=== PATIENT | male | born 1950 | race American Indian/Alaskan Native ===

== ENCOUNTER 2020-03-15 02:39 | Emergency (ER) | payer MEDICARE, BC, SELFPAY ==
--- NOTE | ~2020-03-15 | XR_ITS ---
EXAMINATION: XR chest 1V portable INDICATION: Chest pain TECHNIQUE: Portable AP chest at 0316 hours COMPARISON: None available FINDINGS: Cardiomegaly is noted. There is a mild diffuse interstitial pattern. A small left pleural e ffusion is present. There is no pneumothorax. Mild osteoarthritis is noted in the shoulders. IMPRESSION: 1. Cardiomegaly with likely mild pulmonary edema. 2. Small left pleural effusion. Reviewed, dictated and finalized at location A. [employer]
[2020-03-15 02:47] VITALS: BP 160/105; PULSE 88; RESP 19; TEMP 36.6; O2SAT 98
--- NOTE | 2020-03-15 02:49 | ECG_ITS ---
Measurements Intervals [place] Rate: 96 P: [place]: 0 QRS: 19 QRSD: 120 T: -31 QT: 339 QTc: 430 Interpretive Statements ATRIAL FIBRILLATION VENTRICULAR PREMATURE COMPLEXES INTRAVENTRICULAR CONDUCTION DELAY DELAYED PRECORDIAL R/S TRANSITION NONSPECIFIC ST & T-WAVE ABNORMALITY- INF/LAT LEADS BASELINE ARTIFACT- I, II, III, AVR, AVL, AVF, V1-V2 ABNORMAL ECG Electronically Signed On 03-15-2020 14:55:12 [employer] by Elier Jansen D.O.
[2020-03-15 03:04] LABS: Basophils Absolute Auto 0.1 K/mm3 (0.0-0.1); Basophils Percent Auto 0.6 % (0.2-1.2); Eosinophils Absolute Auto 0.1 K/mm3 (0-0.3); Eosinophils Percent Auto 1.4 % (0-4.4); Hematocrit 45.4 % (42.0-52.0); Hemoglobin 14.6 g/dL (14.0-18.0); Immature Granulocyte Absolute 0.06 K/mm3 (0.00-0.031); Immature Granulocyte Percent A 0.8 % (0-0.5); Lymphocytes Absolute Auto 1.56 K/mm3 (0.9-3.2); Lymphocytes Percent Auto 19.9 % (18.3-44.2); Mean Corpuscular HGB Conc 32.2 g/dl (32-36); Mean Corpuscular Hemoglobin 32.7 pg (26-34); Mean Corpuscular Volume 101.6 fl (80-100); Mean Platelet Volume 9.3 fl (7.4-10.4); Monocytes Absolute Auto 0.7 K/mm3 (0.1-0.6); Monocytes Percent Auto 9.5 % (2.6-8.5); Neutrophils Absolute Auto 5.3 K/mm3 (1.3-6.7); Neutrophils Percent Auto 67.8 % (45.5-73.1); Platelet Count Result 255 k/mm3 (150-375); Red Blood Count 4.47 M/mm3 (4.6-6.20); Red Cell Distribution Width 14.2 % (11.5-14.5); White Blood Count 7.8 K/mm3 (4.5-10.0)
[2020-03-15 03:23] LABS: Anion Gap 5 mmol/L (8-16); Blood Urea Nitrogen 19 mg/dL (9-20); Calcium 8.9 mg/dL (8.4-10.2); Carbon Dioxide 31 mmol/L (22-30); Chloride 107 mmol/L (98-107); Estimated CRCL calculation 74 ml/min; Estimated Glomerular Filt Rate > 60; Glucose 105 mg/dL (75-110); Potassium 3.6 mmol/L (3.4-5.0); Sodium 143 mmol/L (137-145)
[2020-03-15 03:35] LABS: Troponin I < 0.012 ng/mL (0.000-0.034)
--- NOTE | 2020-03-15 03:35 | ED.GENADULT ---
HPI - General Adult General Chief complaint: Chest Pain Stated complaint: Heart palpitations, Dizzy Time Seen by Provider: 03/15/20 02:57 History of Present Illness HPI narrative: Patient is a 69-year-old male who presents ER with heart palpitations. Symptoms began this evening. He has history of A. fib usually does not feel it bouncing around his chest. No chest pain or pressure. He did have some pinpoint pain in his upper abdomen briefly. Patient reports he is also had some intermittent dizziness associate with this this evening and also had some dizziness 2 weeks ago caused him to fall to the floor. No numbness or tingling. No runny nose/sore throat/productive cough. Symptoms made him nervous so he came in for evaluation. Dizziness seems to be worse when he looks upward and not with head rotation. Related Data Allergies Allergy/AdvReac Type Severity Reaction Status Date / Time Penicillins Allergy Intermediate Rash Verified 03/15/20 03:37 Review of Systems Review of Systems: All systems reviewed & are unremarkable except as noted in HPI and below Constitutional: Constitutional: Denies chills, Denies fever(s) and Denies weakness ENT: Denies dizziness, Denies nasal congestion and Denies sore throat Cardiovascular: Cardiovascular: Denies chest pain and Denies radiating jaw, neck or arm pain Comments: palpitations Respiratory: Respiratory: Denies cough and Denies dyspnea Gastrointestinal: Gastrointestinal: Reports abdominal pain, Denies nausea and Denies vomiting PMFSH Past Medical History Medical History (Updated 03/15/20 @ 05:05 by Rohan Vazquez MD) Atrial fibrillation PTSD (post-traumatic stress disorder) Exam Narrative: Exam Narrative: GENERAL: Well-appearing, well-nourished, and in no acute distress. HEAD: Normocephalic, atraumatic. CHEST: Clear to auscultation. No respiratory distress. HEART: Irregular regular rate and rhythm. Normal peripheral pulses. ABDOMEN: Soft, nontender, nondistended. EXTREMITIES: Normal range of motion. No edema. SKIN: Warm, dry, no rash. NEURO: Alert and oriented x3. PSYCH: Normal mood and affect. Course Course Emergency Course: Patient informed of results. Symptoms improved with meclizine. Discharge home. Vital Signs Vital signs: Vital Signs Temperature 97.8 F 03/15/20 02:47 Pulse Rate 88 03/15/20 02:47 Respiratory Rate 19 11/01/20 02:47 Blood Pressure 160/105 H 03/15/20 02:47 Pulse Oximetry 98 03/15/20 02:47 Temperature 97.8 F 03/15/20 02:47 Pulse Rate 87 03/15/20 04:13 Respiratory Rate 19 03/15/20 02:47 Blood Pressure 144/91 H 03/15/20 04:13 Pulse Oximetry 98 03/15/20 02:47 Medical Decision Making Vital Signs Vital Signs: Vital Signs Temperature 97.8 F 03/15/20 02:47 Pulse Rate 88 03/15/20 02:47 Respiratory Rate 03/15/20 02:47 Blood Pressure 160/105 H 03/15/20 02:47 Pulse Oximetry 98 03/15/20 02:47 Temperature 97.8 F 03/15/20 02:47 Pulse Rate 87 03/15/20 04:13 Respiratory Rate 19 03/15/20 02:47 Blood Pressure 144/91 H 03/15/20 04:13 Pulse Oximetry 98 03/15/20 02:47 Lab Data Result diagrams: 03/15/20 02:57 03/15/20 02:57 Labs: Lab Results 03/15/20 03/15/20 Range/Units 02:57 02:57 WBC 7.8 (4.5-10.0) K/mm3 RBC 4.47 L (4.6-6.20) M/mm3 Hgb 14.6 (14.0-18.0) g/dL Hct 45.4 (42.0-52.0) % MCV 101.6 H (80-100) fl MCH 32.7 (26-34) pg MCHC 32.2 (32-36) g/dl RDW 14.2 (11.5-14.5) % Plt Count 255 (150-375) k/mm3 MPV 9.3 (7.4-10.4) fl Immature Gran % (Auto) 0.8 H (0-0.5) % Neut % (Auto) 67.8 (45.5-73.1) % Lymph % (Auto) 19.9 (18.3-44.2) % [place] % (Auto) 9.5 H (2.6-8.5) % Eos % (Auto) 1.4 (0-4.4) % Baso % (Auto) 0.6 (0.2-1.2) % Lymph # (Auto) 1.56 (0.9-3.2) K/mm3 [place] # (Auto) 0.7 H (0.1-0.6) K/mm3 Eos # (Auto) 0.1 (0-0.3) K/mm3 Baso # (Auto) 0.1 (0.0-0.1) K/mm3 Abs Imm
[2020-03-15] MEDS: MECLIZINE HCL 25 MG TABLET PO (03:36)
[2020-03-15 04:13] VITALS: BP 137/93; BP 144/91; BP 145/85; PULSE 85; PULSE 87; PULSE 90
[2020-03-15 05:28] VITALS: BP 134/94; PULSE 76; RESP 18; O2SAT 98
== END 2020-03-15 05:29 | disposition home or self-care (01) ==
PROVIDERS: Emergency Provider Emergency Medicine; PCP Internal Medicine
DX: R00.2 Palpitations (principal); R42 Dizziness and giddiness; I48.91 Unspecified atrial fibrillation; I49.3 Ventricular premature depolarization; I45.9 Conduction disorder, unspecified; R94.31 Abnormal electrocardiogram [ECG] [EKG]
CPT/HCPCS: 36415; 71045; 80048; 84484; 85025; 93005; 99284; A9270

== ENCOUNTER 2020-04-06 10:57 | Outpatient (CLI) | payer MEDICARE, BC, SELFPAY ==
[2020-04-06 12:08] LABS: Alanine Aminotransferase 18 U/L (4-50); Alkaline Phosphatase 120 U/L (38-126); Anion Gap 6 mmol/L (8-16); Aspartate Amino Transferase 30 U/L (17-59); Bilirubin,Total 1.1 mg/dL (0.2-1.3); Blood Urea Nitrogen 15 mg/dL (9-20); Calcium 9.2 mg/dL (8.4-10.2); Carbon Dioxide 32 mmol/L (22-30); Chloride 102 mmol/L (98-107); Cholesterol 200 mg/dL (0-200); Estimated Glomerular Filt Rate > 60; Glucose 89 mg/dL (75-110); HDL Direct 50 mg/dL; Potassium 3.3 mmol/L (3.4-5.0); Sodium 140 mmol/L (137-145); Triglycerides 97 mg/dL (<150)
[2020-04-06 12:19] LABS: LDL Cholesterol Direct 135 mg/dL
[2020-04-06 12:38] LABS: Prostate Specific Antigen 1.8 ng/mL (< OR = 4.0)
== END 2020-04-06 10:58 | disposition home or self-care (01) ==
PROVIDERS: PCP Internal Medicine; Visit Provider Nurse Practitioner
DX: E78.00 Pure hypercholesterolemia, unspecified (principal); F33.1 Major depressive disorder, recurrent, moderate; Z12.5 Encounter for screening for malignant neoplasm of prostate
CPT/HCPCS: 36415; 80053; 80061; 84153; 84443; G0103

== ENCOUNTER 2020-09-14 11:04 | Outpatient (CLI) | payer MEDICARE, BC, SELFPAY ==
[2020-09-14 12:16] LABS: Alanine Aminotransferase 15 U/L (4-50); Alkaline Phosphatase 84 U/L (38-126); Anion Gap 4 mmol/L (8-16); Aspartate Amino Transferase 30 U/L (17-59); Blood Urea Nitrogen 11 mg/dL (9-20); Calcium 9.1 mg/dL (8.4-10.2); Carbon Dioxide 33 mmol/L (22-30); Chloride 105 mmol/L (98-107); Cholesterol 127 mg/dL (0-200); Estimated Glomerular Filt Rate 60; Glucose 98 mg/dL (75-110); HDL Direct 50 mg/dL; Potassium 3.4 mmol/L (3.4-5.0); Sodium 142 mmol/L (137-145); Triglycerides 76 mg/dL (<150)
[2020-09-14 12:21] LABS: LDL Cholesterol Direct 61 mg/dL
== END 2020-09-14 11:05 | disposition home or self-care (01) ==
PROVIDERS: PCP Internal Medicine; Visit Provider Nurse Practitioner
DX: F33.1 Major depressive disorder, recurrent, moderate (principal); E78.00 Pure hypercholesterolemia, unspecified
CPT/HCPCS: 36415; 80053; 80061; 84443

== ENCOUNTER 2020-12-05 10:24 | Inpatient (IN) | payer MEDICARE, BC, SELFPAY ==
[2020-12-05] VITALS (23 sets, daily range): BP systolic 121–193; BP diastolic 63–112; PULSE 83–112; RESP 18–33; TEMP 36.1–37.2; O2SAT 89–98; BMI 29.7
--- NOTE | ~2020-12-05 | XR_ITS ---
XR chest 2V DATE: 12/05/2020 10:58 INDICATION: Shortness of breath, cough TECHNIQUE: PA and lateral views COMPARISON: 11/13/2012 CT pulmonary scan FINDINGS: Cardiomegaly. Aortic calcification and mild unfolding. There are patchy infiltrates in the right mid and both lower lung zones. Currently B-lines are noted in both mid and lower lung zones, which may be due to pulmonary interstit ial edema, pneumonitis and/or fibrosis. Diffuse idiopathic skeletal hyperostosis of the thoracolumbar spine IMPRESSION: Cardiomegaly Patchy right mid and bilateral lower lung infiltrates. Differential diagnosis includes bilateral pneu monia, pulmonary edema Reviewed, dictated and finalized at location A. IMPRESSION: Cardiomegaly Patchy right mid and bilateral lower lung infiltrates. Differential diagnosis i ncludes bilateral pneumonia, pulmonary edema
--- NOTE | ~2020-12-05 | XR_ITS ---
XR chest 1V portable 12/07/2020 09:11 Indication: Pneumonia. CHF. Cough. Procedure: AP portable chest Comparison: 12/05/2020 Findings: Improving bibasilar airspace disease. Moderate cardiomegaly. Small left pleural effusion. Impression: 1: Improving bibasilar airspace disease, compatible with resolving pneumonia. 2: Small left pleural effusion. 3: Cardiomegaly. Reviewed, dictated and finalized at location A. Impression: 1: Improving bibasilar airspace disease, compatible with resolving pneumonia. 2: Small left pleural effusion. 3: Cardiomegaly.
--- NOTE | ~2020-12-05 | CT_ITS ---
EXAMINATION: CTA chest PE protocol DATE: 12/05/2020 11:47 INDICATION: Shortness of breath. History of congestive heart failure. TECHNIQUE: Computed tomography angiography (CTA) of the chest was performed with 100 mL Omnipaque-350 intravenous contrast timed to evaluate the pulmonary arteries. Coronal maximum intensity projection 3D-reconstructions were created by the technologist. Automated exposure control and iterative reconst ruction technique were employed. Exam dose: 749.84 mGy-cm total exam DLP. COMPARISON: 11/13/2012 CT pulmonary scan 12/01/2020 2 view chest FINDINGS: There is diagnostic contrast enhancement of the pulmonary arteries and no evidence of pulmo nary embolism. Cardiomegaly. Coronary artery calcifications. No pericardial effusion. There is minimal right pleural effusion. The aortic arch measures up to 3.4 cm diameter, consistent with mild thoracic aortic aneurysm. No hilar or mediastinal mass lesion or lymphadenopathy. Mild patchy right upper lobe infiltrate, patchy consolidating middle lobe and right lower lobe infilt rates and mild patchy left lower lobe infiltrate. Subacute anterior right seventh and eighth healing rib fractures Diffuse idiopathic skeletal hyperostosis of the thoracic spine. IMPRESSION: Cardiomegaly, minimal right pleural effusion and patchy right upper, middle and lower lo be and mild patchy left lower lobe infiltrates. Differential diagnosis for the bilateral infiltrates includes pneumonia, pulmonary edema. Reviewed, dictated and finalized at Location A. Reviewed, dictated and finalized at location A. IMPRESSION: Cardiomegaly, minimal right pleural effusion and patchy right uppe r, middle and lower lobe and mild patchy left lower lobe infiltrates. Differential diagnosis for the bilateral infiltrates includes pneumonia, pulmon renetta edema.
--- NOTE | 2020-12-05 10:32 | ECG_ITS ---
Measurements Intervals [place] Rate: 103 P: [place]: 0 QRS: 54 QRSD: 124 T: -40 QT: 337 QTc: 443 Interpretive Statements ATRIAL FIBRILLATION WITH RAPID VENTRICULAR RESPONSE INTRAVENTRICULAR CONDUCTION DELAY CANNOT RULE OUT SEPTAL INFARCT, AGE INDETERMINATE BORDERLINE T WAVE ABNORMALITY- INF/LAT LEADS BASELINE ARTIFACT- II, III, AVF, V1-V6 ABNORMAL ECG Electronically Signed On 12-05-2020 17:04:42 CDT by Elier Jansen D.O.
[2020-12-05 10:45] LABS: Basophils Absolute Auto 0.1 K/mm3 (0.0-0.1); Basophils Percent Auto 0.4 % (0.2-1.2); Eosinophils Percent Auto 0.3 % (0-4.4); Hematocrit 40.4 % (42.0-52.0); Immature Granulocyte Absolute 0.07 K/mm3 (0.00-0.031); Immature Granulocyte Percent A 0.6 % (0-0.5); Lymphocytes Absolute Auto 1.11 K/mm3 (0.9-3.2); Lymphocytes Percent Auto 9.4 % (18.3-44.2); Mean Corpuscular HGB Conc 32.2 g/dl (32-36); Mean Corpuscular Hemoglobin 31.8 pg (26-34); Mean Corpuscular Volume 98.8 fl (80-100); Mean Platelet Volume 10.9 fl (7.4-10.4); Monocytes Absolute Auto 1.1 K/mm3 (0.1-0.6); Monocytes Percent Auto 9.2 % (2.6-8.5); Neutrophils Absolute Auto 9.4 K/mm3 (1.3-6.7); Neutrophils Percent Auto 80.1 % (45.5-73.1); Platelet Count Result 228 k/mm3 (150-375); Red Blood Count 4.09 M/mm3 (4.6-6.20); Red Cell Distribution Width 14.5 % (11.5-14.5); White Blood Count 11.8 K/mm3 (4.5-10.0)
--- NOTE | 2020-12-05 10:51 | ED.SOB ---
HPI - SOB/Dyspnea History of Present Illness HPI Narrative: 70 yo male presents to the ED for SOB. He reports that he has been SOB since last night. This is associated with mild cough. He was recently admitted to [place] for CHF. He reports doing well until last night. No Cp, nausea, vomiting, diarrhea. Unsure about fever. He has had his COVID vaccine. Related Data Home Medications Medication Instructions Recorded Confirmed atorvastatin 80 mg tablet 80 mg PO DAILY 03/11/19 11/03/20 carvedilol 6.25 mg tablet 6.25 mg PO BID tablet 03/11/19 11/03/20 dabigatran etexilate 150 mg capsule 150 mg PO BID 03/11/19 11/03/20 lisinopril 40 mg tablet 40 mg PO BID tablet 03/11/19 11/03/20 terazosin 5 mg capsule 5 mg PO DAILY 03/11/19 11/03/20 hydrochlorothiazide 25 mg PO DAILY 12/05/20 12/05/20 Allergies Allergy/AdvReac Type Severity Reaction Status Date / Time Beta-Blockers Allergy Severe Difficulty Verified 12/01/20 13:42 (Beta-Adrenergic Bloc Breathing citalopram Allergy Severe SWEATING, Verified 12/01/20 13:42 AGITATED Penicillins Allergy Severe Swelling Verified 12/01/20 13:42 of Lip/Tongue/Throat Review of Systems Review of Systems: All systems reviewed & are unremarkable except as noted in HPI and below ENT: Denies sore throat Cardiovascular: Cardiovascular: Denies chest pain Respiratory: Respiratory: Reports cough and Reports dyspnea Gastrointestinal: Gastrointestinal: Denies abdominal pain and Denies vomiting Genitourinary: Genitourinary: Reports no additional male genitourinary complaints Neurologic: Reports system reviewed and no additional complaints, except as documented [facility] Past Medical History Medical History Abnormality of heart beat Arthritis Diabetes Gastroesophageal reflux disease High blood pressure High cholesterol IT band syndrome Other abnormalities of heart beat Right shoulder pain Screening for colon cancer Skin lesions Vision abnormalities Weight loss Xerosis of skin Family History Family History Mother Family history of malignant neoplasm Father Acute myocardial infarction Other Diabetes mellitus Family history of arthritis Family history of premature coronary heart disease Hypertension Social History Social History Smoking status: Former smoker Tobacco type: cigarettes Smoking end date: 10/13/10 Alcohol intake: never Substance use: never Gender identity (if verbalized by the patient): Male Exam Const: General: no acute distress and alert Orientation/consciousness: patient oriented x3 HENMT: Head: normal to inspection Chest: Chest palpation & inspection: normal inspection of the chest Resp: Effort & Inspection: tachypneic Auscultation: diminished lung sounds Cardio: Rate: regular rate Rhythm: abnormal rhythm irregularly irregular GI: GI Palp: Yes Soft to palpation and No Tenderness to palpation present (GI) Skin: General skin exam: normal color Neuro: General: patient oriented x3, moves all extremities and no focal motor deficits Speech: normal speech Extrem: General: normal to inspection and no edema Course Vital Signs Vital signs: Vital Signs Temperature 36.8 C 12/05/20 10:30 Pulse Rate 93 12/05/20 10:30 Respiratory Rate 24 H 12/05/20 10:30 Blood Pressure 176/107 H 12/05/20 10:30 Pulse Oximetry 96 12/05/20 10:30 Temperature 37.2 C 12/05/20 12:03 Pulse Rate 102 H 12/05/20 13:03 Respiratory Rate 24 H 12/05/20 13:03 Blood Pressure 170/112 H 12/05/20 13:03 Pulse Oximetry 98 12/05/20 13:03 MDM - SOB/Dyspnea MDM Narrative Medical decision making narrative: CT negative for PE. Concerning for pneumonia +/- CHF. Differential Diagnosis Differential diagnosis: Likely congestive heart failure, community acquired pneu
[2020-12-05 10:56] LABS: INR 1.4; Prothrombin Time 17.2 Seconds (11.1-14.7)
[2020-12-05 10:57] LABS: Partial Thromboplastin Time 55.6 SECONDS (22.3-36.8)
[2020-12-05 10:58] LABS: Anion Gap 9 mmol/L (8-16); Blood Urea Nitrogen 15 mg/dL (9-20); Calcium 9.1 mg/dL (8.4-10.2); Carbon Dioxide 28 mmol/L (22-30); Chloride 102 mmol/L (98-107); Estimated CRCL calculation 65 ml/min; Estimated Glomerular Filt Rate > 60; Glucose 101 mg/dL (65-110); Potassium 3.7 mmol/L (3.4-5.0); Sodium 139 mmol/L (137-145)
[2020-12-05 11:11] LABS: NT Pro B Type Natriuretic Pept 4740 pg/mL (5-100)
--- NOTE | 2020-12-05 12:11 | PC.NURSE ---
Patient placed on oxygen at 2 liters by nasal canula and helped to reposition.
[2020-12-05] MEDS: FUROSEMIDE INJ 40 MG/4 ML VIAL IV PUSH ×2 (13:05→22:54)
[2020-12-05] MEDS: NITROGLYCERIN OINTMENT 1 INCH DOSE 0.5 INCH TRANSDERM (13:05)
--- NOTE | 2020-12-05 16:05 | ADMGEN ---
This patient, Popeye Hernandez, was admitted to [facility] Surg Room 303-01 at 1620. Report from Arya. Patient/family oriented to hospital policies and general routines including ID bracelet, bed and alarms, visiting hours, pain management, procedures, bathroom and other care routines, personal items, smoking policy, room service/diet, and visiting hours. Information on how to activate the Rapid Response Team has been discussed. Patient/Family are encouraged to report perceived risks to care and to ask questions if they do not understand what they are told or what they should do.
[2020-12-05 16:43] LABS: Procalcitonin 0.1 ng/mL
[2020-12-05 17:02] LABS: Troponin I 0.027 ng/mL (0.000-0.034)
[2020-12-05 17:31] LABS: Alanine Aminotransferase 22 U/L (4-50); Albumin Level 4.3 g/dL (3.5-5.1); Alkaline Phosphatase 92 U/L (38-126); Aspartate Amino Transferase 37 U/L (17-59); Lactate Dehydrogenase 682 U/L (313-618); Magnesium 1.8 mg/dL (1.6-2.3)
[2020-12-05 18:28] LABS: Troponin I 0.024 ng/mL (0.000-0.034)
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
[2020-12-05] MEDS: ALBUTEROL SULFATE NEB 2.5 MG/0.5 ML INH 5 MG INHALATION (22:46)
[2020-12-05] MEDS: IPRATROPIUM BR 0.02% INH SOLN 0.5 MG/2.5 ML VIAL INHALATION (22:47)
[2020-12-06] VITALS (18 sets, daily range): BP systolic 119–153; BP diastolic 80–105; PULSE 70–118; RESP 12–18; TEMP 36–36.9; O2SAT 94–98
[2020-12-06] MEDS: IPRATROPIUM BR 0.02% INH SOLN 0.5 MG/2.5 ML VIAL INHALATION ×4 (04:03→21:35)
[2020-12-06] MEDS: ALBUTEROL SULFATE NEB 2.5 MG/0.5 ML INH 5 MG INHALATION ×3 (04:03→13:50)
[2020-12-06] MEDS: valACYclovir HCL 500 MG TABLET 1000 MG PO ×3 (06:12→21:11)
[2020-12-06 07:08] LABS: Anion Gap 8 mmol/L (8-16); Blood Urea Nitrogen 17 mg/dL (9-20); Calcium 9.2 mg/dL (8.4-10.2); Carbon Dioxide 32 mmol/L (22-30); Chloride 99 mmol/L (98-107); Estimated CRCL calculation 59 ml/min; Estimated Glomerular Filt Rate > 60; Glucose 129 mg/dL (65-110); Magnesium 1.8 mg/dL (1.6-2.3); Sodium 139 mmol/L (137-145)
[2020-12-06 08:37] LABS: Glucose Point of Care 123 mg/dl (65-105)
[2020-12-06] MEDS: TERAZOSIN HCL 5 MG CAPSULE PO (09:02)
[2020-12-06] MEDS: buPROPion HCL SR (12 HR) 150 MG TAB PO (09:02)
[2020-12-06] MEDS: DABIGATRAN ETEXILATE 150 MG CAPSULE PO ×2 (09:02→17:07)
[2020-12-06] MEDS: ATORVASTATIN 40 MG TABLET 80 MG PO (09:03)
[2020-12-06] MEDS: FUROSEMIDE INJ 40 MG/4 ML VIAL IV PUSH ×2 (09:03→21:11)
[2020-12-06] MEDS: carvediloL 6.25 MG TABLET PO ×2 (09:03→18:01)
[2020-12-06] MEDS: hydroCHLOROthiazide 25 MG TABLET PO (09:03)
[2020-12-06] MEDS: lisinopriL 20 MG TABLET 40 MG PO ×2 (09:03→17:07)
[2020-12-06] MEDS: POTASSIUM CHLORIDE 20 MEQ TABLET 40 MEQ PO (10:06)
[2020-12-06 17:05] LABS: Glucose Point of Care 99 mg/dl (65-105)
[2020-12-06] MEDS: POTASSIUM CHLORIDE 20 MEQ TABLET PO (17:08)
--- NOTE | 2020-12-06 17:18 | PM.IMPN ---
Progress Note: A&P Assessment and Plan (1) Person under investigation for COVID-19: Code(s): Z20.822 - Contact with and (suspected) exposure to COVID-19 Status: Acute Assessment and Plan: Await PCR - patient has bilateral pneumonia but has been fully vaccinated with Moderna - he is not requiring oxygen - will continue Atrovent, Xopenex, azithromycin, and ceftriaxone - will consider Decadron depending on the COVID results (2) Congestive heart failure: Code(s): I50.9 - Heart failure, unspecified Status: Acute Assessment and Plan: Patient was recently hospitalized for CHF and had an echocardiogram done but does not know any results. We are awaiting records - imaging does possibly suggest edema, continue Lasix 40 mg b.i.d. - consider cardiology consult if patient does not improve - continue carvedilol, Lasix, atorvastatin, lisinopril, and Pradaxa since he has AFib (3) Atrial fibrillation: Qualifiers: Atrial fibrillation type: longstanding persistent Qualified Code(s): I48.11 - Longstanding persistent atrial fibrillation Code(s): I48.91 - Unspecified atrial fibrillation Status: Acute Assessment and Plan: patient ranges from 90-150 - currently without chest pain or palpitations - will increase carvedilol dose - monitor heart rate - likely elevated due to acute illness -will check TSH in the AM -Consider cardiology consult in AM - patient has an allergy to beta-blockers but tolerates carvedilol. This makes me slightly hesitant to use Lopressor IV and I will need further clarification of this (4) Chronic anticoagulation: Code(s): Z79.01 - tank calibrator (current) use of anticoagulants Status: Acute Assessment and Plan: due to AFib - continue with Pradaxa (5) Hypertension: Code(s): I10 - Essential (primary) hypertension Status: Acute Assessment and Plan: last blood pressure 138/87 - continue carvedilol, Lasix and lisinopril (6) Mixed hyperlipidemia: Code(s): E78.2 - Mixed hyperlipidemia Status: Acute Assessment and Plan: continue atorvastatin (7) Diet-controlled diabetes mellitus: Code(s): E11.9 - Type 2 diabetes mellitus without complications Status: Acute Assessment and Plan: Last glucose 99 -Diet controlled -Monitor Time Spent With Patient Time with patient: 25 - 35 minutes Subjective Date/time seen: 12/06/20 17:18 Interval history: Pt is a 70-year-old male here for pneumonia versus CHF. Patient was seen today and states he feels about the same since admission. He is no longer on the oxygen and he feels like he coughs a little more without the oxygen but overall feels okay. He is been to and from the bathroom and does not have much shortness of breath. He continues to cough but has a dry cough. He denies nausea, vomiting, fevers, chills, chest pain, palpitations, abdominal pain, leg swelling for headaches. He sees Dr. Pabon and was just hospitalized at [place] for heart failure but does not know any specifics. Review of Systems Review of Systems: All systems reviewed & are unremarkable except as noted in HPI and below Exam Narrative: Exam Narrative: General: Well developed well nourished patient in NAD HEENT: normocephalic Neck: supple Neuro: Alert and oriented x4 CV: irregularly irregular with a rate of 98 on exam. Telemetry shows atrial fibrillation with variable rate up to 140 but now at 98 Resp: crackles at both the bases, no conversational dyspnea or oxygen requirements. Abd: Soft, non distended. No pain to palpation. Positive bowel sounds Extremities: No swelling, erythema, or pain to palpation. Objective Data Vital Signs Vital Signs: Vital Signs - 24 hr 12/05/20 20:00 12/05/20 22:00 12/05/20 22:47 Temperature 97.0 F L Pulse Rate 101 H 96 96 Respiratory Rate 20 Blood Pressure 151/101 H Pu
--- NOTE | 2020-12-06 17:29 | ECG_ITS ---
Measurements Intervals [place] Rate: 128 P: [place]: 0 QRS: 42 QRSD: 125 T: -36 QT: 329 QTc: 481 Interpretive Statements ATRIAL FIBRILLATION WITH RAPID VENTRICULAR RESPONSE FREQUENT VENTRICULAR PREMATURE COMPLEXES INTRAVENTRICULAR CONDUCTION DELAY BORDERLINE R WAVE PROGRESSION, ANTERIOR LEADS NONSPECIFIC ST & T-WAVE ABNORMALITY- INF/LAT LEADS BASELINE WANDER- V3 ABNORMAL ECG Electronically Signed On 12-07-2020 8:05:36 CDT by Elier Jansen D.O.
[2020-12-06] MEDS: carvediloL 3.125 MG TABLET PO (18:02)
[2020-12-06] MEDS: ALPRAZolam (*CRX) 0.5 MG TABLET PO (21:11)
[2020-12-07] VITALS (20 sets, daily range): BP systolic 103–144; BP diastolic 59–106; PULSE 71–143; RESP 12–18; TEMP 36.2–36.6; O2SAT 93–100; BMI 28.6
[2020-12-07] MEDS: IPRATROPIUM BR 0.02% INH SOLN 0.5 MG/2.5 ML VIAL INHALATION ×4 (02:18→19:58)
[2020-12-07 04:10] LABS: Glucose Point of Care 88 mg/dl (65-105)
[2020-12-07] MEDS: valACYclovir HCL 500 MG TABLET 1000 MG PO ×3 (06:10→21:51)
[2020-12-07 06:51] LABS: Hematocrit 40.7 % (42.0-52.0); Hemoglobin 13.2 g/dL (14.0-18.0); Mean Corpuscular HGB Conc 32.4 g/dl (32-36); Mean Corpuscular Hemoglobin 30.8 pg (26-34); Mean Corpuscular Volume 94.9 fl (80-100); Mean Platelet Volume 11.1 fl (7.4-10.4); Platelet Count Result 266 k/mm3 (150-375); Red Blood Count 4.29 M/mm3 (4.6-6.20); Red Cell Distribution Width 14.4 % (11.5-14.5); White Blood Count 9.5 K/mm3 (4.5-10.0)
[2020-12-07 08:06] LABS: Glucose Point of Care 88 mg/dl (65-105)
[2020-12-07] MEDS: TERAZOSIN HCL 5 MG CAPSULE PO (08:20)
[2020-12-07] MEDS: buPROPion HCL SR (12 HR) 150 MG TAB PO (08:20)
[2020-12-07] MEDS: ATORVASTATIN 40 MG TABLET 80 MG PO (08:20)
[2020-12-07] MEDS: lisinopriL 20 MG TABLET 40 MG PO ×2 (08:21→16:48)
[2020-12-07] MEDS: carvediloL 3.125 MG TABLET PO (08:21)
[2020-12-07] MEDS: DABIGATRAN ETEXILATE 150 MG CAPSULE PO ×2 (08:22→16:48)
[2020-12-07] MEDS: FUROSEMIDE INJ 40 MG/4 ML VIAL IV PUSH (08:22)
[2020-12-07] MEDS: carvediloL 6.25 MG TABLET PO (08:22)
[2020-12-07] MEDS: hydroCHLOROthiazide 25 MG TABLET PO (08:22)
[2020-12-07 08:32] LABS: Anion Gap 6 mmol/L (8-16); Blood Urea Nitrogen 27 mg/dL (9-20); Calcium 8.8 mg/dL (8.4-10.2); Carbon Dioxide 31 mmol/L (22-30); Chloride 103 mmol/L (98-107); Estimated CRCL calculation 54 ml/min; Estimated Glomerular Filt Rate > 60; Glucose 80 mg/dL (65-110); Magnesium 1.9 mg/dL (1.6-2.3); Sodium 140 mmol/L (137-145)
[2020-12-07] MEDS: POTASSIUM CHLORIDE 20 MEQ TABLET 40 MEQ PO (10:27)
[2020-12-07 11:59] LABS: Glucose Point of Care 118 mg/dl (65-105)
--- NOTE | 2020-12-07 12:08 | PM.CNCAR ---
Assessment and Plan Additional Plan this is a 70-year-old man with: Established diagnosis of a nonischemic cardiomyopathy and chronic atrial fibrillation. He has been developing some decompensated congestive heart failure recently. I would recommend trying to transition him from carvedilol to metoprolol as this will likely provide better heart rate control. I am going to shifting to oral furosemide at this time since he appears to be euvolemic on physical exam. He probably should be discharged on furosemide rather than hydrochlorothiazide regimen this time. We will follow him with you during this hospital stay I would expect in [place] can be discharged within the next 24-48 hours if he continues to improve and heart rate control is achieved. Systemic anticoagulation with dabigatran state of course also be continued. Ross Pabon MD [facility] History of Present Illness History of Present Illness Consult date/time: 12/07/20 12:08 Consult reason: atrial fibrillation and congestive heart failure Reason For Visit: Pneumonia/CHF Narrative: This is a 70-year-old man I am seeing at the request of the hospitalist because of shortness of breath, congestive heart failure/ AFib with RVR. Patient is known to me with a long-standing diagnosis of a nonischemic cardiomyopathy and chronic atrial fibrillation. The diagnosis of this was originally made in 2012 when he presented with congestive heart failure and he has been doing well with rate control and systemic anticoagulation since that time. An angiogram done at the time of his diagnosis showed no evidence of coronary artery disease. I last saw this man follow-up this year in May about 7 months ago at which time he was doing very well. He was reporting being under a lot of stress at home because he is taking care of his who became severely depressed and very this functionally depressed since the of a grandchild couple of years ago. The patient states that he has noticed a couple of episodes with significant dyspnea recently. About 2 weeks ago he was hospitalized at [facility] with shortness of breath felt to have evidence of some CHF. It looks like he was given some furosemide overnight felt better and was discharged on his standard medical regimen. An echocardiogram done at during that hospitalization showed some LV dysfunction with an ejection fraction of 30% and no significant valvular disease. His regimen has consisted of carvedilol 6.25 mg b.i.d., dabigatran, lisinopril 40 mg daily and hydrochlorothiazide. He has received some intravenous furosemide 40 mg q.12 hours since admission Monday of this past weekend he has been urinating frequently and has not been short of breath any longer as of about last evening. His chest x-ray which looked moderately congested on presentation did look improved this morning as well. Review of Systems Constitutional: Constitutional: Reports no additional constitutional complaints Eyes: Eyes: Reports no additional eye complaints ENT: Reports system reviewed and no additional complaints, except as documented Cardiovascular: Cardiovascular: Reports as per HPI Respiratory: Respiratory: Reports dyspnea Gastrointestinal: Gastrointestinal: Reports no additional gastrointestinal complaints Musculoskeletal: Musculoskeletal: Reports no additional musculoskeletal complaints Integumentary/Breasts: Skin/Breast: Reports system reviewed and no additional complaints, except as docu Neurologic: Reports system reviewed and no additional complaints, except as documented Psychiatric: Comments: Significant psychosocial stress at home as detailed above Endocrine: Endocrine: Reports no additional endocrine complaints Hematologic/Lymphatic: Hematologic/Lymphatic: Reports no additional hematologic/lymphatic complaints Allergic/Immunologic: Allergic/Immunologic: Reports no additional allergic/immunologic complaints PMFSH Past Medical History Medi
[2020-12-07] MEDS: METOPROLOL SUCCINATE EXT REL 50 MG TABCR PO (12:48)
--- NOTE | 2020-12-07 16:13 | PM.IMPN ---
Progress Note: A&P Assessment and Plan (1) Person under investigation for COVID-19: Code(s): Z20.822 - Contact with and (suspected) exposure to COVID-19 Status: Acute Assessment and Plan: Await PCR - patient has bilateral pneumonia but has been fully vaccinated with Moderna - he is not requiring oxygen - will continue Atrovent, Xopenex, azithromycin, and ceftriaxone - will consider Decadron depending on the COVID results (2) Congestive heart failure: Code(s): I50.9 - Heart failure, unspecified Status: Acute Assessment and Plan: Patient was recently hospitalized for CHF and had an echocardiogram done with an EF of 30% - imaging does possibly suggest edema,was on lasix 40mg BID IV. Cardiology has changed it to 20mg daily orally starting tomorrow - He is a patient of Dr. Garcia and he has been consulted - continue Lasix, atorvastatin, lisinopril, and Pradaxa since he has AFib. Coreg changed to metoprolol - consider stopping lisinopril and starting losartan if patient continues to have a cough and COVID-19 PCR is negative (3) Atrial fibrillation: Qualifiers: Atrial fibrillation type: longstanding persistent Qualified Code(s): I48.11 - Longstanding persistent atrial fibrillation Code(s): I48.91 - Unspecified atrial fibrillation Status: Acute Assessment and Plan: patient ranges from 90-150 - currently without chest pain or palpitations - carvedilol changed to metoprolol by Cardiology - monitor heart rate - likely elevated due to acute illness - TSH normal (4) Chronic anticoagulation: Code(s): 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 Status: Acute Assessment and Plan: due to AFib - continue with Pradaxa (5) Hypertension: Code(s): I10 - Essential (primary) hypertension Status: Acute Assessment and Plan: last blood pressure 103/59 - continue metoprolol, Lasix and lisinopril (6) Mixed hyperlipidemia: Code(s): E78.2 - Mixed hyperlipidemia Status: Acute Assessment and Plan: continue atorvastatin (7) Diet-controlled diabetes mellitus: Code(s): E11.9 - Type 2 diabetes mellitus without complications Status: Acute Assessment and Plan: Last glucose 118 -Diet controlled -Monitor Subjective Date/time seen: 12/07/20 16:13 Interval history: Pt is a 70-year-old male here for pneumonia versus CHF. Patient was seen today and is feeling better. His SOB has improved. He continues to have a dry cough. He denies nausea, vomiting, fevers, chills, chest pain, palpitations, abdominal pain, leg swelling for headaches. He sees Dr. Pabon and was just hospitalized at [facility] for heart failure but does not know any specifics. Exam Narrative: Exam Narrative: General: Well developed well nourished patient in NAD HEENT: normocephalic Neck: supple Neuro: Alert and oriented x4 CV: irregularly irregular with a rate of 128 on exam. Telemetry shows atrial fibrillation with variable rate up to 140 but now at 128 Resp: light crackles at both the bases, no conversational dyspnea or oxygen requirements. Abd: Soft, non distended. No pain to palpation. Positive bowel sounds Extremities: No swelling, erythema, or pain to palpation. Objective Data Vital Signs Vital Signs: Vital Signs - 24 hr 12/06/20 16:16 12/06/20 20:00 12/06/20 21:36 Temperature 98.0 F 96.8 F L Pulse Rate 107 H 91 70 Respiratory Rate 12 18 18 Blood Pressure 138/87 135/83 Pulse Oximetry 95 95 12/06/20 21:44 12/07/20 00:00 12/07/20 02:18 Temperature 97.3 F L Pulse Rate 71 93 88 Respiratory Rate 18 18 18 Blood Pressure 130/85 Pulse Oximetry 94 97 12/07/20 03:38 12/07/20 04:00 12/07/20 08:00 Temperature 97.1 F L Pulse Rate 84 119 H 143 H Respiratory Rate 18 18 Blood Pressure 139/94 H Pulse Oximetry 93 12/07/20 08:11 12/07/20 08
[2020-12-07 16:31] LABS: Glucose Point of Care 106 mg/dl (65-105)
[2020-12-07] MEDS: POTASSIUM CHLORIDE 20 MEQ TABLET PO (17:00)
[2020-12-07 22:02] LABS: Glucose Point of Care 83 mg/dl (65-105)
[2020-12-08] VITALS (13 sets, daily range): BP systolic 107–151; BP diastolic 72–107; PULSE 67–125; RESP 16–20; TEMP 36.5–36.9; O2SAT 95–98
[2020-12-08] MEDS: IPRATROPIUM BR 0.02% INH SOLN 0.5 MG/2.5 ML VIAL INHALATION ×3 (02:14→21:38)
[2020-12-08] MEDS: valACYclovir HCL 500 MG TABLET 1000 MG PO ×3 (05:51→21:00)
[2020-12-08 06:54] LABS: Anion Gap 7 mmol/L (8-16); Blood Urea Nitrogen 30 mg/dL (9-20); Calcium 9.1 mg/dL (8.4-10.2); Carbon Dioxide 30 mmol/L (22-30); Chloride 103 mmol/L (98-107); Estimated CRCL calculation 54 ml/min; Estimated Glomerular Filt Rate > 60; Glucose 88 mg/dL (65-110); Potassium 3.5 mmol/L (3.4-5.0); Sodium 140 mmol/L (137-145)
[2020-12-08 08:39] LABS: Glucose Point of Care 86 mg/dl (65-105)
[2020-12-08] MEDS: lisinopriL 20 MG TABLET 40 MG PO ×2 (09:00→16:44)
[2020-12-08] MEDS: TERAZOSIN HCL 5 MG CAPSULE PO (09:00)
[2020-12-08] MEDS: buPROPion HCL SR (12 HR) 150 MG TAB PO (09:00)
[2020-12-08] MEDS: ATORVASTATIN 40 MG TABLET 80 MG PO (09:00)
[2020-12-08] MEDS: DABIGATRAN ETEXILATE 150 MG CAPSULE PO ×2 (09:00→16:44)
[2020-12-08] MEDS: METOPROLOL SUCCINATE EXT REL 50 MG TABCR PO (09:00)
[2020-12-08] MEDS: FUROSEMIDE 20 MG TABLET PO (09:00)
--- NOTE | 2020-12-08 11:05 | P.CDI_ITS ---
CDI Query Clarification Request -CHF has been documented -Nonischemic cardiomyopathy and Patient was recently hospitalized for CHF and had an echocardiogram done with an EF of 30% documented -Lasix 40mg IV q 12 hrs ordered and changed to 20mg PO daily starting 12/08. Please further specify type and acuity of CHF: * Systolic *acute * Diastolic *chronic * Both systolic and diastolic *acute on chronic * Unable to determine *unable to determine
[2020-12-08 11:46] LABS: Glucose Point of Care 105 mg/dl (65-105)
--- NOTE | 2020-12-08 15:28 | PM.IMPN ---
Progress Note: A&P Assessment and Plan (1) Person under investigation for COVID-19: Code(s): Z20.822 - Contact with and (suspected) exposure to COVID-19 Status: Acute Assessment and Plan: Await PCR - patient has bilateral pneumonia but has been fully vaccinated with Moderna - he is not requiring oxygen - will continue Atrovent, Xopenex, azithromycin, and ceftriaxone - will consider Decadron depending on the COVID results (2) Congestive heart failure: Code(s): I50.9 - Heart failure, unspecified Status: Acute Assessment and Plan: Acute on Chronic systolic CHF -Patient was recently hospitalized for CHF and had an echocardiogram done with an EF of 30% - imaging does possibly suggest edema,was on lasix 40mg BID IV. Cardiology has changed it to 20mg daily orally - He is a patient of Dr. Garcia and he has been consulted - continue Lasix, atorvastatin, lisinopril, and Pradaxa since he has AFib. Metoprolol to be increased per cardiology - consider stopping lisinopril and starting losartan if patient continues to have a cough and COVID-19 PCR is negative (3) Atrial fibrillation: Qualifiers: Atrial fibrillation type: longstanding persistent Qualified Code(s): I48.11 - Longstanding persistent atrial fibrillation Code(s): I48.91 - Unspecified atrial fibrillation Status: Acute Assessment and Plan: patient ranges from 90-150 - currently without chest pain or palpitations - carvedilol changed to metoprolol (now increasing dose) by Cardiology - monitor heart rate - likely elevated due to acute illness - TSH normal (4) Chronic anticoagulation: Code(s): Z79.01 - longterm (current) use of anticoagulants Status: Acute Assessment and Plan: due to AFib - continue with Pradaxa (5) Hypertension: Code(s): I10 - Essential (primary) hypertension Status: Acute Assessment and Plan: last blood pressure 138/99 - continue metoprolol, Lasix and lisinopril (6) Mixed hyperlipidemia: Code(s): E78.2 - Mixed hyperlipidemia Status: Acute Assessment and Plan: continue atorvastatin (7) Diet-controlled diabetes mellitus: Code(s): E11.9 - Type 2 diabetes mellitus without complications Status: Acute Assessment and Plan: Last glucose 105 -Diet controlled -Monitor Subjective Date/time seen: 12/08/20 15:28 Interval history: Pt is a 70-year-old male here for pneumonia versus CHF. Patient was seen today and is feeling better and feels back to normal. His SOB has improved. He continues to have a dry cough but that is improving. He feels no palpitations. He thinks his HR was high earlier due to anxiety about going home. He denies nausea, vomiting, fevers, chills, chest pain, palpitations, abdominal pain, leg swelling for headaches. = Exam Narrative: Exam Narrative: General: Well developed well nourished patient in NAD HEENT: normocephalic Neck: supple Neuro: Alert and oriented x4 CV: irregularly irregular with a rate of 98 on exam Telemetry shows atrial fibrillation with variable rate up to 140 but now at 98 Resp: light crackles at both the bases, no conversational dyspnea or oxygen requirements. Abd: Soft, non distended. No pain to palpation. Positive bowel sounds Extremities: No swelling, erythema, or pain to palpation. Objective Data Vital Signs Vital Signs: Vital Signs - 24 hr 12/07/20 16:00 12/07/20 16:07 12/07/20 16:10 Temperature 97.9 F Pulse Rate 113 H 104 H 76 Respiratory Rate 18 12 Blood Pressure 103/59 L Pulse Oximetry 95 12/07/20 16:17 12/07/20 19:55 12/07/20 20:00 Temperature 97.8 F Pulse Rate 99 73 98 Respiratory Rate 18 16 16 Blood Pressure 144/106 H Pulse Oximetry 93 93 12/07/20 20:11 12/08/20 00:00 12/08/20 02:17 Temperature 98.5 F Pulse Rate 98 86 94 Respiratory Rate 16 18 16 Blood Pressure 123/89
[2020-12-08 15:38] LABS: SARS-CoV-2 RNA PCR Negative
--- NOTE | 2020-12-08 16:05 | PCRCNOTE ---
Window of time for administration has passed. See next scheduled administration.
--- NOTE | 2020-12-08 16:18 | PM.PNCARD ---
Progress Note: A&P Assessment and Plan (1) NICM (nonischemic cardiomyopathy): Code(s): I42.8 - Other cardiomyopathies Status: Acute Assessment and Plan: Acute on chronic heart failure exacerbation. Was placed on IV furosemide now switched to oral. Appears euvolemic on exam. Continue furosemide 20mg PO daily. (2) Atrial fibrillation: Qualifiers: Atrial fibrillation type: longstanding persistent Qualified Code(s): I48.11 - Longstanding persistent atrial fibrillation Code(s): I48.91 - Unspecified atrial fibrillation Status: Acute Assessment and Plan: History of Afib. He has been transitioned from carvedilol to metoprolol succinate for rate control. Had some tachycardia on telemetry throughout the day - increase metoprolol to 75mg PO daily. Anticoagulated with Dabigatran Subjective Date/time seen: 12/08/20 16:18 Interval history: Date of service 12/08/2020: Patient is feeling much better today. He denies any shortness of breath, denies palpitations. Review of Systems Constitutional: Constitutional: Reports no additional constitutional complaints Eyes: Eyes: Reports no additional eye complaints ENT: Reports system reviewed and no additional complaints, except as documented Cardiovascular: Cardiovascular: Reports as per HPI and Reports dyspnea Respiratory: Respiratory: Reports dyspnea Gastrointestinal: Gastrointestinal: Reports no additional gastrointestinal complaints Musculoskeletal: Musculoskeletal: Reports no additional musculoskeletal complaints Integumentary/Breasts: Skin/Breast: Reports system reviewed and no additional complaints, except as docu Neurologic: Reports system reviewed and no additional complaints, except as documented Endocrine: Endocrine: Reports no additional endocrine complaints Hematologic/Lymphatic: Hematologic/Lymphatic: Reports no additional hematologic/lymphatic complaints Allergic/Immunologic: Allergic/Immunologic: Reports no additional allergic/immunologic complaints Exam Const: General: comfortable and no acute distress HENMT: Mouth: Yes moist mucous membranes Eyes: Sclera: sclerae normal Pupils: Equal, round and reactive pupils present Neck: Neck: supple and no JVD Thyroid: thyroid normal Resp: Effort & Inspection: normal respiratory effort Auscultation: clear to auscultation bilaterally Cardio: Rhythm: abnormal rhythm irregularly irregular Other: PMI is laterally displaced GI: Auscultation: normal bowel sounds Skin: General skin exam: normal color Neuro: Cranial nerves: Yes Equal, round and reactive pupils present Cognition (Neuro): normal cognition Extrem: Other: no pitting edema currently Objective Data Vital Signs Vital Signs: Vital Signs - 24 hr 12/07/20 19:55 12/07/20 20:00 12/07/20 20:11 Temperature 36.6 C Pulse Rate 73 98 98 Respiratory Rate 16 16 16 Blood Pressure 144/106 H Pulse Oximetry 93 93 93 12/08/20 00:00 12/08/20 02:17 12/08/20 02:25 Temperature 36.9 C Pulse Rate 86 94 81 Respiratory Rate 18 16 16 Blood Pressure 123/89 Pulse Oximetry 95 12/08/20 03:29 12/08/20 04:00 12/08/20 07:45 Temperature 36.8 C Pulse Rate 94 106 H 101 H Respiratory Rate 18 20 Blood Pressure 151/107 H Pulse Oximetry 98 97 12/08/20 08:00 12/08/20 09:00 12/08/20 12:00 Temperature 36.6 C 36.8 C Pulse Rate 125 H 120 H 96 Respiratory Rate 18 18 Blood Pressure 141/93 H 138/99 H Pulse Oximetry 96 96 Intake/Output Intake/Output: Intake & Output 12/05/20 12/06/20 12/07/20 12/08/20 23:59 23:59 23:59 23:59 Intake Total 540 1920 2370 650 Output Total 1100 Balance -560 1920 2370 650 Meds/Results Medications: Active Medications Generic Name Dose Route Start Last Admin Trade Name Freq PRN Reason Stop Dose Admin Alprazolam 0.5 mg 12/06/20 00:10 12/06/20 21:11 Alprazolam (*Crx) 0.5 Mg Tablet PO 0.5 mg TID PRN Administration anxiety Atorv
[2020-12-08 17:08] LABS: Glucose Point of Care 97 mg/dl (65-105)
[2020-12-08] MEDS: ALPRAZolam (*CRX) 0.5 MG TABLET PO (21:00)
[2020-12-09] VITALS (8 sets, daily range): BP systolic 133–149; BP diastolic 77–108; PULSE 73–110; RESP 18–22; TEMP 36.3–36.4; O2SAT 95–98
[2020-12-09] MEDS: IPRATROPIUM BR 0.02% INH SOLN 0.5 MG/2.5 ML VIAL INHALATION ×2 (01:57→09:04)
[2020-12-09] MEDS: valACYclovir HCL 500 MG TABLET 1000 MG PO (05:57)
[2020-12-09 06:38] LABS: Anion Gap 8 mmol/L (8-16); Blood Urea Nitrogen 24 mg/dL (9-20); Calcium 8.9 mg/dL (8.4-10.2); Carbon Dioxide 29 mmol/L (22-30); Chloride 103 mmol/L (98-107); Estimated CRCL calculation 59 ml/min; Estimated Glomerular Filt Rate > 60; Glucose 81 mg/dL (65-110); Magnesium 2.1 mg/dL (1.6-2.3); Potassium 3.4 mmol/L (3.4-5.0); Sodium 140 mmol/L (137-145)
[2020-12-09 07:40] LABS: Glucose Point of Care 88 mg/dl (65-105)
[2020-12-09] MEDS: FUROSEMIDE 20 MG TABLET PO (08:37)
[2020-12-09] MEDS: ATORVASTATIN 40 MG TABLET 80 MG PO (08:37)
[2020-12-09] MEDS: buPROPion HCL SR (12 HR) 150 MG TAB PO (08:37)
[2020-12-09] MEDS: lisinopriL 20 MG TABLET 40 MG PO (08:37)
[2020-12-09] MEDS: POTASSIUM CHLORIDE 20 MEQ TABLET PO (08:37)
[2020-12-09] MEDS: DABIGATRAN ETEXILATE 150 MG CAPSULE PO (08:37)
[2020-12-09] MEDS: TERAZOSIN HCL 5 MG CAPSULE PO (08:38)
[2020-12-09] MEDS: METOPROLOL SUCCINATE EXT REL 25 MG TABCR 75 MG PO (08:38)
--- NOTE | 2020-12-09 10:58 | PM.DS ---
DS: Admitting Diagnosis Admitting Diagnosis CHF and PNA DS: Discharge Diagnosis Discharge Diagnosis (1) Congestive heart failure: Code(s): I50.9 - Heart failure, unspecified Status: Acute Assessment and Plan: Acute on Chronic systolic CHF -Patient was recently hospitalized for CHF and had an echocardiogram done with an EF of 30% - imaging does possibly suggest edema,was on lasix 40mg BID IV while hospitalized but was transitioned to 20mg daily - Cardiology was consulted during his stay and made medication changes as below and will follow him outpt (2) Atrial fibrillation: Qualifiers: Atrial fibrillation type: longstanding persistent Qualified Code(s): I48.11 - Longstanding persistent atrial fibrillation Code(s): I48.91 - Unspecified atrial fibrillation Status: Acute Assessment and Plan: patient ranges from 90-150 - currently without chest pain or palpitations - carvedilol changed to metoprolol by Cardiology - monitor heart rate - likely elevated due to acute illness - TSH normal (3) Chronic anticoagulation: 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 Status: Acute Assessment and Plan: due to AFib - continue with Pradaxa (4) Hypertension: Code(s): I10 - Essential (primary) hypertension Status: Acute Assessment and Plan: last blood pressure 149/108 - continue metoprolol, Lasix and lisinopril (5) Mixed hyperlipidemia: Code(s): E78.2 - Mixed hyperlipidemia Status: Acute Assessment and Plan: continue atorvastatin (6) Diet-controlled diabetes mellitus: Code(s): E11.9 - Type 2 diabetes mellitus without complications Status: Acute Assessment and Plan: Last glucose 88 -Diet controlled DS: Summary Hospital Course Hospital Course: DOS 12/09/20 Patient is a 70-year-old male with history of CHF who presented emergency room for shortness of breath and cough. vitals in the ER were temperature 36.8? C, respiratory rate 24, pulse 93, blood pressure 176/107, pulse ox 96. initial white blood cell count 11.8, hemoglobin 13.0, hematocrit 40.4, platelets 228. BMP within normal limits. BNP 4740. troponin negative. Chest x-ray showed cardiomegaly with patchy right mild and bilateral lower lung infiltrates with a differential of pneumonia versus pulmonary edema. CTA showed cardiomegaly and minimal right pleural effusion with patchy right upper middle and lower lobe and mild patchy lower lobe infiltrates With a differential of PNA and pulmonary edema. the patient was started on ceftriaxone and azithromycin as well as IV Lasix. He was recently hospitalized at outside area hospital and his EF was around 30 %. Cardiology was consulted and adjusted his medications as he was intermittently in AFib RVR which was chronic for him. The patient improved with IV antibiotics and diuretics. His COVID-19 test was negative. The day of discharge his cough was minimal and he was feeling much better and ready to go. He was educated about worrisome signs and symptoms to come back to emergency room for was discharged stable condition. He is to follow-up with his primary care physician Dr. Pabon outpatient and he is going to get a BMP to assess electrolytes due to lasix. Patient's cough better on discharge, no need to change lisinopril to losartan. Time Spent with Patient Time attestation: Total time spent providing and/or coordinating discharge services:36 min Exam Narrative: Exam Narrative: General: Well developed well nourished patient in NAD HEENT: normocephalic Neck: supple Neuro: Alert and oriented x4 CV: irregularly irregular with a rate of 96 on exam Telemetry shows atrial fibrillation Resp: light crackles at both the bases, no conversational dyspnea or oxygen requirements. Abd: Soft, non distended. No pain to palpation. Positive bowel sounds Extremities: No s
== END 2020-12-09 17:30 | disposition home or self-care (01) | DRG 291 ==
LOC: ANHED 13:07 → ANH3MEDSUR 14:30
PROVIDERS: Physician Assistant; Admitting Provider Family Medicine; Emergency Provider Emergency Medicine; PCP Internal Medicine; Visit Provider Physician Assistant
DX: I11.0 Hypertensive heart disease with heart failure (principal); J18.9 Pneumonia, unspecified organism; I48.11 Longstanding persistent atrial fibrillation; I50.23 Acute on chronic systolic (congestive) heart failure; I42.8 Other cardiomyopathies; Z20.822 Contact with and (suspected) exposure to COVID-19; Z88.0 Allergy status to penicillin; M19.90 Unspecified osteoarthritis, unspecified site; E11.9 Type 2 diabetes mellitus without complications; K21.9 Gastro-esophageal reflux disease without esophagitis; E78.00 Pure hypercholesterolemia, unspecified; Z87.891 Personal history of nicotine dependence; E78.5 Hyperlipidemia, unspecified; F41.9 Anxiety disorder, unspecified; Z79.01 Long term (current) use of anticoagulants; I25.10 Atherosclerotic heart disease of native coronary artery without angina pectoris; F32.9 Major depressive disorder, single episode, unspecified; E78.2 Mixed hyperlipidemia; G47.33 Obstructive sleep apnea (adult) (pediatric); Z87.11 Personal history of peptic ulcer disease; F43.12 Post-traumatic stress disorder, chronic
CPT/HCPCS: 36415; 71045; 71046; 71275; 80048; 80076; 82728; 82948; 83615; 83735; 83880; 84145; 84443; 84484; 85025; 85027; 85610; 85730; 86140; 87040; 93005; 94640; 99285; A9270; C9803; J0456; J0696; J1100; J1940; Q9967; U0003; U0005

== ENCOUNTER 2020-12-17 11:42 | Outpatient (CLI) | payer MEDICARE, BC, SELFPAY ==
[2020-12-17 12:18] LABS: Anion Gap 5 mmol/L (8-16); Blood Urea Nitrogen 24 mg/dL (9-20); Calcium 9.3 mg/dL (8.4-10.2); Carbon Dioxide 31 mmol/L (22-30); Chloride 107 mmol/L (98-107); Estimated Glomerular Filt Rate 46; Glucose 93 mg/dL (65-110); Potassium 4.2 mmol/L (3.4-5.0); Sodium 143 mmol/L (137-145)
== END 2020-12-17 11:43 | disposition home or self-care (01) ==
PROVIDERS: PCP Internal Medicine; Referring Provider Specialist; Visit Provider Physician Assistant
DX: I42.8 Other cardiomyopathies (principal)
CPT/HCPCS: 36415; 80048

== ENCOUNTER 2021-01-04 11:10 | Observation (INO) | payer MEDICARE, BC, SELFPAY ==
[2021-01-04] VITALS (7 sets, daily range): BP systolic 133–165; BP diastolic 80–104; PULSE 81–93; RESP 16–21; TEMP 37.4; O2SAT 95–97
--- NOTE | ~2021-01-04 | XR_ITS ---
EXAMINATION: XR chest 2V EXAM DATE: 01/04/2021 12:06 INDICATION: Shortness of breath, atrial fibrillation, coronary artery disease, reflux, hypertension. TECHNIQUE: Frontal and lateral projections of the chest obtained and reviewed. Comparison is made to prior examination from 12/07/2020. FINDINGS: Some ill-defined bibasilar airspace disease again noted, differential diagnosis including p neumonia and edema. Please clinically correlate. Heart is mildly enlarged. No sizable pleural effusio n. No pneumothorax. Patient has diffuse idiopathic skeletal hyperostosis (DISH). IMPRESSION: 1. Ill-defined bibasilar pneumonia or edema. 2. Mild cardiomegaly. Reviewed, dictated and finalized at location A.
--- NOTE | 2021-01-04 11:44 | ECG_ITS ---
Measurements Intervals [place] Rate: 80 P: CA: 0 QRS: 23 QRSD: 130 T: -35 QT: 364 QTc: 420 Interpretive Statements ATRIAL FIBRILLATION INTRAVENTRICULAR CONDUCTION DELAY CANNOT RULE OUT SEPTAL INFARCT, AGE INDETERMINATE NONSPECIFIC ST & T-WAVE ABNORMALITY- DIFFUSE LEADS BASELINE ARTIFACT- I, II, III, AVR, AVL, AVF, V6 ABNORMAL ECG Electronically Signed On 01-04-2021 11:56:07 CDT by Elier Jansen D.O.
[2021-01-04 12:08] LABS: Basophils Percent Auto 0.3 % (0.2-1.2); Eosinophils Percent Auto 0.3 % (0-4.4); Hematocrit 39.7 % (42.0-52.0); Hemoglobin 12.6 g/dL (14.0-18.0); Immature Granulocyte Absolute 0.04 K/mm3 (0.00-0.031); Immature Granulocyte Percent A 0.4 % (0-0.5); Lymphocytes Absolute Auto 1.02 K/mm3 (0.9-3.2); Lymphocytes Percent Auto 11.2 % (18.3-44.2); Mean Corpuscular HGB Conc 31.7 g/dl (32-36); Mean Corpuscular Hemoglobin 31.8 pg (26-34); Mean Corpuscular Volume 100.3 fl (80-100); Mean Platelet Volume 10.6 fl (7.4-10.4); Monocytes Absolute Auto 0.8 K/mm3 (0.1-0.6); Monocytes Percent Auto 8.5 % (2.6-8.5); Neutrophils Absolute Auto 7.2 K/mm3 (1.3-6.7); Neutrophils Percent Auto 79.3 % (45.5-73.1); Platelet Count Result 165 k/mm3 (150-375); Red Blood Count 3.96 M/mm3 (4.6-6.20); Red Cell Distribution Width 14.2 % (11.5-14.5); White Blood Count 9.1 K/mm3 (4.5-10.0)
[2021-01-04 12:22] LABS: INR 1.4; Prothrombin Time 16.6 Seconds (11.1-14.7)
[2021-01-04 12:24] LABS: Partial Thromboplastin Time 57.4 SECONDS (22.3-36.8)
[2021-01-04 12:25] LABS: Anion Gap 7 mmol/L (8-16); Blood Urea Nitrogen 11 mg/dL (9-20); Calcium 8.8 mg/dL (8.4-10.2); Carbon Dioxide 29 mmol/L (22-30); Chloride 100 mmol/L (98-107); Estimated CRCL calculation 65 ml/min; Estimated Glomerular Filt Rate > 60; Glucose 103 mg/dL (65-110); Potassium 3.4 mmol/L (3.4-5.0); Sodium 136 mmol/L (137-145)
[2021-01-04 12:37] LABS: NT Pro B Type Natriuretic Pept 5690 pg/mL (5-100); Troponin I 0.013 ng/mL (0.000-0.034)
--- NOTE | 2021-01-04 15:28 | ED.SOB ---
HPI - SOB/Dyspnea General Chief Complaint: Shortness of Breath/Dyspnea Stated Complaint: sob, dizzy, cough Time Seen by Provider: 01/04/21 15:27 History of Present Illness HPI Narrative: 70 yo male w/ h/o CHF, htn presents to the ED c/o SOB. More SOB since last night. Worse this morning. Associated with increased BLE edema and weight gain. Admitted for CHF exacerbation 1 month ago and had multiple meds changed. No CP, fever. Related Data Home Medications Medication Instructions Recorded Confirmed atorvastatin 80 mg tablet 80 mg PO DAILY 03/11/19 12/25/20 dabigatran etexilate 150 mg capsule 150 mg PO BID 03/11/19 12/25/20 lisinopril 40 mg tablet 40 mg PO BID tablet 03/11/19 12/25/20 terazosin 5 mg capsule 5 mg PO DAILY 03/11/19 12/25/20 fluticasone propionate 2 spray NASAL DAILY PRN 12/05/20 12/25/20 Allergies Allergy/AdvReac Type Severity Reaction Status Date / Time Beta-Blockers Allergy Severe Difficulty Verified 12/25/20 13:22 (Beta-Adrenergic Bloc Breathing citalopram Allergy Severe SWEATING, Verified 12/25/20 13:22 AGITATED Penicillins Allergy Severe Swelling Verified 12/25/20 13:22 of Lip/Tongue/Throat Review of Systems Review of Systems: All systems reviewed & are unremarkable except as noted in HPI and below Constitutional: Constitutional: Denies chills and Denies fever(s) Cardiovascular: Cardiovascular: Denies chest pain Respiratory: Respiratory: Reports cough and Reports dyspnea Gastrointestinal: Gastrointestinal: Reports no additional gastrointestinal complaints Neurologic: Reports system reviewed and no additional complaints, except as documented PMFSH Past Medical History Medical History Anxiety Arthritis Atrial fibrillation Chronic anticoagulation On dabigatran for stroke prophylaxis. Coronary artery disease Depression Gastroesophageal reflux disease Hypertension Mixed hyperlipidemia Obstructive sleep apnea Peptic ulcer disease (2019) Post-traumatic stress disorder, chronic Spinal stenosis Type 2 diabetes mellitus No longer on medication. Surgical History Surgical History History of cardiac catheterization History of spinal surgery History of tonsillectomy Family History Family History Mother Family history of malignant neoplasm Family history of arthritis Hypertension Father Acute myocardial infarction Diabetes mellitus Family history of arthritis Hypertension Other Family history of premature coronary heart disease Social History Social History Social History: The patient lives in [place] with his . 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 Former smoker, quit in October 2010. Denies alcohol and illicit substance abuse. He wishes to be a full code. Smoking packs per day: 1.5 Smoking cigarettes per day: 30.0 Years smoked: 30 Smoking pack-years: 45.00 Smoking status: Former smoker Tobacco type: cigarettes Second hand tobacco smoke exposure: Yes Smoking end date: 05/15/08 Alcohol intake: former Spiritual care concerns: No Exam Const: General: no acute distress and alert Orientation/consciousness: patient oriented x3 HENMT: Head: normal to inspection Neck: Neck: normal visual inspection Resp: Effort & Inspection: labored and tachypneic Auscultation: clear to auscultation bilaterally, rales, no rhonchi and no wheezes Cardio: Jugular venous distension: no JVD Rate: regular rate Rhythm: regular rhythm GI: Inspection: non-distended GI Palp: Yes Soft to palpation and No Tenderness to palpation present (GI) Skin: General skin exam: normal color Neuro: General: patient oriented x3 and moves all extremities Speech: normal speech Extrem: General: edema bilateral (severe) Psych: Appear
[2021-01-04] MEDS: FUROSEMIDE INJ 40 MG/4 ML VIAL IV PUSH (16:24)
[2021-01-04] MEDS: NITROGLYCERIN OINTMENT 1 INCH DOSE TRANSDERM (16:25)
--- NOTE | 2021-01-04 17:38 | PC.NURSE ---
Pt asked this RN to change back into his shirt. Informed pt that I am ok with it down here but once he is taken upstairs he will have to change into gown. Pt states he understood.
--- NOTE | 2021-01-04 18:30 | PM.IMHP ---
H&P: HPI History of Present Illness Date/Time: 01/04/21 18:30 Chief Complaint: Cough and shortness of breath. Narrative: This is a very pleasant 70-year-old male with hypertension, hyperlipidemia, atrial fibrillation, and nonischemic cardiomyopathy who presented to the emergency department earlier today via private vehicle from home for evaluation of cough and shortness of breath. The patient is known to myself and the hospitalist service as he was admitted to us for several days last month after he presented with similar complaints at which time he was admitted and treated for congestive heart failure exacerbation and pneumonia. He was seen in consultation by Dr. Pabon and had some medication changes and seemed to be doing pretty well on discharge. Over the past couple of days he has felt fatigued with a mild, nonproductive cough, occasional wheezing, and orthopnea. He has gained 4 lb recently as well. Last evening he could not lie flat in bed and spent most of the time sitting at the side of the bed, coughing somewhat. I was asked to admit the patient overnight for diuresis. His blood pressures have been running high than normal for him and he reports compliance with his medications and diet. He denies fever, chills, sweats, chest pain, pleuritic pain, palpitations, nausea, and vomiting. He also denies dysphagia and concerns for aspiration. He is vaccinated for COVID-19 and denies sick contacts. Review of Systems Review of Systems: Twelve systems were reviewed with pertinent positives and negatives as per HPI. Except as documented, all other systems were reviewed and are negative. [facility] Past Medical History Medical History (Updated 01/04/21 @ 22:33 by Alexia Yang PA-C) Anxiety Arthritis Atrial fibrillation Chronic anemia Chronic anticoagulation On dabigatran for stroke prophylaxis. Coronary artery disease Depression Gastroesophageal reflux disease Hypertension Mixed hyperlipidemia Nonischemic cardiomyopathy Ejection fraction was 30% on recent echocardiogram. Obstructive sleep apnea Peptic ulcer disease (2019) Post-traumatic stress disorder, chronic Spinal stenosis Type 2 diabetes mellitus No longer on medication. Surgical History Surgical History History of cardiac catheterization History of spinal surgery History of tonsillectomy Family History Family History Mother Family history of malignant neoplasm Family history of arthritis Hypertension Father Acute myocardial infarction Diabetes mellitus Family history of arthritis Hypertension Other Family history of premature coronary heart disease Social History Social History (Updated 01/04/21 @ 22:30 by Alexia Yang PA-C) Social History: The patient lives in [place] with his . 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 Former smoker, quit in October 2010. Denies alcohol and illicit substance abuse. He wishes to be a full code. Smoking packs per day: 1.5 Smoking cigarettes per day: 30.0 Years smoked: 30 Smoking pack-years: 45.00 Smoking status: Former smoker Tobacco type: cigarettes Second hand tobacco smoke exposure: Yes Smoking end date: 05/15/08 Alcohol intake: former Meds Home Medications and Allergies Home Medications Medication Instructions Recorded Confirmed Type atorvastatin 80 mg tablet 80 mg PO DAILY 03/11/19 12/25/20 History dabigatran etexilate 150 mg capsule 150 mg PO BID 03/11/19 12/25/20 History lisinopril 40 mg tablet 40 mg PO BID tablet 03/11/19 12/25/20 History terazosin 5 mg capsule 5 mg PO DAILY 03/11/19 12/25/20 History bupropion HCl 150 mg tablet,12 hr 150 mg PO QAM #30 tablet 07/24/20 12/25/20 Rx sustained-release valacyclovir 1 gram tablet 1,000 mg PO Q8H #21 tablet 11/03/20 12/25/20 Rx alprazolam 0.5 mg tablet 0.5 mg PO TID PRN #90 tablet 11/19/20 12/25/20 Rx fluticasone
--- NOTE | 2021-01-04 19:22 | PC.NURSE ---
Assumed care of pt at this time. Pt alert and upright, sitting on edge of stretcher. Updated pt on POC.
--- NOTE | 2021-01-04 23:48 | PC.NURSE ---
Per verbal order from OMAIRA Carpenter, hold 2100 IV furosemide. Give 0900 dose.
[2021-01-05] VITALS (8 sets, daily range): BP systolic 147–154; BP diastolic 92–95; PULSE 87–112; RESP 16–20; TEMP 36.3–36.4; O2SAT 94–99; BMI 29.1
--- NOTE | 2021-01-05 02:34 | ADMGEN ---
This patient, Popeye Hernandez, was admitted to IMU Room 211-01. Patient/family oriented to hospital policies and general routines including ID bracelet, bed and alarms, visiting hours, pain management, procedures, bathroom and other care routines, personal items, smoking policy, room service/diet, and visiting hours. Information on how to activate the Rapid Response Team has been discussed. Patient/Family are encouraged to report perceived risks to care and to ask questions if they do not understand what they are told or what they should do.
[2021-01-05 05:35] LABS: Anion Gap 4 mmol/L (8-16); Blood Urea Nitrogen 17 mg/dL (9-20); Calcium 8.6 mg/dL (8.4-10.2); Carbon Dioxide 29 mmol/L (22-30); Chloride 105 mmol/L (98-107); Estimated CRCL calculation 59 ml/min; Estimated Glomerular Filt Rate > 60; Glucose 86 mg/dL (65-110); Magnesium 1.7 mg/dL (1.6-2.3); Sodium 138 mmol/L (137-145)
[2021-01-05] MEDS: FUROSEMIDE INJ 40 MG/4 ML VIAL IV PUSH (09:02)
--- NOTE | 2021-01-05 09:47 | PM.DS ---
DS: Admitting Diagnosis Admitting Diagnosis CHF Exacerbation, Hypertension, Nonischemic cardiomyopathy, Chronic Anemia, Atrial Fibrillation, Chronic Anticoagulation. 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 not always low salt eating and has not been paying attention to his heart healthy diet. Instructed patient that he would need to weigh himself every morning and keep track of any weight gain, as that could be a sign of fluid overloading. He may also have been drinking more water than he should have been, but his potassium/electrolytes level was WNL at admission. Had IV diuresis at admission, breathing improved. BNP improved. BNP history showed 4740 and 5690. But improved today to 3430. Ordered SAY hose stockings. instructed patient to f/u with corporate real estate manager at his current appointment in 2 days on . Discharged home today, no cough today, no SOB, no dypnea noted with conversation. (2) Hypertension: Code(s): I10 - Essential (primary) hypertension Status: Acute Assessment and Plan: Blood pressures were elevated at admission, 140s to 160s systolic but didimprove with diuresis. Today BPs were 133/82 to 149/95 with HR 82 to 112. (3) Nonischemic cardiomyopathy: Code(s): I42.8 - Other cardiomyopathies Status: Acute Assessment and Plan: Most recent ejection fraction was approximately 30%. even more reason to closely monitor and avoid fluid overload early Marketing Planner made recommendations that I included in his discharge - regarding medication changes. (4) Chronic anemia: Code(s): D64.9 - Anemia, unspecified Status: Acute Assessment and Plan: Hemoglobin and hematocrit are stable on review of previous labs. Hgb 12.6 Hct 39.7 no s/s of bleeding or concerns. (5) Atrial fibrillation: Qualifiers: Atrial fibrillation type: longstanding persistent Qualified Code(s): I48.11 - Longstanding persistent atrial fibrillation Code(s): I48.91 - Unspecified atrial fibrillation Status: Acute Assessment and Plan: He is rate controlled on metoprolol. HR 80s No chest pain or pressure, no palpitations or SOB today. 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 no s/s of bleeding, no H/H drop DS: Summary Hospital Course Hospital Course: Patient diuresed with IV lasix. Breathing improved. Dry cough resolved. Able to lay down more in bed without dyspnea. Patient wanting to go home now that he feels better. Marketing Planner consulted , adjusted patient medications, and okwith discharge per instructions provided to patient. No cough or SOB or dyspnea during exam prior to discharge today. Patient CHF education completed and instructions given in discharge packet. He has an office visit/follow up appointment to see his Marketing Planner Dr. Pabon in 2 days on , that Popeye plans to keep and see him then. Time Spent with Patient Time attestation: Total time spent providing and/or coordinating discharge services:60 minutes Exam Narrative: General: Well-developed elderly male sitting at the side of the bed in no distress. Weight: 91 kg. BMI: 29.6. HEENT: Patient is legally blind in the left eye. Sclerae anicteric. Oral mucosa moist. Oropharynx clear. Neck: Supple. No JVD. Respiratory: Respirations are nonlabored. He is speaking in full sentences. No crackles. No wheezes. Diminished in lower bases posteriorly. Cardiovascular: Irregular rate and rhythm.No mur
[2021-01-05] MEDS: lisinopriL 20 MG TABLET 40 MG PO (10:48)
[2021-01-05] MEDS: TERAZOSIN HCL 5 MG CAPSULE PO (10:49)
[2021-01-05] MEDS: DABIGATRAN ETEXILATE 150 MG CAPSULE PO (10:49)
[2021-01-05] MEDS: buPROPion HCL SR (12 HR) 150 MG TAB PO (10:49)
[2021-01-05] MEDS: METOPROLOL SUCCINATE EXT REL 25 MG TABCR 75 MG PO (10:49)
[2021-01-05] MEDS: ATORVASTATIN 40 MG TABLET 80 MG PO (10:49)
[2021-01-05] MEDS: POTASSIUM CHLORIDE 20 MEQ TABLET 40 MEQ PO ×2 (10:52→14:36)
--- NOTE | 2021-01-05 11:42 | PM.CNCAR ---
Assessment and Plan Assessment and plan (1) CHF exacerbation: Code(s): I50.9 - Heart failure, unspecified Status: Acute Assessment and Plan: 70-year-old male with CHF with reduced ejection fraction (nonischemic cardiomyopathy with no obstructive CAD; EF 30% from catheterization performed on03/06/2013), persistent atrial fibrillation with history of DC cardioversion on anticoagulation with dabigatran, ? History of PTSD. Patient admitted to the hospital worsening shortness of breath associated with cough; found to be in acute on chronic CHF with reduced ejection fraction. Patient has history of known nonischemic cardiomyopathy. He has been in persistent atrial fibrillation with reasonably controlled heart rates. -change IV furosemide to p.o. furosemide 40 mg p.o. q.a.m. with potassium supplementation. Patient will need maintenance diuresis at discharge. Monitor BMP. -continue metoprolol succinate. Consider switching lisinopril to sacubitril/valsartan as an outpatient. May also consider initiating patient on SGLT2 inhibitor to optimize treatment for CHF. -add spironolactone 25 mg p.o. daily. Monitor BMP. -patient's candidacy for ICD placement to be determined by primary ultrasonic seaming machine operator as an outpatient. He has history of persistent severe LV systolic dysfunction. -patient advised to follow-up in the cardiology clinic in about 2 weeks or sooner if needed. -patient was counseled about low-salt diet; and was advised to avoid excessive fluid intake. He verbalized understanding. (2) Nonischemic cardiomyopathy: Code(s): I42.8 - Other cardiomyopathies Status: Acute Assessment and Plan: See above (3) Atrial fibrillation: Qualifiers: Atrial fibrillation type: longstanding persistent Qualified Code(s): I48.11 - Longstanding persistent atrial fibrillation Code(s): I48.91 - Unspecified atrial fibrillation Status: Acute Assessment and Plan: Rate control with metoprolol succinate; anticoagulation with dabigatran. History of Present Illness History of Present Illness Consult date/time: 01/05/21 11:42 DATE OF CONSULT: 01/05/2021 REASON FOR CONSULT: CHF exacerbation REQUESTING PHYSICIAN:Stef Aguilar MD CHIEF COMPLAINT: Worsening Shortness of breath and cough for 1 day HPI: 70-year-old male with CHF with reduced ejection fraction (nonischemic cardiomyopathy with no obstructive CAD; EF 30% from catheterization performed on03/06/2013), persistent atrial fibrillation with history of DC cardioversion on anticoagulation with dabigatran, ? History of PTSD. Patient follows up with Dr. Pabon for his cardiovascular care. He has known nonischemic cardiomyopathy, with recent LVEF reported to be 30% as per patient at outside hospital. Patient presented to [facility] on 01/04[facility]2021 with complaints of shortness of breath and cough for 1 day. At baseline patient she is that he is able to walk about heart mille. He denies anginal chest pain. No palpitation, dizziness or syncope. Patient has history of atrial fibrillation and DC cardioversion with recurrent atrial fibrillation. He has been on rate control and anticoagulation with dabigatran. Patient reports compliance to medical regimen including anticoagulation, and diuretics. However, he states that he drinks excessive of water every day. EKG on presentation which I personally evaluated showed atrial fibrillation with controlled ventricular response, ventricular rate 80 beats per minute, nonspecific ST-T abnormality. BNP was elevated at 5690. Chest x-ray showed Ill-defined bibasilar pneumonia or edema; mild cardiomegaly. Patient received versus with IV furosemide with improvement in the symptoms. Reason For Visit: CHF Exacerbation Review of Systems Review of Systems: General: Negative for fever, chills, fatigue Psychological: Positive for anxiety, psychosocial stress related to the Caring of his ; patient gives history o
[2021-01-05 11:45] LABS: NT Pro B Type Natriuretic Pept 3430 pg/mL (5-100)
[2021-01-05 13:50] LABS: Anion Gap 8 mmol/L (8-16); Blood Urea Nitrogen 20 mg/dL (9-20); Calcium 9.1 mg/dL (8.4-10.2); Carbon Dioxide 30 mmol/L (22-30); Chloride 99 mmol/L (98-107); Estimated CRCL calculation 65 ml/min; Estimated Glomerular Filt Rate > 60; Glucose 129 mg/dL (65-110); Sodium 137 mmol/L (137-145)
== END 2021-01-05 15:05 | disposition home or self-care (01) ==
LOC: ANHED 19:11 → ANH3MEDSUR 19:35 → ANHIMU 01-05 01:45
PROVIDERS: Family Medicine; Physician Assistant; Admitting Provider Internal Medicine; Emergency Provider Emergency Medicine; PCP Internal Medicine; Visit Provider Nurse Practitioner
DX: I11.0 Hypertensive heart disease with heart failure (principal); I50.9 Heart failure, unspecified; R06.02 Shortness of breath; E78.5 Hyperlipidemia, unspecified; I48.91 Unspecified atrial fibrillation; I42.8 Other cardiomyopathies; D64.9 Anemia, unspecified; Z87.891 Personal history of nicotine dependence; Z79.01 Long term (current) use of anticoagulants
CPT/HCPCS: 36415; 71046; 80048; 83735; 83880; 84484; 85025; 85610; 85730; 93005; 96374; 96376; 99285; A9270; G0378; J1940

== ENCOUNTER 2021-01-07 11:53 | Outpatient (CLI) | payer MEDICARE, BC, SELFPAY ==
[2021-01-07 13:56] LABS: Anion Gap 7 mmol/L (8-16); Blood Urea Nitrogen 18 mg/dL (9-20); Calcium 9.4 mg/dL (8.4-10.2); Carbon Dioxide 31 mmol/L (22-30); Chloride 100 mmol/L (98-107); Estimated Glomerular Filt Rate > 60; Glucose 95 mg/dL (65-110); Potassium 3.4 mmol/L (3.4-5.0); Sodium 138 mmol/L (137-145)
[2021-01-07 14:05] LABS: NT Pro B Type Natriuretic Pept 2920 pg/mL (5-100)
== END 2021-01-07 11:54 | disposition home or self-care (01) ==
PROVIDERS: PCP Internal Medicine; Visit Provider Nurse Practitioner
DX: D64.9 Anemia, unspecified (principal); I42.8 Other cardiomyopathies; I50.9 Heart failure, unspecified; Z79.01 Long term (current) use of anticoagulants
CPT/HCPCS: 36415; 80048; 83880

== ENCOUNTER 2021-01-11 10:29 | Outpatient (CLI) | payer MEDICARE, BC, SELFPAY ==
[2021-01-11 11:50] LABS: Anion Gap 6 mmol/L (8-16); Blood Urea Nitrogen 15 mg/dL (9-20); Calcium 8.6 mg/dL (8.4-10.2); Carbon Dioxide 29 mmol/L (22-30); Chloride 108 mmol/L (98-107); Estimated Glomerular Filt Rate > 60; Glucose 103 mg/dL (65-110); Potassium 3.6 mmol/L (3.4-5.0); Sodium 143 mmol/L (137-145)
== END 2021-01-11 10:30 | disposition home or self-care (01) ==
PROVIDERS: PCP Internal Medicine; Visit Provider Nurse Practitioner Adult Health
DX: I50.22 Chronic systolic (congestive) heart failure (principal)
CPT/HCPCS: 36415; 80048

== ENCOUNTER 2021-01-30 10:16 | Outpatient (CLI) | payer MEDICARE, BC, SELFPAY ==
[2021-01-30 12:14] LABS: Alanine Aminotransferase 17 U/L (4-50); Albumin Level 3.9 g/dL (3.5-5.1); Alkaline Phosphatase 100 U/L (38-126); Anion Gap 8 mmol/L (8-16); Aspartate Amino Transferase 32 U/L (17-59); Bilirubin,Total 1.1 mg/dL (0.2-1.3); Blood Urea Nitrogen 11 mg/dL (9-20); Calcium 8.8 mg/dL (8.4-10.2); Carbon Dioxide 28 mmol/L (22-30); Chloride 106 mmol/L (98-107); Cholesterol 137 mg/dL (0-200); Estimated Glomerular Filt Rate > 60; Glucose 96 mg/dL (65-110); HDL Direct 52 mg/dL; Potassium 3.4 mmol/L (3.4-5.0); Sodium 142 mmol/L (137-145); Triglycerides 67 mg/dL (<150)
[2021-01-30 12:18] LABS: Hemoglobin A1C 5.8 % (<5.7)
[2021-01-30 12:24] LABS: LDL Cholesterol Direct 59 mg/dL
[2021-01-30 12:40] LABS: Prostate Specific Antigen 0.7 ng/mL (< OR = 4.0)
== END 2021-01-30 10:17 | disposition home or self-care (01) ==
PROVIDERS: PCP Internal Medicine; Referring Provider Nurse Practitioner Adult Health; Visit Provider Internal Medicine
DX: Z12.5 Encounter for screening for malignant neoplasm of prostate (principal); E78.5 Hyperlipidemia, unspecified; I10 Essential (primary) hypertension; Z51.81 Encounter for therapeutic drug level monitoring; Z79.899 Other long term (current) drug therapy; E11.9 Type 2 diabetes mellitus without complications
CPT/HCPCS: 36415; 80053; 80061; 83036; 84153; G0103

== ENCOUNTER 2021-03-09 10:32 | Outpatient (CLI) | payer MEDICARE, BC, SELFPAY ==
[2021-03-09 11:14] LABS: Anion Gap 6 mmol/L (8-16); Blood Urea Nitrogen 13 mg/dL (9-20); Calcium 9.1 mg/dL (8.4-10.2); Carbon Dioxide 32 mmol/L (22-30); Chloride 106 mmol/L (98-107); Estimated Glomerular Filt Rate > 60; Glucose 104 mg/dL (65-110); Potassium 3.8 mmol/L (3.4-5.0); Sodium 144 mmol/L (137-145)
== END 2021-03-09 10:33 | disposition home or self-care (01) ==
PROVIDERS: PCP Internal Medicine; Visit Provider Nurse Practitioner Adult Health
DX: I42.8 Other cardiomyopathies (principal)
CPT/HCPCS: 36415; 80048

== ENCOUNTER 2021-03-11 06:17 | Inpatient (IN) | payer MEDICARE, BC, SELFPAY ==
[2021-03-11] VITALS (45 sets, daily range): BP systolic 139–170; BP diastolic 84–115; PULSE 80–102; RESP 15–34; TEMP 36.1–36.6; O2SAT 15–98; BMI 30.9
--- NOTE | ~2021-03-11 | XR_ITS ---
EXAMINATION: XR chest 2V DATE: 03/11/2021 08:13 INDICATION: Shortness of breath TECHNIQUE: AP and lateral views of the chest are obtained. COMPARISON: 01/04/2021 FINDINGS: Cardiomegaly is noted. There are airspace opacities of the mid and lower lung zones. Small pleural effusions are present. There is no pneumothorax. There are bridging osteophytes at multiple l evels in the spine, consistent with diffuse idiopathic skeletal hyperostosis (DISH). IMPRESSION: 1. Cardiomegaly. 2. Airspace opacities of the mid and lower lung zones, consistent with atelectasis versus pneumonia. 3. Small pleural effusions. Reviewed, dictated and finalized at location A. IMPRESSION: 1. Cardiomegaly. 2. Airspace opacities of the mid and lower lung zones, consistent with atelecta sis versus pneumonia. 3. Small pleural effusions.
--- NOTE | 2021-03-11 06:50 | ECG_ITS ---
Measurements Intervals [place] Rate: 87 P: IA: 0 QRS: 25 QRSD: 130 T: 0 QT: 367 QTc: 442 Interpretive Statements ATRIAL FIBRILLATION VENTRICULAR PREMATURE COMPLEX INTRAVENTRICULAR CONDUCTION DELAY CONSIDER ANTEROSEPTAL INFARCT, AGE INDETERMINATE BORDERLINE T WAVE ABNORMALITY- INF/LAT LEADS BASELINE ARTIFACT- I, II, III, AVR, AVL, AVF, V3-V6 ABNORMAL ECG Electronically Signed On 03-11-2021 9:12:13 CDT by Elier Jansen D.O.
--- NOTE | 2021-03-11 07:08 | ED.SOB ---
HPI - SOB/Dyspnea General Chief Complaint: Shortness of Breath/Dyspnea Stated Complaint: cp, sob Time Seen by Provider: 03/11/21 07:03 Source: patient Mode of arrival: ambulatory Limitations: no limitations History of Present Illness HPI Narrative: Patient is a 70-year-old male complaining of shortness of breath started last night and worse this morning. Patient has a history of CHF. Patient's oxygen saturation was 86% on room air, placed on 3 L upon arrival and now up to 94%. Patient denies any chest pain, abdominal pain, nausea, vomiting, diaphoresis, fever or chills. Related Data Home Medications Medication Instructions Recorded Confirmed atorvastatin 80 mg tablet 80 mg PO DAILY 03/11/19 02/11/21 dabigatran etexilate 150 mg capsule 150 mg PO BID 03/11/19 02/11/21 terazosin 5 mg capsule 5 mg PO DAILY 03/11/19 02/11/21 fluticasone propionate 2 spray NASAL DAILY PRN 12/05/20 02/11/21 amlodipine 03/11/21 Allergies Allergy/AdvReac Type Severity Reaction Status Date / Time Beta-Blockers Allergy Severe Difficulty Verified 03/11/21 06:33 (Beta-Adrenergic Bloc Breathing citalopram Allergy Severe SWEATING, Verified 03/11/21 06:33 AGITATED Penicillins Allergy Severe Swelling Verified 03/11/21 06:33 of Lip/Tongue/Throat Review of Systems Review of Systems: All systems reviewed & are unremarkable except as noted in HPI and below Constitutional: Constitutional: Denies body ache(s), Denies chills, Denies excessive sweating, Denies fatigue, Denies fever(s), Denies headache(s), Denies lethargy, Denies malaise, Denies weakness and Denies weight loss Eyes: Eyes: Denies blurry vision, Denies change in vision and Denies loss of vision ENT: Denies dizziness, Denies ear discharge, Denies headache(s), Denies lip swelling, Denies epistaxis, Denies nasal congestion, Denies neck pain, Denies throat swelling and Denies tongue swelling Cardiovascular: Cardiovascular: Denies chest pain, Denies chest pain at rest, Denies chest pain with activity, Denies diaphoresis, Denies rapid heart rate, Denies irregular heart rhythm, Denies lightheadedness and Denies palpitations Respiratory: Respiratory: Denies chest congestion, Denies cough, Denies hemoptysis, Denies dyspnea and Denies dyspnea on exertion Gastrointestinal: Gastrointestinal: Denies abdominal pain, Denies melena, Denies hematochezia, Denies diarrhea, Denies nausea, Denies vomiting and Denies hematemesis Musculoskeletal: Musculoskeletal: Denies abnormal gait, Denies deformity, Denies joint swelling, Denies limited range of motion, Denies neck pain and Denies numbness Neurologic: Denies Abnormal speech present, Denies abnormal gait, Denies confusion, Denies dizziness, Denies headache(s), Denies focal weakness, Denies loss of vision, Denies numbness, Denies Other visual disturbances, Denies Sensory deficit (Neuro) and Denies weakness Psychiatric: Psychiatric: Denies confusion, Denies depression, Denies auditory hallucinations, Denies homicidal ideation and Denies suicidal ideation Endocrine: Endocrine: Denies cold intolerance, Denies excessive sweating, Denies fatigue, Denies heat intolerance and Denies palpitations Hematologic/Lymphatic: Hematologic/Lymphatic: Denies easy bleeding and Denies easy bruising Allergic/Immunologic: Allergic/Immunologic: Denies lip swelling, Denies throat swelling and Denies tongue swelling PMFSH Past Medical History Medical History Anxiety Arthritis Atrial fibrillation Chronic anemia Chronic anticoagulation On dabigatran for stroke prophylaxis. Coronary artery disease Depression Gastroesophageal reflux disease Hypertension Mixed hyperlipidemia Nonischemic cardiomyopathy Ejection fraction was 30% on recent echocardiogram. Obstructive sleep apnea Peptic ulcer disease (2019) Post-traumatic stress disorder, chronic Spinal stenosis Type 2 diabetes mellitus No longer on medication. S
[2021-03-11 07:27] LABS: Alveolar/Arterial O2 Gradient 79.6 mmHg; Base Excess ABG 1.3 mEq/l (+/-2.0); Carboxyhemoglobin 0.7 % THb (0-2.0); Fractional Inspired Oxygen 28 %; HCO3 ABG 24.9 mEq/l (22.0-26.0); Methemoglobin ABG 0.3 %THb (0-1.5); Oxygen Content ABG 18.3 %vol (16.0-22.0); Oxyhemoglobin 93.4 % THb (90.0-100.0); PCO2 ABG 36.3 mmHg (35.0-45.0); PO2 ABG 77.2 mmHg (80.0-100.0); PO2 FiO2 Ratio Arterial Blood 2.76 %; Reduced Hemoglobin 5.6 %THb (0-5.0); Total Hemoglobin 13.9 g/dL (12.0-18.0); pH ABG 7.454 (7.350-7.450)
--- NOTE | 2021-03-11 07:27 | PC.NURSE ---
Dr. Boss at bedside for pt assessment.
[2021-03-11 07:28] LABS: Basophils Percent Auto 0.3 % (0.2-1.2); Eosinophils Absolute Auto 0.1 K/mm3 (0-0.3); Eosinophils Percent Auto 0.5 % (0-4.4); Hematocrit 41.7 % (42.0-52.0); Hemoglobin 13.2 g/dL (14.0-18.0); Immature Granulocyte Absolute 0.04 K/mm3 (0.00-0.031); Immature Granulocyte Percent A 0.3 % (0-0.5); Lymphocytes Absolute Auto 0.89 K/mm3 (0.9-3.2); Lymphocytes Percent Auto 7.8 % (18.3-44.2); Mean Corpuscular HGB Conc 31.7 g/dl (32-36); Mean Corpuscular Hemoglobin 31.9 pg (26-34); Mean Corpuscular Volume 100.7 fl (80-100); Mean Platelet Volume 10.7 fl (7.4-10.4); Monocytes Absolute Auto 0.9 K/mm3 (0.1-0.6); Monocytes Percent Auto 7.4 % (2.6-8.5); Neutrophils Absolute Auto 9.6 K/mm3 (1.3-6.7); Neutrophils Percent Auto 83.7 % (45.5-73.1); Platelet Count Result 211 k/mm3 (150-375); Red Blood Count 4.14 M/mm3 (4.6-6.20); Red Cell Distribution Width 15.8 % (11.5-14.5); White Blood Count 11.5 K/mm3 (4.5-10.0)
[2021-03-11 07:28] LABS: Device NASAL CANNULA; Modified Allen's Test Pass; Site Drawn RIGHT RADIAL
[2021-03-11] MEDS: DEXAMETHASONE SOD PHOS INJ 4 MG/ML VIAL 10 MG IV PUSH (07:30)
[2021-03-11] MEDS: IPRATROPIUM BR 0.02% INH SOLN 0.5 MG/2.5 ML VIAL INHALATION (07:31)
[2021-03-11] MEDS: ALBUTEROL SULFATE NEB 2.5 MG/0.5 ML INH 5 MG INHALATION (07:31)
[2021-03-11 07:38] LABS: Lactic Acid Reflex 2.7 mmol/L (0.7-2.1)
[2021-03-11 07:44] LABS: INR 1.3; Prothrombin Time 15.5 Seconds (11.1-14.7)
--- NOTE | 2021-03-11 07:57 | PC.NURSE ---
Pt to xray.
[2021-03-11 08:01] LABS: Anion Gap 8 mmol/L (8-16); Blood Urea Nitrogen 13 mg/dL (9-20); Calcium 9.3 mg/dL (8.4-10.2); Carbon Dioxide 26 mmol/L (22-30); Chloride 108 mmol/L (98-107); Estimated CRCL calculation 83 ml/min; Estimated Glomerular Filt Rate > 60; Glucose 127 mg/dL (65-110); Potassium 3.7 mmol/L (3.4-5.0); Sodium 142 mmol/L (137-145)
[2021-03-11 08:13] LABS: NT Pro B Type Natriuretic Pept 2510 pg/mL (5-100); Troponin I 0.012 ng/mL (0.000-0.034)
[2021-03-11 08:40] LABS: Partial Thromboplastin Time 40.6 SECONDS (22.3-36.8)
[2021-03-11 10:25] LABS: Reflex Lactic Acid Yes or No Add Lactic
[2021-03-11 10:25] LABS: Troponin I 0.017 ng/mL (0.000-0.034)
--- NOTE | 2021-03-11 11:37 | ADMGEN ---
This patient, Popeye Hernandez, was admitted to Virtual Bed 3rd Floor-1. Patient/family oriented to hospital policies and general routines including ID bracelet, bed and alarms, visiting hours, pain management, procedures, bathroom and other care routines, personal items, smoking policy, room service/diet, and visiting hours. Information on how to activate the Rapid Response Team has been discussed. Patient/Family are encouraged to report perceived risks to care and to ask questions if they do not understand what they are told or what they should do. Admission process done with pt while in ED ad bedside.
[2021-03-11 13:04] LABS: Lactic Acid 2.1 mmol/L (0.7-2.1)
[2021-03-11 13:16] LABS: Troponin I 0.018 ng/mL (0.000-0.034)
--- NOTE | 2021-03-11 14:15 | PM.IMHP ---
H&P: HPI History of Present Illness Date/Time: 03/11/21 14:15 Chief Complaint: Shortness of breath. Narrative: This is a very pleasant 70-year-old male with hypertension, hyperlipidemia, atrial fibrillation, and nonischemic cardiomyopathy who presented to the emergency department earlier today via private vehicle from home for evaluation of shortness of breath. The patient is known to myself and the hospitalist service as he was admitted to us several times over the summer, treated for both congestive heart failure and pneumonia. He is a patient of Dr. Pabon and he was started on Entresto sometime in December though apparently he had some issues with that and decreased his dose however he cannot provide me any significant details with regards to that. Other than that his medication regimen has stayed the same. Unfortunately over the last couple of days he has been feeling short of breath with a wet but nonproductive cough as well as rhinorrhea. He was unable to sleep much last evening due to orthopnea and in fact he sat in a kitchen chair a majority of the night due to shortness of breath. He also endorses a 12 lb weight gain in the past month or so. This morning he admits to being anxious and ?panicky? which seemed to make the shortness of breath worse. On arrival to the emergency department today his SpO2 was 86% on room air and he is currently on 3 L nasal cannula. His BNP is actually lower than what it typically runs. Chest x-ray showed airspace opacities of the mid lower lung zones consistent with atelectasis versus pneumonia. He is being admitted in this setting. He denies fever but reports chills yesterday. He did receive his COVID vaccination and he denies sick contacts. No sinus congestion, otalgia, or odynophagia. He has not had nausea or vomiting. No significant lower extremity edema. Review of Systems Review of Systems: Twelve systems were reviewed. No dysphagia or concerns for aspiration. He has not had chest pain or palpitations. No syncope or near syncope. No nausea or vomiting. He denies diarrhea. No dysuria. Except as documented, all other systems were reviewed and are negative. [facility] Past Medical History Medical History (Updated 03/11/21 @ 23:58 by Alexia Yang PA-C) Anxiety Arthritis Atrial fibrillation Chronic anemia Chronic anticoagulation On dabigatran for stroke prophylaxis. Coronary artery disease Depression Gastroesophageal reflux disease Hypertension Mixed hyperlipidemia Nonischemic cardiomyopathy Ejection fraction was 30% on recent echocardiogram. Obstructive sleep apnea Peptic ulcer disease (2019) Post-traumatic stress disorder, chronic Spinal stenosis Type 2 diabetes mellitus No longer on medication. Hemoglobin A1c was 5.8% in January 2021. Surgical History Surgical History History of cardiac catheterization History of spinal surgery History of tonsillectomy Family History Family History Mother Family history of malignant neoplasm Family history of arthritis Hypertension Father Acute myocardial infarction Diabetes mellitus Family history of arthritis Hypertension Other Family history of premature coronary heart disease Social History Social History (Updated 03/11/21 @ 23:55 by Alexia Yang PA-C) Social History: The patient lives in [place] with his . 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 Former smoker, quit in October 2010. Denies alcohol and illicit substance abuse. He wishes to be a full code. Smoking packs per day: 1.5 Smoking cigarettes per day: 30.0 Years smoked: 30 Smoking pack-years: 45.00 Meds Home Medications and Allergies Home Medications Medication Instructions Recorded Confirmed Type atorvastatin 80 mg tablet 80 mg PO DAILY 03/11/19 03/11/21 History dabigatran etexilate 150 mg capsule 150 mg PO BID 03/11/19 03/11/21
--- NOTE | 2021-03-11 14:52 | PC.NURSE ---
Hospitalist at bedside.
[2021-03-11] MEDS: FUROSEMIDE INJ 40 MG/4 ML VIAL IV PUSH (21:47)
[2021-03-12] VITALS (13 sets, daily range): BP systolic 106–164; BP diastolic 59–110; PULSE 58–108; RESP 12–18; TEMP 36.1–36.5; O2SAT 94–98
[2021-03-12 06:22] LABS: Hematocrit 38.3 % (42.0-52.0); Hemoglobin 12.3 g/dL (14.0-18.0); Mean Corpuscular HGB Conc 32.1 g/dl (32-36); Mean Corpuscular Volume 96.5 fl (80-100); Mean Platelet Volume 10.7 fl (7.4-10.4); Platelet Count Result 210 k/mm3 (150-375); Red Blood Count 3.97 M/mm3 (4.6-6.20); Red Cell Distribution Width 15.6 % (11.5-14.5); White Blood Count 9.5 K/mm3 (4.5-10.0)
[2021-03-12 06:46] LABS: Anion Gap 9 mmol/L (8-16); Blood Urea Nitrogen 17 mg/dL (9-20); Carbon Dioxide 30 mmol/L (22-30); Chloride 104 mmol/L (98-107); Estimated CRCL calculation 74 ml/min; Estimated Glomerular Filt Rate > 60; Glucose 112 mg/dL (65-110); Potassium 3.6 mmol/L (3.4-5.0); Sodium 143 mmol/L (137-145)
[2021-03-12 07:22] LABS: Procalcitonin 0.1 ng/mL
[2021-03-12] MEDS: ATORVASTATIN 40 MG TABLET 80 MG PO (08:06)
[2021-03-12] MEDS: METOPROLOL SUCCINATE EXT REL 25 MG TABCR 75 MG PO (08:06)
[2021-03-12] MEDS: TERAZOSIN HCL 5 MG CAPSULE PO (08:06)
[2021-03-12] MEDS: FUROSEMIDE INJ 40 MG/4 ML VIAL IV PUSH ×2 (08:07→20:07)
[2021-03-12] MEDS: DABIGATRAN ETEXILATE 150 MG CAPSULE PO ×2 (08:07→16:33)
[2021-03-12] MEDS: SPIRONOLACTONE 25 MG TABLET PO (08:08)
[2021-03-12] MEDS: POTASSIUM CHLORIDE 10 MEQ TABLET.ER 20 MEQ PO (08:08)
[2021-03-12] MEDS: amLODIPine BESYLATE 5 MG TABLET 10 MG BY MOUTH (08:08)
[2021-03-12] MEDS: buPROPion HCL SR (12 HR) 150 MG TAB PO (08:08)
[2021-03-12] MEDS: SACUBITRIL/VALSARTAN 24-26 MG TABLET 1 TAB PO ×2 (08:08→16:33)
--- NOTE | 2021-03-12 13:41 | PCCCNOTE ---
On 03/12/21, the student, [Aaliyah Mcfadden ], provided care and [facility] this patient. I have reviewed the student's documentation and agree with the findings.
--- NOTE | 2021-03-12 15:03 | PM.IMPN ---
Progress Note: A&P Assessment and Plan (1) Hypoxia: Code(s): R09.02 - Hypoxemia Status: Acute Assessment and Plan: Noted to be hypoxic on presentation down to 86%. Likely secondary to pneumonia and CHF He has required up to 3 L supplemental O2. Currently maintaining adequate O2 sats on 1 L. Continue supplemental oxygen as needed with goal saturation 92% or above. Wean to goal. CXR showed airspace species is admitted lower lung zone, consistent with atelectasis vs pneumonia. He is afebrile and without productive cough. Findings more likely related to atelectasis. Continue incentive spirometry Treatment for CHF as detailed below (2) Abnormal chest x-ray: Code(s): R93.89 - Abnormal findings on diagnostic imaging of other specified body structures Status: Acute Assessment and Plan: Airspace bases and mid lower lung zones consistent with atelectasis vs pneumonia Continue incentive spirometry for atelectasis He did receive azithromycin and Rocephin on presentation. Will discontinue as pneumonia is less likely based on history. Procalcitonin level is 0.1, not suggestive of bacterial infection. Sputum culture ordered, however he does not have productive cough. (3) Congestive heart failure: Code(s): I50.9 - Heart failure, unspecified Status: Acute Assessment and Plan: CXR showed cardiomegaly and small pleural effusions. He did endorsed increased lower extremity edema as well as recent weight gain. Continue with IV Lasix 40 mg b.i.d. Monitor volume status closely Heart healthy diet Continue home regimen of Entresto, spironolactone, metoprolol (4) Atrial fibrillation: Qualifiers: Atrial fibrillation type: unspecified chronic Qualified Code(s): I48.20 - Chronic atrial fibrillation, unspecified Code(s): I48.91 - Unspecified atrial fibrillation Status: Acute Assessment and Plan: Rate is controlled at this time Continue dabigatran for stroke prophylaxis (5) Hypertension: Code(s): I10 - Essential (primary) hypertension Status: Acute Assessment and Plan: Blood pressure reviewed and was elevated on presentation, likely due to volume overload. Improving with diuresis. Continue to monitor blood pressure trends closely Amlodipine 10 mg p.o. daily Subjective Date/time seen: 03/12/21 15:03 Interval history: Date of service: 03/12/2021 Popeye Hernandez is a 70-year-old male with a 5 atrial fibrillation on chronic anticoagulation, coronary artery disease, anemia, hypertension, hyperlipidemia, CHARLES, diet controlled type 2 diabetes mellitus, and PTSD who is seen in follow-up for mild CHF exacerbation. He is starting to feel better today. He feels the shortness of breath has improved. He is no longer coughing. No sputum production. Denies chest congestion. No sinus congestion. No rhinorrhea. This morning, he briefly felt slightly wheezy but reported this went away. He denies conversational dyspnea. He denies dyspnea on exertion. He reports very mild swelling in his ankles, noting he can see an indentation from his socks. He denies nausea, vomiting, fever, chills. No dizziness or lightheadedness. His appetite has been good. He reports he has been urinating frequently due to Lasix. Denies dysuria. He reports regular bowel movements and denies diarrhea. He is concerned about when he will be able to go home as he is the primary caregiver for his . He notes that she has difficulty being away from him due to issues with anxiety and PTSD. Review of Systems Review of Systems: All systems reviewed & are unremarkable except as noted in HPI and below Exam Narrative: Mr. Hernandez is a well-nourished, well-appearing 70-year-old male who is sitting up at the bedside. He appears comfortable and is in NARD. Neuro: awake, alert and oriented x4, speech clear, no focal neuro deficits noted HEENMT: n
[2021-03-13] VITALS: PULSE 83
[2021-03-13 05:34] VITALS: BP 125/86; PULSE 92; RESP 18; TEMP 36.6; O2SAT 95
[2021-03-13 06:04] LABS: Hematocrit 41.2 % (42.0-52.0); Hemoglobin 13.2 g/dL (14.0-18.0); Mean Corpuscular Volume 96.7 fl (80-100); Mean Platelet Volume 10.7 fl (7.4-10.4); Platelet Count Result 228 k/mm3 (150-375); Red Blood Count 4.26 M/mm3 (4.6-6.20); Red Cell Distribution Width 15.8 % (11.5-14.5); White Blood Count 7.9 K/mm3 (4.5-10.0)
[2021-03-13 06:16] LABS: Anion Gap 6 mmol/L (8-16); Blood Urea Nitrogen 19 mg/dL (9-20); Calcium 8.8 mg/dL (8.4-10.2); Carbon Dioxide 32 mmol/L (22-30); Chloride 106 mmol/L (98-107); Estimated CRCL calculation 76 ml/min; Estimated Glomerular Filt Rate > 60; Glucose 96 mg/dL (65-110); Potassium 3.6 mmol/L (3.4-5.0); Sodium 144 mmol/L (137-145)
[2021-03-13] MEDS: POTASSIUM CHLORIDE 10 MEQ TABLET.ER 20 MEQ PO (07:52)
[2021-03-13] MEDS: ATORVASTATIN 40 MG TABLET 80 MG PO (07:53)
[2021-03-13] MEDS: buPROPion HCL SR (12 HR) 150 MG TAB PO (07:53)
[2021-03-13] MEDS: amLODIPine BESYLATE 5 MG TABLET 10 MG BY MOUTH (07:53)
[2021-03-13 07:54] VITALS: PULSE 62
[2021-03-13] MEDS: DABIGATRAN ETEXILATE 150 MG CAPSULE PO (07:54)
[2021-03-13] MEDS: SACUBITRIL/VALSARTAN 24-26 MG TABLET 1 TAB PO (07:54)
[2021-03-13] MEDS: METOPROLOL SUCCINATE EXT REL 25 MG TABCR 75 MG PO (07:54)
[2021-03-13] MEDS: TERAZOSIN HCL 5 MG CAPSULE PO (07:54)
[2021-03-13] MEDS: FUROSEMIDE INJ 40 MG/4 ML VIAL IV PUSH (07:56)
[2021-03-13] MEDS: SPIRONOLACTONE 25 MG TABLET PO (07:57)
[2021-03-13 08:00] VITALS: PULSE 97; O2SAT 95
--- NOTE | 2021-03-13 11:54 | PM.DS ---
DS: Admitting Diagnosis Discharge Date 03/13/2021 Admitting Diagnosis CHF exacerbation DS: Discharge Diagnosis Discharge Diagnosis (1) Hypoxia: Code(s): R09.02 - Hypoxemia Status: Acute Assessment and Plan: Noted to be hypoxic on presentation down to 86%. Likely secondary to CHF exacerbation. Required up to 3 L supplemental O2 but was weaned to room and able to maintain adequate O2 sats off oxygen. (2) Abnormal chest x-ray: Code(s): R93.89 - Abnormal findings on diagnostic imaging of other specified body structures Status: Acute Assessment and Plan: CXR showed airspace opacities of the mid and lower lung zones consistent with atelectasis vs pneumonia. He did receive azithromycin and Rocephin on presentation, however this was discontinued as pneumonia was unlikely based on history and dyspnea was felt to be related to CHF. Procalcitonin level 0.1, not suggestive of bacterial infection. Sputum culture was ordered however he did not have productive cough. Antibiotics were discontinued. CXR findings felt to be related to atelectasis and incentive spirometry was encouraged. (3) Congestive heart failure: Code(s): I50.9 - Heart failure, unspecified Status: Acute Assessment and Plan: CXR showed cardiomegaly and small pleural effusions. He endorsed increased lower extremity edema as well as recent weight gain. He was diuresed with IV Lasix and had symptomatic improvement. Volume status was monitored closely. Continue his home regimen of Entresto, spironolactone, and metoprolol. On discharge, he was instructed to take his Lasix b.i.d. for the next 2 days, and then go back to once daily dosing. CHF Education provided including dietary restrictions and daily weight monitoring. (4) Atrial fibrillation: Qualifiers: Atrial fibrillation type: unspecified chronic Qualified Code(s): I48.20 - Chronic atrial fibrillation, unspecified Code(s): I48.91 - Unspecified atrial fibrillation Status: Acute Assessment and Plan: Telemetry reviewed and the patient was in atrial fibrillation with rate well controlled. Continue dabigatran for stroke prophylaxis (5) Hypertension: Code(s): I10 - Essential (primary) hypertension Status: Acute Assessment and Plan: Blood pressure reviewed and was elevated on presentation, likely due to volume overload. Blood pressures improved with diuresis and were well controlled prior to discharge. Continue home amlodipine 10 mg daily DS: Summary Hospital Course Hospital Course: Date of admission: 03/11/2021 Date of discharge: 03/13/2021 Popeye Hernandez is a 70-year-old male with a 5 atrial fibrillation on chronic anticoagulation, coronary artery disease, anemia, hypertension, hyperlipidemia, CHARLES, diet controlled type 2 diabetes mellitus, and PTSD who presented to the emergency department on 03/11/2021 with complaints of increased shortness of breath ongoing for 1 day. On presentation to the emergency department, he was noted to be hypoxic at 86% which resolved with 3 L supplemental O2, he was also mildly tachypneic with additional vital signs stable, he had very mild leukocytosis, additional CBC and BMP unremarkable, troponin negative, BNP 2500,, and CXR showed cardiomegaly, airspace opacities and small pleural effusions. He was admitted to the hospitalist service for further evaluation and management. Please see above for further details. He had symptomatic improvement with diuresis and was able to be weaned from O2. The patient was feeling much better and requested discharge home. Given his overall improvement, he was determined to no longer require inpatient care and was felt to be stable for discharge. We discussed worrisome signs and symptoms for which to return and he was educated on his medications. He was discharged in hemodynamically stable condition on 03/13/2021. Status at Discharge Functio
== END 2021-03-13 14:45 | disposition home or self-care (01) | DRG 291 ==
LOC: ANHED 09:33 → ANH3MEDSUR 13:12
PROVIDERS: General Practice; Physician Assistant; Admitting Provider Family Medicine; Emergency Provider Emergency Medicine; PCP Internal Medicine; Visit Provider Physician Assistant
DX: I11.0 Hypertensive heart disease with heart failure (principal); I50.23 Acute on chronic systolic (congestive) heart failure; I48.20 Chronic atrial fibrillation, unspecified; R09.02 Hypoxemia; I25.10 Atherosclerotic heart disease of native coronary artery without angina pectoris; D64.9 Anemia, unspecified; G47.33 Obstructive sleep apnea (adult) (pediatric); E11.9 Type 2 diabetes mellitus without complications; D72.829 Elevated white blood cell count, unspecified; M19.90 Unspecified osteoarthritis, unspecified site; F41.9 Anxiety disorder, unspecified; K21.9 Gastro-esophageal reflux disease without esophagitis; E78.2 Mixed hyperlipidemia; I42.8 Other cardiomyopathies; F43.12 Post-traumatic stress disorder, chronic; M48.00 Spinal stenosis, site unspecified; Z79.01 Long term (current) use of anticoagulants; Z87.11 Personal history of peptic ulcer disease; Z87.891 Personal history of nicotine dependence
CPT/HCPCS: 36415; 36600; 71046; 80048; 82375; 82805; 83050; 83605; 83880; 84145; 84484; 85025; 85027; 85610; 85730; 93005; 94640; 96365; 96375; 99285; A9270; J0456; J0696; J1100; J1940

== ENCOUNTER 2021-05-31 14:43 | Outpatient (CLI) | payer MEDICARE, BC, SELFPAY ==
[2021-05-31 15:40] LABS: Basophils Absolute Auto 0.1 K/mm3 (0.0-0.1); Basophils Percent Auto 0.7 % (0.2-1.2); Eosinophils Absolute Auto 0.1 K/mm3 (0-0.3); Eosinophils Percent Auto 1.9 % (0-4.4); Hematocrit 46.4 % (42.0-52.0); Hemoglobin 14.5 g/dL (14.0-18.0); Immature Granulocyte Absolute 0.03 K/mm3 (0.00-0.031); Immature Granulocyte Percent A 0.4 % (0-0.5); Lymphocytes Absolute Auto 1.61 K/mm3 (0.9-3.2); Lymphocytes Percent Auto 22.4 % (18.3-44.2); Mean Corpuscular HGB Conc 31.3 g/dl (32-36); Mean Corpuscular Hemoglobin 31.2 pg (26-34); Mean Corpuscular Volume 99.8 fl (80-100); Mean Platelet Volume 10.7 fl (7.4-10.4); Monocytes Absolute Auto 0.8 K/mm3 (0.1-0.6); Monocytes Percent Auto 10.4 % (2.6-8.5); Neutrophils Absolute Auto 4.6 K/mm3 (1.3-6.7); Neutrophils Percent Auto 64.2 % (45.5-73.1); Platelet Count Result 242 k/mm3 (150-375); Red Blood Count 4.65 M/mm3 (4.6-6.20); Red Cell Distribution Width 14.4 % (11.5-14.5); White Blood Count 7.2 K/mm3 (4.5-10.0)
[2021-05-31 15:46] LABS: Anion Gap 9 mmol/L (8-16); Blood Urea Nitrogen 15 mg/dL (9-20); Calcium 9.5 mg/dL (8.4-10.2); Carbon Dioxide 31 mmol/L (22-30); Chloride 102 mmol/L (98-107); Estimated Glomerular Filt Rate > 60; Glucose 108 mg/dL (65-110); Potassium 4.2 mmol/L (3.4-5.0); Sodium 142 mmol/L (137-145)
== END 2021-05-31 14:44 | disposition home or self-care (01) ==
PROVIDERS: PCP Internal Medicine
DX: I42.8 Other cardiomyopathies (principal)
CPT/HCPCS: 36415; 80048; 85025

== ENCOUNTER → 2021-06-05 00:09 | Outpatient (CLI) | payer MEDICARE, BC, SELFPAY ==
[2021-06-05 20:22] LABS: SARS-CoV-2 RNA PCR Negative
== END ==
PROVIDERS: PCP Internal Medicine; Visit Provider Specialist
DX: I42.8 Other cardiomyopathies (principal); Z20.822 Contact with and (suspected) exposure to COVID-19
CPT/HCPCS: C9803; U0003; U0005

== ENCOUNTER 2021-07-20 10:57 | Inpatient (IN) | payer MEDICARE, BC, SELFPAY ==
[2021-07-20] VITALS (11 sets, daily range): BP systolic 151–166; BP diastolic 83–106; PULSE 71–88; RESP 16–22; TEMP 36.2–37.4; O2SAT 93–97
--- NOTE | ~2021-07-20 | XR_ITS ---
EXAMINATION: XR chest 2V DATE: 07/20/2021 11:40 INDICATION: Shortness of breath. TECHNIQUE: Frontal and lateral views of the chest were obtained. COMPARISON: Chest 2 views 03/11/2021, chest CT 12/05/2020 FINDINGS: Sensitivity is decreased by obesity. There are airspace opacities in the lower lung zones. No pleural effusion or pneumothorax. Cardiomegaly is noted. There is a left chest pacer/defibrillator with leads in right ventricle and coronary sinus. IMPRESSION: 1. Airspace opacities in the lower lung zones, consistent with atelectasis versus pneumonia. 2. Cardiomegaly. Reviewed, dictated and finalized at location A. 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 Airspace opacities in the lower lung zones, consistent with atelectasis vers us pneumonia. 2. Cardiomegaly.
--- NOTE | 2021-07-20 11:06 | ECG_ITS ---
Measurements Intervals [place] Rate: 78 P: [place]: 0 QRS: 235 QRSD: 158 T: 50 QT: 424 QTc: 486 Interpretive Statements ELECTRONIC VENTRICULAR PACEMAKER COMPARED TO ECG 03/11/2021 06:32:20 NO SIGNIFICANT CHANGES Electronically Signed On 07-20-2021 11:31:25 TILE APPLICATOR by Yung Lucas M.D.
[2021-07-20 11:38] LABS: Basophils Percent Auto 0.5 % (0.2-1.2); Eosinophils Percent Auto 0.4 % (0-4.4); Hematocrit 43.2 % (42.0-52.0); Hemoglobin 13.9 g/dL (14.0-18.0); Immature Granulocyte Absolute 0.05 K/mm3 (0.00-0.031); Immature Granulocyte Percent A 0.6 % (0-0.5); Lymphocytes Absolute Auto 0.88 K/mm3 (0.9-3.2); Lymphocytes Percent Auto 10.9 % (18.3-44.2); Mean Corpuscular HGB Conc 32.2 g/dl (32-36); Mean Corpuscular Hemoglobin 31.8 pg (26-34); Mean Corpuscular Volume 98.9 fl (80-100); Mean Platelet Volume 10.5 fl (7.4-10.4); Monocytes Absolute Auto 0.6 K/mm3 (0.1-0.6); Monocytes Percent Auto 6.9 % (2.6-8.5); Neutrophils Absolute Auto 6.5 K/mm3 (1.3-6.7); Neutrophils Percent Auto 80.7 % (45.5-73.1); Platelet Count Result 209 k/mm3 (150-375); Red Blood Count 4.37 M/mm3 (4.6-6.20); Red Cell Distribution Width 14.6 % (11.5-14.5); White Blood Count 8.1 K/mm3 (4.5-10.0)
[2021-07-20 11:52] LABS: INR 1.3; Prothrombin Time 15.5 Seconds (11.1-14.7)
[2021-07-20 11:53] LABS: Partial Thromboplastin Time 50.1 SECONDS (22.3-36.8)
[2021-07-20 11:54] LABS: Alanine Aminotransferase 22 U/L (4-50); Albumin Level 4.1 g/dL (3.5-5.1); Alkaline Phosphatase 90 U/L (38-126); Anion Gap 6 mmol/L (8-16); Aspartate Amino Transferase 36 U/L (17-59); Bilirubin,Total 1.1 mg/dL (0.2-1.3); Blood Urea Nitrogen 15 mg/dL (9-20); Calcium 8.9 mg/dL (8.4-10.2); Carbon Dioxide 30 mmol/L (22-30); Chloride 104 mmol/L (98-107); Estimated CRCL calculation 68 ml/min; Estimated Glomerular Filt Rate > 60; Glucose 117 mg/dL (65-110); Potassium 4.2 mmol/L (3.4-5.0); Sodium 140 mmol/L (137-145)
[2021-07-20 12:05] LABS: NT Pro B Type Natriuretic Pept 2490 pg/mL (5-100); Troponin I < 0.012 ng/mL (0.000-0.034)
--- NOTE | 2021-07-20 12:38 | ED.SOB ---
HPI - SOB/Dyspnea General Chief Complaint: Shortness of Breath/Dyspnea Stated Complaint: SOB Time Seen by Provider: 07/20/21 12:29 Source: patient Mode of arrival: ambulatory Limitations: no limitations History of Present Illness HPI Narrative: Patient is a 71-year-old male complain of shortness of breath, worse with exertion worse the past 3 days, but had been ongoing after he had his pacemaker placed at [facility] 3 weeks ago. Patient denies any chest pain, abdominal pain, nausea, vomiting, diaphoresis, fever or chills. Related Data Home Medications Medication Instructions Recorded Confirmed atorvastatin 80 mg tablet 80 mg PO DAILY 03/11/19 03/18/21 dabigatran etexilate 150 mg capsule 150 mg PO BID 03/11/19 03/18/21 terazosin 5 mg capsule 5 mg PO DAILY 03/11/19 03/18/21 fluticasone propionate 2 spray NASAL DAILY PRN 12/05/20 03/18/21 Entresto 1 tablet PO BID 03/11/21 03/18/21 amlodipine 10 mg DAILY 03/11/21 03/18/21 Allergies Allergy/AdvReac Type Severity Reaction Status Date / Time Beta-Blockers Allergy Severe Difficulty Verified 07/20/21 11:17 (Beta-Adrenergic Bloc Breathing citalopram Allergy Severe SWEATING, Verified 07/20/21 11:17 AGITATED Penicillins Allergy Severe Swelling Verified 07/20/21 11:17 of Lip/Tongue/Throat Review of Systems Review of Systems: All systems reviewed & are unremarkable except as noted in HPI and below Constitutional: Constitutional: Denies body ache(s), Denies chills, Denies excessive sweating, Denies fatigue, Denies fever(s), Denies headache(s), Denies lethargy, Denies malaise, Denies weakness and Denies weight loss Eyes: Eyes: Denies blurry vision, Denies change in vision and Denies loss of vision ENT: Denies dizziness, Denies ear discharge, Denies headache(s), Denies lip swelling, Denies epistaxis, Denies nasal congestion, Denies neck pain, Denies throat swelling and Denies tongue swelling Cardiovascular: Cardiovascular: Denies chest pain, Denies chest pain at rest, Denies chest pain with activity, Denies diaphoresis, Denies rapid heart rate, Denies edema, Denies irregular heart rhythm, Denies lightheadedness and Denies palpitations Respiratory: Respiratory: Denies chest congestion, Denies cough and Denies hemoptysis Gastrointestinal: Gastrointestinal: Denies abdominal pain, Denies melena, Denies hematochezia, Denies diarrhea, Denies nausea, Denies vomiting and Denies hematemesis Musculoskeletal: Musculoskeletal: Denies abnormal gait, Denies deformity, Denies joint swelling, Denies limited range of motion, Denies neck pain and Denies numbness Neurologic: Denies Abnormal speech present, Denies abnormal gait, Denies confusion, Denies dizziness, Denies headache(s), Denies focal weakness, Denies loss of vision, Denies numbness, Denies Other visual disturbances, Denies Sensory deficit (Neuro) and Denies weakness Psychiatric: Psychiatric: Denies confusion, Denies depression, Denies auditory hallucinations, Denies homicidal ideation and Denies suicidal ideation Endocrine: Endocrine: Denies cold intolerance, Denies excessive sweating, Denies fatigue, Denies heat intolerance and Denies palpitations Hematologic/Lymphatic: Hematologic/Lymphatic: Denies easy bleeding and Denies easy bruising Allergic/Immunologic: Allergic/Immunologic: Denies lip swelling, Denies throat swelling and Denies tongue swelling PMFSH Past Medical History Medical History Anxiety Arthritis Atrial fibrillation Chronic anemia Chronic anticoagulation On dabigatran for stroke prophylaxis. Coronary artery disease Depression Gastroesophageal reflux disease Hypertension Mixed hyperlipidemia Nonischemic cardiomyopathy Ejection fraction was 30% on recent echocardiogram. Obstructive sleep apnea Peptic ulcer disease (2019) Post-traumatic stress disorder, chronic Spinal stenosis Type 2 diabetes mellitus No longer on medication. Hemoglobin A1c was 5.8% in
[2021-07-20] MEDS: FUROSEMIDE INJ 40 MG/4 ML VIAL IV PUSH ×2 (14:21→20:52)
--- NOTE | 2021-07-20 15:00 | PM.IMHP ---
H&P: HPI History of Present Illness Date/Time: 07/20/21 15:00 Chief Complaint: Shortness of breath. Narrative: This is a very pleasant 71-year-old male with hypertension, hyperlipidemia, chronic atrial fibrillation, and nonischemic cardiomyopathy who presented to the emergency department today for evaluation of shortness of breath. He was initially diagnosed with nonischemic cardiomyopathy in 2012 and had been doing well with medical treatment until the middle part of 2020 when he began developing symptomatic congestive heart failure requiring multiple hospitalizations. His ejection fraction continued to decline and was down to 23% at which time he was referred to electrophysiology at [facility] for Dr. Campbell saw him in place a defibrillator on 06/09/2021. He was seen by Dr. Pabon in follow-up on 07/06/2021 at which time he was doing well aside from mild, ongoing dyspnea on exertion. Over the last couple of weeks he has felt increasingly fatigued with worsening dyspnea on lesser and lesser exertion and he was referred to the ER. Additionally he reports a fleeting hard pain in the substernal region this morning. He has had good urine output with 1 dose of IV Lasix 40 mg however he continues to feel short of breath and he is being admitted for further treatment. He denies fever, chills, sweats, sick contacts, current chest pain, orthopnea, paroxysmal nocturnal dyspnea, nausea, and vomiting. Review of Systems Review of Systems: Twelve systems were reviewed and are negative except for as per HPI. [facility] Past Medical History Medical History (Updated 07/20/21 @ 20:46 by Alexia Yang PA-C) Anxiety Arthritis Atrial fibrillation Chronic anemia Chronic anticoagulation On dabigatran for stroke prophylaxis. Coronary artery disease Depression Gastroesophageal reflux disease Hypertension Mixed hyperlipidemia Nonischemic cardiomyopathy Ejection fraction was 23% on recent echocardiogram. Obstructive sleep apnea Peptic ulcer disease (2018) Post-traumatic stress disorder, chronic Spinal stenosis Type 2 diabetes mellitus No longer on medication. Hemoglobin A1c was 5.8% in January 2021. Surgical History Surgical History (Updated 07/20/21 @ 20:44 by Alexia Yang PA-C) History of cardiac catheterization History of implantable cardioverter-defibrillator (ICD) insertion (05/2021) Per Dr. Campbell at [facility]. History of spinal surgery History of tonsillectomy Family History Family History Mother Family history of malignant neoplasm Family history of arthritis Hypertension Father Acute myocardial infarction Diabetes mellitus Family history of arthritis Hypertension Other Family history of premature coronary heart disease Social History Social History Social History: The patient lives in [place] with his . 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 Former smoker, quit in October 2010. Denies alcohol and illicit substance abuse. He wishes to be a full code. Smoking packs per day: 1.5 Smoking cigarettes per day: 30.0 Years smoked: 30 Smoking pack-years: 45.00 Smoking status: Former smoker Tobacco type: cigarettes Smoking end date: 05/15/10 Alcohol intake: never Substance use: never Substance use type: does not use Spiritual care concerns: No Meds Home Medications and Allergies Home Medications Medication Instructions Recorded Confirmed Type atorvastatin 80 mg tablet 80 mg PO DAILY 03/11/19 07/20/21 History dabigatran etexilate 150 mg capsule 150 mg PO BID 03/11/19 07/20/21 History terazosin 5 mg capsule 5 mg PO DAILY 03/11/19 07/20/21 History fluticasone propionate 2 spray NASAL DAILY PRN 12/05/20 07/20/21 History furosemide 40 mg PO DAILY 30 Days #30 tablet 01/05/21 07/20/21 Rx spironolactone 25 mg PO QAM 30 Days #30 tablet 01/05/21 07/20/21 Rx Entres
[2021-07-21] VITALS (9 sets, daily range): BP systolic 110–155; BP diastolic 56–95; PULSE 72–92; RESP 18–20; TEMP 36.1–36.7; O2SAT 94–96
[2021-07-21 06:32] LABS: Anion Gap 8 mmol/L (8-16); Blood Urea Nitrogen 16 mg/dL (9-20); Calcium 8.5 mg/dL (8.4-10.2); Carbon Dioxide 32 mmol/L (22-30); Chloride 101 mmol/L (98-107); Estimated CRCL calculation 68 ml/min; Estimated Glomerular Filt Rate > 60; Glucose 102 mg/dL (65-110); Potassium 3.5 mmol/L (3.4-5.0); Sodium 141 mmol/L (137-145)
[2021-07-21 08:17] LABS: Alanine Aminotransferase 21 U/L (4-50); Albumin Level 3.9 g/dL (3.5-5.1); Alkaline Phosphatase 94 U/L (38-126); Aspartate Amino Transferase 35 U/L (17-59); Bilirubin,Total 1.3 mg/dL (0.2-1.3)
[2021-07-21 08:20] LABS: Basophils Percent Auto 0.6 % (0.2-1.2); Eosinophils Absolute Auto 0.1 K/mm3 (0-0.3); Hematocrit 44.7 % (42.0-52.0); Immature Granulocyte Absolute 0.03 K/mm3 (0.00-0.031); Immature Granulocyte Percent A 0.4 % (0-0.5); Lymphocytes Absolute Auto 1.47 K/mm3 (0.9-3.2); Lymphocytes Percent Auto 21.2 % (18.3-44.2); Mean Corpuscular HGB Conc 31.3 g/dl (32-36); Mean Corpuscular Hemoglobin 31.7 pg (26-34); Mean Corpuscular Volume 101.1 fl (80-100); Mean Platelet Volume 11.1 fl (7.4-10.4); Monocytes Absolute Auto 0.8 K/mm3 (0.1-0.6); Monocytes Percent Auto 10.8 % (2.6-8.5); Neutrophils Absolute Auto 4.6 K/mm3 (1.3-6.7); Platelet Count Result 212 k/mm3 (150-375); Red Blood Count 4.42 M/mm3 (4.6-6.20); Red Cell Distribution Width 14.9 % (11.5-14.5); White Blood Count 6.9 K/mm3 (4.5-10.0)
[2021-07-21] MEDS: DABIGATRAN ETEXILATE 150 MG CAPSULE PO ×2 (09:14→18:26)
[2021-07-21] MEDS: FLUTICASONE PROPIONATE 0.05% NA SPR 16 GM BTL (*BKC) 2 SPRAY NASAL (09:14)
[2021-07-21] MEDS: FUROSEMIDE INJ 40 MG/4 ML VIAL IV PUSH ×2 (09:14→21:21)
[2021-07-21] MEDS: POTASSIUM CHLORIDE 10 MEQ TABLET.ER 20 MEQ PO (09:15)
[2021-07-21] MEDS: SPIRONOLACTONE 25 MG TABLET PO (09:15)
[2021-07-21] MEDS: ATORVASTATIN 40 MG TABLET 80 MG PO (09:15)
[2021-07-21] MEDS: SACUBITRIL/VALSARTAN 24-26 MG TABLET 1 TAB PO (09:15)
[2021-07-21] MEDS: amLODIPine BESYLATE 5 MG TABLET 10 MG BY MOUTH (09:15)
[2021-07-21] MEDS: buPROPion HCL SR (12 HR) 150 MG TAB PO (09:15)
[2021-07-21] MEDS: METOPROLOL SUCCINATE EXT REL 25 MG TABCR 75 MG PO (09:15)
[2021-07-21] MEDS: TERAZOSIN HCL 5 MG CAPSULE PO (09:15)
--- NOTE | 2021-07-21 11:20 | PM.IMPN ---
Progress Note: A&P Assessment and Plan (1) Shortness of breath: Code(s): R06.02 - Shortness of breath Status: Acute Assessment and Plan: -Chest x-ray shows findings of atelectasis versus pneumonia, pneumonia unlikely by history. No cough, fever, malaise. No tachycardia, tachypnea, or leukocytosis -He seems to once again be symptomatic with regards to his congestive heart failure though he is not overtly volume overloaded. Continue furosemide. (2) CHF exacerbation: Code(s): I50.9 - Heart failure, unspecified Status: Acute Assessment and Plan: -Plan is as detailed above. -Cardiology consulted by the ED physician. (3) Nonischemic cardiomyopathy: Code(s): I42.8 - Other cardiomyopathies Status: Acute Assessment and Plan: -Recent ejection fraction was 23%, status post PM/ICD insertion. -Continue Entresto, beta-trace, and spironolactone. (4) Atrial fibrillation: Qualifiers: Atrial fibrillation type: longstanding persistent Qualified Code(s): I48.11 - Longstanding persistent atrial fibrillation Code(s): I48.91 - Unspecified atrial fibrillation Status: Acute Assessment and Plan: -Ventricularly paced. (5) Chronic anticoagulation: Code(s): Z79.01 - intermediate designer (current) use of anticoagulants Status: Acute Assessment and Plan: -Continue dabigatran for stroke prophylaxis. Subjective Date/time seen: 07/21/21 11:20 Interval history: 71-year-old male with hypertension, hyperlipidemia, chronic atrial fibrillation, and nonischemic cardiomyopathy admitted to the hospital for CHF exacerbation. Pt states he feels a little better today but continues to be short of breath. Worse with exertion. Had chest pain prior to arrival but has not had it since that time. No LE edema. No N/V/D/abd pain. Review of Systems Review of Systems: All systems reviewed & are unremarkable except as noted in HPI and below Exam Narrative: General: Well-developed elderly male sitting at the side of the bed. HAD, non toxic. HEENT: PERRL. Sclerae anicteric. Oral mucosa moist. Neck: Supple. Respiratory: Respirations are even and nonlabored. Lung sounds are diminished at the bases. No wheezing or crackles. Cardiovascular: Regular rate and rhythm with S1-S2. Chest: Defibrillator site without evidence of infection or dehiscence. Gastrointestinal: Abdomen is soft, nontender, and nondistended with positive bowel sounds. Skin: Warm and dry. No rash or lesions on limited exam. Extremities: No cyanosis, clubbing, or significant edema. Radial and pedal pulses intact. Neurological: Alert. Cranial nerves 2-12 are grossly intact. No gross focal deficits to casual conversation. Psychiatric: Pleasant and cooperative with normal mood and affect. Objective Data Vital Signs Vital Signs: Vital Signs - 24 hr 07/20/21 11:56 07/20/21 11:57 07/20/21 12:15 Temperature Pulse Rate 74 71 Respiratory Rate 16 21 H Blood Pressure 151/99 H 166/105 H Pulse Oximetry 96 96 93 07/20/21 12:46 07/20/21 13:37 07/20/21 16:02 Temperature 98.9 F 98.9 F Pulse Rate 71 71 71 Respiratory Rate 21 H 22 H 22 H Blood Pressure 157/93 H 157/83 H Pulse Oximetry 94 94 94 07/20/21 20:00 07/20/21 21:43 07/20/21 22:47 Temperature 97.2 F L Pulse Rate 76 71 Respiratory Rate 20 Blood Pressure 153/91 H Pulse Oximetry 95 94 07/21/21 00:00 07/21/21 04:00 07/21/21 05:41 Temperature 97.6 F Pulse Rate 83 72 81 Respiratory Rate 18 Blood Pressure 155/95 H Pulse Oximetry 95 Intake/Output Intake/Output: Intake & Output 07/18/21 07/19/21 07/20/21 07/21/21 23:59 23:59 23:59 23:59 Intake Total 240 Balance 240 Meds/Results Medications: Active Medications Generic Name Dose Route Start Last Admin Trade Name Freq PRN Reason Stop Dose Admin Alprazolam 0.5 mg 07/21/21 08:
--- NOTE | 2021-07-21 16:20 | PM.CNCAR ---
Assessment and Plan Assessment and plan (1) Acute on chronic HFrEF (heart failure with reduced ejection fraction): Code(s): I50.23 - Acute on chronic systolic (congestive) heart failure Status: Acute Assessment and Plan: Acute on chronic heart failure with reduced ejection fraction EF 23% status post biventricular ICD. Continue IV Lasix this evening transition to oral Lasix 60 mg daily beginning tomorrow. Patient nearing baseline. Increase Entresto to 49/51 mg twice daily beginning this evening. Monitor BP. Provided patient improved symptomatically and tolerating medical therapy may be able to discharge home tomorrow to follow up as an outpatient with Dr. Pabon. Discussed the above recommendation with the patient who verbalized understanding and agreed with plan of care. Accurate input and output, daily weight. (2) Nonischemic cardiomyopathy: Code(s): I42.8 - Other cardiomyopathies Status: Acute Assessment and Plan: Severe LV systolic dysfunction EF 23% as noted above. Continue supportive medical therapy. Up titrate guideline directed medical therapy as tolerated. As outpatient increase Lasix to 60 mg daily. Continue spironolactone, potassium, Toprol XL, Entresto. (3) Chronic anticoagulation: Code(s): Z79.01 - terminal superintendent (current) use of anticoagulants Status: Acute Assessment and Plan: Continue Pradaxa. Monitor for bleeding. (4) Atrial fibrillation: Qualifiers: Atrial fibrillation type: longstanding persistent Qualified Code(s): I48.11 - Longstanding persistent atrial fibrillation Code(s): I48.91 - Unspecified atrial fibrillation Status: Acute Assessment and Plan: Chronic. (5) Biventricular ICD (implantable cardioverter-defibrillator) in place: Code(s): Z95.810 - Presence of automatic (implantable) cardiac defibrillator Status: Acute Assessment and Plan: Paced rhythm. May discontinue telemetry. Patient states telemetry device is irritating his ICD implant site. He has not had sustained or nonsustained VT on telemetry thus far. Nonetheless, he has an ICD. History of Present Illness History of Present Illness Consult date/time: Date of service: 07/21/21 16:20 Cardiology consultation at the request of Alexia Yang for opinion regarding congestive heart failure and cardiomyopathy. Requesting physician: Alexia Yang PA-C Consult reason: congestive heart failure Reason For Visit: CHF exacerbation Narrative: Patient is a very pleasant 71-year-old male followed by Dr. Pabon as an outpatient with known history of nonischemic cardiomyopathy with LBBB, chronic atrial fibrillation, ejection fraction 23% status post biventricular ICD, chronic heart failure with reduced ejection fraction with recurrent hospitalizations for decompensated heart failure which. Patient states he has chronic exertional dyspnea but noted over the past 2 days symptoms became much worse with dyspnea walking across the room and sensation of inability to catch his breath. He admits to wheezing as well. Denies specific chest pain. He has been compliant with medications. He does admit he has been eating out more and has gained 20 lb over the past few months he blames on his diet. He also admits he has had more sodium in his diet than he should. He discuss the difficult time caring for his which has altered his pattern as well. She patient was given IV Lasix with some improvement in the shortness of breath overall. Patient states he is close to his baseline but still notes shortness of breath with activity. Denies dizziness or palpitations. He admits to greater fatigue over the past couple weeks as well but denies fevers, chills or bleeding. And recent visit 07/06/[address] Pabon increased Entresto was advised which he has yet to do as he was finishing his previous prescription. He states he typically has fluid accumulation in
[2021-07-21] MEDS: SACUBITRIL/VALSARTAN 49-51 MG TABLET 1 TABLET PO (21:21)
[2021-07-21] MEDS: ALPRAZolam (*CRX) 0.5 MG TABLET PO (21:29)
[2021-07-22] VITALS: PULSE 74
[2021-07-22 02:22] VITALS: O2SAT 95
[2021-07-22 06:00] VITALS: BP 129/89; PULSE 85; RESP 20; TEMP 36.7; O2SAT 94
[2021-07-22 06:02] LABS: Basophils Percent Auto 0.5 % (0.2-1.2); Eosinophils Absolute Auto 0.1 K/mm3 (0-0.3); Eosinophils Percent Auto 1.7 % (0-4.4); Hematocrit 44.2 % (42.0-52.0); Hemoglobin 13.9 g/dL (14.0-18.0); Immature Granulocyte Absolute 0.01 K/mm3 (0.00-0.031); Immature Granulocyte Percent A 0.2 % (0-0.5); Lymphocytes Absolute Auto 1.31 K/mm3 (0.9-3.2); Lymphocytes Percent Auto 22.2 % (18.3-44.2); Mean Corpuscular HGB Conc 31.4 g/dl (32-36); Mean Corpuscular Hemoglobin 31.7 pg (26-34); Mean Corpuscular Volume 100.9 fl (80-100); Mean Platelet Volume 10.7 fl (7.4-10.4); Monocytes Absolute Auto 0.7 K/mm3 (0.1-0.6); Monocytes Percent Auto 12.2 % (2.6-8.5); Neutrophils Absolute Auto 3.7 K/mm3 (1.3-6.7); Neutrophils Percent Auto 63.2 % (45.5-73.1); Platelet Count Result 196 k/mm3 (150-375); Red Blood Count 4.38 M/mm3 (4.6-6.20); Red Cell Distribution Width 14.7 % (11.5-14.5); White Blood Count 5.9 K/mm3 (4.5-10.0)
[2021-07-22 06:09] LABS: Anion Gap 6 mmol/L (8-16); Blood Urea Nitrogen 22 mg/dL (9-20); Calcium 8.5 mg/dL (8.4-10.2); Carbon Dioxide 33 mmol/L (22-30); Chloride 102 mmol/L (98-107); Estimated CRCL calculation 60 ml/min; Estimated Glomerular Filt Rate 59; Glucose 104 mg/dL (65-110); Potassium 3.5 mmol/L (3.4-5.0); Sodium 141 mmol/L (137-145)
[2021-07-22 08:00] VITALS: PULSE 80
--- NOTE | 2021-07-22 08:46 | PM.PNCARD ---
Progress Note: A&P Assessment and Plan (1) Acute on chronic HFrEF (heart failure with reduced ejection fraction): Code(s): I50.23 - Acute on chronic systolic (congestive) heart failure <KEISHA Campbell - Last Filed: 07/22/21 09:37> Status: Acute <KEISHA Campbell - Last Filed: 07/22/21 09:37> Assessment and Plan: Acute on chronic heart failure with reduced ejection fraction EF 23% status post biventricular ICD. Responded well to diuresis and looks to be at his baseline. Medical therapy has been adjusted. Continue Entresto to 49/51 b.i.d Continue Furosemide 60mg p.o. daily Continue metoprolol 75mg daily Continue spironolactone 25mg daily CHF counseling - reinforced sodium restriction, recommendations for daily fluid intake, daily weights, etc. <KEISHA Campbell - Last Filed: 07/22/21 09:37> (2) Nonischemic cardiomyopathy: Code(s): I42.8 - Other cardiomyopathies <KEISHA Campbell - Last Filed: 07/22/21 09:37> Status: Acute <KEISHA Campbell - Last Filed: 07/22/21 09:37> Assessment and Plan: Severe LV systolic dysfunction EF 23% as noted above. Continue supportive medical therapy. Up titrate guideline directed medical therapy as tolerated. Lasix 60 mg daily as outpatient. Continue spironolactone, potassium, Toprol XL, Entresto. 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 Monitor for bleeding. <KEISHA Campbell - Last Filed: 07/22/21 09:37> (4) Atrial fibrillation: Qualifiers: Atrial fibrillation type: longstanding persistent Qualified Code(s): I48.11 - Longstanding persistent atrial fibrillation <KEISHA Campbell - Last Filed: 07/22/21 09:37> Code(s): I48.91 - Unspecified atrial fibrillation <KEISHA Campbell - Last Filed: 07/22/21 09:37> Status: Acute <KEISHA Campbell - Last Filed: 07/22/21 09:37> Assessment and Plan: Chronic. <KEISHA Campbell - Last Filed: 07/22/21 09:37> (5) Biventricular ICD (implantable cardioverter-defibrillator) in place: Code(s): Z95.810 - Presence of automatic (implantable) cardiac defibrillator <KEISHA Campbell - Last Filed: 07/22/21 09:37> Status: Acute <KEISHA Campbell - Last Filed: 07/22/21 09:37> Assessment and Plan: Paced rhythm. <KIESHA Campbell - Last Filed: 07/22/21 09:37> Additional Plan Attending addendum: I agree with the above documentation and plan of care as outlined. <Faraz Negrete MD - Last Filed: 07/22/21 15:46> Subjective Date/time seen: 07/22/21 08:46 <KEISHA Campbell - Last Filed: 07/22/21 09:37> Interval history: Cardiology follow up for CHF Patient is feeling this. He states that he becomes mildly short of breath with exertion overall his breathing has significantly improved compared to when entered the hospital. No chest pain, palpitations. From a cardiac standpoint, he is appropriate for discharge home today. <KEISHA Campbell - Last Filed: 07/22/21 09:37> Review of Systems Review of Systems: All systems reviewed & are unremarkable except as noted in HPI and below <KEISHA Capmbell - Last Filed: 07/22/21 09:37> Constitutional: Constitutional: Reports as per HPI, Reports no additional constitutional complaints, Reports difficulty sleeping and Reports weight gain <KEISHA Campbell - Last Filed: 07/22/21 09:37> Eyes: Eyes: Reports as per HPI and Reports no additional eye complaints <KEISHA Campbell - Last Filed: 07/22/21 09:37> ENT: Reports system reviewed and no additional complaints, ex
[2021-07-22 09:05] VITALS: O2SAT 97
[2021-07-22] MEDS: DABIGATRAN ETEXILATE 150 MG CAPSULE PO (09:09)
[2021-07-22] MEDS: FUROSEMIDE 20 MG TABLET 60 MG PO (09:09)
[2021-07-22 09:10] VITALS: PULSE 67
[2021-07-22] MEDS: METOPROLOL SUCCINATE EXT REL 25 MG TABCR 75 MG PO (09:10)
[2021-07-22] MEDS: ATORVASTATIN 40 MG TABLET 80 MG PO (09:11)
[2021-07-22] MEDS: POTASSIUM CHLORIDE 10 MEQ TABLET.ER 20 MEQ PO (09:11)
[2021-07-22] MEDS: amLODIPine BESYLATE 5 MG TABLET 10 MG BY MOUTH (09:11)
[2021-07-22] MEDS: SPIRONOLACTONE 25 MG TABLET PO (09:12)
[2021-07-22] MEDS: buPROPion HCL SR (12 HR) 150 MG TAB PO (09:12)
[2021-07-22] MEDS: TERAZOSIN HCL 5 MG CAPSULE PO (09:12)
[2021-07-22] MEDS: SACUBITRIL/VALSARTAN 49-51 MG TABLET 1 TABLET PO (09:12)
--- NOTE | 2021-07-22 11:31 | PM.DS ---
DS: Admitting Diagnosis Discharge Date 07/22/2021 Admitting Diagnosis Shortness of breath DS: Discharge Diagnosis Discharge Diagnosis (1) Shortness of breath: Code(s): R06.02 - Shortness of breath Status: Acute Assessment and Plan: -Chest x-ray shows findings of atelectasis versus pneumonia, pneumonia unlikely by history. No cough, fever, malaise. No tachycardia, tachypnea, or leukocytosis -He seems to once again be symptomatic with regards to his congestive heart failure though he is not overtly volume overloaded. Continue furosemide. Treated for acute on chronic heart failure with reduced ejection fraction EF 23% Status post biventricular ICD in the past Started on IV diuresis and was transitioned to oral Lasix. Entresto was also increased to 49/51 twice daily. Follow-up with cardiology as an outpatient basis Discussed fluid restriction, sodium restriction, daily weight and regular follow-up with Cardiology (2) CHF exacerbation: Code(s): I50.9 - Heart failure, unspecified Status: Acute Assessment and Plan: -Plan is as detailed above. -Cardiology consulted and appreciate their recommendations (3) Nonischemic cardiomyopathy: Code(s): I42.8 - Other cardiomyopathies Status: Acute Assessment and Plan: -Recent ejection fraction was 23%, status post PM/ICD insertion. -Continue Entresto, beta-trace, and spironolactone. (4) Atrial fibrillation: Qualifiers: Atrial fibrillation type: longstanding persistent Qualified Code(s): I48.11 - Longstanding persistent atrial fibrillation Code(s): I48.91 - Unspecified atrial fibrillation Status: Acute Assessment and Plan: -Ventricularly paced. 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 DS: Summary Hospital Course Hospital Course: See above Time Spent with Patient Time attestation: Total time spent providing and/or coordinating discharge services: 35 minutes Exam Narrative: General: Well-developed elderly male, not in acute distress HEENT: PERRL. Sclerae anicteric. Oral mucosa moist. Neck: Supple.non tender Respiratory: Respirations are even and nonlabored. Lung sounds are diminished at the bases. No wheezing or crackles. Cardiovascular: Regular rate and rhythm with S1-S2. Chest: Defibrillator site without evidence of infection or dehiscence. Gastrointestinal: Abdomen is soft, nontender, and nondistended with positive bowel sounds. Skin: Warm and dry. No rash or lesions on limited exam. Extremities: No cyanosis, clubbing, or significant edema. Radial and pedal pulses intact. Neurological: Alert. Cranial nerves 2-12 are grossly intact. No gross focal deficits to casual conversation. Psychiatric: Pleasant and cooperative with normal mood and affect. DS: Data Data Completed and Pending Labs on day of discharge: Labs from last 24 hours 07/22/21 07/22/21 05:29 05:29 WBC 5.9 RBC 4.38 L Hgb 13.9 L Hct 44.2 MCV 100.9 H MCH 31.7 MCHC 31.4 L RDW 14.7 H Plt Count 196 MPV 10.7 H Immature Gran % (Auto) 0.2 Neut % (Auto) 63.2 Lymph % (Auto) 22.2 Hudspeth % (Auto) 12.2 H Eos % (Auto) 1.7 Baso % (Auto) 0.5 Lymph # (Auto) 1.31 Hudspeth # (Auto) 0.7 H Eos # (Auto) 0.1 Baso # (Auto) 0.0 Abs Immat Gran (auto) 0.01 Absolute Neuts (auto) 3.7 Absolute Nucleated RBC 0.0 Nucleated RBC % 0.0 Sodium 141 Potassium 3.5 Chloride 102 Carbon Dioxide 33 H Anion Gap 6 L BUN 22 H Creatinine 1.20 Estim Creat Clear Calc 60 Estimated GFR 59 Glucose 104 Calcium 8.5 Imaging Radiologist's impression: ITS Impressions Chest X-Ray 07/20/21 11:43 IMPRESSION: 1. Airspace opacities in the lower lung zones, consistent with atelectas
== END 2021-07-22 14:00 | disposition home or self-care (01) | DRG 291 ==
LOC: ANHED 15:29 → ANH3MEDSUR 15:42
PROVIDERS: Emergency Medicine; Physician Assistant; Admitting Provider Hospitalist; Emergency Provider Emergency Medicine; PCP Internal Medicine; Visit Provider Internal Medicine
DX: I11.0 Hypertensive heart disease with heart failure (principal); I50.23 Acute on chronic systolic (congestive) heart failure; I48.11 Longstanding persistent atrial fibrillation; I42.8 Other cardiomyopathies; F41.9 Anxiety disorder, unspecified; M19.90 Unspecified osteoarthritis, unspecified site; D64.9 Anemia, unspecified; I25.10 Atherosclerotic heart disease of native coronary artery without angina pectoris; K21.9 Gastro-esophageal reflux disease without esophagitis; E78.2 Mixed hyperlipidemia; G47.33 Obstructive sleep apnea (adult) (pediatric); F43.10 Post-traumatic stress disorder, unspecified; I44.7 Left bundle-branch block, unspecified; E11.9 Type 2 diabetes mellitus without complications; M48.00 Spinal stenosis, site unspecified; E66.9 Obesity, unspecified; Z68.36 Body mass index [BMI] 36.0-36.9, adult; Z95.810 Presence of automatic (implantable) cardiac defibrillator; Z87.11 Personal history of peptic ulcer disease; Z87.891 Personal history of nicotine dependence; Z79.01 Long term (current) use of anticoagulants
CPT/HCPCS: 36415; 71046; 80048; 80053; 80076; 83735; 83880; 84484; 85025; 85610; 85730; 93005; 96374; 96376; 99285; A9270; G0378; J1940

== ENCOUNTER 2021-10-14 10:04 | Outpatient (CLI) | payer MEDICARE, BC, SELFPAY ==
[2021-10-14 10:59] LABS: Alanine Aminotransferase 19 U/L (6-50); Alkaline Phosphatase 94 U/L (38-126); Anion Gap 5 mmol/L (8-16); Aspartate Amino Transferase 33 U/L (17-59); Blood Urea Nitrogen 14 mg/dL (9-20); Calcium 8.7 mg/dL (8.4-10.2); Carbon Dioxide 31 mmol/L (22-30); Chloride 105 mmol/L (98-107); Cholesterol 146 mg/dL (0-200); Estimated Glomerular Filt Rate > 60; Glucose 99 mg/dL (65-110); HDL Direct 51 mg/dL; Potassium 4.2 mmol/L (3.4-5.0); Sodium 141 mmol/L (137-145); Triglycerides 91 mg/dL (<150)
[2021-10-14 11:11] LABS: LDL Cholesterol Direct 70 mg/dL
[2021-10-14 11:19] LABS: Hemoglobin A1C 5.9 % (<5.7)
== END 2021-10-14 10:05 | disposition home or self-care (01) ==
PROVIDERS: PCP Internal Medicine; Visit Provider Internal Medicine
DX: I42.0 Dilated cardiomyopathy (principal); E11.9 Type 2 diabetes mellitus without complications; I50.23 Acute on chronic systolic (congestive) heart failure; E78.5 Hyperlipidemia, unspecified
CPT/HCPCS: 36415; 80053; 80061; 83036

== ENCOUNTER 2021-12-03 10:06 | Emergency (ER) | payer MEDICARE, BC, SELFPAY ==
[2021-12-03] VITALS (7 sets, daily range): BP systolic 114–142; BP diastolic 77–95; PULSE 72–83; RESP 16–29; TEMP 36.6; O2SAT 94–98
--- NOTE | ~2021-12-03 | XR_ITS ---
EXAMINATION: XR chest 1V portable DATE: 12/03/2021 11:00 INDICATION: Dyspnea on exertion TECHNIQUE: frontal view of the chest was obtained. COMPARISON: Chest radiograph dated 07/20/2021 FINDINGS: There is cardiomegaly. Pacemaker leads are stable. Bibasilar airspace disease may represent edema or pneumonia. Small left pleural effusion. No pneumothorax. IMPRESSION: 1. Bibasilar airspace disease may represent edema or pneumonia. 2: Small left pleural effusion. 3: Cardiomegaly. Reviewed, dictated and finalized at location A.
--- NOTE | 2021-12-03 10:27 | ECG_ITS ---
Measurements Intervals [place] Rate: 71 P: VT: 0 QRS: -36 QRSD: 154 T: 84 QT: 465 QTc: 508 Interpretive Statements ELECTRONIC VENTRICULAR PACEMAKER BASELINE ARTIFACT- II, III, AVR, AVF, V3-V4 NO FURTHER INTERPRETATION IS POSSIBLE ATYPICAL ECG Electronically Signed On 12-03-2021 16:44:32 CDT by Elier Jansen D.O.
--- NOTE | 2021-12-03 10:31 | ED.SOB ---
HPI - SOB/Dyspnea General Chief Complaint: Shortness of Breath/Dyspnea Stated Complaint: SOB , CHF history Time Seen by Provider: 12/03/21 10:11 Source: patient, EMS, RN notes reviewed and old records reviewed Mode of arrival: EMS Limitations: no limitations History of Present Illness HPI Narrative: This is a 71 year old female with history of cardiomyopathy with EF 23%, Biventricular ICD who presents for evaluation of shortness of breath. He states he has been dealing with shortness of breath for 3-4 months since he had ICD placed. His shortness of breath worsened last night and it scared him. His shortness of breath is worse with exertion . He reports runny nose and congestion for 5 days. He also reports mild dry cough. He states he had 1 episode of brieft sharp chest pain. He had mild swelling to his ankles this morning. He has been taking his diuretics, and he states he takes 80 mg daily. He denies fever, chills, nausea or vomiting [employer]pper [employer] is Dr. Pabon. Related Data Home Medications Medication Instructions Recorded Confirmed atorvastatin 80 mg tablet 80 mg PO DAILY 03/11/19 08/19/21 dabigatran etexilate 150 mg 150 mg PO BID 03/11/19 08/19/21 capsule (Pradaxa) terazosin 5 mg capsule 5 mg PO DAILY 03/11/19 08/19/21 amlodipine 10 mg tablet 10 mg DAILY 03/11/21 08/19/21 Allergies Allergy/AdvReac Type Severity Reaction Status Date / Time Beta-Blockers Allergy Severe Difficulty Verified 12/03/21 10:20 (Beta-Adrenergic Bloc Breathing citalopram Allergy Severe SWEATING, Verified 12/03/21 10:20 AGITATED Penicillins Allergy Severe Swelling Verified 12/03/21 10:20 of Lip/Tongue/Throat Review of Systems Review of Systems: All systems reviewed & are unremarkable except as noted in HPI and below Constitutional: Constitutional: Denies chills, Denies fatigue and Denies fever(s) ENT: Reports nasal congestion and Denies sore throat Cardiovascular: Cardiovascular: Reports chest pain and Denies radiating jaw, neck or arm pain Respiratory: Respiratory: Reports cough (dry), Reports dyspnea and Denies wheezing Gastrointestinal: Gastrointestinal: Denies abdominal pain, Denies nausea and Denies vomiting [facility] Past Medical History Medical History Anxiety Arthritis Atrial fibrillation Atrial fibrillation Chronic anemia Chronic anticoagulation On dabigatran for stroke prophylaxis. Coronary artery disease Depression Gastroesophageal reflux disease Hypertension Mixed hyperlipidemia Nonischemic cardiomyopathy Ejection fraction was 23% on recent echocardiogram. Obstructive sleep apnea Peptic ulcer disease (2018) Post-traumatic stress disorder, chronic PTSD (post-traumatic stress disorder) Spinal stenosis Type 2 diabetes mellitus No longer on medication. Hemoglobin A1c was 5.8% in January 2021. Surgical History Surgical History History of cardiac catheterization History of implantable cardioverter-defibrillator (ICD) insertion (05/2021) Per Dr. Campbell at [facility]. History of spinal surgery History of tonsillectomy Family History Family History Mother Family history of malignant neoplasm Family history of arthritis Hypertension Father Acute myocardial infarction Diabetes mellitus Family history of arthritis Hypertension Other Family history of premature coronary heart disease Social History Social History (System 11/18/21 @ 14:09 by Mine Dumas) Social History: The patient lives in [place] with his . 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 Former smoker, quit in October 2010. Denies alcohol and illicit substance abuse. He wishes to be a full code. Smoking packs per day: 1.5 Smoking cigarettes per day: 30.0 Years smoked: 30 Smoking pack-years: 45.00 Smoking status: Former sm
[2021-12-03 10:51] LABS: Basophils Percent Auto 0.5 % (0.2-1.2); Eosinophils Absolute Auto 0.1 K/mm3 (0-0.3); Eosinophils Percent Auto 0.9 % (0-4.4); Hematocrit 45.5 % (42.0-52.0); Hemoglobin 14.3 g/dL (14.0-18.0); Immature Granulocyte Absolute 0.04 K/mm3 (0.00-0.031); Immature Granulocyte Percent A 0.5 % (0-0.5); Lymphocytes Absolute Auto 1.07 K/mm3 (0.9-3.2); Lymphocytes Percent Auto 13.6 % (18.3-44.2); Mean Corpuscular HGB Conc 31.4 g/dl (32-36); Mean Corpuscular Hemoglobin 31.8 pg (26-34); Mean Corpuscular Volume 101.3 fl (80-100); Mean Platelet Volume 10.2 fl (7.4-10.4); Monocytes Absolute Auto 0.6 K/mm3 (0.1-0.6); Monocytes Percent Auto 7.4 % (2.6-8.5); Neutrophils Absolute Auto 6.1 K/mm3 (1.3-6.7); Neutrophils Percent Auto 77.1 % (45.5-73.1); Platelet Count Result 214 k/mm3 (150-375); Red Blood Count 4.49 M/mm3 (4.6-6.20); White Blood Count 7.9 K/mm3 (4.5-10.0)
[2021-12-03 11:09] LABS: Alanine Aminotransferase 24 U/L (6-50); Albumin Level 4.2 g/dL (3.5-5.1); Alkaline Phosphatase 104 U/L (38-126); Anion Gap 8 mmol/L (8-16); Aspartate Amino Transferase 34 U/L (17-59); Bilirubin,Total 1.1 mg/dL (0.2-1.3); Blood Urea Nitrogen 15 mg/dL (9-20); Calcium 8.5 mg/dL (8.4-10.2); Carbon Dioxide 29 mmol/L (22-30); Chloride 105 mmol/L (98-107); Estimated CRCL calculation 68 ml/min; Estimated Glomerular Filt Rate > 60; Glucose 114 mg/dL (65-110); INR 1.5; Potassium 3.7 mmol/L (3.4-5.0); Prothrombin Time 17.4 Seconds (11.1-14.7); Sodium 142 mmol/L (137-145)
[2021-12-03 11:10] LABS: Partial Thromboplastin Time 55.1 SECONDS (22.3-36.8)
[2021-12-03 11:11] LABS: Alveolar/Arterial O2 Gradient 38.2 mmHg; Base Excess ABG 3.1 mEq/l (+/-2.0); Carboxyhemoglobin 0.3 % THb (0-2.0); Fractional Inspired Oxygen 21 %; HCO3 ABG 27.8 mEq/l (22.0-26.0); Methemoglobin ABG 0.2 %THb (0-1.5); Oxygen Content ABG 19.5 %vol (16.0-22.0); Oxygen Saturation ABG 91.6 % (95.0-100.0); Oxyhemoglobin 89.8 % THb (90.0-100.0); PO2 FiO2 Ratio Arterial Blood 2.86 %; Reduced Hemoglobin 9.7 %THb (0-5.0); Total Hemoglobin 15.5 g/dL (12.0-18.0); pH ABG 7.429 (7.350-7.450)
[2021-12-03 11:12] LABS: Device ROOM AIR; Modified Allen's Test Pass; Site Drawn LEFT RADIAL
[2021-12-03 11:15] LABS: NT Pro B Type Natriuretic Pept 1730 pg/mL (5-100)
[2021-12-03 11:22] LABS: Troponin I < 0.012 ng/mL (0.000-0.034)
[2021-12-03] MEDS: FUROSEMIDE INJ 40 MG/4 ML VIAL IV PUSH (12:04)
[2021-12-03 12:41] LABS: SARS-CoV-2 RNA PCR Negative
== END 2021-12-03 13:35 | disposition home or self-care (01) ==
PROVIDERS: Emergency Provider General Practice; PCP Internal Medicine
DX: I11.0 Hypertensive heart disease with heart failure (principal); I50.9 Heart failure, unspecified; Z20.822 Contact with and (suspected) exposure to COVID-19; I42.8 Other cardiomyopathies; I48.91 Unspecified atrial fibrillation; D64.9 Anemia, unspecified; I25.10 Atherosclerotic heart disease of native coronary artery without angina pectoris; E11.9 Type 2 diabetes mellitus without complications; E78.2 Mixed hyperlipidemia; K21.9 Gastro-esophageal reflux disease without esophagitis; G47.33 Obstructive sleep apnea (adult) (pediatric); I51.7 Cardiomegaly; F41.9 Anxiety disorder, unspecified; F32.A Depression, unspecified; F43.12 Post-traumatic stress disorder, chronic; Z95.810 Presence of automatic (implantable) cardiac defibrillator; Z87.11 Personal history of peptic ulcer disease; Z87.891 Personal history of nicotine dependence
CPT/HCPCS: 36415; 36600; 71045; 80053; 82375; 82805; 83050; 83880; 84484; 85025; 85610; 85730; 93005; 96374; 99284; C9803; J1940; U0003; U0005

== ENCOUNTER 2022-03-28 14:52 | Outpatient (CLI) | payer MEDICARE, BC, SELFPAY ==
--- NOTE | ~2022-03-28 | US_ITS ---
EXAMINATION: US abdomen complete DATE: 03/28/2022 15:32 INDICATION: Abdominal distention TECHNIQUE: Multiple grayscale and Doppler ultrasound images of the abdomen were obtained. COMPARISON: CT, 05/23/2018 FINDINGS: Bowel gas obscures visualization of the pancreas. The liver demonstrates increased echogeni city, heterogenous echotexture, and decreased through transmission. There is a 1.6 cm cyst of the lenka er. No surface nodularity. Normal hepatopetal flow in the main portal vein. The gallbladder is normal with no abnormal wall thickening, pericholecystic fluid or stones. The normal common bile duct measu res 5 mm. There was no sonographic Sims sign. The visualized portions of the aorta and inferior bryan a cava are normal. The right kidney measures 12.2 x 4.9 x 6.5 cm. The left kidney measures 10.7 x 5.1 x 5.8 cm. The kidn eys demonstrate normal parenchymal echogenicity. There is no hydronephrosis. The spleen is normal in appearance and measures 10.3 cm. IMPRESSION: 1. Diffuse hepatic steatosis. Reviewed, dictated and finalized at location F. AD CLERK
== END 2022-03-28 14:53 | disposition home or self-care (01) ==
PROVIDERS: PCP Internal Medicine; Visit Provider Internal Medicine Gastroenterology
DX: R14.0 Abdominal distension (gaseous) (principal); K76.0 Fatty (change of) liver, not elsewhere classified
CPT/HCPCS: 76700

== ENCOUNTER 2022-06-23 10:27 | Observation (INO) | payer MEDICARE, BC, SELFPAY ==
[2022-06-23] VITALS (18 sets, daily range): BP systolic 119–154; BP diastolic 73–97; PULSE 69–77; RESP 18–26; TEMP 36.3–36.6; O2SAT 90–96; BMI 90.8
--- NOTE | ~2022-06-23 | XR_ITS ---
EXAMINATION: XR chest 1V portable INDICATION: Shortness of breath TECHNIQUE: Portable AP chest at 1055 hours COMPARISON: 12/03/2021 FINDINGS: Cardiomegaly is noted. A dual-lead cardiac pacemaker of the left chest wall ends with leads in expected locations. There are airspace opacities of the lung bases. No definite pleural effusion or pneumothorax. IMPRESSION: 1. Bibasilar airspace opacities, consistent with atelectasis versus pneumonia. 2. Cardiomegaly. Reviewed, dictated and finalized at location L. ARIUM WORKER
--- NOTE | ~2022-06-23 | CT_ITS ---
Non-contrast CT scan of the Abdomen and Pelvis Clinical indication: Distended abdomen Technique: 5 mm axial scans were obtained through the abdomen and pelvis without intravenous or oral contrast. Dose reduction technique was used on this scan by utilizing automated exposure control and iterative reconstruction technique. The dose-length product (DLP) was 1498.95 mGy-cm. COMPARISON: 05/23/2018 Findings: Images through the lung bases reveal minimal patchy ground glass opacities. There is a sli ghtly more solid appearing 5 mm nodule the right lung base (axial image 29). There is no evidence of renal or ureteral calculi. The kidneys and the ureters are nondilated. Small hepatic cyst noted adjacent to the gallbladder. The spleen, pancreas, gallbladder, and adrenals appear normal. There is no aortic aneurysm. There is no evidence of bowel obstruction. Images through the pelvis were performed. There is no evidence of ascites or lymphadenopathy. Urinary bladder unremarkable. Prostate gland and seminal vesicles are unremarkable. Impression: No significant abnormality seen in the abdomen or pelvis. Abdominal distention is likely related to o besity. Minimal patchy groundglass opacities in the lung bases with probable 5 mm right lower lobe pulmonary nodule. Consider 12 month follow-up CT for the pulmonary nodule. Correlate for minimal pulmonary sohail a or atypical infection. Reviewed, dictated and finalized at location . [employer] Impression: No significant abnormality seen in the abdomen or pelvis. Abdominal distention is likely related to obesity. Minimal patchy groundglass opacities in the lung bases with probable 5 mm right lower lobe pulmonary nodule. Consider 12 month follow-up CT for the pulmonary nodule. Correlate for minimal pulmonary edema or atypical infection.
--- NOTE | 2022-06-23 10:37 | ECG_ITS ---
Measurements Intervals [place] Rate: 74 P: NE: 0 QRS: 238 QRSD: 131 T: 57 QT: 399 QTc: 444 Interpretive Statements ELECTRONIC VENTRICULAR PACEMAKER LIKELY UNDERLYING ATRIAL FIBRILLATION ABNORMAL RHYTHM ECG COMPARED TO ECG 12/03/2021 11:02:21 NO SIGNIFICANT CHANGES Electronically Signed On 06-23-2022 15:44:45 LURE MAKER by Magda Benjamin M.D.
[2022-06-23 10:53] LABS: Basophils Absolute Auto 0.1 K/mm3 (0.0-0.1); Basophils Percent Auto 0.6 % (0.2-1.2); Eosinophils Absolute Auto 0.1 K/mm3 (0-0.3); Eosinophils Percent Auto 0.8 % (0-4.4); Hematocrit 44.6 % (42.0-52.0); Hemoglobin 14.4 g/dL (14.0-18.0); Immature Granulocyte Absolute 0.05 K/mm3 (0.00-0.031); Immature Granulocyte Percent A 0.6 % (0-0.5); Lymphocytes Absolute Auto 1.12 K/mm3 (0.9-3.2); Lymphocytes Percent Auto 13.6 % (18.3-44.2); Mean Corpuscular HGB Conc 32.3 g/dl (32-36); Mean Corpuscular Hemoglobin 33.4 pg (26-34); Mean Corpuscular Volume 103.5 fl (80-100); Mean Platelet Volume 10.4 fl (7.4-10.4); Monocytes Absolute Auto 0.6 K/mm3 (0.1-0.6); Monocytes Percent Auto 7.2 % (2.6-8.5); Neutrophils Absolute Auto 6.4 K/mm3 (1.3-6.7); Neutrophils Percent Auto 77.2 % (45.5-73.1); Platelet Count Result 222 k/mm3 (150-375); Red Blood Count 4.31 M/mm3 (4.6-6.20); Red Cell Distribution Width 14.8 % (11.5-14.5); White Blood Count 8.2 K/mm3 (4.5-10.0)
[2022-06-23 11:03] LABS: Alanine Aminotransferase 24 U/L (6-50); Albumin Level 4.3 g/dL (3.5-5.1); Alkaline Phosphatase 93 U/L (38-126); Anion Gap 5 mmol/L (8-16); Aspartate Amino Transferase 32 U/L (17-59); Bilirubin,Total 0.8 mg/dL (0.2-1.3); Blood Urea Nitrogen 19 mg/dL (9-20); Calcium 8.9 mg/dL (8.4-10.2); Carbon Dioxide 30 mmol/L (22-30); Chloride 103 mmol/L (98-107); Estimated CRCL calculation 114 ml/min; Estimated Glomerular Filt Rate > 60; Glucose 123 mg/dL (65-110); Potassium 4.3 mmol/L (3.4-5.0); Sodium 138 mmol/L (137-145)
[2022-06-23 11:04] LABS: INR 1.4; Prothrombin Time 16.7 Seconds (11.1-14.7)
[2022-06-23 11:05] LABS: Partial Thromboplastin Time 54.5 SECONDS (22.3-36.8)
[2022-06-23 11:15] LABS: NT Pro B Type Natriuretic Pept 1760 pg/mL (19.9-100); Troponin I < 0.012 ng/mL (0.000-0.034)
--- NOTE | 2022-06-23 11:43 | ED.GIBLEED ---
HPI - GI Bleed General Chief complaint: GI Bleed Stated complaint: INCREASE WEAKNESS, RECTAL BLEED X 2 DAYS, SOB Time Seen by Provider: 06/23/22 11:27 Source: patient Mode of arrival: EMS Limitations: no limitations History of Present Illness HPI Narrative: Patient is 72 years old white male came to the emergency room by ambulance from home complaining of shortness of breath for months. Was seen numerous of time by Dr. Platt for similar symptoms. Patient reports blood in his stool last night, fresh bright red, patient on Pradaxa. Patient also complaining that his abdomen so he used and firm and tense, denies any pain. History of peptic ulcer disease, was managed by Dr. Espinosa, patient lives with and is full code. Related Data Home Medications Medication Instructions Recorded Confirmed atorvastatin 80 mg tablet 80 mg PO DAILY 03/11/19 03/22/22 dabigatran etexilate 150 mg 150 mg PO BID 03/11/19 03/22/22 capsule (Pradaxa) terazosin 5 mg capsule 5 mg PO DAILY 03/11/19 03/22/22 amlodipine 10 mg tablet 10 mg DAILY 03/11/21 03/22/22 Allergies Allergy/AdvReac Type Severity Reaction Status Date / Time Beta-Blockers Allergy Severe Difficulty Verified 06/23/22 10:44 (Beta-Adrenergic Bloc Breathing citalopram Allergy Severe SWEATING, Verified 06/23/22 10:44 AGITATED Penicillins Allergy Severe Swelling Verified 06/23/22 10:44 of Lip/Tongue/Throat Review of Systems Review of Systems: All systems reviewed & are unremarkable except as noted in HPI and below PMFSH Past Medical History Medical History Anxiety Arthritis Atrial fibrillation Atrial fibrillation Chronic anemia Chronic anticoagulation On dabigatran for stroke prophylaxis. Coronary artery disease Depression Gastroesophageal reflux disease Hypertension Mixed hyperlipidemia Nonischemic cardiomyopathy Ejection fraction was 23% on recent echocardiogram. Obstructive sleep apnea Peptic ulcer disease (2018) Post-traumatic stress disorder, chronic PTSD (post-traumatic stress disorder) Spinal stenosis Type 2 diabetes mellitus No longer on medication. Hemoglobin A1c was 5.8% in January 2021. Surgical History Surgical History History of cardiac catheterization History of implantable cardioverter-defibrillator (ICD) insertion (05/2021) Per Dr. Campbell at [facility]. History of spinal surgery History of tonsillectomy Family History Family History Mother Family history of malignant neoplasm Family history of arthritis Hypertension Father Acute myocardial infarction Diabetes mellitus Family history of arthritis Hypertension Other Family history of premature coronary heart disease Social History Social History Social History: The patient lives in [place] with his . 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 Former smoker, quit in October 2010. Denies alcohol and illicit substance abuse. He wishes to be a full code. Smoking packs per day: 1.5 Smoking cigarettes per day: 30.0 Years smoked: 30 Smoking pack-years: 45.00 Smoking status: Former smoker Tobacco type: cigarettes Second hand tobacco smoke exposure: No Smoking end date: 05/15/10 Alcohol intake: never Substance use: never Substance use type: does not use Spiritual care concerns: No Exam Narrative: General appearance: Well-developed, well-nourished Skin: Normal color Head: Normocephalic, nontraumatic Eyes: Clear conjunctiva ENT: Oropharynx normal, ears normal, nose normal Neck: Supple, nontender Chest and respiratory: Airway patent, no respiratory distress, no accessory muscle use Heart: Regular rate/rhythm Abdomen: Large abdomen, possible hepatomegaly, tense, no localized tenderness. Rectal exam showed brown stool, guaiac ne
--- NOTE | 2022-06-23 12:23 | PC.NURSE ---
Spoke wit patient's for update. Anamaria,
[2022-06-23 12:42] LABS: Alveolar/Arterial O2 Gradient 27.5 mmHg; Base Excess ABG 2.1 mEq/l (+/-2.0); Fractional Inspired Oxygen 21 %; HCO3 ABG 28.2 mEq/l (22.0-26.0); Oxygen Content ABG 19.2 %vol (16.0-22.0); Oxygen Saturation ABG 91.5 % (95.0-100.0); Oxyhemoglobin 89.5 % THb (90.0-100.0); PCO2 ABG 49.3 mmHg (35.0-45.0); PO2 ABG 63.2 mmHg (80.0-100.0); PO2 FiO2 Ratio Arterial Blood 3.01 %; Total Hemoglobin 15.3 g/dL (12.0-18.0); pH ABG 7.375 (7.350-7.450)
[2022-06-23 12:43] LABS: Modified Allen's Test Pass; Site Drawn RIGHT RADIAL
--- NOTE | 2022-06-23 14:09 | PC.NURSE ---
patient informed this RN that he took 60mg of lasix this morning. This RN spoke with Dr Noguera and he states to give 40mg IV furosemide instead of the original 60mg.
[2022-06-23] MEDS: FUROSEMIDE INJ 40 MG/4 ML VIAL 60 MG IV PUSH (14:21)
--- NOTE | 2022-06-23 14:30 | PM.IMHP ---
H&P: HPI History of Present Illness Date/Time: 06/23/22 14:30 Chief Complaint: Blood in stool. Narrative: This is a 72-year-old male with hypertension, hyperlipidemia, chronic atrial fibrillation, and nonischemic cardiomyopathy (EF 34% in January 2022) who presented to the emergency department today for evaluation of shortness of breath. He was initially diagnosed with nonischemic cardiomyopathy in 2012 and had been doing well with medical treatment until the middle part of 2020 when he began developing symptomatic congestive heart failure requiring multiple hospitalizations. His EF continued to decline (as low as 23%), he was referred to arts therapist Dr. Campbell at [facility], and a defibrillator was inserted on 06/09/2021. He was hospitalized several times in the months following but has managed to stay out of the hospital since last July. He is compliant with his regimen of spironolactone, Entresto, metoprolol, and furosemide. Despite this and a heart healthy diet, he has gained nearly 60 lb in a year and a majority of his weight is in the abdomen. With the weight gain and increase in abdominal girth, he has been increasingly short of breath and admits that he gets winded sometimes when having conversations. He was seen by Dr. Toribio in March as there were concerns that he may have ascites however that was not the case. Last night he was wakened from sleep with significant shortness of breath and with further questioning he actually admits that he had sleep apnea many years ago however he stopped wearing his CPAP as his symptoms improved. He did not in fact come in today for shortness of breath but instead he came in as he has had 2 episodes of bright red blood per rectum, 1 this morning and once last night. He noticed the red blood last evening after having a bowel movement and this morning he did not have a bowel movement pass pure red blood. Rectal exam is done in the emergency department was reportedly negative for blood. Given his symptomatic shortness of breath and significant swelling, I was asked to admit the patient overnight for diuresis. He is also going to be seen by Dr. Troibio given reports of hematochezia. Currently he has no specific complaints and he denies fever, chills, sweats, cold and flu symptoms, chest pain, palpitations, nausea, vomiting, and lower extremity edema. Review of Systems Review of Systems: Twelve systems were reviewed and are negative except for as per HPI. [facility] Past Medical History Medical History (Updated 06/23/22 @ 19:52 by Alexia Yang PA-C) Anxiety Arthritis Atrial fibrillation Chronic anemia Chronic anticoagulation On dabigatran for stroke prophylaxis. Coronary artery disease Depression Gastroesophageal reflux disease Hypertension Mixed hyperlipidemia Nonischemic cardiomyopathy Obstructive sleep apnea Peptic ulcer disease (2018) Post-traumatic stress disorder, chronic Spinal stenosis Type 2 diabetes mellitus No longer on medication. Hemoglobin A1c was 5.8% in January 2021. Surgical History Surgical History History of cardiac catheterization History of implantable cardioverter-defibrillator (ICD) insertion (05/2021) Per Dr. Campbell at [facility]. History of spinal surgery History of tonsillectomy Family History Family History Mother Family history of malignant neoplasm Family history of arthritis Hypertension Father Acute myocardial infarction Diabetes mellitus Family history of arthritis Hypertension Other Family history of premature coronary heart disease Social History Social History Social History: The patient lives in [place] with his . 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 Former smoker, quit in October 2010. Denies alcohol and illicit substance abuse. He wishe
[2022-06-23 14:31] LABS: Influenza A QL RT-PCR Negative (Negative); Influenza B QL RT-PCR Negative (Negative); SARS-CoV-2 RNA PCR Negative
--- NOTE | 2022-06-23 16:05 | ADMGEN ---
This patient, Popeye Hernandez, was admitted to Medical Room 344-01. Patient/family oriented to hospital policies and general routines including ID bracelet, bed and alarms, visiting hours, pain management, procedures, bathroom and other care routines, personal items, smoking policy, room service/diet, and visiting hours. Information on how to activate the Rapid Response Team has been discussed. Patient/Family are encouraged to report perceived risks to care and to ask questions if they do not understand what they are told or what they should do.
[2022-06-23 18:51] LABS: Hematocrit 44.8 % (42.0-52.0); Hemoglobin 14.4 g/dL (14.0-18.0)
[2022-06-23] MEDS: buPROPion HCL SR (12 HR) 150 MG TAB PO (21:21)
[2022-06-23] MEDS: POTASSIUM CHLORIDE 10 MEQ TABLET.ER 20 MEQ PO (21:21)
[2022-06-23] MEDS: SACUBITRIL/VALSARTAN 49-51 MG TABLET 1 TABLET PO (21:21)
[2022-06-23] MEDS: FUROSEMIDE INJ 100 MG/10 ML VIAL 60 MG IV PUSH (21:22)
[2022-06-23] MEDS: ALPRAZolam (*CRX) 0.5 MG TABLET PO (21:33)
[2022-06-24] VITALS (7 sets, daily range): BP systolic 90–154; BP diastolic 60–86; PULSE 66–89; RESP 18–20; TEMP 35.9–36.4; O2SAT 94–96
[2022-06-24 02:39] LABS: Basophils Percent Auto 0.5 % (0.2-1.2); Eosinophils Absolute Auto 0.1 K/mm3 (0-0.3); Eosinophils Percent Auto 0.7 % (0-4.4); Hematocrit 44.4 % (42.0-52.0); Hemoglobin 14.3 g/dL (14.0-18.0); Immature Granulocyte Absolute 0.02 K/mm3 (0.00-0.031); Immature Granulocyte Percent A 0.2 % (0-0.5); Lymphocytes Absolute Auto 1.96 K/mm3 (0.9-3.2); Lymphocytes Percent Auto 23.4 % (18.3-44.2); Mean Corpuscular HGB Conc 32.2 g/dl (32-36); Mean Corpuscular Hemoglobin 33.6 pg (26-34); Mean Corpuscular Volume 104.2 fl (80-100); Mean Platelet Volume 10.4 fl (7.4-10.4); Monocytes Absolute Auto 0.9 K/mm3 (0.1-0.6); Monocytes Percent Auto 10.4 % (2.6-8.5); Neutrophils Absolute Auto 5.4 K/mm3 (1.3-6.7); Neutrophils Percent Auto 64.8 % (45.5-73.1); Platelet Count Result 217 k/mm3 (150-375); Red Blood Count 4.26 M/mm3 (4.6-6.20); Red Cell Distribution Width 14.8 % (11.5-14.5); White Blood Count 8.4 K/mm3 (4.5-10.0)
[2022-06-24 03:37] LABS: Anion Gap 7 mmol/L (8-16); Blood Urea Nitrogen 17 mg/dL (9-20); Calcium 8.2 mg/dL (8.4-10.2); Carbon Dioxide 30 mmol/L (22-30); Chloride 101 mmol/L (98-107); Estimated CRCL calculation 114 ml/min; Estimated Glomerular Filt Rate > 60; Glucose 96 mg/dL (65-110); Potassium 4.1 mmol/L (3.4-5.0); Sodium 138 mmol/L (137-145)
[2022-06-24 07:06] LABS: Magnesium 2.2 mg/dL (1.6-2.3)
[2022-06-24 07:18] LABS: Hematocrit 46.7 % (42.0-52.0); Hemoglobin 15.2 g/dL (14.0-18.0)
--- NOTE | 2022-06-24 07:18 | WPDGICN ---
Assessment and Plan Assessment and plan (1) Bright red blood per rectum: Code(s): K62.5 - Hemorrhage of anus and rectum Status: Acute Assessment and Plan: His blood counts have been stable. From my perspective he can be discharged and his symptoms investigated as an outpatient. Otherwise, if he remains an inpatient, we could do a colonoscopy on Monday (2) Weight gain: Code(s): R63.5 - Abnormal weight gain Status: Acute Assessment and Plan: an ultrasound a few months ago and CT scan yesterday are negative for ascites. He insists that he eats a healthy diet only once a day. He had been feeling quite uncomfortable in his abdomen last fall but states that with more diuretics he no longer has discomfort. He does feel although that it interferes with his breathing. (3) Acute on chronic HFrEF (heart failure with reduced ejection fraction): Code(s): I50.23 - Acute on chronic systolic (congestive) heart failure Status: Acute Assessment and Plan: Today he says his breathing is better. He is lying flat in bed. (4) Abdominal distension: Code(s): R14.0 - Abdominal distension (gaseous) Status: Acute Assessment and Plan: This is chronic and has been increasing over the past couple of years. Surprisingly, ascites is not seen on his imaging studies. (5) Peptic ulcer disease: Onset Date: 2018 Code(s): K27.9 - Peptic ulcer, site unspecified, unspecified as acute or chronic, without hemorrhage or perforation Status: Acute Assessment and Plan: He has had issues with a bleeding ulcer in the past and the ulcers on the surface of what appears to be a lipoma. His counts have been stable for the past year or so (6) Atrial fibrillation: Qualifiers: Atrial fibrillation type: longstanding persistent Qualified Code(s): I48.11 - Longstanding persistent atrial fibrillation Code(s): I48.91 - Unspecified atrial fibrillation Status: Acute Assessment and Plan: chronically on Pradaxa. He is under the care of Dr. Pabon GI Consult Note Consult date/time: 06/24/22 07:18 HPI: Popeye Hernandez is a 72 year old male Who is known to me because of previous gastric ulcers. He had also been complaining of gaining 50 lb in last year. He states that the abdominal tightness that he experienced last fall has subsided since going on a stronger diuretic program. He presents to the emergency room yesterday evening however because of increasing shortness of breath for the past month or 2 and then he noticed that he had bright red blood his stools the past several days. The blood was mixed with loose stools, basically a bloody diarrhea. He was not having any abdominal pain or cramping. There was no nausea or vomiting and he has not had a fever. In the emergency room his hemoglobin was found to be stable at 14.3. His last colonoscopy, 6 years ago was unremarkable except for diverticulosis and a small polyp that was removed. He has had a gastric ulcer in the past and when last examined had only in erosion on a submucosal lipoma type mass that has been present for several years. Review of Systems Review of Systems: All systems reviewed & are unremarkable except as noted in HPI and below PMFSH Past Medical History Medical History Anxiety Arthritis Atrial fibrillation Chronic anemia Chronic anticoagulation On dabigatran for stroke prophylaxis. Coronary artery disease Depression Gastroesophageal reflux disease Hypertension Mixed hyperlipidemia Nonischemic cardiomyopathy Obstructive sleep apnea Peptic ulcer disease (2018) Post-traumatic stress disorder, chronic Spinal stenosis Type 2 diabetes mellitus No longer on medication. Hemoglobin A1c was 5.8% in January 2021. Surgical History Surgical History His
[2022-06-24] MEDS: TERAZOSIN HCL 5 MG CAPSULE PO (08:13)
[2022-06-24] MEDS: SACUBITRIL/VALSARTAN 49-51 MG TABLET 1 TABLET PO (08:13)
[2022-06-24] MEDS: amLODIPine BESYLATE 5 MG TABLET 10 MG BY MOUTH (08:13)
[2022-06-24] MEDS: SPIRONOLACTONE 25 MG TABLET PO (08:13)
[2022-06-24] MEDS: ATORVASTATIN 40 MG TABLET 80 MG PO (08:14)
[2022-06-24] MEDS: buPROPion HCL SR (12 HR) 150 MG TAB PO (08:14)
[2022-06-24] MEDS: POTASSIUM CHLORIDE 10 MEQ TABLET.ER 20 MEQ PO (08:14)
[2022-06-24] MEDS: METOPROLOL SUCCINATE EXT REL 25 MG TABCR 75 MG BY MOUTH (08:14)
[2022-06-24] MEDS: FUROSEMIDE INJ 100 MG/10 ML VIAL 60 MG IV PUSH (08:15)
--- NOTE | 2022-06-24 09:54 | PM.IMPN ---
Progress Note: A&P Assessment and Plan (1) Bright red blood per rectum: Code(s): K62.5 - Hemorrhage of anus and rectum Status: Acute (2) Weight gain: Code(s): R63.5 - Abnormal weight gain Status: Acute (3) Obstructive sleep apnea: Code(s): G47.33 - Obstructive sleep apnea (adult) (pediatric) Status: Acute (4) Nonischemic cardiomyopathy: Code(s): I42.8 - Other cardiomyopathies Status: Acute (5) Hypertension: Code(s): I10 - Essential (primary) hypertension Status: Acute Plan The patient presented to the emergency department for evaluation of bright red blood per rectum x2. He Labs, imaging, EKG, and all reports were personally reviewed.Rectal exam done per ED physician was negative for occult blood. He is on dabigatran and may have intermittent hemorrhoidal bleeding. He is otherwise stable and has not had recurrence. The patient also complained of increased abdominal girth and shortness of breath over months time and he has gained at least 60 lb in the last 1 year, most seems to be in the abdomen. This is undoubtedly causing him to feel more short of breath. He reports that he eats only once a day and that he follows a heart healthy diet. He is compliant with his medication regimen. It is unclear why he continues to gain weight. Hopefully we can take off some of the weight and he has been started on IV Lasix b.i.d.. Volume status, renal function, and electrolytes will be monitored closely while diuresing. We discussed that he probably needs to start using his CPAP again and 1 has been ordered for him to use while in the hospital. Vital signs are stable and will be monitored. His other chronic conditions appear stable. His home medications will be reviewed and resumed as appropriate. Subjective Date/time seen: 06/24/22 09:54 Objective Data Vital Signs Vital Signs: Vital Signs - 24 hr 06/23/22 10:31 06/23/22 11:02 06/23/22 11:30 Temperature 97.8 F Pulse Rate 77 71 70 Respiratory Rate 25 H 19 24 H Blood Pressure 136/92 H 135/88 Pulse Oximetry 91 92 91 Oxygen Delivery Room Air 06/23/22 11:32 06/23/22 12:32 06/23/22 12:33 Temperature Pulse Rate 72 70 77 Respiratory Rate 26 H 18 19 Blood Pressure 138/92 H 128/95 H Pulse Oximetry 90 Oxygen Delivery 06/23/22 12:45 06/23/22 12:47 06/23/22 13:12 Temperature Pulse Rate 69 70 Respiratory Rate 19 22 H Blood Pressure 130/97 H Pulse Oximetry 90 Oxygen Delivery 06/23/22 13:15 06/23/22 13:17 06/23/22 13:38 Temperature Pulse Rate Respiratory Rate Blood Pressure 143/92 H Pulse Oximetry 93 92 96 Oxygen Delivery 06/23/22 13:45 06/23/22 13:47 06/23/22 16:17 Temperature 97.3 F L Pulse Rate 71 Respiratory Rate 18 Blood Pressure 140/79 119/73 Pulse Oximetry 93 94 93 Oxygen Delivery 06/23/22 16:00 06/23/22 18:38 06/23/22 19:54 Temperature 97.6 F Pulse Rate 75 74 Respiratory Rate 18 Blood Pressure 154/76 H Pulse Oximetry 94 Oxygen Delivery Room Air 06/23/22 20:00 06/24/22 04:40 06/23/22 20:00 Temperature 97.6 F Pulse Rate 89 75 Respiratory Rate 18 Blood Pressure 154/86 H Pulse Oximetry 94 Oxygen Delivery Room Air 06/24/22 00:00 06/24/22 04:00 06/24/22 08:14 Temperature Pulse Rate 73 71 76 Respiratory Rate Blood Pressure Pulse Oximetry Oxygen Delivery 06/24/22 08:00 Temperature Pulse Rate 73 Respiratory Rate Blood Pressure Pulse Oximetry Oxygen Delivery Intake/Output Intake/Output: Intake & Output 06/21/22 06/22/22 06/23/22 06/24/22 23:59 23:59 23:59 23:59 Intake Total 220 375 Balance 220 375 Meds/Results Medications: Active Medications Generic Name Dose Route Start Last Admin Trade Name Freq PRN Reason Stop Dose Admin Alprazolam 0.5 mg 06/23/22 19:57 06/23/22 21:33 Alprazolam (*Crx) 0.5 Mg Tablet PO 0.5 mg TID PRN Administration anxiety
[2022-06-24] MEDS: ALPRAZolam (*CRX) 0.5 MG TABLET PO (09:59)
--- NOTE | 2022-06-24 14:27 | PM.DS ---
DS: Admitting Diagnosis Discharge Date 06/24/2022 Admitting Diagnosis Shortness of breath DS: Discharge Diagnosis Discharge Diagnosis (1) Bright red blood per rectum: Code(s): K62.5 - Hemorrhage of anus and rectum Status: Acute (2) Weight gain: Code(s): R63.5 - Abnormal weight gain Status: Acute (3) Obstructive sleep apnea: Code(s): G47.33 - Obstructive sleep apnea (adult) (pediatric) Status: Acute (4) Nonischemic cardiomyopathy: Code(s): I42.8 - Other cardiomyopathies Status: Acute (5) Hypertension: Code(s): I10 - Essential (primary) hypertension Status: Acute Plan The patient presented to the emergency department for evaluation of bright red blood per rectum x2. He Labs, imaging, EKG, and all reports were personally reviewed.Rectal exam done per ED physician was negative for occult blood. He is on dabigatran and may have intermittent hemorrhoidal bleeding. He is otherwise stable and has not had recurrence. The patient also complained of increased abdominal girth and shortness of breath over months time and he has gained at least 60 lb in the last 1 year, most seems to be in the abdomen. This is undoubtedly causing him to feel more short of breath. He reports that he eats only once a day and that he follows a heart healthy diet. He is compliant with his medication regimen. It is unclear why he continues to gain weight. Hopefully we can take off some of the weight and he has been started on IV Lasix b.i.d.. Volume status, renal function, and electrolytes will be monitored closely while diuresing. We discussed that he probably needs to start using his CPAP again and 1 has been ordered for him to use while in the hospital. Vital signs are stable and will be monitored. His other chronic conditions appear stable. His home medications will be reviewed and resumed as appropriate. DS: Summary Hospital Course Hospital Course: 72-year-old male with past medical history significant for hypertension, hyperlipidemia, atrial fibrillation and nonischemic cardiomyopathy with an EF of 34% was presenting to the ER with shortness of breath. He also was complaining of increased weight gain and abdominal girth concerning for ascites. He noticed bright red blood per rectum intermittently as well. Was admitted and GI was consulted. GI was consulted and patient's symptoms completely resolved. Therefore they recommended discharge and outpatient follow-up with a colonoscopy on Monday. The patient was diuresed while he was here in this helped resolve his symptoms of shortness of breath and abdominal girth. Therefore he was discharged in stable condition on home medications with close outpatient follow-up by Gastroenterology for colonoscopy. Time Spent with Patient Time attestation: Total time spent providing and/or coordinating discharge services: Exam Narrative: General:?Nontoxic-appearing male sitting up in bed. Weight not documented at the time of this dictation. HEENT:?Wearing glasses. PERRL, EOMI.? Sclerae anicteric.? Oral mucosa moist. Neck:??Supple. No obvious JVD. Respiratory:?Mild conversational dyspnea, speaking in 5 to 6 word sentences. Lung sounds are diminished at the with fine crackles. Cardiovascular:??Regular rate and rhythm with S1-S2.? Chest:?Defibrillator site without evidence of infection or dehiscence. Gastrointestinal:??Abdomen is nontender, firm, and distended. Positive bowel sounds. No guarding or rebound tenderness. Skin:??Warm and dry.?Scattered plaques. Extremities:??No cyanosis, clubbing, or significant edema. Radial and pedal pulses intact. Negative Bre sign bilaterally. Neurological:??Alert.? Cranial nerves 2-12 are grossly intact. No gross focal deficits to casual conversation. Psychiatric:??Pleasant and cooperative with normal mood and affect.? DS: Data Data Completed and Pending Labs on day of discharge: Labs from last 24 hours 06/24/22 06/24/22 06/24/22
== END 2022-06-24 16:30 | disposition home or self-care (01) ==
LOC: ANHED 14:03 → ANH3MED 15:28
PROVIDERS: Physician Assistant; Admitting Provider Internal Medicine; Emergency Provider Emergency Medicine; PCP Nurse Practitioner; Visit Provider Student in an Organized Health Care Education/Training Program
DX: K62.5 Hemorrhage of anus and rectum (principal); R63.5 Abnormal weight gain; Z68.45 Body mass index [BMI] 70 or greater, adult; G47.33 Obstructive sleep apnea (adult) (pediatric); I42.8 Other cardiomyopathies; I11.0 Hypertensive heart disease with heart failure; I50.23 Acute on chronic systolic (congestive) heart failure; R14.0 Abdominal distension (gaseous); K27.9 Peptic ulcer, site unspecified, unspecified as acute or chronic, without hemorrhage or perforation; I48.91 Unspecified atrial fibrillation; Z20.822 Contact with and (suspected) exposure to COVID-19; F41.9 Anxiety disorder, unspecified; R53.1 Weakness; I25.10 Atherosclerotic heart disease of native coronary artery without angina pectoris; D64.9 Anemia, unspecified; F32.A Depression, unspecified; E78.5 Hyperlipidemia, unspecified; E11.9 Type 2 diabetes mellitus without complications; R91.8 Other nonspecific abnormal finding of lung field; R94.31 Abnormal electrocardiogram [ECG] [EKG]; K21.9 Gastro-esophageal reflux disease without esophagitis; F43.10 Post-traumatic stress disorder, unspecified; M19.90 Unspecified osteoarthritis, unspecified site; Z87.891 Personal history of nicotine dependence; Z79.01 Long term (current) use of anticoagulants; Z79.899 Other long term (current) drug therapy; Z82.61 Family history of arthritis; Z82.49 Family history of ischemic heart disease and other diseases of the circulatory system
CPT/HCPCS: 36415; 36600; 71045; 74176; 80048; 80053; 82805; 83735; 83880; 84484; 85014; 85018; 85025; 85610; 85730; 86850; 86900; 86901; 87636; 93005; 96374; 96376; 99291; A9270; G0378; J1940

== ENCOUNTER 2022-07-05 04:32 | Inpatient (IN) | payer MEDICARE, BC, OTHER, SELFPAY ==
[2022-07-05] VITALS (17 sets, daily range): BP systolic 108–145; BP diastolic 56–85; PULSE 70–88; RESP 13–28; TEMP 36.4–37.9; O2SAT 88–96; BMI 40.4
--- NOTE | ~2022-07-05 | XR_ITS ---
Clinical Indication: Shortness of breath PA and lateral views of the chest: Comparison: 06/23/2022 Findings: Bibasilar pulmonary edema is present, probably similar to prior exam. No definite pleural e ffusion. Possible underlying COPD. Cardiomediastinal silhouette is stable, with pacemaker device. Fili talya and soft tissues are unremarkable. Impression: Bibasilar pulmonary edema. Possible underlying COPD. Pacemaker device. Reviewed, dictated and finalized at location . DING ENERGY CONSULTANT Impression: Bibasilar pulmonary edema. Possible underlying COPD. Pacemaker device.
--- NOTE | ~2022-07-05 | XR_ITS ---
Portable chest x-ray Comparison: 07/05/2022 Clinical History: Shortness of breath Findings: There is hazy bibasilar airspace disease, suggestive of bibasilar pulmonary edema. COPD pa ttern present. Cardiomediastinal silhouette is stable, with pacemaker device. Bones and soft tissues are unremarkable. Impression: COPD. Probable bibasilar pulmonary edema. Reviewed, dictated and finalized at location M. SON ENGINEER Impression: COPD. Probable bibasilar pulmonary edema.
--- NOTE | 2022-07-05 04:37 | ECG_ITS ---
Measurements Intervals [place] Rate: 83 P: IA: 0 QRS: 249 QRSD: 129 T: 57 QT: 388 QTc: 458 Interpretive Statements ELECTRONIC VENTRICULAR PACEMAKER PREMATURE VENTRICULAR CONTRACTION ATYPICAL ECG COMPARED TO ECG 06/23/2022 10:41:44 NO SIGNIFICANT CHANGES Electronically Signed On 07-05-2022 14:11:32 [employer] by Jaciel Light M.D.
[2022-07-05 04:50] LABS: Basophils Percent Auto 0.3 % (0.2-1.2); Eosinophils Percent Auto 0.2 % (0-4.4); Hematocrit 44.4 % (42.0-52.0); Hemoglobin 14.4 g/dL (14.0-18.0); Immature Granulocyte Absolute 0.07 K/mm3 (0.00-0.031); Immature Granulocyte Percent A 0.6 % (0-0.5); Lymphocytes Absolute Auto 1.27 K/mm3 (0.9-3.2); Lymphocytes Percent Auto 10.1 % (18.3-44.2); Mean Corpuscular HGB Conc 32.4 g/dl (32-36); Mean Corpuscular Volume 104.7 fl (80-100); Mean Platelet Volume 10.7 fl (7.4-10.4); Monocytes Percent Auto 7.9 % (2.6-8.5); Neutrophils Absolute Auto 10.2 K/mm3 (1.3-6.7); Neutrophils Percent Auto 80.9 % (45.5-73.1); Platelet Count Result 234 k/mm3 (150-375); Red Blood Count 4.24 M/mm3 (4.6-6.20); Red Cell Distribution Width 14.6 % (11.5-14.5); White Blood Count 12.6 K/mm3 (4.5-10.0)
[2022-07-05 05:03] LABS: Alanine Aminotransferase 24 U/L (6-50); Albumin Level 4.1 g/dL (3.5-5.1); Alkaline Phosphatase 91 U/L (38-126); Anion Gap 8 mmol/L (8-16); Aspartate Amino Transferase 34 U/L (17-59); Blood Urea Nitrogen 17 mg/dL (9-20); Calcium 8.6 mg/dL (8.4-10.2); Carbon Dioxide 26 mmol/L (22-30); Chloride 106 mmol/L (98-107); Estimated CRCL calculation 75 ml/min; Estimated Glomerular Filt Rate > 60; Glucose 152 mg/dL (65-110); INR 1.3; Potassium 3.6 mmol/L (3.4-5.0); Prothrombin Time 15.9 Seconds (11.1-14.7); Sodium 140 mmol/L (137-145)
[2022-07-05 05:04] LABS: Partial Thromboplastin Time 46.8 SECONDS (22.3-36.8)
[2022-07-05 05:14] LABS: NT Pro B Type Natriuretic Pept 3290 pg/mL (19.9-100); Troponin I 0.012 ng/mL (0.000-0.034)
--- NOTE | 2022-07-05 05:35 | ED.GENADULT ---
HPI - General Adult General Chief complaint: Shortness of Breath/Dyspnea Stated complaint: SOB Time Seen by Provider: 07/05/22 04:47 History of Present Illness HPI narrative: Patient is a 72-year-old gentleman who presents the emergency department with chief complaint of shortness of breath. Patient reports he has history of congestive heart failure and recently was admitted for both CHF and a pneumonia patient states that he has been home and has noticed that his abdomen has become more tense and reports that he has now noticed that he has been getting more more short of breath. Patient states it is worse with laying flat and worse with exertion. The patient reports he does not use home oxygen and was found to be hypoxic upon arrival to the emergency department. Related Data Home Medications Medication Instructions Recorded Confirmed atorvastatin 80 mg tablet 80 mg PO DAILY 03/11/19 07/04/22 dabigatran etexilate 150 mg 150 mg PO BID 03/11/19 07/04/22 capsule (Pradaxa) terazosin 5 mg capsule 5 mg PO DAILY 03/11/19 07/04/22 amlodipine 10 mg tablet 10 mg PO DAILY 03/11/21 07/04/22 potassium chloride 10 mEq 20 meq PO BID 06/23/22 07/04/22 tablet,extended release metoprolol succinate 25 mg 75 mg PO DAILY 07/04/22 07/04/22 tablet,extended release 24 hr Allergies Allergy/AdvReac Type Severity Reaction Status Date / Time Beta-Blockers Allergy Severe Difficulty Verified 07/04/22 15:26 (Beta-Adrenergic Bloc Breathing citalopram Allergy Severe SWEATING, Verified 07/04/22 15:26 AGITATED Penicillins Allergy Severe Swelling Verified 07/04/22 15:26 of Lip/Tongue/Throat Review of Systems Review of Systems: A 10 system review of systems was completed on the patient and is negative except for what is stated in the HPI. Nursing and ancillary documentation was reviewed. [facility] Past Medical History Medical History Anxiety Arthritis Atrial fibrillation Chronic anemia Chronic anticoagulation On dabigatran for stroke prophylaxis. Coronary artery disease Depression Gastroesophageal reflux disease Hypertension Mixed hyperlipidemia Nonischemic cardiomyopathy Obstructive sleep apnea Peptic ulcer disease (2018) Post-traumatic stress disorder, chronic Spinal stenosis Type 2 diabetes mellitus No longer on medication. Hemoglobin A1c was 5.8% in January 2021. Surgical History Surgical History History of cardiac catheterization History of implantable cardioverter-defibrillator (ICD) insertion (05/2021) Per Dr. Campbell at [facility]. History of spinal surgery History of tonsillectomy Family History Family History Mother Family history of malignant neoplasm Family history of arthritis Hypertension Father Acute myocardial infarction Diabetes mellitus Family history of arthritis Hypertension Other Family history of premature coronary heart disease Social History Social History Social History: The patient lives in [place] with his . 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 Former smoker, quit in October 2010. Denies alcohol and illicit substance abuse. He wishes to be a full code. Smoking packs per day: 2 Smoking cigarettes per day: 40.0 Years smoked: 40 Smoking pack-years: 80.00 Smoking status: Former smoker Tobacco type: cigarettes Second hand tobacco smoke exposure: No Smoking end date: 05/15/10 Alcohol intake: former Substance use: current Substance use type: marijuana, crack/cocaine, opiates and painkillers Lack of Transportation: No Lack of Food: Never True Current Housing: I Have Housing Concerned About Future Housing: No Difficulty Paying Gas/Electric Bills: No Difficulty Paying for Meds: No Curr
[2022-07-05] MEDS: FUROSEMIDE INJ 40 MG/4 ML VIAL IV PUSH (05:46)
[2022-07-05 07:31] LABS: Influenza A QL RT-PCR Negative (Negative); Influenza B QL RT-PCR Negative (Negative); SARS-CoV-2 RNA PCR Negative
--- NOTE | 2022-07-05 10:09 | PM.CNCAR ---
Assessment and Plan Assessment and plan (1) Acute on chronic systolic (congestive) heart failure: Code(s): I50.23 - Acute on chronic systolic (congestive) heart failure Status: Acute Assessment and Plan: HFrEF Presenting progressive dyspnea. Evidence of decompensated heart failure with pulmonary edema chest x-ray, elevated NT proBNP (3290) and weight gain/abdominal distention. He has been given 1 dose of IV furosemide. will start IV furosemide 60 mg IV b.i.d. Strict intake and output 1.5 L fluid restriction low-sodium diet daily standing weights CHF counseling (2) Nonischemic cardiomyopathy: Code(s): I42.8 - Other cardiomyopathies Status: Acute Assessment and Plan: EF 34% by echocardiogram in January of 2022. Continue guideline directed medical therapy with Entresto, spironolactone, Toprol XL add Jardiance (3) Biventricular ICD (implantable cardioverter-defibrillator) in place: Code(s): Z95.810 - Presence of automatic (implantable) cardiac defibrillator Status: Acute Assessment and Plan: [employer]onic Bi V ICD. Last remote transmission on 04/04/2022 With no events on the remote interrogation. Can check interrogation here (4) Atrial fibrillation: Qualifiers: Atrial fibrillation type: unspecified chronic Qualified Code(s): I48.20 - Chronic atrial fibrillation, unspecified Code(s): I48.91 - Unspecified atrial fibrillation Status: Acute Assessment and Plan: continue beta-trace, anticoagulation with Pradaxa. History of Present Illness History of Present Illness Consult date/time: 07/05/22 10:09 Requesting physician: Yosvany Hernández MD Consult reason: congestive heart failure Reason For Visit: Acute CHF Exacerbation Narrative: Mr. Hernandez is a 71 year old male with a history of nonischemic cardiomyopathy (EF 23%, s/p ICD in May 2021) and chronic atrial fibrillation. This is a patient who presented to the hospital with a chief complaint of shortness of breath. Patient states that he was in the emergency department about a week ago and was diagnosed and treated for pneumonia. Since that time, he has had mild shortness of breath but suddenly last night around 8:00 p.m. when he went to lay down he developed significant shortness of breath and a cough. He has also been noticing increased abdominal girth. He denies any chest pain, palpitations, lower extremity swelling. He denies any changes in his medical regimen or diet. 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 Review of Systems Constitutional: Constitutional: Denies chills, Denies fever(s), Denies headache(s) and Denies malaise Eyes: Eyes: Denies change in vision ENT: Reports Normal hearing present, Denies dizziness, Denies headache(s) and Denies hearing loss Cardiovascular: Cardiovascular: Denies chest pain, Denies chest pain at rest, Denies chest pain with activity, Denies syncope, Denies leg edema, Denies palpitations, Reports dyspnea and Reports dyspnea on exertion Respiratory: Respiratory: Reports cough, Reports dyspnea, Reports dyspnea on exertion and Denies wheezing Gastrointestinal: Gastrointestinal: Denies abdominal pain, Denies constipation and Denies diarrhea Genitourinary: Genitourinary: Denies hematuria and Denies dysuria Musculoskeletal: Musculoskeletal: Denies myalgias, Denies arthralgias and Denies muscle cramps Integumentary/Breasts: Skin/Breast: Denies wounds Neurologic: Reports Normal hearing present, Denies confusion, Denies dizziness, Denies syncope and Denies headache(s) Psychiatric: Psychiatric: Reports anxiety, Denies confusion and Reports depression Endocrine: Endocrine: Denies cold intolerance, Denies flushing, Denies heat intolerance and Denies palpitations Hematologic/Lymphatic: Hematologic/Lymphatic: Denies easy bleeding a
--- NOTE | 2022-07-05 11:11 | ADMGEN ---
This patient, Popeye Hernandez, was admitted to [facility] Surg Room 302-01. Patient/family oriented to hospital policies and general routines including ID bracelet, bed and alarms, visiting hours, pain management, procedures, bathroom and other care routines, personal items, smoking policy, room service/diet, and visiting hours. Information on how to activate the Rapid Response Team has been discussed. Patient/Family are encouraged to report perceived risks to care and to ask questions if they do not understand what they are told or what they should do.
--- NOTE | 2022-07-05 12:31 | PM.IMHP ---
H&P: HPI History of Present Illness Date/Time: 07/05/22 12:31 Chief Complaint: shortness of breath Narrative: ED-HPI narrative: Patient is a 72-year-old gentleman who presents the emergency department with chief complaint of shortness of breath.? Patient reports he has history of congestive heart failure and recently was admitted for both CHF and a pneumonia patient states that he has been home and has noticed that his abdomen has become more tense and reports that he has now noticed that he has been getting more more short of breath.? Patient states it is worse with laying flat and worse with exertion.? The patient reports he does not use home oxygen and was found to be hypoxic upon arrival to the emergency department. patient is 72-year-old male with history of severe cardiomyopathy with ejection fraction of 23% status post biventricular ICD presented with complaint shortness of breath, swelling abdomen and lower extremity difficulty with ambulation, however patient denies any chest pain palpitation or dizziness, most likely patient is having acute on chronic systolic congestive Heart failure, continue home regimen with Entresto, spironolactone, metoprolol and Bumex 1 mg IV b.i.d. will consult Cardiology for further recommendation, will have PT OT evaluate the patient. patient admitted as inpatient most likely patient will stay in hospital for 2 midnights with acute on chronic systolic congestive Heart failure Review of Systems Review of Systems: A 10 system review of systems was completed on the patient and is negative except for what is stated in the HPI. Nursing and ancillary documentation was reviewed. [facility] Past Medical History Medical History Anxiety Arthritis Atrial fibrillation Chronic anemia Chronic anticoagulation On dabigatran for stroke prophylaxis. Coronary artery disease Depression Gastroesophageal reflux disease Hypertension Mixed hyperlipidemia Nonischemic cardiomyopathy Obstructive sleep apnea Peptic ulcer disease (2018) Post-traumatic stress disorder, chronic Spinal stenosis Type 2 diabetes mellitus No longer on medication. Hemoglobin A1c was 5.8% in January 2021. Surgical History Surgical History History of cardiac catheterization History of implantable cardioverter-defibrillator (ICD) insertion (05/2021) Per Dr. Campbell at [facility]. History of spinal surgery History of tonsillectomy Family History Family History Mother Family history of malignant neoplasm Family history of arthritis Hypertension Father Acute myocardial infarction Diabetes mellitus Family history of arthritis Hypertension Other Family history of premature coronary heart disease Social History Social History (Updated 07/05/22 @ 11:16 by Roger Frank RN) Social History: The patient lives in [place] with his . 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 Former smoker, quit in October 2010. Denies alcohol and illicit substance abuse. He wishes to be a full code. Smoking packs per day: 2 Smoking cigarettes per day: 40.0 Years smoked: 30 Smoking pack-years: 60.00 Smoking status: Former smoker Tobacco type: cigarettes Second hand tobacco smoke exposure: No Smoking end date: 05/15/10 Alcohol intake: former Substance use: former Substance use type: marijuana, crack/cocaine, opiates and painkillers Last use: 40 years ago Lack of Transportation: No Lack of Food: Never True Current Housing: I Have Housing Concerned About Future Housing: No Difficulty Paying Gas/Electric Bills: No Difficulty Paying for Meds: No Currently Unemployed: No Education: High School Diploma/GED Difficulty w/ Childcare or Family Care: No Living arrangements: with family Spiritual care concerns: Yes (
[2022-07-05] MEDS: BUMETANIDE INJ 1 MG/4 ML VIAL IV PUSH (12:52)
[2022-07-05] MEDS: buPROPion HCL SR (12 HR) 150 MG TAB PO ×2 (17:08→20:28)
[2022-07-05] MEDS: METOPROLOL SUCCINATE EXT REL 25 MG TABCR 75 MG PO (17:09)
[2022-07-05] MEDS: SPIRONOLACTONE 25 MG TABLET PO (17:09)
[2022-07-05] MEDS: DABIGATRAN ETEXILATE 150 MG CAPSULE PO ×2 (17:10→20:28)
[2022-07-05] MEDS: FUROSEMIDE INJ 100 MG/10 ML VIAL 60 MG IV PUSH (17:10)
[2022-07-05] MEDS: amLODIPine BESYLATE 5 MG TABLET 10 MG PO (17:10)
[2022-07-05] MEDS: SACUBITRIL/VALSARTAN 49-51 MG TABLET 1 TABLET PO ×2 (17:11→20:28)
[2022-07-05] MEDS: POTASSIUM CHLORIDE 10 MEQ TABLET.ER 20 MEQ PO (18:43)
[2022-07-05] MEDS: TERAZOSIN HCL 5 MG CAPSULE PO (20:28)
[2022-07-05] MEDS: ATORVASTATIN 40 MG TABLET 80 MG PO (20:28)
[2022-07-06] VITALS (10 sets, daily range): BP systolic 100–114; BP diastolic 56–73; PULSE 71–78; RESP 16–18; TEMP 36.2–36.6; O2SAT 91–97
[2022-07-06 06:35] LABS: Hematocrit 42.5 % (42.0-52.0); Hemoglobin 13.4 g/dL (14.0-18.0); Mean Corpuscular HGB Conc 31.5 g/dl (32-36); Mean Corpuscular Hemoglobin 33.8 pg (26-34); Mean Corpuscular Volume 107.1 fl (80-100); Mean Platelet Volume 10.2 fl (7.4-10.4); Platelet Count Result 199 k/mm3 (150-375); Red Blood Count 3.97 M/mm3 (4.6-6.20); Red Cell Distribution Width 14.6 % (11.5-14.5); White Blood Count 6.9 K/mm3 (4.5-10.0)
[2022-07-06 06:44] LABS: Magnesium 2.2 mg/dL (1.6-2.3)
[2022-07-06] MEDS: POTASSIUM CHLORIDE 10 MEQ TABLET.ER 20 MEQ PO ×2 (09:32→16:40)
[2022-07-06] MEDS: DABIGATRAN ETEXILATE 150 MG CAPSULE PO ×2 (09:32→20:30)
[2022-07-06] MEDS: buPROPion HCL SR (12 HR) 150 MG TAB PO ×2 (09:32→20:30)
[2022-07-06] MEDS: EMPAGLIFLOZIN 10 MG TABLET PO (09:32)
--- NOTE | 2022-07-06 09:40 | PM.PNCARD ---
Progress Note: A&P Assessment and Plan (1) Acute on chronic systolic (congestive) heart failure: Code(s): I50.23 - Acute on chronic systolic (congestive) heart failure Status: Acute Assessment and Plan: HFrEF Presenting progressive dyspnea. Evidence of decompensated heart failure with pulmonary edema chest x-ray, elevated NT proBNP (3290) and weight gain/abdominal distention. He has been given 1 dose of IV furosemide. Continue IV furosemide. Order BNP. Strict intake and output 1.5 L fluid restriction low-sodium diet daily standing weights CHF counseling He also needs treatment for his sleep apnea. I suspect that this is a contributing factor to his recurrent CHF. Will order an ApneaLink as it has been several years since his diagnosis. Will likely need referral to Sleep Medicine as an outpatient. (2) Nonischemic cardiomyopathy: Code(s): I42.8 - Other cardiomyopathies Status: Acute Assessment and Plan: EF 34% by echocardiogram in January of 2022. Continue guideline directed medical therapy with Entresto, spironolactone, Toprol XL, Jardiance (3) Biventricular ICD (implantable cardioverter-defibrillator) in place: Code(s): Z95.810 - Presence of automatic (implantable) cardiac defibrillator Status: Acute Assessment and Plan: Medtronic Bi V ICD. Last remote transmission on 04/04/2022 With no events on the remote interrogation. Can check interrogation here (4) Atrial fibrillation: Qualifiers: Atrial fibrillation type: unspecified chronic Qualified Code(s): I48.20 - Chronic atrial fibrillation, unspecified Code(s): I48.91 - Unspecified atrial fibrillation Status: Acute Assessment and Plan: continue beta-trace, anticoagulation with Pradaxa. Will DC telemetry Subjective Date/time seen: 07/06/22 09:40 Interval history: 72-year-old admitted with CHF, shortness of breath Date of service 07/06/2022: Still short of breath without oxygen walking to and from the bathroom. Swelling has improved. No chest pain. Review of Systems Constitutional: Constitutional: Denies chills, Denies fever(s), Denies headache(s) and Denies malaise Eyes: Eyes: Denies change in vision ENT: Reports Normal hearing present, Denies dizziness, Denies headache(s) and Denies hearing loss Cardiovascular: Cardiovascular: Denies chest pain, Denies chest pain at rest, Denies chest pain with activity, Denies syncope, Denies leg edema, Denies palpitations, Reports dyspnea and Reports dyspnea on exertion Respiratory: Respiratory: Reports cough, Reports dyspnea, Reports dyspnea on exertion and Denies wheezing Gastrointestinal: Gastrointestinal: Denies abdominal pain, Denies constipation and Denies diarrhea Genitourinary: Genitourinary: Denies hematuria and Denies dysuria Musculoskeletal: Musculoskeletal: Denies myalgias, Denies arthralgias and Denies muscle cramps Integumentary/Breasts: Skin/Breast: Denies wounds Neurologic: Reports Normal hearing present, Denies confusion, Denies dizziness, Denies syncope and Denies headache(s) Psychiatric: Psychiatric: Reports anxiety, Denies confusion and Reports depression Endocrine: Endocrine: Denies cold intolerance, Denies flushing, Denies heat intolerance and Denies palpitations Hematologic/Lymphatic: Hematologic/Lymphatic: Denies easy bleeding and Denies easy bruising Allergic/Immunologic: Allergic/Immunologic: Denies wheezing Exam Const: General: comfortable, no acute distress, alert and awake; No confusion Orientation/consciousness: patient oriented x3 and No confusion HENMT: Head: normal to inspection Eyes: General: appearance normal, both eyes and all related structures Pupils: Equal, round and reactive pupils present Neck: Neck: normal visual inspection, supple and no JVD Carotids: normal carotid upstroke Resp: Effort & Inspection: normal respiratory effort Auscultation: clear t
--- NOTE | 2022-07-06 10:02 | PC.NURSE ---
Dr Light notified of bp 100/56. Ok to give lasix iv, metoprolol po, entresto po and hold norvasc.
[2022-07-06 10:05] LABS: Anion Gap 4 mmol/L (8-16); Blood Urea Nitrogen 14 mg/dL (9-20); Calcium 8.4 mg/dL (8.4-10.2); Carbon Dioxide 34 mmol/L (22-30); Chloride 102 mmol/L (98-107); Estimated CRCL calculation 75 ml/min; Estimated Glomerular Filt Rate > 60; Glucose 103 mg/dL (65-110); Sodium 140 mmol/L (137-145)
[2022-07-06] MEDS: METOPROLOL SUCCINATE EXT REL 25 MG TABCR 75 MG PO (10:05)
[2022-07-06] MEDS: FUROSEMIDE INJ 100 MG/10 ML VIAL 60 MG IV PUSH ×2 (10:05→16:40)
[2022-07-06] MEDS: SACUBITRIL/VALSARTAN 49-51 MG TABLET 1 TABLET PO ×2 (10:06→20:30)
[2022-07-06] MEDS: SPIRONOLACTONE 25 MG TABLET PO (15:23)
--- NOTE | 2022-07-06 16:14 | PM.IMPN ---
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 Status: Acute Assessment and Plan: patient with history of atrial fibrillation rate is controlled anticoagulated with Pradaxa and monitor (2) Hypertension: Code(s): I10 - Essential (primary) hypertension Status: Acute Assessment and Plan: will resume home medication and monitor (3) Atrial fibrillation: Qualifiers: Atrial fibrillation type: unspecified chronic Qualified Code(s): I48.20 - Chronic atrial fibrillation, unspecified Code(s): I48.91 - Unspecified atrial fibrillation Status: Acute Assessment and Plan: rate is controlled anticoagulated Pradaxa (4) Acute on chronic systolic (congestive) heart failure: Code(s): I50.23 - Acute on chronic systolic (congestive) heart failure Status: Acute Assessment and Plan: Patient 72-year-old woman with loose shortness of breath. History of congestive heart failure with ejection fraction 23% status post biventricular ICD placement Hypoxic on NC cardiomyopathy with ejection fraction 23% status post biventricular ICDJanuary 2021 On Entresto spironolactone metoprolol. Diuresis with IV Lasix currently. EF improved to 34% in January 2022 Possible COPD does have smoking history 15 years 2 pack per day. Will add albuterol as needed acute on chronic congestive heart failure Hypertension Hyperlipidemia Atrial fibrillation DVT prophylaxis on Pradaxa Subjective Date/time seen: 07/06/22 16:14 Interval history: patient presented with shortness of breath. Has a history of congestive heart failure recently admitted with pneumonia. EKG with paced rhythm at the rate of 83. Hypoxic on room air with 85% placed on nasal cannula oxygen supplementation received IV Lasix BNP elevated 3020 90. Troponin is negative. Mild leukocytosis of 12.6. Chest x-ray with evidence of decompensated heart failure with pulmonary edema. No overnight events reported. feeling better. Next swelling has improved. Denies any wheezing. Review of Systems Review of Systems: All systems reviewed & are unremarkable except as noted in HPI and below Exam Narrative: morbidly obese Patient is comfortable, NAD HEENT: eyes are clear and none icteric LUNGS: diminished breath sounds bilaterally no wheezes heard HEART: RR S1S2 ABD: distended soft nontender Lower extremities: Trace edema lower extremities no cyanosis clubbing SKIN: nonjaundiced Neuro: grossly intact. Objective Data Vital Signs Vital Signs: Vital Signs - 24 hr 07/05/22 17:09 07/05/22 19:30 07/05/22 20:00 Temperature Pulse Rate 82 71 Respiratory Rate Blood Pressure Pulse Oximetry 95 Oxygen Delivery Nasal Cannula Oxygen Flow Rate 2 07/05/22 21:48 07/06/22 00:00 07/06/22 04:00 Temperature 97.6 F Pulse Rate 78 72 76 Respiratory Rate 18 Blood Pressure 108/59 L Pulse Oximetry 95 Oxygen Delivery Oxygen Flow Rate 07/06/22 05:07 07/06/22 09:39 07/06/22 10:05 Temperature 97.9 F Pulse Rate 74 74 Respiratory Rate 18 Blood Pressure 114/65 100/56 L Pulse Oximetry 94 Oxygen Delivery Oxygen Flow Rate 07/06/22 08:00 07/06/22 08:00 07/06/22 13:48 Temperature 97.4 F L Pulse Rate 73 78 Respiratory Rate 18 Blood Pressure 104/73 Pulse Oximetry 96 95 Oxygen Delivery Nasal Cannula Oxygen Flow Rate 2 Intake/Output Intake/Output: Intake & Output 07/03/22 07/04/22 07/05/22 07/06/22 23:59 23:59 23:59 23:59 Intake Total 1220 444 Output Total 500 Balance 720 444 Meds/Results Medications: Active Medications Generic Name Dose Route Start Last Admin Trade Name Freq PRN Reason Stop Dose Admin Acetaminophen 650 mg 07/05/22 12:45 Acetaminophen 325 Mg Tablet PO Q6H PRN Pain Alprazolam 0.5 mg 07/05/22 12:45 Alprazolam (*Crx) 0.5
[2022-07-06] MEDS: ALPRAZolam (*CRX) 0.5 MG TABLET PO (20:29)
[2022-07-06] MEDS: ATORVASTATIN 40 MG TABLET 80 MG PO (20:30)
[2022-07-06] MEDS: TERAZOSIN HCL 5 MG CAPSULE PO (20:30)
[2022-07-07] VITALS (9 sets, daily range): BP systolic 100–124; BP diastolic 60–81; PULSE 70–85; RESP 18; TEMP 35.8–36.6; O2SAT 86–96
[2022-07-07 06:26] LABS: Hematocrit 43.8 % (42.0-52.0); Hemoglobin 13.9 g/dL (14.0-18.0); Mean Corpuscular HGB Conc 31.7 g/dl (32-36); Mean Corpuscular Hemoglobin 33.8 pg (26-34); Mean Corpuscular Volume 106.6 fl (80-100); Mean Platelet Volume 10.6 fl (7.4-10.4); Platelet Count Result 215 k/mm3 (150-375); Red Blood Count 4.11 M/mm3 (4.6-6.20); Red Cell Distribution Width 14.5 % (11.5-14.5); White Blood Count 6.7 K/mm3 (4.5-10.0)
[2022-07-07 06:45] LABS: Magnesium 2.5 mg/dL (1.6-2.3)
[2022-07-07] MEDS: FUROSEMIDE INJ 100 MG/10 ML VIAL 60 MG IV PUSH ×2 (08:21→16:57)
[2022-07-07] MEDS: POTASSIUM CHLORIDE 10 MEQ TABLET.ER 20 MEQ PO ×2 (08:21→16:57)
[2022-07-07] MEDS: buPROPion HCL SR (12 HR) 150 MG TAB PO ×2 (08:21→20:36)
[2022-07-07] MEDS: METOPROLOL SUCCINATE EXT REL 25 MG TABCR 75 MG PO (08:21)
[2022-07-07] MEDS: DABIGATRAN ETEXILATE 150 MG CAPSULE PO ×2 (08:21→20:36)
[2022-07-07] MEDS: EMPAGLIFLOZIN 10 MG TABLET PO (08:21)
[2022-07-07] MEDS: amLODIPine BESYLATE 5 MG TABLET 10 MG PO (08:21)
[2022-07-07] MEDS: SPIRONOLACTONE 25 MG TABLET PO (08:22)
[2022-07-07] MEDS: SACUBITRIL/VALSARTAN 49-51 MG TABLET 1 TABLET PO ×2 (08:22→20:36)
--- NOTE | 2022-07-07 09:12 | PM.PNCARD ---
Progress Note: A&P Assessment and Plan (1) Acute on chronic systolic (congestive) heart failure: Code(s): I50.23 - Acute on chronic systolic (congestive) heart failure Status: Acute Assessment and Plan: HFrEF presenting with progressive dyspnea. Evidence of decompensated heart failure with pulmonary edema chest x-ray, elevated NT proBNP (3290) and weight gain/abdominal distention. Continue with IV furosemide. Difficult to assess diuresis, unsure if I&O being documented correctly. Check BNP Check CXR Close monitoring of renal function and electrolytes with daily BMP while diuresing. Strict intake and output 1.5 L fluid restriction low-sodium diet daily standing weights CHF counseling AHI 17 on apnealink. Recommend outpatient sleep study (2) Nonischemic cardiomyopathy: Code(s): I42.8 - Other cardiomyopathies Status: Acute Assessment and Plan: EF 34% by echocardiogram in January of 2022. Continue guideline directed medical therapy with Entresto, spironolactone, Toprol XL, Jardiance (3) Biventricular ICD (implantable cardioverter-defibrillator) in place: Code(s): Z95.810 - Presence of automatic (implantable) cardiac defibrillator Status: Acute Assessment and Plan: Medtronic Bi V ICD. Last remote transmission on 04/04/2022 With no events on the remote interrogation. Can check interrogation here (4) Atrial fibrillation: Qualifiers: Atrial fibrillation type: unspecified chronic Qualified Code(s): I48.20 - Chronic atrial fibrillation, unspecified Code(s): I48.91 - Unspecified atrial fibrillation Status: Acute Assessment and Plan: continue beta-trace, anticoagulation with Pradaxa. Subjective Date/time seen: 07/07/22 09:12 Cardiology follow up for CHF, Afib Feels ok. Still experiencing dyspnea with exertion. No orthopnea or dyspnea at rest. On 2L O2 and became hypoxic when O2 was turned off earlier this a.m. Feels like his abdomen is less distended Review of Systems Constitutional: Constitutional: Denies chills, Denies fever(s), Denies headache(s) and Denies malaise Eyes: Eyes: Denies change in vision ENT: Reports Normal hearing present, Denies dizziness, Denies headache(s) and Denies hearing loss Cardiovascular: Cardiovascular: Denies chest pain, Denies chest pain at rest, Denies chest pain with activity, Denies syncope, Denies leg edema, Denies palpitations, Reports dyspnea and Reports dyspnea on exertion Respiratory: Respiratory: Reports cough, Reports dyspnea, Reports dyspnea on exertion and Denies wheezing Gastrointestinal: Gastrointestinal: Denies abdominal pain, Denies constipation and Denies diarrhea Genitourinary: Genitourinary: Denies hematuria and Denies dysuria Musculoskeletal: Musculoskeletal: Denies myalgias, Denies arthralgias and Denies muscle cramps Integumentary/Breasts: Skin/Breast: Denies wounds Neurologic: Reports Normal hearing present, Denies confusion, Denies dizziness, Denies syncope and Denies headache(s) Psychiatric: Psychiatric: Reports anxiety, Denies confusion and Reports depression Endocrine: Endocrine: Denies cold intolerance, Denies flushing, Denies heat intolerance and Denies palpitations Hematologic/Lymphatic: Hematologic/Lymphatic: Denies easy bleeding and Denies easy bruising Allergic/Immunologic: Allergic/Immunologic: Denies wheezing Exam Const: General: comfortable, no acute distress, alert and awake; No confusion Orientation/consciousness: patient oriented x3 and No confusion HENMT: Head: normal to inspection Eyes: General: appearance normal, both eyes and all related structures Pupils: Equal, round and reactive pupils present Neck: Neck: normal visual inspection, supple and no JVD Carotids: normal carotid upstroke Resp: Effort & Inspection: normal respiratory effort Auscultation: clear to auscultation bilaterally Cardio: Rate: regular rate
[2022-07-07 09:59] LABS: Alanine Aminotransferase 21 U/L (6-50); Albumin Level 3.7 g/dL (3.5-5.1); Alkaline Phosphatase 76 U/L (38-126); Anion Gap 4 mmol/L (8-16); Aspartate Amino Transferase 29 U/L (17-59); Bilirubin,Total 1.3 mg/dL (0.2-1.3); Blood Urea Nitrogen 17 mg/dL (9-20); Calcium 8.3 mg/dL (8.4-10.2); Carbon Dioxide 35 mmol/L (22-30); Chloride 103 mmol/L (98-107); Estimated CRCL calculation 68 ml/min; Estimated Glomerular Filt Rate > 60; Glucose 96 mg/dL (65-110); Potassium 3.6 mmol/L (3.4-5.0); Sodium 142 mmol/L (137-145)
[2022-07-07 11:21] LABS: NT Pro B Type Natriuretic Pept 358 pg/mL (19.9-100)
--- NOTE | 2022-07-07 14:23 | PM.IMPN ---
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 Status: Acute Assessment and Plan: patient with history of atrial fibrillation rate is controlled anticoagulated with Pradaxa and monitor On beta-trace (2) Hypertension: Code(s): I10 - Essential (primary) hypertension Status: Acute Assessment and Plan: will resume home medication and monitor (3) Atrial fibrillation: Qualifiers: Atrial fibrillation type: unspecified chronic Qualified Code(s): I48.20 - Chronic atrial fibrillation, unspecified Code(s): I48.91 - Unspecified atrial fibrillation Status: Acute Assessment and Plan: rate is controlled anticoagulated Pradaxa (4) Acute on chronic systolic (congestive) heart failure: Code(s): I50.23 - Acute on chronic systolic (congestive) heart failure Status: Acute Assessment and Plan: Patient 72-year-old woman with loose shortness of breath. History of congestive heart failure with ejection fraction 23% status post biventricular ICD placement Hypoxic on NC still requiring oxygen. Not on oxygen at home. cardiomyopathy with ejection fraction 23% status post biventricular ICDJan2021 On Entresto spironolactone metoprolol. Diuresis with IV Lasix currently. EF improved to 34% in January 2022 Possible COPD does have smoking history 15 years 2 pack per day. Will add albuterol as needed acute on chronic congestive heart failure on diuresis with IV Lasix. Chest x-ray with bibasilar pulmonary edema still persistent. Continue fluid restriction strict I and O monitor BMP. BNP has lowered with diuresis Hypertension Hyperlipidemia Atrial fibrillation DVT prophylaxis on Pradaxa Subjective Date/time seen: 07/07/22 14:23 Interval history: patient presented with shortness of breath. Has a history of congestive heart failure recently admitted with pneumonia. EKG with paced rhythm at the rate of 83. Hypoxic on room air with 85% placed on nasal cannula oxygen supplementation received IV Lasix BNP elevated 3020 90. Troponin is negative. Mild leukocytosis of 12.6. Chest x-ray with evidence of decompensated heart failure with pulmonary edema. No overnight events reported. feeling better. Next swelling has improved. Denies any wheezing. 07/07/2022: No overnight. Feeling better. Still requiring oxygen. Chest x-ray reviewed. Labs Reviewed. Leg swelling is improved. On fluid restriction. ApneaLink with AHI of 17. Review of Systems Review of Systems: All systems reviewed & are unremarkable except as noted in HPI and below Exam Narrative: morbidly obese Patient is comfortable, NAD HEENT: eyes are clear and none icteric LUNGS: diminished breath sounds bilaterally no wheezes heard HEART: RR S1S2 ABD: distended soft nontender Lower extremities: Trace edema lower extremities no cyanosis clubbing SKIN: nonjaundiced Neuro: grossly intact. Objective Data Vital Signs Vital Signs: Vital Signs - 24 hr 07/06/22 20:55 07/06/22 22:44 07/06/22 20:00 Temperature 97.1 F L Pulse Rate 71 Respiratory Rate 16 Blood Pressure 101/64 Pulse Oximetry 97 91 95 Oxygen Delivery Nasal Cannula Nasal Cannula Oxygen Flow Rate 2 3 07/07/22 05:18 07/07/22 08:21 07/07/22 08:00 Temperature 98 F Pulse Rate 73 70 Respiratory Rate 18 Blood Pressure 124/81 Pulse Oximetry 94 95 Oxygen Delivery Nasal Cannula Oxygen Flow Rate 2 07/07/22 08:51 07/07/22 08:58 Temperature Pulse Rate Respiratory Rate Blood Pressure Pulse Oximetry 86 L 94 Oxygen Delivery Room Air Nasal Cannula Oxygen Flow Rate 2 Intake/Output Intake/Output: Intake & Output 07/04/22 07/05/22 07/06/22 07/07/22 23:59 23:59 23:59 23:59 Intake Total 1220 1056 730 Output Total 500 300 Balance 720 756 730 Meds/Results Medications: Active Medications Generic Na
[2022-07-07] MEDS: ATORVASTATIN 40 MG TABLET 80 MG PO (20:36)
[2022-07-07] MEDS: TERAZOSIN HCL 5 MG CAPSULE PO (20:36)
[2022-07-07] MEDS: ALPRAZolam (*CRX) 0.5 MG TABLET PO (20:43)
[2022-07-08] VITALS (9 sets, daily range): BP systolic 92–122; BP diastolic 58–74; PULSE 72–86; RESP 18–22; TEMP 36.2–36.6; O2SAT 87–97
[2022-07-08 06:11] LABS: Hematocrit 44.5 % (42.0-52.0); Hemoglobin 14.1 g/dL (14.0-18.0); Mean Corpuscular HGB Conc 31.7 g/dl (32-36); Mean Corpuscular Hemoglobin 33.5 pg (26-34); Mean Corpuscular Volume 105.7 fl (80-100); Mean Platelet Volume 10.9 fl (7.4-10.4); Platelet Count Result 254 k/mm3 (150-375); Red Blood Count 4.21 M/mm3 (4.6-6.20); Red Cell Distribution Width 14.4 % (11.5-14.5); White Blood Count 7.2 K/mm3 (4.5-10.0)
[2022-07-08 06:24] LABS: Alanine Aminotransferase 21 U/L (6-50); Albumin Level 3.8 g/dL (3.5-5.1); Alkaline Phosphatase 79 U/L (38-126); Anion Gap 4 mmol/L (8-16); Aspartate Amino Transferase 30 U/L (17-59); Bilirubin,Total 1.3 mg/dL (0.2-1.3); Blood Urea Nitrogen 21 mg/dL (9-20); Calcium 8.5 mg/dL (8.4-10.2); Carbon Dioxide 33 mmol/L (22-30); Chloride 106 mmol/L (98-107); Estimated CRCL calculation 74 ml/min; Estimated Glomerular Filt Rate > 60; Glucose 93 mg/dL (65-110); Magnesium 2.7 mg/dL (1.6-2.3); Potassium 3.5 mmol/L (3.4-5.0); Sodium 143 mmol/L (137-145)
--- NOTE | 2022-07-08 08:58 | PM.PNCARD ---
Progress Note: A&P Assessment and Plan (1) Acute on chronic systolic (congestive) heart failure: Code(s): I50.23 - Acute on chronic systolic (congestive) heart failure Status: Acute Assessment and Plan: HFrEF presenting with progressive dyspnea. Evidence of decompensated heart failure with pulmonary edema chest x-ray, elevated NT proBNP (3290) and weight gain/abdominal distention. Will shift to p.o. furosemide today, 80mg b.i.d. Difficult to assess diuresis, unsure if I&O being documented correctly. Close monitoring of renal function and electrolytes with daily BMP while diuresing. Strict intake and output 1.5 L fluid restriction low-sodium diet daily standing weights CHF counseling AHI 17 on apnealink. Recommend outpatient sleep study If stable on p.o. furosemide, likely d/c tomorrow on furosemide 80mg daily (2) Nonischemic cardiomyopathy: Code(s): I42.8 - Other cardiomyopathies Status: Acute Assessment and Plan: EF 34% by echocardiogram in January of 2022. Continue guideline directed medical therapy with Entresto, spironolactone, Toprol XL, Jardiance (3) Biventricular ICD (implantable cardioverter-defibrillator) in place: Code(s): Z95.810 - Presence of automatic (implantable) cardiac defibrillator Status: Acute Assessment and Plan: Medtronic Bi V ICD. Last remote transmission on 04/04/2022 With no events on the remote interrogation. (4) Atrial fibrillation: Qualifiers: Atrial fibrillation type: unspecified chronic Qualified Code(s): I48.20 - Chronic atrial fibrillation, unspecified Code(s): I48.91 - Unspecified atrial fibrillation Status: Acute Assessment and Plan: continue beta-trace, anticoagulation with Pradaxa. Subjective Date/time seen: 07/08/22 08:58 Cardiology follow up for CHF, atrial fibrillation Feeling better today. When I entered the room he was lying flat in bed breathing comfortably. Abdomen is less distended. Still on 2L O2. Review of Systems Constitutional: Constitutional: Denies chills, Denies fever(s), Denies headache(s) and Denies malaise Eyes: Eyes: Denies change in vision ENT: Reports Normal hearing present, Denies dizziness, Denies headache(s) and Denies hearing loss Cardiovascular: Cardiovascular: Denies chest pain, Denies chest pain at rest, Denies chest pain with activity, Denies syncope, Denies leg edema, Denies palpitations, Reports dyspnea and Reports dyspnea on exertion Respiratory: Respiratory: Reports cough, Reports dyspnea, Reports dyspnea on exertion and Denies wheezing Gastrointestinal: Gastrointestinal: Denies abdominal pain, Denies constipation and Denies diarrhea Genitourinary: Genitourinary: Denies hematuria and Denies dysuria Musculoskeletal: Musculoskeletal: Denies myalgias, Denies arthralgias and Denies muscle cramps Integumentary/Breasts: Skin/Breast: Denies wounds Neurologic: Reports Normal hearing present, Denies confusion, Denies dizziness, Denies syncope and Denies headache(s) Psychiatric: Psychiatric: Reports anxiety, Denies confusion and Reports depression Endocrine: Endocrine: Denies cold intolerance, Denies flushing, Denies heat intolerance and Denies palpitations Hematologic/Lymphatic: Hematologic/Lymphatic: Denies easy bleeding and Denies easy bruising Allergic/Immunologic: Allergic/Immunologic: Denies wheezing Exam Const: General: comfortable, no acute distress, alert and awake; No confusion Orientation/consciousness: patient oriented x3 and No confusion HENMT: Head: normal to inspection Eyes: General: appearance normal, both eyes and all related structures Pupils: Equal, round and reactive pupils present Neck: Neck: normal visual inspection, supple and no JVD Carotids: normal carotid upstroke Resp: Effort & Inspection: normal respiratory effort Auscultation: clear to auscultation bilaterally Cardio: Rate: regular rate Rh
--- NOTE | 2022-07-08 09:56 | PC.NURSE ---
Lizz Huitron SENIOR CLINICAL DATA ANALYST notified of bp 100/60
[2022-07-08] MEDS: POTASSIUM CHLORIDE 10 MEQ TABLET.ER 20 MEQ PO ×2 (09:57→17:09)
[2022-07-08] MEDS: METOPROLOL SUCCINATE EXT REL 25 MG TABCR 75 MG PO (09:58)
[2022-07-08] MEDS: DABIGATRAN ETEXILATE 150 MG CAPSULE PO ×2 (09:58→20:11)
[2022-07-08] MEDS: EMPAGLIFLOZIN 10 MG TABLET PO (09:58)
[2022-07-08] MEDS: buPROPion HCL SR (12 HR) 150 MG TAB PO ×2 (09:58→20:11)
[2022-07-08] MEDS: SPIRONOLACTONE 25 MG TABLET PO (09:59)
[2022-07-08] MEDS: SACUBITRIL/VALSARTAN 49-51 MG TABLET 1 TABLET PO ×2 (09:59→20:12)
[2022-07-08] MEDS: FUROSEMIDE 80 MG TABLET PO ×2 (10:39→17:09)
--- NOTE | 2022-07-08 12:17 | PM.IMPN ---
Progress Note: A&P Assessment and Plan (1) Anticoagulated: Code(s): Z79.01 - surgery aid (current) use of anticoagulants Status: Acute Assessment and Plan: patient with history of atrial fibrillation rate is controlled anticoagulated with Pradaxa and monitor On beta-trace (2) Hypertension: Code(s): I10 - Essential (primary) hypertension Status: Acute Assessment and Plan: will resume home medication and monitor (3) Atrial fibrillation: Qualifiers: Atrial fibrillation type: unspecified chronic Qualified Code(s): I48.20 - Chronic atrial fibrillation, unspecified Code(s): I48.91 - Unspecified atrial fibrillation Status: Acute Assessment and Plan: rate is controlled anticoagulated Pradaxa (4) Acute on chronic systolic (congestive) heart failure: Code(s): I50.23 - Acute on chronic systolic (congestive) heart failure Status: Acute Assessment and Plan: # Patient 72-year-old with shortness of breath. History of congestive heart failure with ejection fraction 23% status post biventricular ICD placement # Hypoxic on NC still requiring oxygen. Not on oxygen at home. # cardiomyopathy with ejection fraction 23% status post biventricular [id number] On Entresto spironolactone metoprolol. Diuresis with IV Lasix currently. EF improved to 34% in January 2022 # Possible COPD does have smoking history 15 years 2 pack per day. Will add albuterol as needed # acute on chronic congestive heart failure on diuresis with IV Lasix. Chest x-ray with bibasilar pulmonary edema still persistent. Continue fluid restriction strict I and O monitor BMP. BNP has lowered with diuresis # Hypertension # Hyperlipidemia # Atrial fibrillation # DVT prophylaxis on Pradaxa # possilbe Sleep apne: apnea link with AHI 17. holds a diagnosis and was on cpap long time ago. [facility] will arragne for oxygen at night. reassess apnea link with 3l. o2 < 88 for 140 + mins Subjective Date/time seen: 07/08/22 12:17 Interval history: patient presented with shortness of breath. Has a history of congestive heart failure recently admitted with pneumonia. EKG with paced rhythm at the rate of 83. Hypoxic on room air with 85% placed on nasal cannula oxygen supplementation received IV Lasix BNP elevated 3020 90. Troponin is negative. Mild leukocytosis of 12.6. Chest x-ray with evidence of decompensated heart failure with pulmonary edema. No overnight events reported. feeling better. Next swelling has improved. Denies any wheezing. 07/07/2022: No overnight. Feeling better. Still requiring oxygen. Chest x-ray reviewed. Labs Reviewed. Leg swelling is improved. On fluid restriction. ApneaLink with AHI of 17. 07/08/2022: doing well. feelin better. leg swelling has mporved. wants to go home. apnea link reviewed. still on oxygen. discussed with nursing staff Review of Systems Review of Systems: All systems reviewed & are unremarkable except as noted in HPI and below Exam Narrative: morbidly obese Patient is comfortable, NAD HEENT: eyes are clear and none icteric LUNGS: diminished breath sounds bilaterally no wheezes heard HEART: RR S1S2 ABD: distended soft nontender Lower extremities: Trace edema lower extremities no cyanosis clubbing SKIN: nonjaundiced Neuro: grossly intact. Objective Data Vital Signs Vital Signs: Vital Signs - 24 hr 07/07/22 14:00 07/07/22 16:54 07/07/22 21:55 Temperature 96.5 F L 97.2 F L Pulse Rate 85 84 Respiratory Rate 18 18 Blood Pressure 100/60 120/80 103/76 Pulse Oximetry 93 96 Oxygen Delivery Oxygen Flow Rate 07/07/22 20:36 07/08/22 06:00 Temperature 97.9 F Pulse Rate 86 Respiratory Rate 18 Blood Pressure 119/74 Pulse Oximetry 95 93 Oxygen Delivery Nasal Cannula Oxygen Flow Rate 2 Intake/Output Intake/Output: Intake & Output 07/05/22 07/06/22 07/07/2207/08
--- NOTE | 2022-07-08 14:57 | HOMEO2EVAL ---
Evaluation was performed at [facility] Home Oxygen Evaluation RC: Home Oxygen (O2) Evaluation Start: 07/08/22 12:17 Freq: ONCE Status: Active Protocol: RPE Activity Type Activity Date Activity User E-sign Co-sign Detail Recorded Client Recorded Date Recorded By Document 07/08/22 13:30 ROGER [email or web address] 07/08/22 14:56 ROGER Document 07/08/22 13:35 ROGER [email or web address] 07/08/22 14:56 ROGER Document 07/08/22 13:36 ROGER [email or web address] 07/08/22 14:56 ROGER Document 07/08/22 13:37 ROGER [email or web address] 07/08/22 14:56 ROGER Document 07/08/22 13:45 ROGER [email or web address] 07/08/22 14:56 ROGER 07/08/22 07/08/22 07/08/22 13:30 13:35 13:36 Home O2 Evaluation [Oxygen] -Test Phase Resting Exercise Exercise -Oxygen Delivery Room Air Room Air Nasal Cannula -Oxygen Flow Rate (L/min) 1 [Pulse Oximetry] -Pulse Oximetry (90-100 %) 94 87 L 87 L [Pulse Rate] -Pulse Rate (60-100 beats/min) 72 [Comments] -Home Oxygen Evaluation Comments [Charges] -Treatment Charges O2 Evaluation - Inpatient 07/08/22 07/08/22 13:37 13:45 Home O2 Evaluation [Oxygen] -Test Phase Exercise Resting -Oxygen Delivery Nasal Cannula Room Air -Oxygen Flow Rate (L/min) 2 [Pulse Oximetry] -Pulse Oximetry (90-100 %) 92 93 [Pulse Rate] -Pulse Rate (60-100 beats/min) [Comments] -Home Oxygen Evaluation Comments PATIENT REQUIRES HOME O2 WITH ACTIVITY AND NOCTURNALLY [Charges] -Treatment Charges
--- NOTE | 2022-07-08 15:16 | PCRCNOTE ---
HOME O2 WILL BE ARRANGED WITH [facility]. CONTACT PHUC AT [facility] IF NEEDED.[phone]
[2022-07-08] MEDS: ATORVASTATIN 40 MG TABLET 80 MG PO (20:11)
[2022-07-08] MEDS: TERAZOSIN HCL 5 MG CAPSULE PO (20:11)
[2022-07-08] MEDS: ALPRAZolam (*CRX) 0.5 MG TABLET PO (20:17)
[2022-07-09 06:00] VITALS: BP 107/64; PULSE 80; RESP 20; TEMP 35.9; O2SAT 94
[2022-07-09 06:30] LABS: Hematocrit 45.9 % (42.0-52.0); Hemoglobin 14.6 g/dL (14.0-18.0); Mean Corpuscular HGB Conc 31.8 g/dl (32-36); Mean Corpuscular Hemoglobin 33.9 pg (26-34); Mean Corpuscular Volume 106.5 fl (80-100); Mean Platelet Volume 10.6 fl (7.4-10.4); Platelet Count Result 254 k/mm3 (150-375); Red Blood Count 4.31 M/mm3 (4.6-6.20); Red Cell Distribution Width 14.6 % (11.5-14.5); White Blood Count 6.9 K/mm3 (4.5-10.0)
[2022-07-09 06:44] LABS: Magnesium 2.7 mg/dL (1.6-2.3)
[2022-07-09] MEDS: SACUBITRIL/VALSARTAN 49-51 MG TABLET 1 TABLET PO (08:26)
[2022-07-09] MEDS: DABIGATRAN ETEXILATE 150 MG CAPSULE PO (08:26)
[2022-07-09] MEDS: buPROPion HCL SR (12 HR) 150 MG TAB PO (08:26)
[2022-07-09] MEDS: amLODIPine BESYLATE 5 MG TABLET 10 MG PO (08:26)
[2022-07-09] MEDS: SPIRONOLACTONE 25 MG TABLET PO (08:26)
[2022-07-09 08:27] VITALS: PULSE 72
[2022-07-09] MEDS: METOPROLOL SUCCINATE EXT REL 25 MG TABCR 75 MG PO (08:27)
[2022-07-09] MEDS: FUROSEMIDE 80 MG TABLET PO (08:27)
[2022-07-09] MEDS: POTASSIUM CHLORIDE 10 MEQ TABLET.ER 20 MEQ PO (08:27)
[2022-07-09] MEDS: EMPAGLIFLOZIN 10 MG TABLET PO (08:27)
[2022-07-09 08:30] VITALS: O2SAT 91
[2022-07-09 09:07] LABS: Anion Gap 4 mmol/L (8-16); Blood Urea Nitrogen 23 mg/dL (9-20); Calcium 8.9 mg/dL (8.4-10.2); Carbon Dioxide 36 mmol/L (22-30); Chloride 105 mmol/L (98-107); Estimated CRCL calculation 55 ml/min; Estimated Glomerular Filt Rate 54; Glucose 103 mg/dL (65-110); Potassium 4.1 mmol/L (3.4-5.0); Sodium 145 mmol/L (137-145)
--- NOTE | 2022-07-09 11:35 | PM.PNCARD ---
Progress Note: A&P Assessment and Plan (1) CHF (congestive heart failure): Code(s): I50.9 - Heart failure, unspecified Status: Acute (2) Nonischemic cardiomyopathy: Code(s): I42.8 - Other cardiomyopathies Status: Acute Plan this is a 72-year-old man with a nonischemic cardiomyopathy admitted with an episode of CHF/volume overload. He has been returned to a euvolemic state and appears to be a good candidate for discharge at this time. I will see him in follow-up at appropriate interval following discharge my office will reach out to him on Monday for that appointment Ross Pabon MD [facility] Subjective Date/time seen: Date of service:07/09/22 11:35 Interval history: Follow-up visit in this 72-year-old man with: Well-established diagnosis of nonischemic cardiomyopathy. Admitted earlier in the week with CHF/volume overload. Patient is diuresed nicely he is hoping to be discharged today. He was found to require some home oxygen with physical activity that has been arranged and he is hoping to be discharged shortly. He is ambulating in the halls without any difficulty at this time there is no residual edema at this time Exam Const: General: comfortable and no acute distress Other: very pleasant gentleman appears his stated age no distress HENMT: Mouth: Yes moist mucous membranes Eyes: Sclera: sclerae normal Neck: Neck: supple Other: carotid pulses are unremarkable no bruits Resp: Effort & Inspection: normal respiratory effort Auscultation: clear to auscultation bilaterally Other: no audible pulmonary rales at this time Cardio: Rate: regular rate Rhythm: regular rhythm Other: PMI difficult to palpate first and second heart sounds normal no audible murmur GI: GI Palp: Yes Soft to palpation Auscultation: normal bowel sounds Skin: General skin exam: normal color Extrem: Other: adequate perfusion, warm no edema Objective Data Vital Signs Vital Signs: Vital Signs - 24 hr 07/08/22 14:02 07/08/22 13:30 07/08/22 13:35 Temperature 36.5 C Pulse Rate 78 72 Respiratory Rate 22 H Blood Pressure 122/69 Pulse Oximetry 97 94 87 L Oxygen Delivery Room Air Room Air Oxygen Flow Rate 07/08/22 13:36 07/08/22 13:37 07/08/22 13:45 Temperature Pulse Rate Respiratory Rate Blood Pressure Pulse Oximetry 87 L 92 93 Oxygen Delivery Nasal Cannula Nasal Cannula Room Air Oxygen Flow Rate 1 2 07/08/22 22:00 07/08/22 20:11 07/09/22 06:00 Temperature 36.2 C L 35.9 C L Pulse Rate 83 80 Respiratory Rate 20 20 Blood Pressure 92/58 L 107/64 Pulse Oximetry 95 95 94 Oxygen Delivery Nasal Cannula Oxygen Flow Rate 3 07/09/22 08:27 07/09/22 08:30 Temperature Pulse Rate 72 Respiratory Rate Blood Pressure Pulse Oximetry 91 Oxygen Delivery Nasal Cannula Oxygen Flow Rate 2 Intake/Output Intake/Output: Intake & Output 07/06/22 07/07/22 07/08/22 07/09/22 23:59 23:59 23:59 23:59 Intake Total 1056 850 360 120 Output Total 300 Balance 756 850 360 120 Meds/Results Medications: Active Medications Generic Name Dose Route Start Last Admin Trade Name Freq PRN Reason Stop Dose Admin Acetaminophen 650 mg 07/05/22 12:45 Acetaminophen 325 Mg Tablet PO Q6H PRN Pain Albuterol 2 puff 07/06/22 16:28 Albuterol Sulfate (*Sp) Aerosol 1 Puff INHALATION QIDRT PRN Shortness Of Breath Alprazolam 0.5 mg 07/05/22 12:45 07/08/22 20:17 Alprazolam (*Crx) 0.5 Mg Tablet PO 0.5 mg TID PRN Administration anxiety Amlodipine Besylate 10 mg 07/05/22 12:50 07/09/22 08:26 Amlodipine Besylate 5 Mg Tablet PO 10 mg DAILY SKYLA Administration Atorvastatin Calcium 80 mg 07/05/22 21:00 07/08/22 20:11 Atorvastatin 40 Mg Tablet PO 80 mg HS SKYLA Administration Bupropion HCl 150 mg 07/05/22 12:45 07/09/22 08:26 Bupropion Hcl Sr (12 Hr) 150 Mg Tab PO 150 mg Q12HR S
--- NOTE | 2022-07-09 12:11 | PM.DS ---
DS: Admitting Diagnosis Discharge Date 07/09/2022 Admitting Diagnosis shortness of breath DS: Discharge Diagnosis Discharge Diagnosis (1) Anticoagulated: Code(s): Z79.01 - assisted (current) use of anticoagulants Status: Acute (2) Hypertension: Code(s): I10 - Essential (primary) hypertension Status: Acute (3) Atrial fibrillation: Qualifiers: Atrial fibrillation type: unspecified chronic Qualified Code(s): I48.20 - Chronic atrial fibrillation, unspecified Code(s): I48.91 - Unspecified atrial fibrillation Status: Acute (4) Acute on chronic systolic (congestive) heart failure: Code(s): I50.23 - Acute on chronic systolic (congestive) heart failure Status: Acute DS: Summary Hospital Course Hospital Course: # ? Patient 72-year-old with? shortness of breath.? History of congestive heart failure with ejection fraction 23% status post biventricular ICD placement # acute hypoxic respiratory failure:Hypoxic on NC still requiring oxygen.? Not on oxygen at home. Oxygen evaluation oxygen at exertion. apnea link test at night also revealed significant hypoxemia at night. Suspected to be due to sleep apnea. Also qualify to continue oxygen at nighttime until further evaluation with a sleep study as an outpatient basis. #? cardiomyopathy with ejection fraction 23% status post biventricular [id number] On Entresto spironolactone metoprolol.? Diuresis with IV Lasix During the hospital stay and was transitioned to oral Lasix. He was euvolemic at the time of discharge will need to continue salt and fluid restriction at home.? EF improved to 34% in January 2022 # Possible COPD does have smoking history 15 years 2 pack per day.? Added albuterol as needed. # acute on chronic congestive heart failure? on diuresis with IV Lasix.? Chest x-ray with bibasilar pulmonary edema still persistent.? Continue fluid restriction strict I and O monitor BMP.? BNP has lowered with diuresis with improvement # Hypertension # Hyperlipidemia # Atrial fibrillation #? DVT prophylaxis on Pradaxa # possilbe Sleep apne: apnea link with AHI 17. holds a diagnosis and was on cpap long time ago. need to reassess wit hsleep studya s op basis. will arragne for oxygen at night. reassess apnea link with 2 year with improved oxygenation which will be continued at discharge Time Spent with Patient Time attestation: Total time spent providing and/or coordinating discharge services: 45 minutes Exam Narrative: morbidly obese Patient is comfortable, NAD HEENT: eyes are clear and none icteric LUNGS: diminished breath sounds bilaterally no wheezes heard HEART: RR S1S2 ABD: distended soft nontender Lower extremities: Trace edema lower extremities no cyanosis clubbing SKIN: nonjaundiced Neuro: grossly intact. DS: Data Data Completed and Pending Labs on day of discharge: Labs from last 24 hours 07/09/22 07/09/22 07/09/22 06:01 06:01 06:01 WBC 6.9 RBC 4.31 L Hgb 14.6 Hct 45.9 MCV 106.5 H MCH 33.9 MCHC 31.8 L RDW 14.6 H Plt Count 254 MPV 10.6 H Sodium 145 Potassium 4.1 Chloride 105 Carbon Dioxide 36 H Anion Gap 4 L BUN 23 H Creatinine 1.30 Estim Creat Clear Calc 55 Estimated GFR 54 L Glucose 103 Calcium 8.9 Magnesium 2.7 H Imaging Radiologist's impression: ITS Impressions Chest X-Ray 07/05/22 06:25 Impression: Bibasilar pulmonary edema. Possible underlying COPD. Pacemaker device. Chest X-Ray 07/07/22 13:55 Impression: COPD. Probable bibasilar pulmonary edema. Discharge Plan Discharge Attending physician on discharge: Ricardo Gilmore Consulting providers: Lizz Huitron Discharging Clinician: Ricardo Gilmore Anticipated Discharge Date/Time: 07/09/22 12:08 Patient Disposition: Home, Self-Care Activity: as tolerated Diet: heart healthy Discharge Inst
== END 2022-07-09 13:45 | disposition home or self-care (01) | DRG 291 ==
LOC: ANHED 05:39 → ANH3MEDSUR 14:08
PROVIDERS: Family Medicine; Internal Medicine Cardiovascular Disease; Nurse Practitioner; Admitting Provider Internal Medicine; Emergency Provider Emergency Medicine; PCP Nurse Practitioner; Visit Provider Internal Medicine
DX: I11.0 Hypertensive heart disease with heart failure (principal); I50.23 Acute on chronic systolic (congestive) heart failure; J96.01 Acute respiratory failure with hypoxia; I48.20 Chronic atrial fibrillation, unspecified; J44.9 Chronic obstructive pulmonary disease, unspecified; E66.01 Morbid (severe) obesity due to excess calories; E78.2 Mixed hyperlipidemia; K21.9 Gastro-esophageal reflux disease without esophagitis; D64.9 Anemia, unspecified; I25.10 Atherosclerotic heart disease of native coronary artery without angina pectoris; I42.8 Other cardiomyopathies; G47.33 Obstructive sleep apnea (adult) (pediatric); F43.12 Post-traumatic stress disorder, chronic; M48.00 Spinal stenosis, site unspecified; F32.A Depression, unspecified; Z68.37 Body mass index [BMI] 37.0-37.9, adult; Z79.01 Long term (current) use of anticoagulants; Z87.891 Personal history of nicotine dependence; Z87.11 Personal history of peptic ulcer disease; Z95.810 Presence of automatic (implantable) cardiac defibrillator
CPT/HCPCS: 36415; 71045; 71046; 80048; 80053; 83735; 83880; 84484; 85025; 85027; 85610; 85730; 87636; 93005; 94618; 94762; 96374; 99285; A9270; J1940

== ENCOUNTER 2022-09-07 00:20 | Day surgery (SDC) | payer MEDICARE, BC, OTHER, SELFPAY ==
[2022-07-04 15:24] VITALS: BMI 22.2
[2022-08-29 12:58] VITALS: BMI 22.2
--- NOTE | 2022-09-06 12:06 | WPDANESEPPF ---
Anes - Initial Pre Proc Eval Procedure: Operation Date: 09/07/22 13:00 Proposed Procedures p Colonoscopy - Sky Toribio MD Date/Time: 09/06/22 12:06 Surgeon: Sky Toribio MD Pre Op Diagnosis: Rectal Bleeding Patient Data Age: 72 Gender: M Height: 1.75 m Weight: 68.25 kg Allergies Allergy/AdvReac Type Severity Reaction Status Date / Time Beta-Blockers Allergy Severe Difficulty Verified 09/07/22 11:48 (Beta-Adrenergic Bloc Breathing citalopram Allergy Severe SWEATING, Verified 09/07/22 11:48 AGITATED Penicillins Allergy Severe Swelling Verified 09/07/22 11:48 of Lip/Tongue/Throat Home Medications Medication Instructions Recorded Confirmed Type atorvastatin 80 mg tablet 80 mg PO HS 03/11/19 09/07/22 History dabigatran etexilate 150 mg 150 mg PO Q12H 03/11/19 09/07/22 History capsule (Pradaxa) terazosin 5 mg capsule 5 mg PO HS 03/11/19 09/07/22 History spironolactone 25 mg tablet 25 mg PO QAM 30 days #30 tabs 01/05/21 09/07/22 Rx amlodipine 10 mg tablet 10 mg PO DAILY 03/11/21 09/07/22 History sacubitril 49 mg-valsartan 51 mg 1 tablet PO Q12HR #60 tabs 07/22/21 09/07/22 Rx tablet (Entresto) alprazolam 0.5 mg tablet 0.5 mg PO TID PRN anxiety #90 tabs 04/18/22 09/07/22 Rx potassium chloride 10 mEq 20 meq PO BID 06/23/22 09/07/22 History tablet,extended release furosemide 80 mg tablet (Lasix) 80 mg PO DAILY 1 month #30 tabs 06/24/22 09/07/22 Rx metoprolol succinate 25 mg 75 mg PO DAILY 07/04/22 09/07/22 History tablet,extended release 24 hr acetaminophen 650 mg tablet 650 mg PO Q6H PRN PAIN 07/05/22 09/07/22 History bupropion HCl 150 mg tablet,12 hr 150 mg PO Q12H 07/05/22 09/07/22 History sustained-release (Wellbutrin SR) fluticasone propionate 50 2 spray intranasal PRN PRN 07/25/22 09/07/22 Rx mcg/actuation nasal Congestion #16 grams spray,suspension empagliflozin 10 mg tablet 10 mg PO DAILY #30 tabs 07/28/22 09/07/22 Rx (Jardiance) Patient hx anesthesia problems: none Family hx anesthesia problems: none Results Review: All pre-operative results and documents have been reviewed as part of the pre-operative evaluation. [facility] Past Medical History Medical History (Updated 07/28/22 @ 14:41 by Shellie Graves APRN) Anxiety Arthritis Atrial fibrillation Biventricular ICD (implantable cardioverter-defibrillator) in place CHF (congestive heart failure) Chronic anemia Chronic anticoagulation On dabigatran for stroke prophylaxis. Congestive heart failure Coronary artery disease Depression Gastroesophageal reflux disease Hypertension Hypertension Mixed hyperlipidemia Nonischemic cardiomyopathy Obstructive sleep apnea Peptic ulcer disease (2018) Post-traumatic stress disorder, chronic Spinal stenosis Type 2 diabetes mellitus No longer on medication. Hemoglobin A1c was 5.8% in January 2021. Surgical History Surgical History History of cardiac catheterization History of implantable cardioverter-defibrillator (ICD) insertion (05/2021) Per Dr. Campbell at [facility]. History of spinal surgery History of tonsillectomy Family History Family History Mother Family history of malignant neoplasm Family history of arthritis Hypertension Father Acute myocardial infarction Diabetes mellitus Family history of arthritis Hypertension Other Family history of premature coronary heart disease Social History Social History Social History: The patient lives in [place] with his . 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 Former smoker, quit in October 2010. Denies alcohol and illicit substance abuse. He wishes to be a full code. Smoking packs per day: 2 Smoking cigarettes per day: 40.0 Years smoked: 30 Smoking pack-years: 60.00 Smoking status: Former smoker Tobacco
[2022-09-07 11:30] VITALS: BP 107/80; PULSE 72; RESP 16; TEMP 36.8; O2SAT 97; BMI 22.9
[2022-09-07] MEDS: LACTATED RINGERS 1,000 ML 150 ML IV CONT (11:45)
[2022-09-07 13:13] VITALS: BP 137/78; PULSE 73; RESP 23; O2SAT 99
[2022-09-07 13:23] VITALS: BP 130/77; PULSE 76; RESP 20; O2SAT 99
[2022-09-07 13:33] VITALS: BP 130/91; PULSE 73; RESP 19; O2SAT 95
--- NOTE | 2022-09-09 17:01 | PM.HPGS ---
History of Present Illness History of Present Illness Consent: Risks, benefits, and alternatives have been discussed and questions answered. Patient agrees to proceed with procedure. Chief complaint: Rectal Bleeding Narrative: Popeye Hernandez is a 72 year old male referred for colonooscopy due to rectal bleeding Review of Systems Review of Systems: All systems reviewed & are unremarkable except as noted in HPI and below PMFSH Past Medical History Medical History Anxiety Arthritis Atrial fibrillation Biventricular ICD (implantable cardioverter-defibrillator) in place CHF (congestive heart failure) Chronic anemia Chronic anticoagulation On dabigatran for stroke prophylaxis. Congestive heart failure Coronary artery disease Depression Gastroesophageal reflux disease Hypertension Hypertension Mixed hyperlipidemia Nonischemic cardiomyopathy Obstructive sleep apnea Peptic ulcer disease (2018) Post-traumatic stress disorder, chronic Spinal stenosis Type 2 diabetes mellitus No longer on medication. Hemoglobin A1c was 5.8% in January 2021. Surgical History Surgical History History of cardiac catheterization History of implantable cardioverter-defibrillator (ICD) insertion (05/2021) Per Dr. Campbell at [facility]. History of spinal surgery History of tonsillectomy Family History Family History Mother Family history of malignant neoplasm Family history of arthritis Hypertension Father Acute myocardial infarction Diabetes mellitus Family history of arthritis Hypertension Other Family history of premature coronary heart disease Social History Social History Social History: The patient lives in [place] with his . 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 Former smoker, quit in October 2010. Denies alcohol and illicit substance abuse. He wishes to be a full code. Smoking packs per day: 2 Smoking cigarettes per day: 40.0 Years smoked: 30 Smoking pack-years: 60.00 Smoking status: Former smoker Tobacco type: cigarettes Second hand tobacco smoke exposure: No Smoking end date: 05/15/10 Alcohol intake: former Substance use: former Substance use type: marijuana, crack/cocaine, opiates and painkillers Last use: 40 years ago Lack of Transportation: No Lack of Food: Never True Current Housing: I Have Housing Concerned About Future Housing: No Difficulty Paying Gas/Electric Bills: No Difficulty Paying for Meds: No Currently Unemployed: No Education: High School Diploma/GED Difficulty w/ Childcare or Family Care: No Living arrangements: with family Spiritual care concerns: Yes (pt requesting epic specialist) Meds Home Medications and Allergies Home Medications Medication Instructions Recorded Confirmed Type atorvastatin 80 mg tablet 80 mg PO HS 03/11/19 09/07/22 History dabigatran etexilate 150 mg 150 mg PO Q12H 03/11/19 09/07/22 History capsule (Pradaxa) terazosin 5 mg capsule 5 mg PO HS 03/11/19 09/07/22 History spironolactone 25 mg tablet 25 mg PO QAM 30 days #30 tabs 01/05/21 09/07/22 Rx amlodipine 10 mg tablet 10 mg PO DAILY 03/11/21 09/07/22 History sacubitril 49 mg-valsartan 51 mg 1 tablet PO Q12HR #60 tabs 07/22/21 09/07/22 Rx tablet (Entresto) alprazolam 0.5 mg tablet 0.5 mg PO TID PRN anxiety #90 tabs 04/18/22 09/07/22 Rx potassium chloride 10 mEq 20 meq PO BID 06/23/22 09/07/22 History tablet,extended release furosemide 80 mg tablet (Lasix) 80 mg PO DAILY 1 month #30 tabs 06/24/22 09/07/22 Rx metoprolol succinate 25 mg 75 mg PO DAILY 07/04/22 09/07/22 History tablet,extended release 24 hr acetaminophen 650 mg tablet 650 mg PO Q6H PRN PAIN 07/05/22 09/07/22 History bupropion HCl 150 mg tablet,12 hr 150 mg PO Q12H 07/05/2209/07
== END 2022-09-07 14:07 | disposition home or self-care (01) ==
PROVIDERS: PCP Internal Medicine; Visit Provider Internal Medicine Gastroenterology
PROC: 0DJD8ZZ Inspection of Lower Intestinal Tract, Via Natural or Artificial Opening Endoscopic (ICD-10-PCS; CPT 45378; principal; 2022-09-07 13:00)
DX: K64.8 Other hemorrhoids (principal); D12.8 Benign neoplasm of rectum; K57.30 Diverticulosis of large intestine without perforation or abscess without bleeding; I11.0 Hypertensive heart disease with heart failure; I50.9 Heart failure, unspecified; I42.8 Other cardiomyopathies; I48.91 Unspecified atrial fibrillation; I25.10 Atherosclerotic heart disease of native coronary artery without angina pectoris; E78.2 Mixed hyperlipidemia; G47.33 Obstructive sleep apnea (adult) (pediatric); E11.9 Type 2 diabetes mellitus without complications; K21.9 Gastro-esophageal reflux disease without esophagitis; F32.A Depression, unspecified; F41.9 Anxiety disorder, unspecified; D64.9 Anemia, unspecified; Z79.01 Long term (current) use of anticoagulants; F43.10 Post-traumatic stress disorder, unspecified; Z95.810 Presence of automatic (implantable) cardiac defibrillator; Z87.891 Personal history of nicotine dependence; Z79.84 Long term (current) use of oral hypoglycemic drugs
CPT/HCPCS: 45380; 88305; J2704; J7120

== ENCOUNTER 2022-11-11 06:56 | Inpatient (IN) | payer MEDICARE, BC, OTHER, SELFPAY ==
[2022-11-11] VITALS (36 sets, daily range): BP systolic 115–163; BP diastolic 63–98; PULSE 70–94; RESP 16–34; TEMP 35.7–36.5; O2SAT 88–98; BMI 36.8
--- NOTE | ~2022-11-11 | XR_ITS ---
EXAMINATION: XR chest 1V portable INDICATION: Shortness of breath TECHNIQUE: Portable AP chest at 0523 hours COMPARISON: 11/13/2022 FINDINGS: Diffuse opacities persist throughout the right lung with slight improvement. There are stab le airspace opacities of the left lung base. Small pleural effusions are present. There is no pneumot horax. Cardiomegaly is noted. A dual-lead cardiac pacemaker of the left chest wall ends with leads in expected locations. IMPRESSION: 1. Improved diffuse lung disease of the right lung and stable left basilar opacities, consistent with pneumonia. 2. Small pleural effusions. Reviewed, dictated and finalized at location A. IMPRESSION: 1. Improved diffuse lung disease of the right lung and stable left basilar opac ities, consistent with pneumonia. 2. Small pleural effusions.
--- NOTE | ~2022-11-11 | XR_ITS ---
EXAMINATION: XR chest PICC line DATE: 11/16/2022 09:28 INDICATION: PICC line placement TECHNIQUE: frontal view of the chest was obtained. COMPARISON: Chest radiograph dated 11/16/2022 FINDINGS: Right upper extremity peripherally inserted central venous catheter (PICC) tip at the mid superior vena cava. Again seen are airspace opacities throughout the right lung and in the left lower lung zon e. Possible small bilateral pleural effusions. No pneumothorax. Heart size is normal. Dual-lead pacem eusebio/AICD seen with leads projecting over the expected locations of the right ventricle and overlying the left ventricle likely having traversed the coronary sinus. IMPRESSION: 1. Right PICC line tip at the midsuperior vena cava. 2. Bilateral lung disease throughout the right lung at the left lower lung zone consistent with pneum onia versus less likely asymmetric pulmonary edema and potentially with small bilateral pleural effus ions Reviewed, dictated and finalized at location B. IMPRESSION: 1. Right PICC line tip at the midsuperior vena cava. 2. Bilateral lung disease throughout the right lung at the left lower lung zone consistent with pneumonia versus less likely asymmetric pulmonary edema and po tentially with small bilateral pleural effusions
--- NOTE | ~2022-11-11 | XR_ITS ---
EXAMINATION: XR chest 1V portable DATE: 11/20/2022 05:34 INDICATION: Respiratory failure. TECHNIQUE: A single frontal view of the chest was obtained. COMPARISON: Chest single view 11/19/2022 FINDINGS: Right lung is smaller than the left. There are airspace opacities in all right lung zones a nd in left mid and lower lung zones. There are small pleural effusions. There is a prominent left par acardial fat pad. No pneumothorax. Cardiomegaly is noted. There is a left chest pacer leads in right ventricle and coronary sinus. A right upper extremity peripherally inserted central venous catheter ( PICC) is seen with tip in the superior vena cava. IMPRESSION: 1. Stable diffuse lung disease, likely a combination of pneumonia, pulmonary edema, and diffuse alveo lar damage. 2. Stable small pleural effusions. 3. Cardiomegaly. Reviewed, dictated and finalized at location A. IMPRESSION: 1. Stable diffuse lung disease, likely a combination of pneumonia, pulmonary ed alicia, and diffuse alveolar damage. 2. Stable small pleural effusions. 3. Cardiomegaly.
--- NOTE | ~2022-11-11 | XR_ITS ---
Portable chest x-ray Comparison: 11/16/2022 Clinical History: Respiratory failure Findings: Right-sided PICC line is unchanged. Extensive alveolar and interstitial disease throughout the right lung, and at the left lung base, is unchanged. Probable small left pleural effusion. Card iomediastinal silhouette is stable, with pacemaker device. Bones and soft tissues are unremarkable. Impression: Extensive right lung alveolar and interstitial disease with involvement of the left lung base is stab le from prior exam. Small left pleural effusion. Pacemaker device and right-sided PICC line, unchanged. Reviewed, dictated and finalized at location M. Impression: Extensive right lung alveolar and interstitial disease with involvement of the left lung base is stable from prior exam. Small left pleural effusion. Pacemaker device and right-sided PICC line, unchanged.
--- NOTE | ~2022-11-11 | CT_ITS ---
EXAMINATION: CT diagnostic chest wo con DATE: 11/11/2022 18:11 INDICATION: Diffuse right-sided lung disease TECHNIQUE: Computed tomography (CT) of the chest was performed without intravenous contrast. The dose -length product (DLP) was 902.90 mGy-cm. 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 COMPARISON: 12/05/2020, 06/23/2022 FINDINGS: Diffuse interstitial and airspace opacities have developed throughout the right lung since the most recent comparison examination. There is a small right pleural effusion. There is volume loss in the right lung. There are a few patchy nodular and groundglass opacities in the left lung. There is no pneumothorax. Cardiomegaly is noted. There is right paratracheal lymphadenopathy. Moderate left and mild right gynecomastia is noted. There are bridging osteophytes at multiple levels in the spine , consistent with diffuse idiopathic skeletal hyperostosis (DISH). IMPRESSION: 1. Diffuse interstitial and airspace opacities throughout the right lung and patchy nodular groundgla ss opacities of the left lung, likely pneumonia. Radiographic or CT follow-up to resolution is recomm ended. If persistent, bronchoscopy would be recommended. 2. Right paratracheal lymphadenopathy, likely reactive. Reviewed, dictated and finalized at location A. IMPRESSION: 1. Diffuse interstitial and airspace opacities throughout the right lung and pa tchy nodular groundglass opacities of the left lung, likely pneumonia. Radiogra phic or CT follow-up to resolution is recommended. If persistent, bronchoscopy would be recommended. 2. Right paratracheal lymphadenopathy, likely reactive.
--- NOTE | ~2022-11-11 | XR_ITS ---
EXAMINATION: XR chest 1V portable INDICATION: Shortness of breath, congestive heart failure TECHNIQUE: Portable AP chest at 0818 hours COMPARISON: 07/07/2022 FINDINGS: Cardiomegaly is noted. There are diffuse opacities throughout the right lung. There is mild volume loss of the right lung. Small pleural effusions are present. There is no pneumothorax. A dual -lead cardiac pacemaker of the left chest wall ends with leads in expected locations. IMPRESSION: 1. Diffuse lung disease on the right which could be pneumonia/or asymmetric pulmonary edema. Further evaluation with CT of the chest is recommended. Reviewed, dictated and finalized at location B. IMPRESSION: 1. Diffuse lung disease on the right which could be pneumonia/or asymmetric pul monary edema. Further evaluation with CT of the chest is recommended.
--- NOTE | ~2022-11-11 | XR_ITS ---
EXAMINATION: XR chest 1V portable INDICATION: Respiratory failure TECHNIQUE: Portable AP chest at 0533 hours COMPARISON: 11/11/2022 FINDINGS: Diffuse opacities persist throughout the right lung without significant change. There are a lso stable opacities of the left lung base. No pleural effusion or pneumothorax. Cardiomegaly is note d. A dual-lead cardiac pacemaker of the left chest wall ends with leads in expected locations. IMPRESSION: 1. Stable diffuse lung disease throughout the right lung and left basilar opacities, likely pneumonia . Reviewed, dictated and finalized at location A. IMPRESSION: 1. Stable diffuse lung disease throughout the right lung and left basilar opaci ties, likely pneumonia.
--- NOTE | ~2022-11-11 | XR_ITS ---
Portable chest x-ray Comparison: 11/17/2022 Clinical History: Respiratory failure Findings: Extensive right lung airspace disease is unchanged. Left lower lobe airspace disease uncha nged. Stable small left pleural effusion. Cardiomediastinal silhouette is stable, with pacemaker dev ice. Bones and soft tissues are unremarkable. Impression: Stable extensive right lung consolidation with left lower lobe consolidation. Findings there is exten sive bilateral pneumonia. Stable small left pleural effusion. Reviewed, dictated and finalized at location M. Impression: Stable extensive right lung consolidation with left lower lobe consolidation. F indings there is extensive bilateral pneumonia. Stable small left pleural effusion.
--- NOTE | ~2022-11-11 | XR_ITS ---
EXAMINATION: XR chest 1V portable DATE: 11/19/2022 06:12 INDICATION: Respiratory failure. TECHNIQUE: A single frontal view of the chest was obtained. COMPARISON: Chest single view 11/18/22, 07/07/22, chest CT 11/11/2022, 12/05/20 FINDINGS: Again seen is mild volume loss of right hemithorax. There are airspace opacities in all hansel g zones bilaterally, right worse than left. No pleural effusion or pneumothorax. Cardiomegaly is note d. There is a prominent left paracardial fat pad. There is a left chest pacer with leads in right bryan tricle and coronary sinus. A right upper extremity peripherally inserted central venous catheter (PIC C) is seen with tip in the superior vena cava. IMPRESSION: 1. Stable diffuse lung disease, likely a combination of pneumonia, pulmonary edema, and chronic lung disease. 2. Cardiomegaly. Reviewed, dictated and finalized at location A. IMPRESSION: 1. Stable diffuse lung disease, likely a combination of pneumonia, pulmonary ed alicia, and chronic lung disease. 2. Cardiomegaly.
--- NOTE | ~2022-11-11 | XR_ITS ---
Portable chest x-ray Comparison: 11/15/2022 Clinical History: Shortness of breath Findings: Extensive right lung airspace disease and interstitial thickening is similar to prior exam . There is probable minimal involvement of the left lung base. Probable minimal left pleural effusion . Cardiomediastinal silhouette is stable, with pacemaker device. Bones and soft tissues are unremark able. Impression: Stable diffuse right lung alveolar and interstitial disease, with minimal involvement at the left hansel g base. Findings suggest bilateral pneumonia, right lung significantly more extensive than left. Minimal left pleural effusion. Reviewed, dictated and finalized at location . Impression: Stable diffuse right lung alveolar and interstitial disease, with minimal invol vement at the left lung base. Findings suggest bilateral pneumonia, right lung significantly more extensive than left. Minimal left pleural effusion.
--- NOTE | ~2022-11-11 | CT_ITS ---
EXAMINATION:CT chest high resolution wo co DATE: 11/19/2022 11:54 INDICATION: Right lung infiltrates. TECHNIQUE: Computed tomography (CT) of the chest was performed without intravenous contrast. Automate d exposure control and iterative reconstruction technique were employed. The dose-length product (DLP ) was 1091.06 mGy-cm. COMPARISON: Chest CT 11/11/2022, 12/01/2020, CT abdomen and pelvis 06/23/2022 FINDINGS: There is mild volume loss of right hemithorax. There are airspace and groundglass opacities and reticular opacities throughout right lung. There is a patchy distribution of airspace and ground glass opacities and septal thickening in left lung. There is architectural distortion bilaterally. Th ere are small pleural effusions, right worse than left. Cardiomegaly is noted. There are coronary art lizzy calcifications. No pericardial effusion. There is a left chest pacer with leads in right atrium, right ventricle, and coronary sinus. A right upper extremity peripherally inserted central venous cat heter (PICC) is seen with tip in the superior vena cava. There is mediastinal lymphadenopathy. The la rgest node measures 3.8 x 3.0 cm. There is chronic thickening of left adrenal gland, likely benign. T here are bridging endplate osteophytes at multiple levels in the spine, consistent with diffuse idiop athic skeletal hyperostosis (DISH). There is moderate cervical spondylosis. IMPRESSION: 1. Worsened diffuse lung disease, right worse than left, likely a combination of pneumonia, pulmonary edema, and diffuse alveolar damage. 2. Worsened small pleural effusions, right worse than left. 3. Mediastinal lymphadenopathy, worsened from 12/01/2020. The differential diagnosis includes metastat ic disease, lymphoma, and reactive lymphadenopathy. Reviewed, dictated and finalized at location A. IMPRESSION: 1. Worsened diffuse lung disease, right worse than left, likely a combination o f pneumonia, pulmonary edema, and diffuse alveolar damage. 2. Worsened small pleural effusions, right worse than left. 3. Mediastinal lymphadenopathy, worsened from 12/01/2020. The differential diagn osis includes metastatic disease, lymphoma, and reactive lymphadenopathy.
--- NOTE | 2022-11-11 06:58 | ECG_ITS ---
Measurements Intervals [place] Rate: 81 P: VA: 0 QRS: 242 QRSD: 162 T: 70 QT: 457 QTc: 533 Interpretive Statements ELECTRONIC VENTRICULAR PACEMAKER ABNORMAL RHYTHM ECG COMPARED TO ECG 07/05/2022 04:43:14 NO SIGNIFICANT CHANGES Electronically Signed On 11-11-2022 17:06:57 CDT by Ross Pabon M.D.
--- NOTE | 2022-11-11 07:01 | ED.GENADULT ---
HPI - General Adult General Chief complaint: Shortness of Breath/Dyspnea <Tushar Silvestre MD - Last Filed: 11/16/22 07:32> Stated complaint: SOB <Tushar Silvestre MD - Last Filed: 11/16/22 07:32> Time Seen by Provider: 11/11/22 07:00 <Tushar Silvestre MD - Last Filed: 11/16/22 07:32> History of Present Illness HPI narrative: 72-year-old male presented the ED for evaluation of increased shortness of breath. Patient does have a history of CHF and respiratory distress. Patient states over the last 4 days has had increasing shortness of breath and called EMS for evaluation. In route patient was hypoxic and needed to be placed on CPAP. Upon arrival to the ED patient was on CPAP but had a pulse ox of 89% and patient was placed on BiPAP. Patient denies any chest pain. <Tushar Silvestre MD - Last Filed: 11/16/22 07:32> Related Data Home medications: Home Medications Medication Instructions Recorded Confirmed atorvastatin 80 mg tablet 80 mg PO HS 03/11/19 11/11/22 dabigatran etexilate 150 mg 150 mg PO Q12H 03/11/19 11/11/22 capsule (Pradaxa) terazosin 5 mg capsule 5 mg PO HS 03/11/19 11/11/22 amlodipine 10 mg tablet 10 mg PO DAILY 03/11/21 11/11/22 potassium chloride 10 mEq 20 meq PO DAILY 06/23/22 11/11/22 tablet,extended release bupropion HCl 150 mg tablet,12 hr 150 mg PO Q12H 07/05/22 11/11/22 sustained-release (Wellbutrin SR) empagliflozin 10 mg tablet 10 mg PO DAILY 11/11/22 11/11/22 (Jardiance) fluticasone propionate 50 2 spray intranasal DAILY PRN 11/11/22 11/11/22 mcg/actuation nasal Congestion spray,suspension furosemide 20 mg tablet 60 mg PO DAILY 11/11/22 11/11/22 metoprolol succinate 100 mg 100 mg PO DAILY 11/11/22 11/11/22 tablet,extended release 24 hr <Tushar Silvestre MD - Last Filed: 11/16/22 07:32> Allergies/adverse reactions: Allergies Allergy/AdvReac Type Severity Reaction Status Date / Time Beta-Blockers Allergy Severe Difficulty Verified 11/11/22 07:01 (Beta-Adrenergic Bloc Breathing citalopram Allergy Severe SWEATING, Verified 11/11/22 07:01 AGITATED Penicillins Allergy Severe Swelling Verified 11/14/22 08:22 of Lip/Tongue/Throat <Tushar Silvestre MD - Last Filed: 11/16/22 07:32> Review of Systems Review of Systems: All systems reviewed & are unremarkable except as noted in HPI and below <Tushar Silvestre MD - Last Filed: 11/16/22 07:32> [facility] Past Medical History Medical History: Medical History (Updated 11/14/22 @ 13:01 by Cathleen Parekh MD) Anxiety Arthritis Atrial fibrillation Biventricular ICD (implantable cardioverter-defibrillator) in place BPH (benign prostatic hyperplasia) CHF (congestive heart failure) Chronic anemia Chronic anticoagulation On dabigatran for stroke prophylaxis. Congestive heart failure Coronary artery disease Depression Gastroesophageal reflux disease Hypertension Hypertension Mixed hyperlipidemia Nonischemic cardiomyopathy Obstructive sleep apnea Peptic ulcer disease (2018) Post-traumatic stress disorder, chronic Spinal stenosis Type 2 diabetes mellitus No longer on medication. Hemoglobin A1c was 5.8% in January 2021. <Tushar Silvestre MD - Last Filed: 11/16/22 07:32> Surgical History Surgical History: Surgical History History of cardiac catheterization History of implantable cardioverter-defibrillator (ICD) insertion (05/2021) Per Dr. Campbell at [facility]. History of spinal surgery History of tonsillectomy <Tushar Silvestre MD - Last Filed: 11/16/22 07:32> Family History Family History: Family History Mother Family history of malignant neoplasm Family history of arthritis Hypertension Father Acute myocardial infarction Diabetes mellitus Family history of arthritis Hypertension Other Family history of premature c
[2022-11-11 07:07] LABS: Basophils Absolute Auto 0.1 K/mm3 (0.0-0.1); Basophils Percent Auto 0.4 % (0.2-1.2); Eosinophils Absolute Auto 0.3 K/mm3 (0-0.3); Eosinophils Percent Auto 1.7 % (0-4.4); Hematocrit 44.4 % (42.0-52.0); Immature Granulocyte Percent A 1.3 % (0-0.5); Lymphocytes Absolute Auto 1.31 K/mm3 (0.9-3.2); Lymphocytes Percent Auto 8.7 % (18.3-44.2); Mean Corpuscular HGB Conc 31.5 g/dl (32-36); Mean Corpuscular Volume 95.3 fl (80-100); Mean Platelet Volume 10.2 fl (7.4-10.4); Monocytes Percent Auto 6.7 % (2.6-8.5); Neutrophils Absolute Auto 12.3 K/mm3 (1.3-6.7); Neutrophils Percent Auto 81.2 % (45.5-73.1); Platelet Count Result 407 k/mm3 (150-375); Red Blood Count 4.66 M/mm3 (4.6-6.20); Red Cell Distribution Width 16.2 % (11.5-14.5); White Blood Count 15.1 K/mm3 (4.5-10.0)
[2022-11-11 07:18] LABS: Alanine Aminotransferase 51 U/L (6-50); Albumin Level 3.3 g/dL (3.5-5.1); Alkaline Phosphatase 122 U/L (38-126); Anion Gap 6 mmol/L (8-16); Aspartate Amino Transferase 64 U/L (17-59); Bilirubin,Total 1.1 mg/dL (0.2-1.3); Blood Urea Nitrogen 23 mg/dL (9-20); Calcium 8.4 mg/dL (8.4-10.2); Carbon Dioxide 30 mmol/L (22-30); Chloride 103 mmol/L (98-107); Estimated CRCL calculation 79 ml/min; Estimated Glomerular Filt Rate > 60; Glucose 138 mg/dL (65-110); Sodium 139 mmol/L (137-145)
[2022-11-11 07:26] LABS: NT Pro B Type Natriuretic Pept 2930 pg/mL (19.9-100)
[2022-11-11 07:49] LABS: INR 1.4; Prothrombin Time 17.6 Seconds (11.1-14.7)
[2022-11-11 07:50] LABS: Partial Thromboplastin Time 38.6 SECONDS (22.3-36.8)
[2022-11-11 08:05] LABS: Alveolar/Arterial O2 Gradient 179.7 mmHg; Base Excess ABG 2.5 mEq/l (+/-2.0); Carboxyhemoglobin 1.3 % THb (0-2.0); Fractional Inspired Oxygen 40 %; HCO3 ABG 26.3 mEq/l (22.0-26.0); Methemoglobin ABG 0.4 %THb (0-1.5); Oxygen Content ABG 17.9 %vol (16.0-22.0); Oxygen Saturation ABG 92.8 % (95.0-100.0); Oxyhemoglobin 88.9 % THb (90.0-100.0); PCO2 ABG 38.2 mmHg (35.0-45.0); PO2 ABG 61.6 mmHg (80.0-100.0); PO2 FiO2 Ratio Arterial Blood 1.54 %; Reduced Hemoglobin 9.4 %THb (0-5.0); Total Hemoglobin 14.3 g/dL (12.0-18.0); pH ABG 7.456 (7.350-7.450)
[2022-11-11 08:06] LABS: Device NON-INVASIVE VENT; Modified Allen's Test Pass; Non-Invasive Expiratory Pressure 7 CMH2O; Non-Invasive Inspiratory Pressure 14 CMH2O; Non-Invasive Vent Rate 4 /MIN; Site Drawn LEFT RADIAL
[2022-11-11 08:14] LABS: Troponin I 0.048 ng/mL (0.000-0.034)
[2022-11-11] MEDS: FUROSEMIDE INJ 40 MG/4 ML VIAL 60 MG IV PUSH (08:42)
--- NOTE | 2022-11-11 09:01 | PC.NURSE ---
Pt was given ordered Lasix, bedside commode brought to room per patient request. Pt denies any other needs at this time. Updated on plan for admission. Call light in reach.
--- NOTE | 2022-11-11 09:24 | PC.NURSE ---
Pt assisted up to bedside commode by RN. SpO2 decreased to 83% with standing straight up at bedside. Pt refused to use urinal, states he has never been able to successfully use it. Educated on need for the bipap and additional oxygen. Waiting admission. No other needs at this time, assisted back into bed.
--- NOTE | 2022-11-11 09:31 | PC.NURSE ---
Attempted to call report, nurse in another patient's room passing meds. States she will call back as soon as she can.
--- NOTE | 2022-11-11 10:16 | PC.NURSE ---
Pt urinated 400ml, floor RN made aware, RN not able to add intake/output assessment option to chart currently.
[2022-11-11 10:59] LABS: Troponin I 0.036 ng/mL (0.000-0.034)
--- NOTE | 2022-11-11 13:11 | PM.IMHP ---
H&P: HPI History of Present Illness Date/Time: 11/11/22 13:11 Chief Complaint: Shortness of breath Narrative: Shortness of breath Review of Systems Review of Systems: This is a 72-year-old male patient who has a history of CHF. The patient came to the emergency room to be evaluated for increased shortness of breath. The patient stated that he has been taking all of his medications as prescribed. He has not missed any of his medications. He did not notice any edema to his lower extremities. The patient stated that he has been more short of breath over the last 4 days. When EMS was activated the patient was sewed short of breath that he needed a CPAP machine. The patient was placed on a BiPAP in the emergency room 25/11 with a rate of 4 in 50% oxygen. Patient denied any chest pain. Chest x-ray was read as diffuse lung disease on the right which could be pneumonia or asymmetric pulmonary edema. Further evaluation was CT of the chest is recommended. The patient was given Lasix in the emergency room as stated that he felt somewhat better since he had the Lasix. His white count was noted to be 15.1. His liver enzymes are slightly elevated AC 64 and ALT is 51. His troponin 0.048, 0.036, and 0.030. Most likely related to CHF. The patient is being admitted to inpatient status on the date of service of 11/11/2022. [facility] Past Medical History Medical History (Updated 11/11/22 @ 17:27 by Jud John NP) Anxiety Arthritis Atrial fibrillation Biventricular ICD (implantable cardioverter-defibrillator) in place BPH (benign prostatic hyperplasia) CHF (congestive heart failure) Chronic anemia Chronic anticoagulation On dabigatran for stroke prophylaxis. Congestive heart failure Coronary artery disease Depression Gastroesophageal reflux disease Hypertension Hypertension Mixed hyperlipidemia Nonischemic cardiomyopathy Obstructive sleep apnea Peptic ulcer disease (2018) Post-traumatic stress disorder, chronic Spinal stenosis Type 2 diabetes mellitus No longer on medication. Hemoglobin A1c was 5.8% in January 2021. Surgical History Surgical History History of cardiac catheterization History of implantable cardioverter-defibrillator (ICD) insertion (05/2021) Per Dr. Campbell at [facility]. History of spinal surgery History of tonsillectomy Family History Family History Mother Family history of malignant neoplasm Family history of arthritis Hypertension Father Acute myocardial infarction Diabetes mellitus Family history of arthritis Hypertension Other Family history of premature coronary heart disease Social History Social History (Updated 11/11/22 @ 17:12 by Jud John NP) Social History: The patient lives in [place] with his . 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 Former smoker, quit in October 2010. Denies alcohol and illicit substance abuse. He stated that he retired from the . Code status full code. Smoking packs per day: 2 Smoking cigarettes per day: 40.0 Years smoked: 52 Smoking pack-years: 104.00 Smoking status: Former smoker Tobacco type: cigarettes Second hand tobacco smoke exposure: Yes Smoking end date: 05/15/10 Alcohol intake: former Substance use: former Substance use type: marijuana, crack/cocaine, opiates and painkillers Last use: 40 years ago Lack of Transportation: No Lack of Food: Never True Current Housing: I Have Housing Concerned About Future Housing: No Difficulty Paying Gas/Electric Bills: No Difficulty Paying for Meds: No Currently Unemployed: No Education: Associate Degree Difficulty w/ Childcare or Family Care: No Living arrangements: with family Spiritual care concerns: No Meds Home Medications and Allergies Home Medications Medication Instructions Recorded Confirmed
[2022-11-11] MEDS: FUROSEMIDE INJ 40 MG/4 ML VIAL IV PUSH (17:24)
[2022-11-11 17:35] LABS: Alveolar/Arterial O2 Gradient 589.2 mmHg; Base Excess ABG 3.5 mEq/l (+/-2.0); Fractional Inspired Oxygen 100 %; HCO3 ABG 27.5 mEq/l (22.0-26.0); Oxygen Saturation ABG 96.8 % (95.0-100.0); Oxyhemoglobin 94.8 % THb (90.0-100.0); PCO2 ABG 39.4 mmHg (35.0-45.0); PO2 ABG 84.4 mmHg (80.0-100.0); PO2 FiO2 Ratio Arterial Blood 0.84 %; pH ABG 7.461 (7.350-7.450)
[2022-11-11 17:36] LABS: Device NON-REBREATHER MASK; Modified Allen's Test Pass; Site Drawn RIGHT RADIAL
--- NOTE | 2022-11-11 17:36 | PCRCNOTE ---
RT daiana ABG. Patient was on 15L NRBM while eating. ABG draw while patient was on 15L NRBM.
[2022-11-11] MEDS: levoFLOXacin 750 MG/D5W 150 ML 750 MG/150 ML BAG 100 MG IVPB (18:50)
[2022-11-11 19:18] LABS: Lactic Acid Reflex 1.9 mmol/L (0.7-2.0)
[2022-11-11 20:21] LABS: Glucose Point of Care 225 mg/dl (65-105)
[2022-11-11] MEDS: ATORVASTATIN 40 MG TABLET 80 MG PO (20:22)
[2022-11-11] MEDS: buPROPion HCL SR (12 HR) 150 MG TAB PO (20:22)
[2022-11-11] MEDS: SACUBITRIL/VALSARTAN 49-51 MG TABLET 1 TABLET PO (20:22)
[2022-11-11] MEDS: DABIGATRAN ETEXILATE 150 MG CAPSULE PO (20:22)
[2022-11-11] MEDS: TERAZOSIN HCL 5 MG CAPSULE PO (20:22)
[2022-11-11] MEDS: IPRATROPIUM BR 0.02% INH SOLN 0.5 MG/2.5 ML VIAL INHALATION (20:50)
[2022-11-11] MEDS: ALBUTEROL SULFATE NEB 2.5 MG/3 ML INH INHALATION (20:50)
[2022-11-11] MEDS: methylPREDNISolone SOD SUCC 125 MG VIAL 80 MG IV PUSH (21:14)
[2022-11-11] MEDS: ALPRAZolam (*CRX) 0.5 MG TABLET PO (21:15)
[2022-11-11] MEDS: INSULIN ASPART (*BKC) 100 UNITS/ML SUB-Q (21:15)
[2022-11-12] VITALS (28 sets, daily range): BP systolic 108–139; BP diastolic 65–86; PULSE 70–125; RESP 17–27; TEMP 36.1–37.2; O2SAT 90–97
--- NOTE | 2022-11-12 | ECHO_ITS ---
Patient Info Name: Popeye Hernandez Age: 72 years : 1950 Gender: Male Ht: 69 in Wt: 249 lbs BSA: 2.39 m2 HR: 78 bpm BP: 108 / 65 mmHg Heart Rhythm: Atrial Fibrillation, Paced Technical Quality: Fair Exam Date: 11/12/2022 9:07 AM Exam Location: [facility] Pul[facility] Exam Room: 211 Patient Status: Inpatient Admit Date: 11/11/2022 Staff Ordering Physician: Jud John NP Rotary Drum Dyer: Court Casey RDCS Attending Provider: Ross Lilly MD Referring Physician: Dora CHAMBERLAIN; Exam Type: CA echo doppler color flow Study Info Indications - INCREASED SOB Complete two-dimensional, color flow and Doppler transthoracic echocardiogram is performed. Summary 1. Complete two-dimensional, color flow and Doppler transthoracic echocardiogram is performed. 2. Left ventricular chamber dimension is mildly enlarged. 3. Left ventricular systolic function is normal, estimated at 55-60%. 4. There is mildly increased left ventricular wall thickness. 5. Left ventricular septal wall motion is abnormal with septal motion related to pacing. 6. The left ventricular diastolic function is abnormal. 7. Left atrial chamber dimension is severely enlarged. 8. There is mild tricuspid valve regurgitation. 9. No pulmonary hypertension, estimated pulmonary arterial systolic pressure is 31 mmHg. 10. There is trace mitral valve regurgitation. Left Ventricle Left ventricular chamber dimension is mildly enlarged. Left ventricular systolic function is normal, estimated at 55-60%. There is mildly increased left ventricular wall thickness. Left ventricular septal wall motion is abnormal with septal motion related to pacing. The left ventricular diastolic function is abnormal. Right Ventricle Right ventricular chamber dimension is normal. Right ventricular systolic function is normal. Linear artifact in right ventricle suggestive of catheter(s), pacemaker lead(s), or ICD lead(s). Left Atria Left atrial chamber dimension is severely enlarged. Right Atria Right atrial chamber dimension is mildly enlarged. Linear artifact in the right atrium suggestive of catheter(s), pacemaker lead(s), or ICD lead(s). Aortic Valve The aortic valve is not well visualized. There is no aortic valve stenosis. There is no aortic valve regurgitation. There is mild aortic valve calcification. Pulmonic Valve The pulmonic valve is not well visualized. Mitral Valve The mitral valve has normal leaflets. There is trace mitral valve regurgitation. The mitral valve annulus is moderately calcified. Tricuspid Valve The tricuspid valve leaflets are normal. There is mild tricuspid valve regurgitation. No pulmonary hypertension, estimated pulmonary arterial systolic pressure is 31 mmHg. Pericardium/Pleural The pericardium appears normal. There is trivial pericardial effusion. Inferior Vena Cava Normal inferior vena cava with >50% collapse upon inspiration consistent with normal right atrial pressure, 5 mmHg. Aorta The aortic root size at the sinus of Valsalva is normal. There is mild aortic atherosclerosis. Left Ventricular Outflow Tract Name Value Normal LVOT 2D LVOT Diameter 2.2 cm LVOT Doppler LVOT Peak Gradient
[2022-11-12] MEDS: IPRATROPIUM BR 0.02% INH SOLN 0.5 MG/2.5 ML VIAL INHALATION ×4 (01:43→20:12)
[2022-11-12] MEDS: ALBUTEROL SULFATE NEB 2.5 MG/3 ML INH INHALATION ×4 (01:43→20:14)
[2022-11-12 04:35] LABS: Basophils Percent Auto 0.2 % (0.2-1.2); Eosinophils Percent Auto 0.1 % (0-4.4); Hematocrit 39.9 % (42.0-52.0); Hemoglobin 12.4 g/dL (14.0-18.0); Immature Granulocyte Absolute 0.15 K/mm3 (0.00-0.031); Immature Granulocyte Percent A 1.3 % (0-0.5); Lymphocytes Absolute Auto 0.37 K/mm3 (0.9-3.2); Lymphocytes Percent Auto 3.2 % (18.3-44.2); Mean Corpuscular HGB Conc 31.1 g/dl (32-36); Mean Corpuscular Hemoglobin 29.7 pg (26-34); Mean Corpuscular Volume 95.5 fl (80-100); Mean Platelet Volume 10.2 fl (7.4-10.4); Monocytes Absolute Auto 0.3 K/mm3 (0.1-0.6); Monocytes Percent Auto 2.2 % (2.6-8.5); Neutrophils Absolute Auto 10.8 K/mm3 (1.3-6.7); Platelet Count Result 322 k/mm3 (150-375); Red Blood Count 4.18 M/mm3 (4.6-6.20); Red Cell Distribution Width 15.9 % (11.5-14.5); White Blood Count 11.6 K/mm3 (4.5-10.0)
[2022-11-12 04:47] LABS: Alanine Aminotransferase 42 U/L (6-50); Albumin Level 2.9 g/dL (3.5-5.1); Alkaline Phosphatase 103 U/L (38-126); Anion Gap 4 mmol/L (8-16); Aspartate Amino Transferase 38 U/L (17-59); Bilirubin,Total 1.2 mg/dL (0.2-1.3); Blood Urea Nitrogen 18 mg/dL (9-20); Calcium 7.8 mg/dL (8.4-10.2); Carbon Dioxide 32 mmol/L (22-30); Chloride 102 mmol/L (98-107); Estimated CRCL calculation 78 ml/min; Estimated Glomerular Filt Rate > 60; Glucose 157 mg/dL (65-110); Lactic Acid Reflex 1.5 mmol/L (0.7-2.0); Magnesium 2.4 mg/dL (1.6-2.3); Potassium 3.1 mmol/L (3.4-5.0); Sodium 138 mmol/L (137-145)
[2022-11-12] MEDS: methylPREDNISolone SOD SUCC 125 MG VIAL 80 MG IV PUSH ×2 (05:09→13:46)
[2022-11-12 05:17] LABS: Thyroid Stimulating Hormone Reflex 0.263 uIU/mL (0.465-4.68)
[2022-11-12 05:44] LABS: Hemoglobin A1C 5.9 % (<5.7)
--- NOTE | 2022-11-12 06:00 | ECG_ITS ---
Measurements Intervals [place] Rate: 69 P: OK: 0 QRS: 209 QRSD: 158 T: 29 QT: 473 QTc: 510 Interpretive Statements ELECTRONIC VENTRICULAR PACEMAKER PROBABLY UNDERLYING ATRIAL FIBRILLATION NO FURTHER INTERPRETATION IS POSSIBLE ABNORMAL ECG BASELINE ARTIFACT- II, III, AVL, AVF COMPARED TO ECG 11/11/2022 07:00:40 NO SIGNIFICANT CHANGES Electronically Signed On 11-12-2022 10:37:10 CDT by Elier Jansen D.O.
[2022-11-12 06:17] LABS: Free T4 Free Thyroxine Reflex 1.32 ng/dL (0.78-2.19)
[2022-11-12 07:56] LABS: Total Triiodothyronine (T3) 0.72 NG/ML (0.97-1.69)
[2022-11-12 08:08] LABS: Glucose Point of Care 138 mg/dl (65-105)
[2022-11-12] MEDS: SACUBITRIL/VALSARTAN 49-51 MG TABLET 1 TABLET PO ×2 (09:39→20:32)
[2022-11-12] MEDS: SPIRONOLACTONE 25 MG TABLET PO (09:40)
[2022-11-12] MEDS: DABIGATRAN ETEXILATE 150 MG CAPSULE PO ×2 (09:40→20:32)
[2022-11-12] MEDS: EMPAGLIFLOZIN 10 MG TABLET PO (09:40)
[2022-11-12] MEDS: buPROPion HCL SR (12 HR) 150 MG TAB PO ×2 (09:40→20:32)
[2022-11-12] MEDS: METOPROLOL SUCCINATE EXT REL 100 MG TABCR PO (09:40)
[2022-11-12] MEDS: amLODIPine BESYLATE 5 MG TABLET 10 MG PO (09:40)
[2022-11-12] MEDS: FUROSEMIDE INJ 40 MG/4 ML VIAL IV PUSH ×2 (09:40→20:33)
[2022-11-12] MEDS: POTASSIUM CHLORIDE 10 MEQ ER TABLET 20 MEQ PO (09:40)
[2022-11-12] MEDS: ASPIRIN 81 MG CHEWABLE TABLET PO (09:42)
--- NOTE | 2022-11-12 10:30 | PM.IMPN ---
Progress Note: A&P Assessment and Plan (1) CHF (congestive heart failure): Qualifiers: Heart failure chronicity: chronic Heart failure type: unspecified Qualified Code(s): I50.9 - Heart failure, unspecified Code(s): I50.9 - Heart failure, unspecified Status: Acute Assessment and Plan: The last echo that I found in the system is 04/06/2021 which shows an ejection fraction of 23% and mild enlargement right ventricle. He has severe enlargement of left atrium moderate enlargement of right atrium normal atrial septal normal appearance of mitral valve. Aortic cusps appear mildly sclerotic. Normal appearance of the tricuspid valve. Pulmonic valve not well visualized. Pericardium. Continue with Entresto Continue with IV Lasix Repeat echo The patient has an AICD. Continue with metoprolol Continue with spironolactone Continue Jardiance (2) Acute respiratory failure: Code(s): J96.00 - Acute respiratory failure, unspecified whether with hypoxia or hypercapnia Status: Acute Assessment and Plan: The patient is currently on a BiPAP. He is a full code. Continue with Lasix for congestive heart failure as well as his congestive heart failure medications. Treat patient for pneumonia as well. Continue with nebulizer treatments. Repeat ABGs. Pulmonology has been consulted. I did order a high-resolution CT for further investigation of diffuse lung disease. May consider steroids. However we would have to check his blood sugars since he is diet-controlled diabetic. (3) Elevated troponin: Code(s): R77.8 - Other specified abnormalities of plasma proteins Status: Acute Assessment and Plan: Patient's 1st 2 troponins were bumped slightly but this could be due to his congestive heart failure and respiratory failure. His 3rd troponin was found to be negative. (4) Obstructive sleep apnea: Code(s): G47.33 - Obstructive sleep apnea (adult) (pediatric) Status: Acute Assessment and Plan: The patient is currently on a BiPAP machine. The patient may use a CPAP once he is off the BiPAP. (5) Mixed hyperlipidemia: Code(s): E78.2 - Mixed hyperlipidemia Status: Acute Assessment and Plan: Continue with Lipitor (6) History of posttraumatic stress disorder (PTSD): Code(s): Z86.59 - Personal history of other mental and behavioral disorders Status: Acute Assessment and Plan: Continue with bupropion (7) Benign essential hypertension: Code(s): I10 - Essential (primary) hypertension Status: Acute Assessment and Plan: Continue with Norvasc, metoprolol, Lasix, and Entresto (for CHF) (8) Atrial fibrillation: Qualifiers: Atrial fibrillation type: longstanding persistent Qualified Code(s): I48.11 - Longstanding persistent atrial fibrillation Code(s): I48.91 - Unspecified atrial fibrillation Status: Acute Assessment and Plan: Continue with metoprolol and Pradaxa He also has an AICD. (9) Diet-controlled diabetes mellitus: Code(s): E11.9 - Type 2 diabetes mellitus without complications Status: Acute Assessment and Plan: Since the patient is now on Solu-Medrol. I will do Accu-Cheks AC and HS with sliding scale insulin. The patient is on Jardiance for his CHF which may help with the blood sugars as well. Subjective Date/time seen: 11/12/22 10:30 Review of Systems Review of Systems: This is a 72-year-old male patient who has a history of CHF. The patient came to the emergency room to be evaluated for increased shortness of breath. The patient stated that he has been taking all of his medications as prescribed. He has not missed any of his medications. He did not notice any edema to his lower extremities. The patient stated that he has been more short of breath over the last 4 days. When EMS was activated the patient was sewed short of breath that he needed a CPAP
[2022-11-12 12:12] LABS: Glucose Point of Care 158 mg/dl (65-105)
[2022-11-12] MEDS: VANCOMYCIN 1,250 MG/NS 250 ML 1,250 MG/250 ML BAG 166.67 MG IVPB ×2 (16:52→18:41)
[2022-11-12 17:05] LABS: Glucose Point of Care 142 mg/dl (65-105)
[2022-11-12 17:42] LABS: Influenza A QL RT-PCR Negative (Negative); Influenza B QL RT-PCR Negative (Negative); SARS-CoV-2 RNA PCR Negative (Negative)
[2022-11-12 18:09] LABS: Procalcitonin 0.2 ng/mL
[2022-11-12] MEDS: CEFEPIME 2 GM/NS 50 ML 2 GM/50 ML BAG IVPB (18:44)
[2022-11-12] MEDS: levoFLOXacin 750 MG/D5W 150 ML 750 MG/150 ML BAG 100 MG IVPB (18:45)
--- NOTE | 2022-11-12 19:00 | PC.NURSE ---
Patient arrived to ICU room 2 at 1743. Patient transported by bed. Patient oriented to hospital room, policies and procedures, call light placed within reach, and bed alarms set. Head to toe assessment preformed and bedside report obtained from SEAN Mayorga. Vital signs obtained and patient placed on Bipap by RT. This RN to resume patient care.
[2022-11-12 19:45] LABS: Glucose Point of Care 132 mg/dl (65-105)
[2022-11-12 19:45] LABS: Glucose Point of Care 127 mg/dl (65-105)
[2022-11-12] MEDS: ALPRAZolam (*CRX) 0.5 MG TABLET PO (20:32)
[2022-11-12] MEDS: TERAZOSIN HCL 5 MG CAPSULE PO (20:33)
[2022-11-12] MEDS: ATORVASTATIN 40 MG TABLET 80 MG PO (20:33)
[2022-11-12 21:41] LABS: Potassium 3.2 mmol/L (3.4-5.0)
[2022-11-12] MEDS: POTASSIUM CHLORIDE 20 MEQ ER TABLET 40 MEQ PO (21:53)
[2022-11-13] VITALS (34 sets, daily range): BP systolic 94–107; BP diastolic 57–73; PULSE 70–86; RESP 15–22; TEMP 35.9–37.7; O2SAT 89–96
[2022-11-13] MEDS: ALBUTEROL SULFATE NEB 2.5 MG/3 ML INH INHALATION ×3 (01:57→20:18)
[2022-11-13] MEDS: IPRATROPIUM BR 0.02% INH SOLN 0.5 MG/2.5 ML VIAL INHALATION ×3 (01:59→20:17)
[2022-11-13] MEDS: CEFEPIME 2 GM/NS 50 ML 2 GM/50 ML BAG IVPB ×3 (02:00→17:18)
[2022-11-13 04:37] LABS: Basophils Percent Auto 0.1 % (0.2-1.2); Hematocrit 41.9 % (42.0-52.0); Hemoglobin 12.8 g/dL (14.0-18.0); Immature Granulocyte Absolute 0.17 K/mm3 (0.00-0.031); Immature Granulocyte Percent A 1.1 % (0-0.5); Lymphocytes Absolute Auto 0.91 K/mm3 (0.9-3.2); Lymphocytes Percent Auto 6.1 % (18.3-44.2); Mean Corpuscular HGB Conc 30.5 g/dl (32-36); Mean Corpuscular Hemoglobin 29.3 pg (26-34); Mean Corpuscular Volume 95.9 fl (80-100); Mean Platelet Volume 10.7 fl (7.4-10.4); Monocytes Absolute Auto 0.8 K/mm3 (0.1-0.6); Monocytes Percent Auto 5.2 % (2.6-8.5); Neutrophils Percent Auto 87.5 % (45.5-73.1); Platelet Count Result 356 k/mm3 (150-375); Red Blood Count 4.37 M/mm3 (4.6-6.20); White Blood Count 14.9 K/mm3 (4.5-10.0)
[2022-11-13 04:50] LABS: Alanine Aminotransferase 37 U/L (6-50); Alkaline Phosphatase 98 U/L (38-126); Anion Gap 3 mmol/L (8-16); Aspartate Amino Transferase 31 U/L (17-59); Bilirubin,Total 0.9 mg/dL (0.2-1.3); Blood Urea Nitrogen 20 mg/dL (9-20); Calcium 8.2 mg/dL (8.4-10.2); Carbon Dioxide 34 mmol/L (22-30); Chloride 102 mmol/L (98-107); Estimated CRCL calculation 78 ml/min; Estimated Glomerular Filt Rate > 60; Glucose 120 mg/dL (65-110); Magnesium 2.6 mg/dL (1.6-2.3); Potassium 3.6 mmol/L (3.4-5.0); Sodium 139 mmol/L (137-145)
[2022-11-13 08:27] LABS: Glucose Point of Care 121 mg/dl (65-105)
[2022-11-13] MEDS: ASPIRIN 81 MG CHEWABLE TABLET PO (09:00)
[2022-11-13] MEDS: SPIRONOLACTONE 25 MG TABLET PO (10:00)
[2022-11-13] MEDS: METOPROLOL SUCCINATE EXT REL 100 MG TABCR PO (10:00)
[2022-11-13] MEDS: SACUBITRIL/VALSARTAN 49-51 MG TABLET 1 TABLET PO (10:00)
[2022-11-13] MEDS: EMPAGLIFLOZIN 10 MG TABLET PO (10:00)
[2022-11-13] MEDS: FUROSEMIDE INJ 40 MG/4 ML VIAL IV PUSH (10:00)
[2022-11-13] MEDS: DABIGATRAN ETEXILATE 150 MG CAPSULE PO ×2 (10:00→20:48)
[2022-11-13] MEDS: buPROPion HCL SR (12 HR) 150 MG TAB PO ×2 (10:00→20:48)
--- NOTE | 2022-11-13 10:41 | PM.IMPN ---
Progress Note: A&P Assessment and Plan (1) CHF (congestive heart failure): Qualifiers: Heart failure chronicity: chronic Heart failure type: unspecified Qualified Code(s): I50.9 - Heart failure, unspecified Code(s): I50.9 - Heart failure, unspecified Status: Acute (2) Acute respiratory failure: Code(s): J96.00 - Acute respiratory failure, unspecified whether with hypoxia or hypercapnia Status: Acute (3) Elevated troponin: Code(s): R77.8 - Other specified abnormalities of plasma proteins Status: Acute (4) Obstructive sleep apnea: Code(s): G47.33 - Obstructive sleep apnea (adult) (pediatric) Status: Acute (5) Mixed hyperlipidemia: Code(s): E78.2 - Mixed hyperlipidemia Status: Acute (6) History of posttraumatic stress disorder (PTSD): Code(s): Z86.59 - Personal history of other mental and behavioral disorders Status: Acute (7) Benign essential hypertension: Code(s): I10 - Essential (primary) hypertension Status: Acute (8) Atrial fibrillation: Qualifiers: Atrial fibrillation type: longstanding persistent Qualified Code(s): I48.11 - Longstanding persistent atrial fibrillation Code(s): I48.91 - Unspecified atrial fibrillation Status: Acute (9) Diet-controlled diabetes mellitus: Code(s): E11.9 - Type 2 diabetes mellitus without complications Status: Acute Plan 11/13/2022: This is a 72-year-old male patient who has a history of CHF.? The patient came to the emergency room to be evaluated for increased shortness of breath.? The patient stated that he has been taking all of his medications as prescribed.? He has not missed any of his medications.? He did not notice any edema to his lower extremities.? The patient stated that he has been more short of breath over the last 4 days.? When EMS was activated the patient was sewed short of breath that he needed a CPAP machine.? The patient was placed on a BiPAP in the emergency room 25/11 with a rate of 4 in 50% oxygen.? Patient denied any chest pain.? Chest x-ray was read as diffuse lung disease on the right which could be pneumonia or asymmetric pulmonary edema.? Further evaluation was CT of the chest is recommended.? The patient was given Lasix in the emergency room as stated that he felt somewhat better since he had the Lasix.? His white count was noted to be 15.1.? His liver enzymes are slightly elevated AC 64 and ALT is 51.? His troponin 0.048, 0.036, and 0.030.? Most likely related to CHF.? CT chest reviewed he has diffuse interstitial and airspace opacities throughout the right lung and patchy nodular ground-glass opacities the left lung he is likely indicated pneumonia.? Will start on broad-spectrum antibiotics with vancomycin cefepime.? He is already on levofloxacin which we will continue same.? He is not actively wheezing and hence will stop Solu Medrol.? His older CTs were reviewed and no significant emphysema noted.? Will also need to rule out aspiration.? Will get speech evaluation.? Currently is quite hypoxic without BiPAP support.? Will continue BiPAP p.r.n. +/-Airvo if needed for hypoxemia.?he has remained bipap dependent and on fio2 85%, Discussed with Pulmonary patient has been pancultured on admission and will follow culture.? covid, flu negative. check for mycoplasma/Legionella/pneumococcal.? Continue diuresis as tolerated with Lasix 40 mg IV b.i.d..? BNP is elevated at 2930.? Echo has been obtained and pending previous echo from 2020 with ejection fraction 39% severe enlarged on the left ventricular cavity with severe global left ventricular systolic dysfunction. recheck echo pending. cxr reviewed with stable findings. continue broad spectrum antibiotics, iv lasix as ordered. may switch to airvo/vapotherm as tolerated. Subjective Date/time seen: 11/13/22 10:41 Interval history: no overnight events, remains on bipap. discussed with nursing staff. no nause
[2022-11-13 12:55] LABS: Basophils Percent Auto 0.2 % (0.2-1.2); Eosinophils Percent Auto 0.1 % (0-4.4); Hematocrit 41.9 % (42.0-52.0); Hemoglobin 13.1 g/dL (14.0-18.0); Immature Granulocyte Absolute 0.14 K/mm3 (0.00-0.031); Immature Granulocyte Percent A 0.9 % (0-0.5); Lymphocytes Absolute Auto 0.92 K/mm3 (0.9-3.2); Mean Corpuscular HGB Conc 31.3 g/dl (32-36); Mean Corpuscular Volume 95.9 fl (80-100); Monocytes Absolute Auto 0.8 K/mm3 (0.1-0.6); Monocytes Percent Auto 5.4 % (2.6-8.5); Neutrophils Absolute Auto 13.4 K/mm3 (1.3-6.7); Neutrophils Percent Auto 87.4 % (45.5-73.1); Platelet Count Result 366 k/mm3 (150-375); Red Blood Count 4.37 M/mm3 (4.6-6.20); Red Cell Distribution Width 16.1 % (11.5-14.5); White Blood Count 15.3 K/mm3 (4.5-10.0)
[2022-11-13 13:05] LABS: Alanine Aminotransferase 37 U/L (6-50); Alkaline Phosphatase 97 U/L (38-126); Anion Gap 5 mmol/L (8-16); Aspartate Amino Transferase 32 U/L (17-59); Bilirubin,Total 0.9 mg/dL (0.2-1.3); Blood Urea Nitrogen 21 mg/dL (9-20); Calcium 8.1 mg/dL (8.4-10.2); Carbon Dioxide 32 mmol/L (22-30); Chloride 101 mmol/L (98-107); Estimated CRCL calculation 86 ml/min; Estimated Glomerular Filt Rate > 60; Glucose 105 mg/dL (65-110); Magnesium 2.6 mg/dL (1.6-2.3); Phosphorus 2.2 mg/dL (2.5-4.5); Potassium 3.2 mmol/L (3.4-5.0); Sodium 138 mmol/L (137-145)
--- NOTE | 2022-11-13 13:10 | PCSTNOTE ---
Bedside swallowing evaluation. Patient upright in bed with head of bed elevated. On bipap. Family present at bedside. Oral peripheral examination completed, results within normal limits. Trials of water given via straw X3. Patient demonstrated wet/gurgly vocal quality immediately following presentation of water X1. No coughing. Trials of pureed food (applesauce) by spoon were within normal limits. Patient reports that he cannot eat anything but soft food at this time and also had difficulty swallowing pills. Appetite is poor by self report. Patient also states that he cannot feed himself in bed from bedside table positioned in front of him because he isn't used to it, and can only feed himself sitting on edge of bed. Based on the results of this evaluation and communication with nurse and MD the following are recommended: pureed diet with thin liquids, and modified barium swallow study when medically able. Swallowing precaution recommendations were placed in patient's medical record. No further speech therapy is recommended at this time. Thank you for the referral of this patient.
[2022-11-13] MEDS: metroNIDAZOLE 500 MG/ISO 100ML 500 MG/100 ML BAG 100 MG IVPB ×2 (14:06→20:47)
[2022-11-13] MEDS: POTASSIUM PHOS,M-BASIC-D-BASIC 15 MMOL in SODIUM CHLORIDE 0.9% IV 250 ML 63.75 MMOL IVPB (14:06)
[2022-11-13 15:51] LABS: Glucose Point of Care 143 mg/dl (65-105)
[2022-11-13] MEDS: levoFLOXacin 750 MG/D5W 150 ML 750 MG/150 ML BAG 100 MG IVPB (17:05)
[2022-11-13] MEDS: POTASSIUM CHLORIDE 20 MEQ PACKET (FOR LIQUID) PO (17:18)
[2022-11-13 18:09] LABS: Glucose Point of Care 100 mg/dl (65-105)
[2022-11-13] MEDS: ALPRAZolam (*CRX) 0.5 MG TABLET PO (20:49)
[2022-11-13] MEDS: ATORVASTATIN 40 MG TABLET 80 MG PO (20:49)
[2022-11-13 21:22] LABS: Glucose Point of Care 100 mg/dl (65-105)
[2022-11-13] MEDS: DORNASE ALFA INH SOLN 1 MG/ML 2.5 ML AMP 2.5 MG INHALATION (21:29)
[2022-11-14] VITALS (27 sets, daily range): BP systolic 90–117; BP diastolic 50–91; PULSE 70–84; RESP 16–23; TEMP 36.4–37.2; O2SAT 90–100
[2022-11-14] MEDS: CEFEPIME 2 GM/NS 50 ML 2 GM/50 ML BAG IVPB ×3 (02:01→18:02)
[2022-11-14] MEDS: metroNIDAZOLE 500 MG/ISO 100ML 500 MG/100 ML BAG 100 MG IVPB ×4 (02:02→20:26)
[2022-11-14 02:10] LABS: Basophils Percent Auto 0.2 % (0.2-1.2); Eosinophils Absolute Auto 0.1 K/mm3 (0-0.3); Eosinophils Percent Auto 0.9 % (0-4.4); Hematocrit 41.7 % (42.0-52.0); Hemoglobin 13.1 g/dL (14.0-18.0); Immature Granulocyte Percent A 0.8 % (0-0.5); Lymphocytes Absolute Auto 0.73 K/mm3 (0.9-3.2); Lymphocytes Percent Auto 5.7 % (18.3-44.2); Mean Corpuscular HGB Conc 31.4 g/dl (32-36); Mean Corpuscular Hemoglobin 30.1 pg (26-34); Mean Corpuscular Volume 95.9 fl (80-100); Mean Platelet Volume 10.1 fl (7.4-10.4); Monocytes Absolute Auto 0.9 K/mm3 (0.1-0.6); Monocytes Percent Auto 7.1 % (2.6-8.5); Neutrophils Absolute Auto 10.9 K/mm3 (1.3-6.7); Neutrophils Percent Auto 85.3 % (45.5-73.1); Platelet Count Result 333 k/mm3 (150-375); Red Blood Count 4.35 M/mm3 (4.6-6.20); Red Cell Distribution Width 16.2 % (11.5-14.5); White Blood Count 12.7 K/mm3 (4.5-10.0)
[2022-11-14] MEDS: ALBUTEROL SULFATE NEB 2.5 MG/3 ML INH INHALATION ×4 (02:14→19:58)
[2022-11-14] MEDS: IPRATROPIUM BR 0.02% INH SOLN 0.5 MG/2.5 ML VIAL INHALATION ×4 (02:14→19:58)
[2022-11-14 02:20] LABS: Alanine Aminotransferase 32 U/L (6-50); Albumin Level 2.8 g/dL (3.5-5.1); Alkaline Phosphatase 83 U/L (38-126); Anion Gap 5 mmol/L (8-16); Aspartate Amino Transferase 34 U/L (17-59); Blood Urea Nitrogen 27 mg/dL (9-20); Calcium 7.8 mg/dL (8.4-10.2); Carbon Dioxide 29 mmol/L (22-30); Chloride 102 mmol/L (98-107); Estimated CRCL calculation 77 ml/min; Estimated Glomerular Filt Rate > 60; Glucose 93 mg/dL (65-110); Magnesium 2.6 mg/dL (1.6-2.3); Potassium 3.6 mmol/L (3.4-5.0); Sodium 136 mmol/L (137-145)
[2022-11-14 02:41] LABS: Vancomycin Trough 12.6 ug/mL (10.0-20.0)
[2022-11-14] MEDS: DORNASE ALFA INH SOLN 1 MG/ML 2.5 ML AMP 2.5 MG INHALATION ×2 (08:02→19:59)
[2022-11-14] MEDS: buPROPion HCL SR (12 HR) 150 MG TAB PO ×2 (08:54→20:27)
[2022-11-14] MEDS: ASPIRIN 81 MG CHEWABLE TABLET PO (08:54)
[2022-11-14] MEDS: DABIGATRAN ETEXILATE 150 MG CAPSULE PO ×2 (08:55→20:27)
[2022-11-14] MEDS: EMPAGLIFLOZIN 10 MG TABLET PO (08:55)
[2022-11-14] MEDS: METOPROLOL SUCCINATE EXT REL 100 MG TABCR PO (08:56)
[2022-11-14] MEDS: POTASSIUM CHLORIDE 20 MEQ PACKET (FOR LIQUID) PO ×2 (08:56→17:43)
[2022-11-14 08:59] LABS: Glucose Point of Care 92 mg/dl (65-105)
[2022-11-14] MEDS: FUROSEMIDE INJ 40 MG/4 ML VIAL 20 MG IV PUSH ×2 (09:22→20:27)
--- NOTE | 2022-11-14 11:40 | PM.IMPN ---
Progress Note: A&P Assessment and Plan (1) CHF (congestive heart failure): Qualifiers: Heart failure chronicity: chronic Heart failure type: unspecified Qualified Code(s): I50.9 - Heart failure, unspecified Code(s): I50.9 - Heart failure, unspecified Status: Acute (2) Acute respiratory failure: Code(s): J96.00 - Acute respiratory failure, unspecified whether with hypoxia or hypercapnia Status: Acute (3) Elevated troponin: Code(s): R77.8 - Other specified abnormalities of plasma proteins Status: Acute (4) Obstructive sleep apnea: Code(s): G47.33 - Obstructive sleep apnea (adult) (pediatric) Status: Acute (5) Mixed hyperlipidemia: Code(s): E78.2 - Mixed hyperlipidemia Status: Acute (6) History of posttraumatic stress disorder (PTSD): Code(s): Z86.59 - Personal history of other mental and behavioral disorders Status: Acute (7) Benign essential hypertension: Code(s): I10 - Essential (primary) hypertension Status: Acute (8) Atrial fibrillation: Qualifiers: Atrial fibrillation type: longstanding persistent Qualified Code(s): I48.11 - Longstanding persistent atrial fibrillation Code(s): I48.91 - Unspecified atrial fibrillation Status: Acute (9) Diet-controlled diabetes mellitus: Code(s): E11.9 - Type 2 diabetes mellitus without complications Status: Acute Plan 11/14/2022: This is a 72-year-old male patient who has a history of CHF.? The patient came to the emergency room to be evaluated for increased shortness of breath.? The patient stated that he has been taking all of his medications as prescribed.? He has not missed any of his medications.? He did not notice any edema to his lower extremities.? The patient stated that he has been more short of breath over the last 4 days.? When EMS was activated the patient was sewed short of breath that he needed a CPAP machine.? The patient was placed on a BiPAP in the emergency room 25/11 with a rate of 4 in 50% oxygen.? Patient denied any chest pain.? Chest x-ray was read as diffuse lung disease on the right which could be pneumonia or asymmetric pulmonary edema.? Further evaluation was CT of the chest is recommended.? The patient was given Lasix in the emergency room as stated that he felt somewhat better since he had the Lasix.? His white count was noted to be 15.1.? His liver enzymes are slightly elevated AC 64 and ALT is 51.? His troponin 0.048, 0.036, and 0.030.? Most likely related to CHF.? CT chest reviewed he has diffuse interstitial and airspace opacities throughout the right lung and patchy nodular ground-glass opacities the left lung he is likely indicated pneumonia.? Started on broad-spectrum antibiotics with vancomycin cefepime.? He is already on levofloxacin which we will continue same. Added Flagyl for anaerobic coverage is. Since he is not actively wheezing and hence will stop Solu Medrol.? His older CTs were reviewed and no significant emphysema noted.? Will also need to rule out aspiration.? Will get speech evaluation.? Currently is quite hypoxic without BiPAP support.? Will continue BiPAP p.r.n. +/-Airvo if needed for hypoxemia.?he has remained bipap dependent and on fio2 85%,? Discussed with Pulmonary patient has been pancultured on admission and will follow culture.? covid, flu negative. check for mycoplasma/Legionella/pneumococcal.? Continue diuresis as tolerated with Lasix 40 mg IV b.i.d..? BNP is elevated at 2930.? Echo has been obtained and pending previous echo from 2020 with ejection fraction 39% severe enlarged on the left ventricular cavity with severe global left ventricular systolic dysfunction. recheck echo with ejection fraction 55-60% with no significant valvular abnormality. Cxr reviewed with stable findings. continue broad spectrum antibiotics, iv lasix as ordered. Switched to airvo/vapotherm as tolerated. Continue current antibiotics. Will di
--- NOTE | 2022-11-14 11:40 | PCPTNOTE ---
On 11/14/22, the student, [Taina Clemente], provided care and completed [facility] documentation on this patient. I have reviewed the student's documentation and agree with the findings.
--- NOTE | 2022-11-14 12:26 | PM.CNPUL ---
Assessment and Plan Assessment and plan (1) Acute on chronic respiratory failure with hypoxemia: Code(s): J96.21 - Acute and chronic respiratory failure with hypoxia Status: Acute Assessment and Plan: He required oxygen at discharge on July 09. He has used it 2.5 L a minute since. He has not had any outpatient testing. He has no diagnosis of COPD, takes no inhalers. He smoked for 38 years, often 2 packs a day. When he is well, at baseline, PFTs are indicated. He would benefit from management of COPD as well as sleep apnea in order to prevent decompensated episodes of systolic congestive heart failure. He has asymmetric infiltrates with increased WBC and left shift, so treating as pneumonia is appropriate. He is on Cefepimee started 11/12, Levaquin 11/13, Flagyl 11/14 amd Vanco 11/13. Flagyl was for suspected aspiration. He likely has COPD although he is not diagnosed or treated. He is on albuterol and ipratropium nebulized now. Will need out pt PFT and O2 evaluation. Will recommend weaning O2 as tolerated, adding COPD controller medications, continue empiric treatment for pneumonia to cover typical pathogens seen on COPD patients. He has no sputum, nothing to test. He has been in the hospital twice in Jun and again November 11. Current O2 support is : AirVo 45 L/min, FiO2 85%. (2) Obstructive sleep apnea: Code(s): G47.33 - Obstructive sleep apnea (adult) (pediatric) Status: Acute Assessment and Plan: Untreated. Needs to be addressed. Does not have elevated pCO2, so cannot get NPPV - will need out patient sleep study for treatment. Treating sleep may prevent decompensated episodes of CHF. Can use PAP while he is here. A single pressure may be more effective than bilevel. Bilevel may cause more dyspnea and more hyperventilation. Plan wean antibiotics as cultures return and are negative; treating for pneumonia is appropriate add COPD controller therapy nocturnal CPAP instead of BiPAP as he has no CO2 retention Out-patient follow up and testing; has to have sleep tested and treated. History of Present Illness History of Present Illness Consult date: 11/14/22 Requesting physician: Ross Lilly MD Chief complaint: CHF Narrative: time of visit: 11:55 a.m., granddaughter Sara and seven at bedside NEW: Popeye Hernandez is a 72-year-old man with DM 2, systolic CHF, long history of tobacco, none since 2010, when he had a heart attack; chronic atrial fibrillation; he had admission to this hospital in June, went home on oxygen at 2.5 L a minute. He continued to use oxygen at 2.5 L a minute at rest with exertion and with sleep. He had a follow up visit with primary care, but mainly was taking care of his . She was admitted to a [facility] in the last month. Over the 4 days prior to admission, he had increasing shortness of breath. He did not have leg swelling, he never has leg swelling. He generally develops ascites when he has decompensated CHF. He denies any increased weight gain. His appetite has been stable. He did not have a fever but he had a few chills overnight once or twice. He did not have a productive cough, nothing that suggested pneumonia. He has had pneumonia a few times over the last few years. His testing for COVID, influenza a and B are negative. Mycoplasma antibody is pending. Urine for Legionella and pneumococcus is pending. ABG on admission :pH 1.46, pCO2 39, PO2 84.4 on 15 L non-rebreather. He has never had CO2 retention. White blood cell count on admission 15.1 with 81% neutrophils, white cell count has remained elevated since admission, today is 12.7. He had 3 admissions last year 2021 with similar presentatoins, and was on O2 last year after admission with CHF. He tells me he had a diagnosis of obstructive sleep apnea 5-10 years; after a myocardial
[2022-11-14] MEDS: ALPRAZolam (*CRX) 0.5 MG TABLET PO ×2 (13:03→20:36)
[2022-11-14 13:32] LABS: Glucose Point of Care 102 mg/dl (65-105)
[2022-11-14] MEDS: levoFLOXacin 750 MG/D5W 150 ML 750 MG/150 ML BAG 100 MG IVPB (18:05)
[2022-11-14 18:11] LABS: Glucose Point of Care 94 mg/dl (65-105)
--- NOTE | 2022-11-14 18:12 | PC.NURSE ---
Updated Uma,daughter, on patient status.
[2022-11-14] MEDS: ATORVASTATIN 40 MG TABLET 80 MG PO (20:26)
[2022-11-14] MEDS: TERAZOSIN HCL 5 MG CAPSULE PO (20:28)
[2022-11-14 20:34] LABS: Glucose Point of Care 118 mg/dl (65-105)
[2022-11-15] VITALS (28 sets, daily range): BP systolic 93–112; BP diastolic 66–76; PULSE 70–81; RESP 17–24; TEMP 36.6–37; O2SAT 90–96
[2022-11-15] MEDS: CEFEPIME 2 GM/NS 50 ML 2 GM/50 ML BAG IVPB ×3 (01:35→17:05)
[2022-11-15] MEDS: metroNIDAZOLE 500 MG/ISO 100ML 500 MG/100 ML BAG 100 MG IVPB ×4 (01:58→20:14)
[2022-11-15] MEDS: IPRATROPIUM BR 0.02% INH SOLN 0.5 MG/2.5 ML VIAL INHALATION ×4 (02:34→20:05)
[2022-11-15] MEDS: ALBUTEROL SULFATE NEB 2.5 MG/3 ML INH INHALATION ×4 (02:34→20:05)
[2022-11-15 04:43] LABS: Basophils Percent Auto 0.2 % (0.2-1.2); Eosinophils Absolute Auto 0.3 K/mm3 (0-0.3); Eosinophils Percent Auto 2.5 % (0-4.4); Hematocrit 41.1 % (42.0-52.0); Hemoglobin 12.7 g/dL (14.0-18.0); Immature Granulocyte Absolute 0.12 K/mm3 (0.00-0.031); Lymphocytes Absolute Auto 0.76 K/mm3 (0.9-3.2); Lymphocytes Percent Auto 6.2 % (18.3-44.2); Mean Corpuscular HGB Conc 30.9 g/dl (32-36); Mean Corpuscular Hemoglobin 29.5 pg (26-34); Mean Corpuscular Volume 95.6 fl (80-100); Mean Platelet Volume 10.2 fl (7.4-10.4); Monocytes Absolute Auto 0.8 K/mm3 (0.1-0.6); Monocytes Percent Auto 6.6 % (2.6-8.5); Neutrophils Absolute Auto 10.2 K/mm3 (1.3-6.7); Neutrophils Percent Auto 83.5 % (45.5-73.1); Platelet Count Result 287 k/mm3 (150-375); Red Cell Distribution Width 15.9 % (11.5-14.5); White Blood Count 12.2 K/mm3 (4.5-10.0)
[2022-11-15 05:22] LABS: Alanine Aminotransferase 29 U/L (6-50); Albumin Level 2.7 g/dL (3.5-5.1); Alkaline Phosphatase 69 U/L (38-126); Anion Gap 2 mmol/L (8-16); Aspartate Amino Transferase 40 U/L (17-59); Bilirubin,Total 1.2 mg/dL (0.2-1.3); Blood Urea Nitrogen 22 mg/dL (9-20); Calcium 7.6 mg/dL (8.4-10.2); Carbon Dioxide 26 mmol/L (22-30); Chloride 105 mmol/L (98-107); Estimated CRCL calculation 76 ml/min; Estimated Glomerular Filt Rate > 60; Glucose 120 mg/dL (65-110); Magnesium 2.5 mg/dL (1.6-2.3); Potassium 3.8 mmol/L (3.4-5.0); Sodium 133 mmol/L (137-145)
[2022-11-15] MEDS: DORNASE ALFA INH SOLN 1 MG/ML 2.5 ML AMP 2.5 MG INHALATION ×2 (07:59→20:05)
[2022-11-15 08:02] LABS: Glucose Point of Care 91 mg/dl (65-105)
[2022-11-15] MEDS: FUROSEMIDE INJ 40 MG/4 ML VIAL 20 MG IV PUSH ×2 (08:06→20:15)
[2022-11-15] MEDS: EMPAGLIFLOZIN 10 MG TABLET PO (08:12)
[2022-11-15] MEDS: buPROPion HCL SR (12 HR) 150 MG TAB PO ×2 (08:12→20:15)
[2022-11-15] MEDS: METOPROLOL SUCCINATE EXT REL 100 MG TABCR PO (08:12)
[2022-11-15] MEDS: ASPIRIN 81 MG CHEWABLE TABLET PO (08:12)
[2022-11-15] MEDS: DABIGATRAN ETEXILATE 150 MG CAPSULE PO ×2 (08:12→20:14)
[2022-11-15] MEDS: POTASSIUM CHLORIDE 20 MEQ PACKET (FOR LIQUID) PO ×2 (08:13→17:05)
[2022-11-15] MEDS: FLUTICASONE/UMECLIDIN/VILANTER 100-62.5-25 MCG ELLIPTA 1 PUFF INHALATION (11:01)
[2022-11-15 11:49] LABS: Glucose Point of Care 117 mg/dl (65-105)
[2022-11-15] MEDS: ALPRAZolam (*CRX) 0.5 MG TABLET PO ×2 (13:13→20:58)
--- NOTE | 2022-11-15 14:00 | P.PNIM_ITS ---
Progress Note: A&P Assessment and Plan (1) CHF (congestive heart failure): Qualifiers: Heart failure chronicity: chronic Heart failure type: unspecified Qualified Code(s): I50.9 - Heart failure, unspecified Code(s): I50.9 - Heart failure, unspecified Status: Acute (2) Acute respiratory failure: Code(s): J96.00 - Acute respiratory failure, unspecified whether with hypoxia or hypercapnia Status: Acute (3) Elevated troponin: Code(s): R77.8 - Other specified abnormalities of plasma proteins Status: Acute (4) Obstructive sleep apnea: Code(s): G47.33 - Obstructive sleep apnea (adult) (pediatric) Status: Acute (5) Mixed hyperlipidemia: Code(s): E78.2 - Mixed hyperlipidemia Status: Acute (6) History of posttraumatic stress disorder (PTSD): Code(s): Z86.59 - Personal history of other mental and behavioral disorders Status: Acute (7) Benign essential hypertension: Code(s): I10 - Essential (primary) hypertension Status: Acute (8) Atrial fibrillation: Qualifiers: Atrial fibrillation type: longstanding persistent Qualified Code(s): I48.11 - Longstanding persistent atrial fibrillation Code(s): I48.91 - Unspecified atrial fibrillation Status: Acute (9) Diet-controlled diabetes mellitus: Code(s): E11.9 - Type 2 diabetes mellitus without complications Status: Acute Plan 11/15/2022: This is a 72-year-old male patient who has a history of CHF.? The patient came to the emergency room to be evaluated for increased shortness of breath.? The patient stated that he has been taking all of his medications as prescribed.? He has not missed any of his medications.? He did not notice any edema to his lower extremities.? The patient stated that he has been more short of breath over the last 4 days.? When EMS was activated the patient was sewed short of breath that he needed a CPAP machine.? The patient was placed on a BiPAP in the emergency room 25/11 with a rate of 4 in 50% oxygen.? Patient denied any chest pain.? Chest x-ray was read as diffuse lung disease on the right which could be pneumonia or asymmetric pulmonary edema.? Further evaluation was CT of the chest is recommended.? The patient was given Lasix in the emergency room as stated that he felt somewhat better since he had the Lasix.? His white count was noted to be 15.1.? His liver enzymes are slightly elevated AC 64 and ALT is 51.? His troponin 0.048, 0.036, and 0.030.? Most likely related to CHF.? CT chest reviewed he has diffuse interstitial and airspace opacities throughout the right lung and patchy nodular ground-glass opacities the left lung he is likely indicated pneumonia.? Started on broad-spectrum antibiotics with vancomycin cefepime.? He is already on levofloxacin which we will continue same. Added Flagyl for anaerobic coverage is. Since he is not actively wheezing and hence will stop Solu Medrol.? His older CTs were reviewed and no significant emphysema noted.? Will also need to rule out aspiration.? Consulted speech evaluation.? Currently is quite hypoxic without BiPAP support.? Will continue BiPAP p.r.n. +/-Airvo if needed for hypoxemia.?he has remained bipap dependent and on fio2 85%,? Discussed with Pulmonary patient has been pancultured on admission and will follow culture.? covid, flu negative. check for mycoplasma/Legionella/pneumococcal.? Continue diuresis as tolerated with Lasix 40 mg IV b.i.d..? BNP is elevated at 2930.? Echo has been obtained and pending previous echo from 2020 with ejection fraction 39% severe enlarged on the left ventricular cavity with severe global left ventricular systolic
--- NOTE | 2022-11-15 17:40 | PM.PNPUL ---
Progress Note: A&P Assessment and Plan (1) Acute on chronic respiratory failure with hypoxemia: Code(s): J96.21 - Acute and chronic respiratory failure with hypoxia Status: Acute Assessment and Plan: He required oxygen at discharge on July 09.? He has used it 2.5 L a minute since.? He has not had any outpatient testing. He has no diagnosis of COPD, takes no inhalers.? He smoked for 38 years, often 2 packs a day.? When he is well, at baseline, PFTs are indicated.? He would benefit from management of COPD as well as sleep apnea in order to prevent decompensated episodes of systolic congestive heart failure. He has asymmetric infiltrates with increased WBC and left shift, so treating as pneumonia is appropriate. He is on Cefepimee started 11/12, Levaquin 11/13, Flagyl 11/14 amd Vanco 11/13. Flagyl was for suspected aspiration. He likely has COPD although he is not diagnosed or treated. He is on albuterol and ipratropium nebulized now. Will need out pt PFT and O2 evaluation. Will recommend weaning O2 as tolerated, adding COPD controller medications, continue empiric treatment for pneumonia to cover typical pathogens seen on COPD patients. He has no sputum, nothing to test. He has been in the hospital twice in Jun and again November 11. Current O2 support is : AirVo 55 L/min higher from 45 L/min yest; FiO2 90%, higher, with little room to continue to titrate higher. (2) Obstructive sleep apnea: Code(s): G47.33 - Obstructive sleep apnea (adult) (pediatric) Status: Acute Assessment and Plan: Untreated. Needs to be addressed. Does not have elevated pCO2, so cannot get NPPV - will need out patient sleep study for treatment. Treating sleep may prevent decompensated episodes of CHF.? Can use PAP while he is here. A single pressure may be more effective than bilevel. Bilevel may cause more dyspnea and more hyperventilation Plan Not really able to wean O2. He wants intubation if required. Add heated humidity to NPPV Continue current therapy. Subjective Date/time seen: 11/15/22 17:40 Interval history: hospital follow up : Popeye Hernandez is a 72-year-old man with DM 2, systolic CHF, long history of tobacco, none since 2010, when he had a heart attack; chronic atrial fibrillation; 11/15/22 he feels better, daughter Garima at bedside. O2 flow is higher 90%. He did not like the PAP last night, was too cold. He tolerated it for 3 hours, then took it off. He wants something that feels warmer. He is less short of breath today. His cough is better, still dry. He has no fever, chest pain, GI complaints, and is eating normally. WBC is 12.2, stable. 11/14/22 he had admission to this hospital in June, went home on oxygen at 2.5 L a minute.? He continued to use oxygen at 2.5 L a minute at rest with exertion and with sleep. He had a follow up visit with primary care, but mainly was taking care of his .? [facility]. Over the 4 days prior to admission, he had increasing shortness of breath.? He did not have leg swelling, he never has leg swelling.? He generally develops ascites when he has decompensated CHF.? He denies any increased weight gain.? His appetite has been stable.? He did not have a fever but he had a few chills overnight once or twice.? He did not have a productive cough, nothing that suggested pneumonia. He has had pneumonia a few times over the last few years.? His testing for COVID, influenza a and B are negative.? Mycoplasma antibody is pending. Urine for Legionella and pneumococcus is pending. ABG on admission :pH 1.46, pCO2 39, PO2 84.4 on 15 L non-rebreather.? He has never had CO2 retention.? White blood cell count on admission 15.1 with 81% neutrophils, white cell count has remained elevated since admission, 11/14/22 is 12.7. He had 3 admissions last year 2021 with similar pres
[2022-11-15] MEDS: levoFLOXacin 750 MG/D5W 150 ML 750 MG/150 ML BAG 100 MG IVPB (18:04)
[2022-11-15 18:12] LABS: Glucose Point of Care 101 mg/dl (65-105)
[2022-11-15] MEDS: ATORVASTATIN 40 MG TABLET 80 MG PO (20:14)
[2022-11-15] MEDS: TERAZOSIN HCL 5 MG CAPSULE PO (20:16)
[2022-11-15 20:46] LABS: Glucose Point of Care 110 mg/dl (65-105)
[2022-11-16] VITALS (28 sets, daily range): BP systolic 84–121; BP diastolic 53–96; PULSE 69–86; RESP 15–24; TEMP 36.4–36.9; O2SAT 90–95; BMI 35.6
[2022-11-16] MEDS: ALBUTEROL SULFATE NEB 2.5 MG/3 ML INH INHALATION ×4 (01:45→20:39)
[2022-11-16] MEDS: IPRATROPIUM BR 0.02% INH SOLN 0.5 MG/2.5 ML VIAL INHALATION ×4 (01:45→20:39)
[2022-11-16] MEDS: CEFEPIME 2 GM/NS 50 ML 2 GM/50 ML BAG IVPB ×3 (02:00→18:15)
[2022-11-16] MEDS: metroNIDAZOLE 500 MG/ISO 100ML 500 MG/100 ML BAG 100 MG IVPB ×4 (02:30→20:00)
[2022-11-16 03:30] LABS: Basophils Percent Auto 0.2 % (0.2-1.2); Eosinophils Absolute Auto 0.3 K/mm3 (0-0.3); Eosinophils Percent Auto 2.4 % (0-4.4); Hemoglobin 13.1 g/dL (14.0-18.0); Immature Granulocyte Absolute 0.17 K/mm3 (0.00-0.031); Immature Granulocyte Percent A 1.3 % (0-0.5); Lymphocytes Percent Auto 8.4 % (18.3-44.2); Mean Corpuscular HGB Conc 31.2 g/dl (32-36); Mean Corpuscular Hemoglobin 29.6 pg (26-34); Mean Platelet Volume 10.4 fl (7.4-10.4); Monocytes Percent Auto 7.4 % (2.6-8.5); Neutrophils Absolute Auto 10.5 K/mm3 (1.3-6.7); Neutrophils Percent Auto 80.3 % (45.5-73.1); Platelet Count Result 301 k/mm3 (150-375); Red Blood Count 4.42 M/mm3 (4.6-6.20)
[2022-11-16 03:40] LABS: Alanine Aminotransferase 27 U/L (6-50); Albumin Level 2.7 g/dL (3.5-5.1); Alkaline Phosphatase 89 U/L (38-126); Anion Gap 5 mmol/L (8-16); Aspartate Amino Transferase 33 U/L (17-59); Bilirubin,Total 1.1 mg/dL (0.2-1.3); Blood Urea Nitrogen 22 mg/dL (9-20); Calcium 7.9 mg/dL (8.4-10.2); Carbon Dioxide 28 mmol/L (22-30); Chloride 103 mmol/L (98-107); Estimated CRCL calculation 76 ml/min; Estimated Glomerular Filt Rate > 60; Glucose 90 mg/dL (65-110); Magnesium 2.4 mg/dL (1.6-2.3); Sodium 136 mmol/L (137-145)
--- NOTE | 2022-11-16 06:41 | P.CDI_ITS ---
CDI Query Clarification Request Documented history of CHF. CHF noted in the assessment and plan. Lasix and Entresto listed as home medications. Patient receiving Lasix and Entresto. Elevated BNP on 11/11/22 lab work. Patient with complaints of BLE edema and increasing shortness of breath. Please specify type and acuity of heart failure if known. * Acute * Chronic * Acute on Chronic * Unknown * Systolic * Diastolic * Combined Systolic and Diastolic * Unknown <Gaye Middleton RN - Last Filed: 11/16/22 06:45> Clarified Diagnosis Clarified Diagnosis: Acute on chronic diastolic heart failure <Pattie Esquivel MD - Last Filed: 11/16/22 15:55>
--- NOTE | 2022-11-16 08:13 | WPDCNINT ---
Assessment and Plan Assessment and plan (1) Acute respiratory failure: Code(s): J96.00 - Acute respiratory failure, unspecified whether with hypoxia or hypercapnia Status: Acute Assessment and Plan: Likely secondary to pneumonia with possible component of congestive heart failure, suspected undiagnosed COPD On presentation patient's BNP was 2930, echo showed diastolic function dysfunction but no significant edema on exam legs and infiltrates are asymmetrical Patient presented with elevated WBC but procalcitonin level was low at 0.2 and he has been afebrile for the most part Pulmonology is following COVID and influenza PCR was negative Mycoplasma IgM is pending Check Legionella and pneumococcal antigen Blood cultures have been negative till now Continue cefepime and Levaquin. Vancomycin has been discontinued Bronchodilators Patient is fairly hypoxic but not any significant respiratory distress at this time. Continue Airvo to maintain adequate saturation and NIPPV p.r.n.. Transfer to ICU and monitor closely as patient may need intubation (2) Pneumonia: Code(s): J18.9 - Pneumonia, unspecified organism Status: Acute Assessment and Plan: See above (3) CHF (congestive heart failure): Qualifiers: Heart failure chronicity: chronic Heart failure type: unspecified Qualified Code(s): I50.9 - Heart failure, unspecified Code(s): I50.9 - Heart failure, unspecified Status: Acute Assessment and Plan: Congestive heart failure Echocardiogram in 2020 showed ejection fraction of 23% with severe enlargement of her left ventricular cavity and global left ventricular systolic dysfunction. Echocardiogram done on this hospitalization showed EF of 55-60% and diastolic dysfunction He has been getting Lasix is fairly balanced on his intake and output Patient has been receiving Lasix and is fairly balanced on his intake and output. He has no edema on exam. His blood pressures been soft and I will hold further diuretics at this time (4) Type 2 diabetes mellitus without complication: Code(s): E11.9 - Type 2 diabetes mellitus without complications Status: Acute Assessment and Plan: Continue sliding scale insulin (5) Obstructive sleep apnea: Code(s): G47.33 - Obstructive sleep apnea (adult) (pediatric) Status: Acute Assessment and Plan: BiPAP is ordered at night (6) Mixed hyperlipidemia: Code(s): E78.2 - Mixed hyperlipidemia Status: Acute Assessment and Plan: Continue statin (7) Atrial fibrillation: Qualifiers: Atrial fibrillation type: longstanding persistent Qualified Code(s): I48.11 - Longstanding persistent atrial fibrillation Code(s): I48.91 - Unspecified atrial fibrillation Status: Acute Assessment and Plan: Currently in paced rhythm. Hold beta-trace due to soft blood pressure He is anticoagulated with dabigatran Plan DVT prophylaxis -Xarelto Nutrition -diabetic diet Obtain PICC line to poor IV access Code Status - Full Code. I had long discussion with patient. Although patient at this time is full code, he states he is not sure if he wants intubation mechanical ventilation. He will discuss with his children and let me know if he wants to change his code status Total Critical Care Time - 35 minutes Due to a high probability of clinically significant, life threatening deterioration, the patient required my highest level of preparedness to intervene emergently and I personally spent this critical care time directly and personally managing the patient. This critical care time included obtaining a history; examining the patient; pulse oximetry; ordering and review of studies; arranging urgent treatment with development of a management plan; evaluation of patient's response to treatment; frequent reassessment; and discussions with other providers. It was exclusive of separately billable proced
[2022-11-16 08:32] LABS: Glucose Point of Care 91 mg/dl (65-105)
[2022-11-16] MEDS: FLUTICASONE/UMECLIDIN/VILANTER 100-62.5-25 MCG ELLIPTA 1 PUFF INHALATION (08:34)
--- NOTE | 2022-11-16 08:35 | PCOTNOTE ---
Per RN, Patient has had a decline in breathing and not appropriate for services at this time.
--- NOTE | 2022-11-16 08:36 | PM.IMPN ---
Progress Note: A&P Assessment and Plan (1) Acute respiratory failure: Code(s): J96.00 - Acute respiratory failure, unspecified whether with hypoxia or hypercapnia Status: Acute Assessment and Plan: 11/15/2022: This is a 72-year-old male patient who has a history of CHF.? The patient came to the emergency room to be evaluated for increased shortness of breath.? The patient stated that he has been taking all of his medications as prescribed.? He has not missed any of his medications.? He did not notice any edema to his lower extremities.? The patient stated that he has been more short of breath over the last 4 days.? When EMS was activated the patient was sewed short of breath that he needed a CPAP machine.? The patient was placed on a BiPAP in the emergency room 25/11 with a rate of 4 in 50% oxygen.? Multifocal pneumonia ? Chest x-ray was read as diffuse lung disease on the right which could be pneumonia or asymmetric pulmonary edema.? CT chest reveled diffuse interstitial and airspace opacities throughout the right lung and patchy nodular ground-glass opacities the left lung he is likely indicated pneumonia.? Started on broad-spectrum antibiotics with vancomycin cefepime.? Added Flagyl for anaerobic coverage is.? Acute on chronic diastolic heart failure Continue diuresis as tolerated with Lasix 40 mg IV b.i.d..? BNP is elevated at 2930.? Echo has been obtained and pending previous echo from 2020 with ejection fraction 39% severe enlarged on the left ventricular cavity with severe global left ventricular systolic dysfunction. recheck echo with ejection fraction 55-60% with no significant valvular abnormality.? Entresto spironolactone on hold.? Lasix lowered to 20 mg b.i.d..? Acute respiratory failure Likely secondary to pneumonia with possible component of congestive heart failure, suspected undiagnosed COPD On presentation patient's BNP was 2930, echo showed diastolic function dysfunction but no significant edema on exam legs and infiltrates are asymmetrical Patient presented with elevated WBC but procalcitonin level was low at 0.2 and he has been afebrile for the most part Pulmonology is following COVID and influenza PCR was negative Mycoplasma IgM is pending Check Legionella and pneumococcal antigen Blood cultures have been negative till now Continue cefepime and Levaquin. Vancomycin has been discontinued Bronchodilators Patient has respiratory distress at this time. Continue Airvo to maintain adequate saturation and NIPPV p.r.n.. Transfer to ICU and monitor closely as patient may need intubation Hypertension Continue amlodipine 10 mg daily. Type 2 diabetes Start Insulin ss ac qhs (2) Pneumonia: Code(s): J18.9 - Pneumonia, unspecified organism Status: Acute Assessment and Plan: See above (3) CHF (congestive heart failure): Qualifiers: Heart failure chronicity: chronic Heart failure type: unspecified Qualified Code(s): I50.9 - Heart failure, unspecified Code(s): I50.9 - Heart failure, unspecified Status: Acute Assessment and Plan: Congestive heart failure Echocardiogram in 2020 showed ejection fraction of 23% with severe enlargement of her left ventricular cavity and global left ventricular systolic dysfunction. Echocardiogram done on this hospitalization showed EF of 55-60% and diastolic dysfunction He has been getting Lasix is fairly balanced on his intake and output Patient has been receiving Lasix and is fairly balanced on his intake and output. He has no edema on exam. His blood pressures been soft and I will hold further diuretics at this time (4) Type 2 diabetes mellitus without complication: Code(s): E11.9 - Type 2 diabetes mellitus without complications Status: Acute Assessment and Plan: Continue sliding scale insulin (5) Obstructive sleep apnea: Code(s): G47.33 - Obstructive sleep apnea (adult) (pediatric) Status:
[2022-11-16] MEDS: LIDOCAINE HCL 1% PF INJ 5 ML VIAL INFILTRATE (08:45)
[2022-11-16 08:50] LABS: NT Pro B Type Natriuretic Pept 1210 pg/mL (19.9-100)
[2022-11-16] MEDS: DABIGATRAN ETEXILATE 150 MG CAPSULE PO ×2 (09:45→20:49)
[2022-11-16] MEDS: ASPIRIN 81 MG CHEWABLE TABLET PO (09:45)
[2022-11-16] MEDS: buPROPion HCL SR (12 HR) 150 MG TAB PO ×2 (09:45→20:48)
[2022-11-16] MEDS: EMPAGLIFLOZIN 10 MG TABLET PO (09:45)
[2022-11-16] MEDS: ALPRAZolam (*CRX) 0.5 MG TABLET PO ×2 (09:51→20:48)
[2022-11-16 11:51] LABS: Glucose Point of Care 137 mg/dl (65-105)
[2022-11-16] MEDS: CENTRAL LINE FLUSH 10 ML IV PUSH ×2 (13:50→20:49)
--- NOTE | 2022-11-16 14:54 | PCPTNOTE ---
On 11/16/22, the student, HARLAN Del Valle, provided care and completed [facility] documentation on this patient. I have reviewed the student's documentation and agree with the findings.
[2022-11-16 16:41] LABS: Glucose Point of Care 113 mg/dl (65-105)
[2022-11-16] MEDS: levoFLOXacin 750 MG/D5W 150 ML 750 MG/150 ML BAG 100 MG IVPB (18:15)
--- NOTE | 2022-11-16 18:51 | PM.PNPUL ---
Progress Note: A&P Assessment and Plan (1) Acute on chronic respiratory failure with hypoxemia: Code(s): J96.21 - Acute and chronic respiratory failure with hypoxia Status: Acute Assessment and Plan: He required oxygen at discharge on July 09.? He has used it 2.5 L a minute since.? He has not had any outpatient testing. He has no diagnosis of COPD, takes no inhalers.? He smoked for 38 years, often 2 packs a day.? When he is well, at baseline, PFTs are indicated.? He would benefit from management of COPD as well as sleep apnea in order to prevent decompensated episodes of systolic congestive heart failure. He has asymmetric infiltrates with increased WBC and left shift, so treating as pneumonia is appropriate. He is on Cefepimee started 11/12, Levaquin 11/13, Flagyl 11/14 amd Vanco 11/13. Flagyl was for suspected aspiration. He likely has COPD although he is not diagnosed or treated. He is on albuterol and ipratropium nebulized now. Will need out pt PFT and O2 evaluation. Not able to wean. Added COPD controller medications, continue empiric treatment for pneumonia to cover typical pathogens seen on COPD patients. He has no sputum, nothing to test. He has been in the hospital twice in Jun and again November 11. Current O2 support is : AirVo 55 L/min FiO2 90%, higher, with little room to continue to titrate higher. (2) Pneumonia: Qualifiers: Pneumonia type: due to unspecified organism Laterality: right Code(s): J18.9 - Pneumonia, unspecified organism Status: Acute Assessment and Plan: He has diffuse infiltrate on right side with new involvement on the left base, negative Ur antigens, blood cultures, no sputum. His infiltrate is mostly right sided, and although he has CHF, the unilateral severity supports pneumonia on top of CHF, not CHF alone. Continue empiric Rx. (3) Obstructive sleep apnea: Code(s): G47.33 - Obstructive sleep apnea (adult) (pediatric) Status: Acute Assessment and Plan: Untreated. Needs to be addressed. Does not have elevated pCO2, so cannot get NPPV - will need out patient sleep study for treatment. Treating sleep may prevent decompensated episodes of CHF.? Can use PAP while he is here. A single pressure may be more effective than bilevel. Bilevel may cause more dyspnea and more hyperventilation Plan *positional therapy; he did not want to turn on left side when I saw gaudencio, said that he does sleep on left at home, but is anxious and wanted Xanax before re-positioning. *Not really able to wean O2. He wants intubation if required. * Lowered PAP to 10 cm and added heated humidity to NPPV * Continue current therapy. * discussed with Dr Peñaloza; I appreciate his assistance. Subjective Date/time seen: 11/16/22 18:51 Interval history: hospital follow up : Popeye Hernandez is a 72-year-old man with DM 2, systolic CHF, long history of tobacco, none since 2010, when he had a heart attack; chronic atrial fibrillation; 11/16/22 Not a great day. Still on high levels of Airvo 55L/min and 90%. CXR shows worsening infiltrates mainly on the right side. It does not appear to be mucus plugging. HE is anxious, does not want to turn to let side to improve VQ matching until he can have a Xanax. No sputum. 11/15/22 he feels better, daughter Garima at bedside. O2 flow is higher 90%. He did not like the PAP last night, was too cold. He tolerated it for 3 hours, then took it off. He wants something that feels warmer. He is less short of breath today. His cough is better, still dry. He has no fever, chest pain, GI complaints, and is eating normally. WBC is 12.2, stable. 11/14/22 he had admission to this hospital in June, went home on oxygen at 2.5 L a minute.? He continued to use oxygen at 2.5 L a minut
[2022-11-16 20:47] LABS: Glucose Point of Care 83 mg/dl (65-105)
[2022-11-16] MEDS: ATORVASTATIN 40 MG TABLET 80 MG PO (20:48)
[2022-11-16] MEDS: TERAZOSIN HCL 5 MG CAPSULE PO (20:49)
[2022-11-17] VITALS (26 sets, daily range): BP systolic 92–124; BP diastolic 56–88; PULSE 70–111; RESP 16–22; TEMP 36.5–36.9; O2SAT 90–98
[2022-11-17] MEDS: IPRATROPIUM BR 0.02% INH SOLN 0.5 MG/2.5 ML VIAL INHALATION ×4 (01:36→20:37)
[2022-11-17] MEDS: ALBUTEROL SULFATE NEB 2.5 MG/3 ML INH INHALATION ×4 (01:36→20:37)
[2022-11-17] MEDS: CEFEPIME 2 GM/NS 50 ML 2 GM/50 ML BAG IVPB ×3 (02:00→17:50)
[2022-11-17] MEDS: metroNIDAZOLE 500 MG/ISO 100ML 500 MG/100 ML BAG 100 MG IVPB ×4 (02:31→19:32)
[2022-11-17 05:34] LABS: Hematocrit 38.8 % (42.0-52.0); Mean Corpuscular HGB Conc 30.9 g/dl (32-36); Mean Corpuscular Hemoglobin 29.6 pg (26-34); Mean Corpuscular Volume 95.8 fl (80-100); Mean Platelet Volume 10.6 fl (7.4-10.4); Platelet Count Result 267 k/mm3 (150-375); Red Blood Count 4.05 M/mm3 (4.6-6.20); Red Cell Distribution Width 16.2 % (11.5-14.5); White Blood Count 12.1 K/mm3 (4.5-10.0)
[2022-11-17 05:45] LABS: Alanine Aminotransferase 25 U/L (6-50); Albumin Level 2.6 g/dL (3.5-5.1); Alkaline Phosphatase 88 U/L (38-126); Anion Gap 3 mmol/L (8-16); Aspartate Amino Transferase 32 U/L (17-59); Blood Urea Nitrogen 19 mg/dL (9-20); Calcium 7.9 mg/dL (8.4-10.2); Carbon Dioxide 30 mmol/L (22-30); Chloride 103 mmol/L (98-107); Estimated CRCL calculation 86 ml/min; Estimated Glomerular Filt Rate > 60; Glucose 78 mg/dL (65-110); Magnesium 2.4 mg/dL (1.6-2.3); Potassium 3.5 mmol/L (3.4-5.0); Sodium 136 mmol/L (137-145)
[2022-11-17] MEDS: CENTRAL LINE FLUSH 10 ML IV PUSH ×3 (06:19→21:10)
[2022-11-17] MEDS: FLUTICASONE/UMECLIDIN/VILANTER 100-62.5-25 MCG ELLIPTA 1 PUFF INHALATION (07:57)
[2022-11-17] MEDS: ASPIRIN 81 MG CHEWABLE TABLET PO (08:02)
[2022-11-17] MEDS: buPROPion HCL SR (12 HR) 150 MG TAB PO ×2 (08:03→21:08)
[2022-11-17] MEDS: EMPAGLIFLOZIN 10 MG TABLET PO (08:03)
[2022-11-17] MEDS: POTASSIUM CHLORIDE 20 MEQ PACKET (FOR LIQUID) 40 MEQ PO (08:03)
[2022-11-17] MEDS: FUROSEMIDE INJ 40 MG/4 ML VIAL 20 MG IV PUSH (08:03)
[2022-11-17] MEDS: DABIGATRAN ETEXILATE 150 MG CAPSULE PO ×2 (08:03→21:08)
[2022-11-17] MEDS: ALPRAZolam (*CRX) 0.5 MG TABLET PO ×3 (08:04→21:29)
--- NOTE | 2022-11-17 08:41 | WPDINTPN ---
Progress Note: A&P Assessment and Plan (1) Acute respiratory failure: Code(s): J96.00 - Acute respiratory failure, unspecified whether with hypoxia or hypercapnia Status: Acute Assessment and Plan: Likely secondary to pneumonia with possible component of congestive heart failure, suspected undiagnosed COPD On presentation patient's BNP was 2930 -> 1210 Echo showed diastolic function dysfunction but no significant edema on exam legs and infiltrates are asymmetrical Patient presented with elevated WBC but procalcitonin level was low at 0.2 and he has been afebrile for the most part Pulmonology is following COVID and influenza PCR was negative Mycoplasma IgM is pending Pending legionella and pneumococcal antigen Blood cultures have been negative till now Continue cefepime and Levaquin. Vancomycin has been discontinued after MRSA screen was negative His chest x-ray shows symmetrical infiltrates with likely a component of atelectasis. He is too hypoxic for bronchoscopy at this time. Continue aggressive IS and I will order CPT q.6 hours Requested patient to lay on his left side Continue bronchodilators Patient is fairly hypoxic but not any significant respiratory distress at this time. Continue Airvo to maintain adequate saturation and NIPPV p.r.n. and at night Resume Lasix Will discuss with Pulmonary mortgage consultant (2) Pneumonia: Code(s): J18.9 - Pneumonia, unspecified organism Status: Acute Assessment and Plan: See above (3) CHF (congestive heart failure): Qualifiers: Heart failure chronicity: chronic Heart failure type: unspecified Qualified Code(s): I50.9 - Heart failure, unspecified Code(s): I50.9 - Heart failure, unspecified Status: Acute Assessment and Plan: Congestive heart failure Echocardiogram in 2020 showed ejection fraction of 23% with severe enlargement of her left ventricular cavity and global left ventricular systolic dysfunction. Echocardiogram done on this hospitalization showed EF of 55-60% and diastolic dysfunction He has been getting Lasix is fairly balanced on his intake and output Patient has been receiving Lasix and is fairly balanced on his intake and output. He has no significant edema on exam. Will resume Lasix as his blood pressures improved (4) Type 2 diabetes mellitus without complication: Code(s): E11.9 - Type 2 diabetes mellitus without complications Status: Acute Assessment and Plan: Continue sliding scale insulin (5) Obstructive sleep apnea: Code(s): G47.33 - Obstructive sleep apnea (adult) (pediatric) Status: Acute Assessment and Plan: BiPAP is ordered at night (6) Mixed hyperlipidemia: Code(s): E78.2 - Mixed hyperlipidemia Status: Acute Assessment and Plan: Continue statin (7) Atrial fibrillation: Qualifiers: Atrial fibrillation type: longstanding persistent Qualified Code(s): I48.11 - Longstanding persistent atrial fibrillation Code(s): I48.91 - Unspecified atrial fibrillation Status: Acute Assessment and Plan: Currently in paced rhythm. Hold beta-trace due to soft blood pressure He is anticoagulated with dabigatran (8) Electrolyte abnormality: Code(s): E87.8 - Other disorders of electrolyte and fluid balance, not elsewhere classified Status: Acute Assessment and Plan: Replace low potassium Plan DVT prophylaxis -Xarelto Nutrition -diabetic diet Code Status - Full Code. I had long discussion with patient. Although patient at this time is full code, he states he is not sure if he wants intubation mechanical ventilation. He will discuss with his children and let me know if he wants to change his code status Total Critical Care Time - 30 minutes Due to a high probability of clinically significant, life threatening deterioration, the patient required my highest level of preparedness to intervene emergently and
--- NOTE | 2022-11-17 11:31 | PCFNICU ---
ICU Rounding Note: Pt current nutrition is Pureed, level 4, Ensure compact BID. Nutrition recommendation: Increase Ensure to TID with all meals Last recorded weight is 109.8 kg. Bowel Motility: No BM recorded at this time Labs Reviewed: Hgb:12, HCT:38.8, Alb:2.6, NA:136, M.4 Meds Noted: jardiance, lasix, novolog Skin: no skin issues noted Additional Notes: Pt continues on a pureed diet, minimal intake per nursing but did drink the Ensure compact. Will increase to TID. Encourage intake of meals and supplements. Following daily in ICU rounds. Will monitor in ICU rounds. Reassessing every 3 days..
[2022-11-17 11:54] LABS: Glucose Point of Care 107 mg/dl (65-105)
--- NOTE | 2022-11-17 13:20 | PM.PNPUL ---
Progress Note: A&P Assessment and Plan (1) Acute on chronic respiratory failure with hypoxemia: Code(s): J96.21 - Acute and chronic respiratory failure with hypoxia Status: Acute Assessment and Plan: He required oxygen at discharge on July 09.? He has used it 2.5 L a minute since.? He has not had any outpatient testing. He has no diagnosis of COPD, takes no inhalers.? He smoked for 38 years, often 2 packs a day.? When he is well, at baseline, PFTs are indicated.? He would benefit from management of COPD as well as sleep apnea in order to prevent decompensated episodes of systolic congestive heart failure. He has asymmetric infiltrates with increased WBC and left shift, so treating as pneumonia is appropriate. He is on Cefepimee started 11/12, Levaquin 11/13, Flagyl 11/14 amd Vanco 11/13. Flagyl was for suspected aspiration. He likely has COPD although he is not diagnosed or treated. He is on albuterol and ipratropium nebulized now. Will need out pt PFT and O2 evaluation. Not able to wean. Added COPD controller medications, continue empiric treatment for pneumonia to cover typical pathogens seen on COPD patients. He has no sputum, nothing to test. He has been in the hospital twice in Jun and again November 11. Current O2 support is : AirVo 55 L/min FiO2 90%, higher, with little room to continue to titrate higher. (2) Pneumonia: Qualifiers: Laterality: right Pneumonia type: due to unspecified organism Code(s): J18.9 - Pneumonia, unspecified organism Status: Acute Assessment and Plan: He has diffuse infiltrate on right side with new involvement on the left base, negative Ur antigens, blood cultures, no sputum. His infiltrate is mostly right sided, and although he has CHF, the unilateral severity supports pneumonia on top of CHF, not CHF alone. Continue empiric Rx. (3) Obstructive sleep apnea: Code(s): G47.33 - Obstructive sleep apnea (adult) (pediatric) Status: Acute Assessment and Plan: Untreated. Needs to be addressed. Does not have elevated pCO2, so cannot get NPPV - will need out patient sleep study for treatment. Treating sleep may prevent decompensated episodes of CHF.? Can use PAP while he is here. A single pressure may be more effective than bilevel. Bilevel may cause more dyspnea and more hyperventilation Plan * he slept on left side last night; he is now able to get up in the chair, less dyspnea at this time. * CXR 11/17 is stable, ? Extensive right lung alveolar and interstitial disease with involvement of the left lung base is stable from prior exam. Small left pleural effusion. Pacemaker device and right-sided PICC line, unchanged. * Still on high levels O2, not able to wean O2. He wants intubation if required. * Continue current therapy. * discussed with Dr Peñaloza; I appreciate his assistance. Subjective Date/time seen: 11/17/22 13:20 Interval history: hospital follow up : Popeye Hernandez is a 72-year-old man with DM 2, systolic CHF, long history of tobacco, none since 2010, when he had a heart attack; chronic atrial fibrillation; 11/17/22 Sitting up in a chair, slept better last night. Daughter Fernanda is at the bedside with her . His saturation is 96% on the same AIrVo, stable, not worse. 11/16/22 Not a great day. Still on high levels of Airvo 55L/min and 90%. CXR shows worsening infiltrates mainly on the right side. It does not appear to be mucus plugging. HE is anxious, does not want to turn to let side to improve VQ matching until he can have a Xanax. No sputum. 7/4/23 he feels better, daughter Garima at bedside. O2 flow is higher 90%. He did not like the PAP last night, was too cold. He tolerated it for 3 hours, then took it off. He wants something that feels warmer. He i
[2022-11-17 15:39] LABS: Mycoplasma IgM Antibody Titer 81 U/mL (<770)
--- NOTE | 2022-11-17 17:47 | PM.IMPN ---
Progress Note: A&P Assessment and Plan (1) Acute on chronic respiratory failure with hypoxemia: Code(s): J96.21 - Acute and chronic respiratory failure with hypoxia Status: Acute (2) CHF (congestive heart failure): Qualifiers: Heart failure chronicity: chronic Heart failure type: unspecified Qualified Code(s): I50.9 - Heart failure, unspecified Code(s): I50.9 - Heart failure, unspecified Status: Acute (3) Type 2 diabetes mellitus without complication: Code(s): E11.9 - Type 2 diabetes mellitus without complications Status: Acute (4) Obstructive sleep apnea: Code(s): G47.33 - Obstructive sleep apnea (adult) (pediatric) Status: Acute (5) Mixed hyperlipidemia: Code(s): E78.2 - Mixed hyperlipidemia Status: Acute (6) Atrial fibrillation: Qualifiers: Atrial fibrillation type: longstanding persistent Qualified Code(s): I48.11 - Longstanding persistent atrial fibrillation Code(s): I48.91 - Unspecified atrial fibrillation Status: Acute (7) Pneumonia: Qualifiers: Laterality: right Pneumonia type: due to unspecified organism Code(s): J18.9 - Pneumonia, unspecified organism Status: Acute (8) Type 2 diabetes mellitus: Code(s): E11.9 - Type 2 diabetes mellitus without complications Status: Acute (9) Hypoxia: Code(s): R09.02 - Hypoxemia Status: Acute Plan Multifocal pneumonia ? Chest x-ray was read as diffuse lung disease on the right which could be pneumonia or asymmetric pulmonary edema.? CT chest reveled? diffuse interstitial and airspace opacities throughout the right lung and patchy nodular ground-glass opacities the left lung he is likely indicated pneumonia.? ?Started on broad-spectrum antibiotics with vancomycin cefepime.? Added Flagyl for anaerobic coverage is.? Acute on chronic diastolic heart failure Continue diuresis as tolerated with Lasix 40 mg IV b.i.d..? BNP is elevated at 2930.? Echo has been obtained and pending previous echo from 2020 with ejection fraction 39% severe enlarged on the left ventricular cavity with severe global left ventricular systolic dysfunction. recheck echo with ejection fraction 55-60% with no significant valvular abnormality.? ?Entresto spironolactone on hold.? Lasix lowered to 20 mg b.i.d..? Acute respiratory failure Likely secondary to pneumonia with possible component of congestive heart failure, suspected undiagnosed COPD On presentation patient's BNP was 2930, echo showed diastolic function dysfunction but no significant edema on exam legs and infiltrates are asymmetrical Patient presented with elevated WBC but procalcitonin level was low at 0.2 and he has been afebrile for the most part Pulmonology is following COVID and influenza PCR was negative Mycoplasma IgM is pending Check Legionella and pneumococcal antigen Blood cultures have been negative till now Continue cefepime and Levaquin.? Vancomycin has been discontinued Bronchodilators Patient has? respiratory distress at this time.? Continue Airvo to maintain adequate saturation and NIPPV p.r.n.. Transfer to ICU and monitor closely as patient may need intubation Hypertension Continue amlodipine 10 mg daily. Congestive heart failure Echocardiogram in 2020 showed ejection fraction of 23% with severe enlargement of her left ventricular cavity and global left ventricular systolic dysfunction.? Echocardiogram done on this hospitalization showed EF of 55-60% and diastolic dysfunction He has been getting Lasix is fairly balanced on his intake and output Patient has been receiving Lasix and is fairly balanced on his intake and output.? He has no edema on exam.? His blood pressures been soft and I will hold further diuretics at this time Type 2 diabetes mellitus without complications ?Status:?Acute ?Assessment and Plan: Continue sliding scale insulin - Obstructive sleep apnea (favian
[2022-11-17] MEDS: levoFLOXacin 750 MG/D5W 150 ML 750 MG/150 ML BAG 100 MG IVPB (17:53)
[2022-11-17] MEDS: ATORVASTATIN 40 MG TABLET 80 MG PO (21:08)
[2022-11-17] MEDS: TERAZOSIN HCL 5 MG CAPSULE PO (21:08)
[2022-11-17 21:45] LABS: Glucose Point of Care 103 mg/dl (65-105)
[2022-11-18] VITALS (28 sets, daily range): BP systolic 98–132; BP diastolic 64–91; PULSE 70–120; RESP 18–25; TEMP 36.6–36.9; O2SAT 86–99
[2022-11-18] MEDS: metroNIDAZOLE 500 MG/ISO 100ML 500 MG/100 ML BAG 100 MG IVPB ×4 (01:38→19:37)
[2022-11-18] MEDS: CEFEPIME 2 GM/NS 50 ML 2 GM/50 ML BAG IVPB ×3 (01:38→17:54)
[2022-11-18] MEDS: IPRATROPIUM BR 0.02% INH SOLN 0.5 MG/2.5 ML VIAL INHALATION ×4 (02:45→20:24)
[2022-11-18] MEDS: ALBUTEROL SULFATE NEB 2.5 MG/3 ML INH INHALATION ×4 (02:45→20:25)
[2022-11-18 04:41] LABS: Hematocrit 38.7 % (42.0-52.0); Hemoglobin 11.9 g/dL (14.0-18.0); Mean Corpuscular HGB Conc 30.7 g/dl (32-36); Mean Corpuscular Hemoglobin 29.2 pg (26-34); Mean Corpuscular Volume 95.1 fl (80-100); Mean Platelet Volume 10.5 fl (7.4-10.4); Platelet Count Result 257 k/mm3 (150-375); Red Blood Count 4.07 M/mm3 (4.6-6.20); Red Cell Distribution Width 16.1 % (11.5-14.5); White Blood Count 12.5 K/mm3 (4.5-10.0)
[2022-11-18 04:52] LABS: Alanine Aminotransferase 25 U/L (6-50); Albumin Level 2.7 g/dL (3.5-5.1); Alkaline Phosphatase 91 U/L (38-126); Anion Gap 2 mmol/L (8-16); Aspartate Amino Transferase 33 U/L (17-59); Bilirubin,Total 0.9 mg/dL (0.2-1.3); Blood Urea Nitrogen 16 mg/dL (9-20); Calcium 7.9 mg/dL (8.4-10.2); Carbon Dioxide 29 mmol/L (22-30); Chloride 103 mmol/L (98-107); Estimated CRCL calculation 86 ml/min; Estimated Glomerular Filt Rate > 60; Glucose 88 mg/dL (65-110); Magnesium 2.3 mg/dL (1.6-2.3); Potassium 3.4 mmol/L (3.4-5.0); Sodium 134 mmol/L (137-145)
[2022-11-18] MEDS: ALPRAZolam (*CRX) 0.5 MG TABLET PO ×3 (04:52→21:52)
[2022-11-18 06:05] LABS: Glucose Point of Care 91 mg/dl (65-105)
[2022-11-18] MEDS: CENTRAL LINE FLUSH 10 ML IV PUSH ×3 (06:07→20:56)
[2022-11-18] MEDS: FLUTICASONE/UMECLIDIN/VILANTER 100-62.5-25 MCG ELLIPTA 1 PUFF INHALATION (08:10)
[2022-11-18] MEDS: FUROSEMIDE INJ 40 MG/4 ML VIAL 20 MG IV PUSH (08:12)
[2022-11-18] MEDS: DABIGATRAN ETEXILATE 150 MG CAPSULE PO ×2 (09:10→20:56)
[2022-11-18] MEDS: buPROPion HCL SR (12 HR) 150 MG TAB PO ×2 (09:10→20:56)
[2022-11-18] MEDS: ASPIRIN 81 MG CHEWABLE TABLET PO (09:10)
[2022-11-18] MEDS: POTASSIUM CHLORIDE 20 MEQ ER TABLET 40 MEQ PO (09:10)
[2022-11-18] MEDS: EMPAGLIFLOZIN 10 MG TABLET PO (09:10)
[2022-11-18] MEDS: HYDROcodone/acetaminophen (*CRX) 5-325 MG TABLET 1 TAB PO (09:39)
[2022-11-18 11:38] LABS: Glucose Point of Care 121 mg/dl (65-105)
--- NOTE | 2022-11-18 12:08 | WPDINTPN ---
Progress Note: A&P Assessment and Plan (1) Acute respiratory failure: Code(s): J96.00 - Acute respiratory failure, unspecified whether with hypoxia or hypercapnia Status: Acute Assessment and Plan: Likely secondary to pneumonia with possible component of congestive heart failure, suspected undiagnosed COPD On presentation patient's BNP was 2930 -> 1210 -11/12 Echo showed EF of 55-60%, diastolic function dysfunction, left atrial chamber dimension is severely enlarged, mild tricuspid valve regurg, no pulmonary hypertension, trace mitral valve regurg. Patient presented with elevated WBC but procalcitonin level was low at 0.2 and he has been afebrile for the most part Pulmonology is following COVID and influenza PCR was negative Mycoplasma IgM is within normal limits Pending legionella and pneumococcal antigen pending -Blood cultures and MRSA screen are negative -Continue cefepime and Levaquin (11/12) -Vancomycin has been discontinued after MRSA screen was negative -His chest x-ray shows asymmetrical infiltrates with likely a component of atelectasis. -He is too hypoxic for bronchoscopy at this time. -Continue aggressive IS and CPT q.6 hours -Requested patient to lay on his left side -Continue bronchodilators Patient is fairly hypoxic but not any significant respiratory distress at this time. Continue Airvo to maintain adequate saturation and NIPPV p.r.n. and at night Continue Lasix (2) Pneumonia: Qualifiers: Laterality: right Pneumonia type: due to unspecified organism Code(s): J18.9 - Pneumonia, unspecified organism Status: Acute Assessment and Plan: See above (3) CHF (congestive heart failure): Qualifiers: Heart failure chronicity: chronic Heart failure type: unspecified Qualified Code(s): I50.9 - Heart failure, unspecified Code(s): I50.9 - Heart failure, unspecified Status: Acute Assessment and Plan: Congestive heart failure Echocardiogram in 2020 showed ejection fraction of 23% with severe enlargement of her left ventricular cavity and global left ventricular systolic dysfunction. 11/12: Echocardiogram done on this hospitalization showed EF of 55-60% and diastolic dysfunction He has been getting Lasix is fairly balanced on his intake and output Patient has been receiving Lasix and is fairly balanced on his intake and output. He has no significant edema on exam. Continue diuresis (4) Type 2 diabetes mellitus without complication: Code(s): E11.9 - Type 2 diabetes mellitus without complications Status: Acute Assessment and Plan: Continue sliding scale insulin (5) Obstructive sleep apnea: Code(s): G47.33 - Obstructive sleep apnea (adult) (pediatric) Status: Acute Assessment and Plan: BiPAP is ordered at night (6) Mixed hyperlipidemia: Code(s): E78.2 - Mixed hyperlipidemia Status: Acute Assessment and Plan: Continue statin (7) Atrial fibrillation: Qualifiers: Atrial fibrillation type: longstanding persistent Qualified Code(s): I48.11 - Longstanding persistent atrial fibrillation Code(s): I48.91 - Unspecified atrial fibrillation Status: Acute Assessment and Plan: Currently in paced rhythm. Hold beta-trace due to soft blood pressure He is anticoagulated with dabigatran (8) Electrolyte abnormality: Code(s): E87.8 - Other disorders of electrolyte and fluid balance, not elsewhere classified Status: Acute Assessment and Plan: Replace low potassium Plan DVT prophylaxis -Xarelto Nutrition -diabetic diet Code Status - Full Code. Total Critical Care Time - 32 minutes 11/18: D/w and updated him about his condition and plan of care. He is aware that his CXR has not improved much since admission despite being on antibiotics. I discussed with him regarding intubation if needed, he stated that he would be okay but only for 4 days a
--- NOTE | 2022-11-18 13:17 | PCNFU ---
Nutrition Follow-Up Complete: Inadequate Oral Intake as related to CHF/pneumonia as evidenced by poor po intake reported. Adequate Intake of at least 75% of meals/supplements - Not meeting goal Goal: Pt current nutrition is Puree diet. Intakes are poor, refused dinner last night, breakfst and lunch today. Does not like Puree. Drinking Ensure Compact (220 kcal, 9 g protein). Nutrition recommendation: Modify Ensure Compact from BID to TID. Re-evaluate swallow and advance diet if possible as patient is not eating any puree. Last recorded weight is 112.1 kg. Bowel Motility: No bowel movements recorded Labs Reviewed: Hgb 11.9, Hct 38.7, Alb 2.7, Na 134, Glu 121 Meds Noted: Jardiance, Lasix, novolog Skin: WNL Additional Notes: Swallow is being re-evaluated so patient can be advanced past puree. Appetite is poor. Will monitor in ICU rounds. Reassessing every 3 days.
--- NOTE | 2022-11-18 13:25 | PM.IMPN ---
Progress Note: A&P Assessment and Plan (1) Acute respiratory failure: Code(s): J96.00 - Acute respiratory failure, unspecified whether with hypoxia or hypercapnia Status: Acute (2) Pneumonia: Qualifiers: Laterality: right Pneumonia type: due to unspecified organism Code(s): J18.9 - Pneumonia, unspecified organism Status: Acute (3) CHF (congestive heart failure): Qualifiers: Heart failure chronicity: chronic Heart failure type: unspecified Qualified Code(s): I50.9 - Heart failure, unspecified Code(s): I50.9 - Heart failure, unspecified Status: Acute (4) Type 2 diabetes mellitus without complication: Code(s): E11.9 - Type 2 diabetes mellitus without complications Status: Acute (5) Obstructive sleep apnea: Code(s): G47.33 - Obstructive sleep apnea (adult) (pediatric) Status: Acute (6) Mixed hyperlipidemia: Code(s): E78.2 - Mixed hyperlipidemia Status: Acute (7) Atrial fibrillation: Qualifiers: Atrial fibrillation type: longstanding persistent Qualified Code(s): I48.11 - Longstanding persistent atrial fibrillation Code(s): I48.91 - Unspecified atrial fibrillation Status: Acute (8) Electrolyte abnormality: Code(s): E87.8 - Other disorders of electrolyte and fluid balance, not elsewhere classified Status: Acute Plan Multifocal pneumonia ? Chest x-ray was read as diffuse lung disease on the right which could be pneumonia or asymmetric pulmonary edema.? CT chest reveled? diffuse interstitial and airspace opacities throughout the right lung and patchy nodular ground-glass opacities the left lung he is likely indicated pneumonia.? ?Started on broad-spectrum antibiotics with vancomycin cefepime.? Added Flagyl for anaerobic coverage is.? Acute on chronic diastolic heart failure Continue diuresis as tolerated with Lasix 40 mg IV b.i.d..? BNP is elevated at 2930.? Echo has been obtained and pending previous echo from 2020 with ejection fraction 39% severe enlarged on the left ventricular cavity with severe global left ventricular systolic dysfunction. recheck echo with ejection fraction 55-60% with no significant valvular abnormality.? ?Entresto spironolactone on hold.? Lasix lowered to 20 mg b.i.d..? Acute respiratory failure Likely secondary to pneumonia with possible component of congestive heart failure, suspected undiagnosed COPD On presentation patient's BNP was 2930, echo showed diastolic function dysfunction but no significant edema on exam legs and infiltrates are asymmetrical Patient presented with elevated WBC but procalcitonin level was low at 0.2 and he has been afebrile for the most part Pulmonology is following COVID and influenza PCR was negative Mycoplasma IgM is pending Check Legionella and pneumococcal antigen Blood cultures have been negative till now Continue cefepime and Levaquin.? Vancomycin has been discontinued Bronchodilators Patient has? respiratory distress at this time.? Continue Airvo to maintain adequate saturation and NIPPV p.r.n.. Transfer to ICU and monitor closely as patient may need intubation Hypertension Continue amlodipine 10 mg daily. Congestive heart failure Echocardiogram in 2020 showed ejection fraction of 23% with severe enlargement of her left ventricular cavity and global left ventricular systolic dysfunction.? Echocardiogram done on this hospitalization showed EF of 55-60% and diastolic dysfunction He has been getting Lasix is fairly balanced on his intake and output Patient has been receiving Lasix and is fairly balanced on his intake and output.? He has no edema on exam.? His blood pressures been soft and I will hold further diuretics at this time ?Type 2 diabetes mellitus without complications ?Status:?Acute ?Assessment and Plan: Continue sliding scale insulin - Obstructive sleep apnea (adult) (pediatric) ?Status:?Acute ?Asses
--- NOTE | 2022-11-18 16:58 | PM.PNPUL ---
Progress Note: A&P Assessment and Plan (1) Acute on chronic respiratory failure with hypoxemia: Code(s): J96.21 - Acute and chronic respiratory failure with hypoxia Status: Acute Assessment and Plan: He required oxygen at discharge on July 09.? He has used it 2.5 L a minute since.? He has not had any outpatient testing. He has no diagnosis of COPD, takes no inhalers.? He smoked for 38 years, often 2 packs a day.? When he is well, at baseline, PFTs are indicated.? He would benefit from management of COPD as well as sleep apnea in order to prevent decompensated episodes of systolic congestive heart failure. He has asymmetric infiltrates with increased WBC and left shift, so treating as pneumonia is appropriate. He is on Cefepimee started 11/12, Levaquin 11/13, Flagyl 11/14 amd Vanco 11/13. Flagyl was for suspected aspiration. He likely has COPD although he is not diagnosed or treated. He is on albuterol and ipratropium nebulized now. Will need out pt PFT and O2 evaluation. Weaning a little. Continue COPD controller medications, continue empiric treatment for pneumonia to cover typical pathogens seen on COPD patients. He has no sputum, nothing to test. He has been in the hospital twice in Jun and again November 11. Current O2 support is : AirVo 55 L/min FiO2 75%, better. (2) Pneumonia: Qualifiers: Laterality: right Pneumonia type: due to unspecified organism Code(s): J18.9 - Pneumonia, unspecified organism Status: Acute Assessment and Plan: He has diffuse infiltrate on right side with new involvement on the left base, negative Ur antigens, blood cultures, no sputum. His infiltrate is mostly right sided, and although he has CHF, the unilateral severity supports pneumonia on top of CHF, not CHF alone. Continue empiric Rx. (3) Obstructive sleep apnea: Code(s): G47.33 - Obstructive sleep apnea (adult) (pediatric) Status: Acute Assessment and Plan: Untreated. Needs to be addressed. Does not have elevated pCO2, so cannot get NPPV - will need out patient sleep study for treatment. Treating sleep may prevent decompensated episodes of CHF.? Can use PAP while he is here. A single pressure may be more effective than bilevel. Bilevel may cause more dyspnea and more hyperventilation Plan * appreciate Intensivists' help; lower O2 need, better. * CXR 11/18 is still ugly; Extensive right lung alveolar and interstitial disease with involvement of the left lung base is stable from prior exam. Small left pleural effusion. Pacemaker device and right-sided PICC line, unchanged. * He wants intubation if required. * Continue current therapy. Subjective Date/time seen: 11/18/22 16:58 Interval history: hospital follow up : Popeye Hernandez is a 72-year-old man with DM 2, systolic CHF, long history of tobacco, none since 2010, when he had a heart attack; chronic atrial fibrillation; 11/18/22 O2 need lower; family at bedside. Maryan and Aunt Pat. He is better, lower O2 needs 75%. He does not like vibratory vest, nocturnal PAP; he is stresssed about his step-children calling to say that his is not doing well in the NH. CXR extensive right lung consolidation with left lower lobe consolidation. Findings there is extensive bilateral pneumonia. Stable small left pleural effusion. 11/17/22 Sitting up in a chair, slept better last night. Daughter Fernanda is at the bedside with her . His saturation is 96% on the same AIrVo, stable, not worse. 11/16/22? Not a great day. Still on high levels of Airvo 55L/min and 90%. CXR shows worsening infiltrates mainly on the right side. It does not appear to be mucus plugging. HE is anxious, does not want to turn to let side to improve VQ matching until he can have a Xanax. No sp
[2022-11-18] MEDS: levoFLOXacin 750 MG/D5W 150 ML 750 MG/150 ML BAG 100 MG IVPB (17:55)
[2022-11-18] MEDS: TERAZOSIN HCL 5 MG CAPSULE PO (20:56)
[2022-11-18] MEDS: ATORVASTATIN 40 MG TABLET 80 MG PO (20:56)
[2022-11-18 21:13] LABS: Pneumococcal Antigen Urine Not Detected (Not Detected)
[2022-11-18 21:22] LABS: Glucose Point of Care 87 mg/dl (65-105)
[2022-11-19] VITALS (26 sets, daily range): BP systolic 111–141; BP diastolic 64–86; PULSE 70–120; RESP 18–27; TEMP 36.5–37.1; O2SAT 86–97
[2022-11-19] MEDS: ALBUTEROL SULFATE NEB 2.5 MG/3 ML INH INHALATION ×4 (01:51→20:40)
[2022-11-19] MEDS: IPRATROPIUM BR 0.02% INH SOLN 0.5 MG/2.5 ML VIAL INHALATION ×4 (01:51→20:40)
[2022-11-19] MEDS: CEFEPIME 2 GM/NS 50 ML 2 GM/50 ML BAG IVPB ×3 (02:31→17:08)
[2022-11-19] MEDS: metroNIDAZOLE 500 MG/ISO 100ML 500 MG/100 ML BAG 100 MG IVPB ×4 (02:31→19:43)
[2022-11-19 04:30] LABS: Hematocrit 38.4 % (42.0-52.0); Hemoglobin 11.9 g/dL (14.0-18.0); Mean Corpuscular Hemoglobin 29.3 pg (26-34); Mean Corpuscular Volume 94.6 fl (80-100); Mean Platelet Volume 10.6 fl (7.4-10.4); Platelet Count Result 257 k/mm3 (150-375); Red Blood Count 4.06 M/mm3 (4.6-6.20); Red Cell Distribution Width 15.9 % (11.5-14.5); White Blood Count 10.9 K/mm3 (4.5-10.0)
[2022-11-19 04:40] LABS: Alanine Aminotransferase 23 U/L (6-50); Albumin Level 2.8 g/dL (3.5-5.1); Alkaline Phosphatase 91 U/L (38-126); Anion Gap 3 mmol/L (8-16); Aspartate Amino Transferase 36 U/L (17-59); Bilirubin,Total 0.9 mg/dL (0.2-1.3); Blood Urea Nitrogen 13 mg/dL (9-20); Calcium 7.9 mg/dL (8.4-10.2); Carbon Dioxide 26 mmol/L (22-30); Chloride 104 mmol/L (98-107); Estimated CRCL calculation 98 ml/min; Estimated Glomerular Filt Rate > 60; Glucose 92 mg/dL (65-110); Magnesium 2.2 mg/dL (1.6-2.3); Phosphorus 2.7 mg/dL (2.5-4.5); Potassium 3.4 mmol/L (3.4-5.0); Sodium 133 mmol/L (137-145)
[2022-11-19] MEDS: CENTRAL LINE FLUSH 10 ML IV PUSH ×3 (06:34→21:01)
[2022-11-19] MEDS: FLUTICASONE/UMECLIDIN/VILANTER 100-62.5-25 MCG ELLIPTA 1 PUFF INHALATION (08:15)
[2022-11-19] MEDS: POTASSIUM CHLORIDE 20 MEQ PACKET (FOR LIQUID) 40 MEQ FEED TUBE ×2 (08:23→17:08)
[2022-11-19] MEDS: FUROSEMIDE INJ 40 MG/4 ML VIAL 20 MG IV PUSH (09:00)
[2022-11-19] MEDS: ASPIRIN 81 MG CHEWABLE TABLET PO (09:00)
[2022-11-19] MEDS: EMPAGLIFLOZIN 10 MG TABLET PO (09:08)
[2022-11-19] MEDS: buPROPion HCL SR (12 HR) 150 MG TAB PO ×2 (09:08→21:01)
[2022-11-19] MEDS: DABIGATRAN ETEXILATE 150 MG CAPSULE PO ×2 (09:08→21:01)
--- NOTE | 2022-11-19 09:37 | WPDINTPN ---
Progress Note: A&P Assessment and Plan (1) Acute respiratory failure: Code(s): J96.00 - Acute respiratory failure, unspecified whether with hypoxia or hypercapnia Status: Acute Assessment and Plan: Likely secondary to pneumonia with possible component of congestive heart failure, suspected undiagnosed COPD On presentation patient's BNP was 2930 -> 1210 -11/12 Echo showed EF of 55-60%, diastolic function dysfunction, left atrial chamber dimension is severely enlarged, mild tricuspid valve regurg, no pulmonary hypertension, trace mitral valve regurg. Patient presented with elevated WBC but procalcitonin level was low at 0.2 and he has been afebrile for the most part Pulmonology is following COVID and influenza PCR was negative Mycoplasma IgM is within normal limits -urine pneumococcal antigen is not detected -urine Legionella antigen is pending -Blood cultures and MRSA screen are negative -Continue cefepime and Levaquin (11/12) -Vancomycin has been discontinued after MRSA screen was negative - -He is too hypoxic for bronchoscopy at this time. -Continue aggressive IS and CPT q.6 hours -Requested patient to lay on his left side -Continue bronchodilators -chest x-ray this morning:Stable diffuse lung disease,likely a combination of pneumonia, pulmonary edema, and chronic lung disease. Cardiomegaly. Patient is fairly hypoxic but not any significant respiratory distress at this time. Continue Airvo to maintain adequate saturation and NIPPV p.r.n. and at night Continue Lasix 11/12 CT chest: . Diffuse interstitial and airspace opacities throughout the right lung and patchy nodular groundglass opacities of the left lung, likely pneumonia. Radiographic or CT follow-up to resolution is recommended. If persistent, bronchoscopy would be recommended.. Right paratracheal lymphadenopathy, likely reactive. (2) Pneumonia: Qualifiers: Laterality: right Pneumonia type: due to unspecified organism Code(s): J18.9 - Pneumonia, unspecified organism Status: Acute Assessment and Plan: See above (3) CHF (congestive heart failure): Qualifiers: Heart failure chronicity: chronic Heart failure type: unspecified Qualified Code(s): I50.9 - Heart failure, unspecified Code(s): I50.9 - Heart failure, unspecified Status: Acute Assessment and Plan: Congestive heart failure Echocardiogram in 2020 showed ejection fraction of 23% with severe enlargement of her left ventricular cavity and global left ventricular systolic dysfunction. 11/12: Echocardiogram done on this hospitalization showed EF of 55-60% and diastolic dysfunction Continue diuresis, patient is fairly balanced on his intake and output (4) Type 2 diabetes mellitus without complication: Code(s): E11.9 - Type 2 diabetes mellitus without complications Status: Acute Assessment and Plan: Continue sliding scale insulin (5) Obstructive sleep apnea: Code(s): G47.33 - Obstructive sleep apnea (adult) (pediatric) Status: Acute Assessment and Plan: BiPAP is ordered at night (6) Mixed hyperlipidemia: Code(s): E78.2 - Mixed hyperlipidemia Status: Acute Assessment and Plan: Continue statin (7) Atrial fibrillation: Qualifiers: Atrial fibrillation type: longstanding persistent Qualified Code(s): I48.11 - Longstanding persistent atrial fibrillation Code(s): I48.91 - Unspecified atrial fibrillation Status: Acute Assessment and Plan: Currently in paced rhythm. Hold beta-trace due to soft blood pressure He is anticoagulated with dabigatran (8) Electrolyte abnormality: Code(s): E87.8 - Other disorders of electrolyte and fluid balance, not elsewhere classified Status: Acute Assessment and Plan: Hypokalemia, likely related to diuresis, -ordered potassium replacement b.i.d. today Plan DVT prophylaxis -Xarelto Nutrition -
[2022-11-19 09:39] LABS: Glucose Point of Care 94 mg/dl (65-105)
[2022-11-19] MEDS: ALPRAZolam (*CRX) 0.5 MG TABLET PO ×3 (09:41→22:40)
--- NOTE | 2022-11-19 11:01 | PC.NURSE ---
Spoke with RT at 1054.Pat
--- NOTE | 2022-11-19 11:01 | PC.NURSE ---
Spoke with RT at 1054. Patient placed on Vapotherm by RT per orders at 1052 at 40L and 75% FiO2, patients SpO2 noted to be 91%.
[2022-11-19 13:18] LABS: Glucose Point of Care 117 mg/dl (65-105)
--- NOTE | 2022-11-19 13:42 | PM.IMPN ---
Progress Note: A&P Assessment and Plan (1) Acute respiratory failure: Code(s): J96.00 - Acute respiratory failure, unspecified whether with hypoxia or hypercapnia Status: Acute Plan Multifocal pneumonia ? Chest x-ray was read as diffuse lung disease on the right which could be pneumonia or asymmetric pulmonary edema.? CT chest reveled? diffuse interstitial and airspace opacities throughout the right lung and patchy nodular ground-glass opacities the left lung he is likely indicated pneumonia.? ?Started on broad-spectrum antibiotics with vancomycin cefepime.? Added Flagyl for anaerobic coverage is.? Minimal improvement of pneumonia on antibiotics Patient declines bronchoscopy study because of concern of intubation Repeat CT scan 11/19 Acute on chronic diastolic heart failure Continue diuresis as tolerated with Lasix 40 mg IV b.i.d..? BNP is elevated at 2930.? Echo has been obtained and pending previous echo from 2020 with ejection fraction 39% severe enlarged on the left ventricular cavity with severe global left ventricular systolic dysfunction. recheck echo with ejection fraction 55-60% with no significant valvular abnormality.? Entresto spironolactone on hold.? Lasix lowered to 20 mg b.i.d..? Acute respiratory failure Likely secondary to pneumonia with possible component of congestive heart failure, suspected undiagnosed COPD On presentation patient's BNP was 2930, echo showed diastolic function dysfunction but no significant edema on exam legs and infiltrates are asymmetrical Patient presented with elevated WBC but procalcitonin level was low at 0.2 and he has been afebrile for the most part Pulmonology is following COVID and influenza PCR was negative Mycoplasma IgM is pending Check Legionella and pneumococcal antigen Blood cultures have been negative till now Continue cefepime and Levaquin.? Vancomycin has been discontinued Bronchodilators Patient has? respiratory distress at this time.? Continue Airvo to maintain adequate saturation and NIPPV p.r.n.. Hypertension hold amlodipine 10 mg daily. Blood pressure soft ?Type 2 diabetes mellitus without complications ? ?Continue sliding scale insulin and Jardiance p.o. - Obstructive sleep apnea (adult) (pediatric) ?Status:?Acute ?Assessment and Plan: BiPAP is ordered at night ?Mixed hyperlipidemia ?Status:?Acute ?Assessment and Plan: Continue statin ?Atrial fibrillation type:?longstanding persistent? Currently in paced rhythm.? Hold beta-trace due to soft blood pressure He is anticoagulated with dabigatran Subjective Date/time seen: 11/19/22 13:42 Interval history: I some time patient was here, patient has no issue we went over the night, on CPAP/BiPAP overnight and back on Airvo this morning. , afebrile. WBC count trending down. Repeat CTA of the chest per small lot operator Exam Narrative: General: Pt is alert awake and in NAD Lungs/Chest: Trachea central breath sounds are clear on the left side, he has crackles on the right side. No tachypnea and no increased work of breathing. Normal speech and patient is able to speak in full sentences Cardiac: RRR. Normal S1 S2. No murmurs Circulation: Pedal pulses are intact and symmetrical. Abdomen: Normal bowel sounds. Soft. NT. ND. Extremities: No clubbing, cyanosis Warm. No edema, palpable pedal pulses : Nunez in place Neurologic: Follows commands. Moves all 4 extremities PERRL AO x3 Skin: No Rash Objective Data Vital Signs Vital Signs: Vital Signs - 24 hr 11/18/22 14:00 11/18/22 14:00 11/18/22 16:00 Temperature Pulse Rate 70 70 72 Respiratory Rate 20 Blood Pressure 105/82 Pulse Oximetry 98 Oxygen Delivery Oxygen Flow Rate Fraction of Inspired Oxygen 11/18/22 16:00 11/18/22 16:00 11/18/22 17:51 Temperature 98 F Pulse Rate 72 72 72 Respiratory Rate 20 20 22 H Blood Pressure 98/72 L Pulse Oximetry 96 96 93 Oxygen Delivery Hi
[2022-11-19] MEDS: methylPREDNISolone SOD SUCC 125 MG VIAL 60 MG IV PUSH ×3 (14:00→23:28)
[2022-11-19] MEDS: levoFLOXacin 750 MG/D5W 150 ML 750 MG/150 ML BAG 100 MG IVPB (17:23)
[2022-11-19 18:18] LABS: Glucose Point of Care 111 mg/dl (65-105)
[2022-11-19] MEDS: TERAZOSIN HCL 5 MG CAPSULE PO (21:00)
[2022-11-19] MEDS: ATORVASTATIN 40 MG TABLET 80 MG PO (21:00)
[2022-11-19] MEDS: SENNA/DOCUSATE SODIUM TABLET 1 TAB PO (21:00)
[2022-11-19 21:10] LABS: Glucose Point of Care 155 mg/dl (65-105)
[2022-11-19 23:51] LABS: Legionella pneumophila Ag Ur Not Detected (Not Detected)
[2022-11-20] VITALS (61 sets, daily range): BP systolic 102–153; BP diastolic 53–108; PULSE 69–93; RESP 15–30; TEMP 36.4–36.6; O2SAT 86–98
[2022-11-20] MEDS: CEFEPIME 2 GM/NS 50 ML 2 GM/50 ML BAG IVPB ×3 (01:51→17:45)
[2022-11-20] MEDS: metroNIDAZOLE 500 MG/ISO 100ML 500 MG/100 ML BAG 100 MG IVPB ×4 (01:52→19:32)
[2022-11-20] MEDS: IPRATROPIUM BR 0.02% INH SOLN 0.5 MG/2.5 ML VIAL INHALATION ×3 (02:05→13:37)
[2022-11-20] MEDS: ALBUTEROL SULFATE NEB 2.5 MG/3 ML INH INHALATION ×3 (02:05→13:36)
[2022-11-20 04:34] LABS: Hematocrit 40.9 % (42.0-52.0); Hemoglobin 12.5 g/dL (14.0-18.0); Mean Corpuscular HGB Conc 30.6 g/dl (32-36); Mean Corpuscular Volume 94.9 fl (80-100); Mean Platelet Volume 10.8 fl (7.4-10.4); Platelet Count Result 261 k/mm3 (150-375); Red Blood Count 4.31 M/mm3 (4.6-6.20); White Blood Count 11.7 K/mm3 (4.5-10.0)
[2022-11-20 04:51] LABS: Alanine Aminotransferase 25 U/L (6-50); Albumin Level 3.1 g/dL (3.5-5.1); Alkaline Phosphatase 109 U/L (38-126); Anion Gap 5 mmol/L (8-16); Aspartate Amino Transferase 36 U/L (17-59); Bilirubin,Total 0.7 mg/dL (0.2-1.3); Blood Urea Nitrogen 14 mg/dL (9-20); Calcium 8.5 mg/dL (8.4-10.2); Carbon Dioxide 25 mmol/L (22-30); Chloride 104 mmol/L (98-107); Estimated CRCL calculation 77 ml/min; Estimated Glomerular Filt Rate > 60; Glucose 139 mg/dL (65-110); Magnesium 2.3 mg/dL (1.6-2.3); Phosphorus 3.2 mg/dL (2.5-4.5); Potassium 4.3 mmol/L (3.4-5.0); Sodium 134 mmol/L (137-145)
[2022-11-20] MEDS: methylPREDNISolone SOD SUCC 125 MG VIAL 60 MG IV PUSH ×3 (06:05→17:46)
[2022-11-20] MEDS: CENTRAL LINE FLUSH 10 ML IV PUSH ×2 (06:05→14:03)
[2022-11-20] MEDS: FUROSEMIDE INJ 40 MG/4 ML VIAL IV PUSH (06:30)
[2022-11-20 07:47] LABS: Alveolar/Arterial O2 Gradient 619.2 mmHg; Base Excess ABG 0.4 mEq/l (+/-2.0); Fractional Inspired Oxygen 100 %; HCO3 ABG 24.3 mEq/l (22.0-26.0); Oxygen Content ABG 17.5 %vol (16.0-22.0); Oxygen Saturation ABG 90.8 % (95.0-100.0); Oxyhemoglobin 88.8 % THb (90.0-100.0); PCO2 ABG 36.7 mmHg (35.0-45.0); PO2 ABG 57.1 mmHg (80.0-100.0); PO2 FiO2 Ratio Arterial Blood 0.57 %; pH ABG 7.438 (7.350-7.450)
[2022-11-20 07:48] LABS: Modified Allen's Test Pass; Site Drawn LEFT RADIAL
[2022-11-20 07:49] LABS: Device NON-INVASIVE VENT
[2022-11-20 07:50] LABS: Non-Invasive Expiratory Pressure 10 CMH2O
[2022-11-20] MEDS: FLUTICASONE/UMECLIDIN/VILANTER 100-62.5-25 MCG ELLIPTA 1 PUFF INHALATION (08:15)
[2022-11-20 08:36] LABS: Glucose Point of Care 141 mg/dl (65-105)
[2022-11-20] MEDS: polyethylene glycoL 3350 17 GM POWD.PACK PO (09:08)
[2022-11-20] MEDS: ASPIRIN 81 MG CHEWABLE TABLET PO (09:09)
[2022-11-20] MEDS: EMPAGLIFLOZIN 10 MG TABLET PO (09:09)
[2022-11-20] MEDS: buPROPion HCL SR (12 HR) 150 MG TAB PO (09:09)
[2022-11-20] MEDS: DABIGATRAN ETEXILATE 150 MG CAPSULE PO (09:09)
--- NOTE | 2022-11-20 09:24 | WPDINTPN ---
Progress Note: A&P Assessment and Plan (1) Acute respiratory failure: Code(s): J96.00 - Acute respiratory failure, unspecified whether with hypoxia or hypercapnia Status: Acute Assessment and Plan: Likely secondary to pneumonia with possible component of congestive heart failure, suspected undiagnosed COPD On presentation patient's BNP was 2930 -> 1210 -11/12 Echo showed EF of 55-60%, diastolic function dysfunction, left atrial chamber dimension is severely enlarged, mild tricuspid valve regurg, no pulmonary hypertension, trace mitral valve regurg. Patient presented with elevated WBC but procalcitonin level was low at 0.2 and he has been afebrile for the most part Pulmonology is following COVID and influenza PCR was negative Mycoplasma IgM is within normal limits -urine pneumococcal antigen is not detected -urine Legionella antigen is pending -Blood cultures and MRSA screen are negative -Continue cefepime and Levaquin (11/12) -Vancomycin has been discontinued after MRSA screen was negative - -He is too hypoxic for bronchoscopy at this time. -Continue aggressive IS and CPT q.6 hours -Requested patient to lay on his left side -Continue bronchodilators -chest x-ray this morning:Stable diffuse lung disease,likely a combination of pneumonia, pulmonary edema, and chronic lung disease. Cardiomegaly. Patient is fairly hypoxic but not any significant respiratory distress at this time. Continue Vapotherm to maintain adequate saturation and NIPPV p.r.n. and at night Continue Lasix -discussed at length with Dr. Parekh, given the worsening CT chest and diffuse alveolar damage, will start Solu-Medrol 11/19/2022: CT chest without contrast: Worsened diffuse lung disease, right worse than left, likely a combination of pneumonia, pulmonary edema, and diffuse alveolar damage.. Worsened small pleural effusions, right worse than left. . Mediastinal lymphadenopathy, worsened from 12/01/2020. The differential diagnosis includes metastatic disease, lymphoma, and reactive lymphadenopathy. 11/12 CT chest: . Diffuse interstitial and airspace opacities throughout the right lung and patchy nodular groundglass opacities of the left lung, likely pneumonia. Radiographic or CT follow-up to resolution is recommended. If persistent, bronchoscopy would be recommended.. Right paratracheal lymphadenopathy, likely reactive. (2) Pneumonia: Qualifiers: Laterality: right Pneumonia type: due to unspecified organism Code(s): J18.9 - Pneumonia, unspecified organism Status: Acute Assessment and Plan: See above (3) CHF (congestive heart failure): Qualifiers: Heart failure chronicity: chronic Heart failure type: unspecified Qualified Code(s): I50.9 - Heart failure, unspecified Code(s): I50.9 - Heart failure, unspecified Status: Acute Assessment and Plan: Congestive heart failure Echocardiogram in 2020 showed ejection fraction of 23% with severe enlargement of her left ventricular cavity and global left ventricular systolic dysfunction. 11/12: Echocardiogram done on this hospitalization showed EF of 55-60% and diastolic dysfunction Continue diuresis, patient is fairly balanced on his intake and output (4) Type 2 diabetes mellitus without complication: Code(s): E11.9 - Type 2 diabetes mellitus without complications Status: Acute Assessment and Plan: Continue sliding scale insulin (5) Obstructive sleep apnea: Code(s): G47.33 - Obstructive sleep apnea (adult) (pediatric) Status: Acute Assessment and Plan: BiPAP is ordered at night (6) Mixed hyperlipidemia: Code(s): E78.2 - Mixed hyperlipidemia Status: Acute Assessment and Plan: Continue statin (7) Atrial fibrillation: Qualifiers: Atrial fibrillation type: longstanding persistent Qualified Code(s): I48.11 - Longstanding persistent atrial fibrillation Code(s): I48.
[2022-11-20] MEDS: ALPRAZolam (*CRX) 0.5 MG TABLET PO ×2 (09:50→20:13)
[2022-11-20 11:36] LABS: Glucose Point of Care 138 mg/dl (65-105)
--- NOTE | 2022-11-20 16:22 | PM.IMPN ---
Progress Note: A&P Assessment and Plan (1) Acute respiratory failure: Code(s): J96.00 - Acute respiratory failure, unspecified whether with hypoxia or hypercapnia Status: Acute (2) Pneumonia: Qualifiers: Laterality: right Pneumonia type: due to unspecified organism Code(s): J18.9 - Pneumonia, unspecified organism Status: Acute Assessment and Plan: See above (3) CHF (congestive heart failure): Qualifiers: Heart failure chronicity: chronic Heart failure type: unspecified Qualified Code(s): I50.9 - Heart failure, unspecified Code(s): I50.9 - Heart failure, unspecified Status: Acute (4) Type 2 diabetes mellitus without complication: Code(s): E11.9 - Type 2 diabetes mellitus without complications Status: Acute (5) Obstructive sleep apnea: Code(s): G47.33 - Obstructive sleep apnea (adult) (pediatric) Status: Acute (6) Mixed hyperlipidemia: Code(s): E78.2 - Mixed hyperlipidemia Status: Acute (7) Atrial fibrillation: Qualifiers: Atrial fibrillation type: longstanding persistent Qualified Code(s): I48.11 - Longstanding persistent atrial fibrillation Code(s): I48.91 - Unspecified atrial fibrillation Status: Acute (8) Electrolyte abnormality: Code(s): E87.8 - Other disorders of electrolyte and fluid balance, not elsewhere classified Status: Acute Assessment and Plan: Hypokalemia resolved Plan Multifocal pneumonia ? Chest x-ray was read as diffuse lung disease on the right which could be pneumonia or asymmetric pulmonary edema.? CT chest reveled? diffuse interstitial and airspace opacities throughout the right lung and patchy nodular ground-glass opacities the left lung he is likely indicated pneumonia.? ?Started on broad-spectrum antibiotics with vancomycin cefepime.? Added Flagyl for anaerobic coverage is.? Minimal improvement of pneumonia on antibiotics Patient declines bronchoscopy study because of concern of intubation Repeat CT scan 11/19 Acute on chronic diastolic heart failure Continue diuresis as tolerated with Lasix 40 mg IV b.i.d..? BNP is elevated at 2930.? Echo has been obtained and pending previous echo from 2020 with ejection fraction 39% severe enlarged on the left ventricular cavity with severe global left ventricular systolic dysfunction. recheck echo with ejection fraction 55-60% with no significant valvular abnormality.? Entresto spironolactone on hold.? Lasix lowered to 20 mg b.i.d..? Acute respiratory failure Likely secondary to pneumonia with possible component of congestive heart failure, suspected undiagnosed COPD On presentation patient's BNP was 2930, echo showed diastolic function dysfunction but no significant edema on exam legs and infiltrates are asymmetrical Patient presented with elevated WBC but procalcitonin level was low at 0.2 and he has been afebrile for the most part Pulmonology is following COVID and influenza PCR was negative Mycoplasma IgM is pending Check Legionella and pneumococcal antigen Blood cultures have been negative till now Continue cefepime and Levaquin.? Vancomycin has been discontinued Bronchodilators Patient has? respiratory distress at this time.? Continue Airvo to maintain adequate saturation and NIPPV p.r.n.. Hypertension ?hold amlodipine 10 mg daily. Blood pressure soft ?Type 2 diabetes mellitus without complications ? ?Continue sliding scale insulin and Jardiance p.o. - Obstructive sleep apnea (adult) (pediatric) ?Status:?Acute ?Assessment and Plan: BiPAP is ordered at night ?Mixed hyperlipidemia ?Status:?Acute ?Assessment and Plan: Continue statin ?Atrial fibrillation type:?longstanding persistent? Currently in paced rhythm.? Hold beta-trace due to soft blood pressure He is anticoagulated with dabigatran Subjective Date/time seen: 11/20/22 16:22 Interval history:
[2022-11-20 16:39] LABS: Glucose Point of Care 163 mg/dl (65-105)
--- NOTE | 2022-11-20 17:08 | PM.DS ---
DS: Admitting Diagnosis Discharge Date Today Admitting Diagnosis (1) Acute respiratory failure: ?Code(s): J96.00 - Acute respiratory failure, unspecified whether with hypoxia or hypercapnia ?Status:?Acute (2) Pneumonia: ?Qualifiers: ?Laterality:?right??Pneumonia type:?due to unspecified organism ?Code(s): J18.9 - Pneumonia, unspecified organism ?Status:?Acute ?Assessment and Plan: See above (3) CHF (congestive heart failure): ?Qualifiers: ?Heart failure chronicity:?chronic??Heart failure type:?unspecified? Qualified Code(s):?I50.9 - Heart failure, unspecified ?Code(s): I50.9 - Heart failure, unspecified ?Status:?Acute (4) Type 2 diabetes mellitus without complication: ?Code(s): E11.9 - Type 2 diabetes mellitus without complications ?Status:?Acute (5) Obstructive sleep apnea: ?Code(s): G47.33 - Obstructive sleep apnea (adult) (pediatric) ?Status:?Acute (6) Mixed hyperlipidemia: ?Code(s): E78.2 - Mixed hyperlipidemia ?Status:?Acute (7) Atrial fibrillation: ?Qualifiers: ?Atrial fibrillation type:?longstanding persistent? Qualified Code(s):?I48.11 - Longstanding persistent atrial fibrillation ?Code(s): I48.91 - Unspecified atrial fibrillation ?Status:?Acute (8) Electrolyte abnormality: ?Code(s): E87.8 - Other disorders of electrolyte and fluid balance, not elsewhere classified ?Status:?Acute ?Assessment and Plan: Hypokalemia resolved DS: Discharge Diagnosis Discharge Diagnosis (1) Acute respiratory failure: Code(s): J96.00 - Acute respiratory failure, unspecified whether with hypoxia or hypercapnia Status: Acute (2) Pneumonia: Qualifiers: Laterality: right Pneumonia type: due to unspecified organism Code(s): J18.9 - Pneumonia, unspecified organism Status: Acute Assessment and Plan: See above (3) CHF (congestive heart failure): Qualifiers: Heart failure chronicity: chronic Heart failure type: unspecified Qualified Code(s): I50.9 - Heart failure, unspecified Code(s): I50.9 - Heart failure, unspecified Status: Acute (4) Type 2 diabetes mellitus without complication: Code(s): E11.9 - Type 2 diabetes mellitus without complications Status: Acute (5) Obstructive sleep apnea: Code(s): G47.33 - Obstructive sleep apnea (adult) (pediatric) Status: Acute (6) Mixed hyperlipidemia: Code(s): E78.2 - Mixed hyperlipidemia Status: Acute (7) Atrial fibrillation: Qualifiers: Atrial fibrillation type: longstanding persistent Qualified Code(s): I48.11 - Longstanding persistent atrial fibrillation Code(s): I48.91 - Unspecified atrial fibrillation Status: Acute (8) Electrolyte abnormality: Code(s): E87.8 - Other disorders of electrolyte and fluid balance, not elsewhere classified Status: Acute Assessment and Plan: Hypokalemia resolved DS: Summary Hospital Course Hospital Course: Per H and P, This is a 72-year-old male patient who has a history of CHF.? The patient came to the emergency room to be evaluated for increased shortness of breath.? The patient stated that he has been taking all of his medications as prescribed.? He has not missed any of his medications.? He did not notice any edema to his lower extremities.? The patient stated that he has been more short of breath over the last 4 days.? When EMS was activated the patient was sewed short of breath that he needed a CPAP machine.? The patient was placed on a BiPAP in the emergency room 25/11 with a rate of 4 in 50% oxygen.? Patient denied any chest pain.? Chest x-ray was read as diffuse lung disease on the right which could be pneumonia or asymmetric pulmonary edema.? Further evaluation was CT of the chest is recommended.? The patient was given Lasix in the emergency room as stated that he felt somewhat bett
--- NOTE | 2022-11-20 20:46 | PC.NURSE ---
EMS just left with patient for transfer to [facility] Room 428. [facility] and mastic man notified. Belongings sent with patient. Vitals and assessment per chart.
== END 2022-11-20 20:40 | disposition short-term general hospital (02) | DRG 193 ==
LOC: ANHED 07:16 → ANHIMU 09:10 → ANHICU 11-12 17:25
PROVIDERS: Emergency Medicine; Internal Medicine; Nurse Practitioner; Physician Assistant; Admitting Provider Chiropractor; Emergency Provider Emergency Medicine; PCP Internal Medicine; Visit Provider Hospitalist
DX: J18.9 Pneumonia, unspecified organism (principal); I50.33 Acute on chronic diastolic (congestive) heart failure; J96.21 Acute and chronic respiratory failure with hypoxia; I48.20 Chronic atrial fibrillation, unspecified; I42.8 Other cardiomyopathies; I11.0 Hypertensive heart disease with heart failure; N40.0 Benign prostatic hyperplasia without lower urinary tract symptoms; E11.9 Type 2 diabetes mellitus without complications; E78.2 Mixed hyperlipidemia; K21.9 Gastro-esophageal reflux disease without esophagitis; M48.00 Spinal stenosis, site unspecified; R77.8 Other specified abnormalities of plasma proteins; G47.33 Obstructive sleep apnea (adult) (pediatric); F43.12 Post-traumatic stress disorder, chronic; F32.A Depression, unspecified; F41.9 Anxiety disorder, unspecified; Z87.891 Personal history of nicotine dependence; Z95.810 Presence of automatic (implantable) cardiac defibrillator; Z79.01 Long term (current) use of anticoagulants; Z20.822 Contact with and (suspected) exposure to COVID-19
CPT/HCPCS: 36415; 36569; 36600; 71045; 71250; 80053; 80202; 82375; 82805; 82948; 83036; 83050; 83605; 83735; 83880; 84100; 84132; 84145; 84439; 84443; 84480; 84484; 85025; 85027; 85610; 85730; 86738; 87040; 87081; 87449; 87636; 87899; 92610; 93005; 93306; 94002; 94003; 94640; 94668; 94669; 97110; 97161; 97166; 97530; 97535; 99285; A9270; C1751; J0692; J1815; J1836; J1940; J1956; J2930; J3370; J7050